=== PATIENT | female | born 1955 | race Caucasian/White ===

== ENCOUNTER → 2017-11-08 | Outpatient (REF) | payer OTHER ==
[2017-11-08 19:59] LABS: BASO # 0.1 10^3/uL (0.0-0.2); BASO % 1.1 % (0.0-1.0); EOS # 0.2 10^3/uL (0.0-0.50); EOS % 2.8 % (0.0-3.0); HEMATOCRIT 45.3 % (36.0-47.0); HEMOGLOBIN 14.9 g/dl (12.0-16.0); IMMATURE GRANULOCYTE % 0.3 % (0-0); LYMPH # 1.6 10^3/uL (1.5-4.5); LYMPH % 21.6 % (24.0-44.0); MEAN CORPUSCULAR HGB CONC 32.9 g/dl (32.0-36.5); MEAN CORPUSCULAR VOLUME 97.2 fl (80.0-96.0); MONO # 0.7 10^3/uL (0.0-0.8); MONO % 9.1 % (0.0-5.0); NEUTROPHILS # 4.7 10^3/uL (1.8-7.7); NEUTROPHILS % 65.1 % (36.0-66.0); PLATELET COUNT, AUTOMATED 268 10^3/uL (150-450); RED BLOOD COUNT 4.66 10^6/uL (4.00-5.40); RED CELL DISTRIBUTION WIDTH 13.2 % (11.5-14.5); WHITE BLOOD COUNT 7.3 10^3/uL (4.0-10.0)
[2017-11-08 20:17] LABS: ALBUMIN 4.3 GM/DL (3.2-5.2); ALKALINE PHOSPHATASE 63 U/L (45-117); ALT/SGPT 16 U/L (12-78); ANION GAP 7 MEQ/L (8-16); AST/SGOT 11 U/L (7-37); BILIRUBIN,TOTAL 0.2 MG/DL (0.2-1.0); BLOOD UREA NITROGEN 15 MG/DL (7-18); CALCIUM LEVEL 9.6 MG/DL (8.8-10.2); CARBON DIOXIDE LEVEL 28 MEQ/L (21-32); CHLORIDE LEVEL 105 MEQ/L (98-107); FREE T4 0.97 NG/DL (0.76-1.46); GLOMERULAR FILTRATION RATE > 60.0 (>45); GLUCOSE, FASTING 90 MG/DL (80-110); SODIUM LEVEL 140 MEQ/L (136-145); TOTAL PROTEIN 7.6 GM/DL (6.4-8.2)
== END ==
LOC: M SFHCADAM 13:54
DX: R53.83 Other fatigue (principal); R19.7 Diarrhea, unspecified

== ENCOUNTER → 2017-11-20 | Outpatient (REF) | payer OTHER | LOC: M SFHCADAM 11:18 | DX: R19.7 Diarrhea, unspecified (principal) | CPT/HCPCS: 87507 ==

== ENCOUNTER → 2018-10-06 | Outpatient (CLI) | payer OTHER, MEDICAID ==
--- NOTE | 2018-10-06 14:05 | REP ---
REASON: Dyspnea and wheezing. COMPARISON: 04/02/2010, which is the latest prior. There is a mild increase in the basilar interstitial markings, status quo, likely from chronic fibrotic changes. The pleural angles are minimally blunted, right greater than left. This too appears to be secondary to chronic change. No acute patchy parenchymal opacities or pleural effusions have developed since the last exam. The heart is not enlarged. The osseous structures stable and intact with spinal degenerative changes, status quo. There is some lung field hyperexpansion. The asymmetric density seen previously in the anterior retrosternal clear space is essentially unchanged. IMPRESSION: Chronic changes, as described above, however, given the history of tobacco abuse, CT lung screening may be in order since plain radiographic evaluation cannot rule out a significant pulmonary nodule. Electronically Signed by Dequan Mckeon DO 10/06/2018 02:07 P
== END ==
LOC: M WUC 12:53
PROVIDERS: ATTEND Physician Assistant
DX: R91.8 Other nonspecific abnormal finding of lung field (principal); R06.02 Shortness of breath; R06.2 Wheezing; Z72.0 Tobacco use

== ENCOUNTER → 2018-11-19 | Outpatient (CLI) | payer OTHER ==
--- NOTE | 2018-11-19 11:17 | REP ---
Clinical: Lung screening. History of nicotine dependence. Comparison: None Technique: Axial low-dose noncontrast images from the thoracic inlet to the upper abdomen using lung screening technique. Images obtained and evaluated in the lung windows only. Findings: The lung das are well-aerated. There appears to be elements of biapical scarring (right greater than left) as well as minimal scarring in the lingula. There is an area of opacity along the medial right upper lobe (image 37) which measures approximately 1.7 cm maximal diameter and while this may represent focal scarring, active process cannot be excluded. No prior examinations are available for comparison. No pleural effusion/reaction or pneumothorax. Tracheobronchial tree is patent. Impression: Examination must be considered Lung-RADS category IV-B. The 17 mm area of opacity along the medial right upper lobe cannot definitively be characterized and no prior examinations are available for comparison. Electronically Signed by Devon Peña MD 11/19/2018 11:09 A
== END ==
LOC: M RAD 10:26
PROVIDERS: ATTEND Internal Medicine Pulmonary Disease
DX: Z12.2 Encounter for screening for malignant neoplasm of respiratory organs (principal); F17.218 Nicotine dependence, cigarettes, with other nicotine-induced disorders; R91.8 Other nonspecific abnormal finding of lung field

== ENCOUNTER → 2018-12-11 | Outpatient (CLI) | payer OTHER ==
--- NOTE | 2018-12-12 20:28 | REP ---
Whole body PET CT scan: The study is performed for evaluation of a lung nodule identified on a low-dose lung screening chest CT. Whole-body scanning is performed from skull base to the upper thighs. Neck and supraclavicular areas: There are no hypermetabolic foci. Chest: The nodule that was identified anteromedially in the right upper lobe on the comparison chest CT dated 11/19/2089 is again identified on the CT accompanying the PET scan today. The nodule demonstrates borderline hypermetabolic uptake with a maximal standard uptake value of 2.9. However, there are two small nodules in the deep lateral sulcus of the right lower lobe. The anterior most nodule measures 1.6 cm in diameter and has a standard uptake value of 5.2 and is hypermetabolic. The posterior more nodule measures 1.4 cm in diameter and has a maximum standard uptake value of 3.2, borderline hypermetabolic. There are no other hypermetabolic foci in the chest. There are no other foci in the chest. Abdomen, pelvis and upper thighs: There are no hypermetabolic foci. Impression: The right upper lobe lung nodule identified on the comparison CT is borderline hypermetabolic. However, there is a hypermetabolic nodule and there is a borderline hypermetabolic nodule in the deep lateral right lower lobe sulcus. No other hypermetabolic foci are identified. The study is performed with 9.18 mCi of F 18 FDG. Electronically Signed by Jake Jain MD 12/12/2018 08:18 P
== END ==
LOC: M PLARAD 16:30
PROVIDERS: ATTEND Internal Medicine Pulmonary Disease
DX: R91.1 Solitary pulmonary nodule (principal)
CPT/HCPCS: 78815; A9552

== ENCOUNTER → 2018-12-24 | Outpatient (REF) | payer OTHER ==
[2018-12-24 18:08] LABS: INR 0.94; PROTHROMBIN TIME 12.7 SECONDS (12.1-14.4)
[2018-12-24 18:09] LABS: PARTIAL THROMBOPLASTIN TIME 29.7 SECONDS (25.4-37.6)
== END ==
LOC: M LAB REF 17:21
PROVIDERS: ATTEND Internal Medicine Pulmonary Disease
DX: Z01.812 Encounter for preprocedural laboratory examination (principal); R94.2 Abnormal results of pulmonary function studies

== ENCOUNTER → 2019-02-11 | Outpatient (CLI) | payer OTHER ==
--- NOTE | 2019-02-11 11:40 | REP ---
CT CHEST WITHOUT CONTRAST: HISTORY: Nonspecific abnormal finding in the lung field. Comparison chest CT study November 19, 2018. Comparison PET/CT study December 11, 2018. FINDINGS: There is a band-like area of pleuroparenchymal opacity in the anterior medial aspect of the right upper lobe again seen. This is essentially unchanged from the November 19, 2018 prior study. It measures 14 x 19 mm in transverse dimension but has a somewhat linear angular fibrotic contour. It is felt to be most compatible with inflammatory change. There is new finding of peribronchovascular consolidation and collapse in the lingular segment of the left upper lobe today. There are some similar inspissated bronchial and peribronchial changes in the left lower lobe at the left base. Very subtle peripheral pleuroparenchymal changes are seen in the right lower lobe laterally in the lateral pleural angle. This area showed increased uptake on recent PET/CT. There are scattered normal-sized mediastinal lymph nodes. The largest lymph node is a precarinal lymph node which measures 10 mm in short axis dimension x 20 mm in transverse dimension. There are two small lymph nodes along the right lateral margin of the upper thoracic esophagus which are normal in size. There is a granulomatous lymph node calcification in the left hilus. No adrenal lesion is seen. Visualized upper abdominal structures are unremarkable. IMPRESSION: Scattered peribronchial and scattered pleuroparenchymal changes bilaterally consistent with inflammatory disease. Electronically Signed by Zachariah Connolly MD 02/11/2019 01:20 P
== END ==
LOC: M RAD 10:30
PROVIDERS: ATTEND Internal Medicine Pulmonary Disease
DX: R91.8 Other nonspecific abnormal finding of lung field (principal)

== ENCOUNTER → 2019-06-04 | Outpatient (CLI) | payer OTHER ==
--- NOTE | 2019-06-04 15:44 | REP ---
REASON: Cough. COMPARISON: 10/06/2018. The lung das are somewhat hyperexpanded. There is fibrotic change throughout the lung das with basilar predominance status quo. The heart is not enlarged. Chronic changes are seen involving the imaged spine status quo. IMPRESSION: Chronic changes. Electronically Signed by Dequan Mckeon DO 06/04/2019 05:09 P
== END ==
LOC: M WUC 12:07
PROVIDERS: ATTEND Nurse Practitioner Family
DX: R05 Cough (principal); R06.02 Shortness of breath; R06.2 Wheezing

== ENCOUNTER → 2019-10-08 | Outpatient (REF) | payer OTHER ==
[2019-10-08 19:38] LABS: HEMATOCRIT 44.1 % (36.0-47.0); HEMOGLOBIN 14.2 g/dl (12.0-15.5); MEAN CORPUSCULAR HEMOGLOBIN 32.4 pg (27.0-33.0); MEAN CORPUSCULAR HGB CONC 32.2 g/dl (32.0-36.5); MEAN CORPUSCULAR VOLUME 100.7 fl (80.0-96.0); PLATELET COUNT, AUTOMATED 212 10^3/uL (150-450); RED BLOOD COUNT 4.38 10^6/uL (4.00-5.40); WHITE BLOOD COUNT 6.7 10^3/uL (4.0-10.0)
[2019-10-08 19:46] LABS: ALBUMIN 3.5 GM/DL (3.2-5.2); ALT/SGPT 21 U/L (12-78); BILIRUBIN,TOTAL 0.2 MG/DL (0.2-1.0); BLOOD UREA NITROGEN 14 MG/DL (7-18); CALCIUM LEVEL 8.5 MG/DL (8.8-10.2); CARBON DIOXIDE LEVEL 31 MEQ/L (21-32); CHLORIDE LEVEL 104 MEQ/L (98-107); CHOLESTEROL LEVEL 235 MG/DL (<200); CHOLESTEROL RISK RATIO 3.405 (<5); CREATININE FOR GFR 0.78 MG/DL (0.55-1.30); FREE T4 0.91 NG/DL (0.76-1.46); GLOMERULAR FILTRATION RATE > 60.0 (>45); GLUCOSE, FASTING 72 MG/DL (70-100); HDL CHOLESTEROL 69 MG/DL (>40); LDL CHOLESTEROL 148 MG/DL (<100); NON-HDL-C 166 MG/DL; SODIUM LEVEL 140 MEQ/L (136-145); TRIGLYCERIDES LEVEL 91 MG/DL (<150)
== END ==
LOC: M SFHCADAM 15:54
PROVIDERS: ATTEND Physician Assistant
DX: F17.200 Nicotine dependence, unspecified, uncomplicated (principal); J44.9 Chronic obstructive pulmonary disease, unspecified; F10.10 Alcohol abuse, uncomplicated; Z12.11 Encounter for screening for malignant neoplasm of colon; E78.2 Mixed hyperlipidemia

== ENCOUNTER → 2019-10-28 | Outpatient (CLI) | payer OTHER ==
--- NOTE | 2019-10-28 14:26 | REP ---
Chest x-ray: Two views. History: Chronic obstructive pulmonary disease. Cough and chest pain on inspiration. Findings: There is a large new infiltrate in the superior segment of the left lower lobe with some consolidation more inferiorly and laterally in the left lower lobe. This is consistent with acute pneumonia. There is some left upper lobe pleuroparenchymal scarring in the retrosternal clear space. An old healed rib fractures noted on the right. Heart size is normal. Lungs are somewhat hyperinflated overall. Impression: Left lower lobe pneumonia. Dense fairly large infiltrate in the superior segment of the left lower lobe. Follow-up films recommended. Electronically Signed by Zachariah Connolly MD 10/28/2019 02:17 P
== END ==
LOC: M WUC 13:40
PROVIDERS: ATTEND Physician Assistant
DX: J18.0 Bronchopneumonia, unspecified organism (principal); J44.1 Chronic obstructive pulmonary disease with (acute) exacerbation

== ENCOUNTER → 2019-11-24 | Outpatient (CLI) | payer OTHER ==
--- NOTE | 2019-11-24 13:38 | REP ---
PA and lateral chest: Comparison is 10/28/2019. There is a persisting infiltrate in the superior segment of the left upper lobe, unchanged from the prior study. The persistence of this finding is bothersome. Chest CT is recommended for further evaluation for assurance there is not a mass. The right lung is clear. Cardiac size normal. The right hilus, mediastinum, skeletal structures are otherwise unremarkable. Impression: Persisting infiltrate in the superior segment of the left upper lobe. CT followup is recommended for assurance there is not a mass. Electronically Signed by Jake Jain MD 11/24/2019 01:29 P
== END ==
LOC: M WUC 13:04
PROVIDERS: ATTEND Physician Assistant
DX: J18.9 Pneumonia, unspecified organism (principal)

== ENCOUNTER → 2020-01-22 | Outpatient (REF) | payer OTHER ==
[2020-01-22 14:02] LABS: BASO # 0.1 10^3/uL (0.0-0.2); EOS # 0.6 10^3/uL (0.0-0.5); EOS % 9.1 % (0.0-3.0); HEMATOCRIT 41.4 % (36.0-47.0); HEMOGLOBIN 13.5 g/dl (12.0-15.5); LYMPH # 0.9 10^3/uL (1.5-5.0); MEAN CORPUSCULAR HEMOGLOBIN 33.3 pg (27.0-33.0); MEAN CORPUSCULAR HGB CONC 32.6 g/dl (32.0-36.5); MONO # 0.6 10^3/uL (0.0-0.8); MONO % 10.1 % (0.0-5.0); NEUTROPHILS # 3.9 10^3/uL (1.5-8.5); NEUTROPHILS % 64.5 % (36.0-66.0); PLATELET COUNT, AUTOMATED 265 10^3/uL (150-450); RED BLOOD COUNT 4.06 10^6/uL (4.00-5.40); WHITE BLOOD COUNT 6.1 10^3/uL (4.0-10.0)
[2020-01-22 14:06] LABS: ALBUMIN 3.3 GM/DL (3.2-5.2); ALT/SGPT 16 U/L (12-78); BILIRUBIN,TOTAL 0.2 MG/DL (0.2-1.0); BLOOD UREA NITROGEN 19 MG/DL (7-18); CALCIUM LEVEL 8.9 MG/DL (8.8-10.2); CARBON DIOXIDE LEVEL 30 MEQ/L (21-32); CHLORIDE LEVEL 108 MEQ/L (98-107); COMPLEMENT C3 108 MG/DL (90-180); COMPLEMENT C4 19 MG/DL (10-40); CREATININE FOR GFR 0.83 MG/DL (0.55-1.30); GLOMERULAR FILTRATION RATE > 60.0 (>45); GLUCOSE, FASTING 78 MG/DL (70-100); POTASSIUM SERUM 4.5 MEQ/L (3.5-5.1); SODIUM LEVEL 141 MEQ/L (136-145); TOTAL PROTEIN 6.9 GM/DL (6.4-8.2)
[2020-01-22 14:25] LABS: ERYTHROCYTE SEDIMENTATION RATE 11 mm/hr (0-30)
== END ==
LOC: M SFHCADAM 12:14
PROVIDERS: ATTEND Physician Assistant
DX: L50.9 Urticaria, unspecified (principal)

== ENCOUNTER → 2020-02-25 | Outpatient (REF) | payer OTHER | LOC: M LAB REF 18:19 | PROVIDERS: ATTEND Dermatology | DX: L43.9 Lichen planus, unspecified (principal) ==

== ENCOUNTER → 2020-03-24 | Outpatient (CLI) | payer OTHER ==
--- NOTE | 2020-04-02 15:07 | REP ---
Clinical: Lung screening. History smoking. Comparison: 02/11/2019 Technique: Axial low-dose noncontrast images from the thoracic inlet to the upper abdomen using lung screening technique. Findings: The current examination demonstrates moderate emphysematous disease and scattered scarring primarily noted in the anterior medial right upper lobe, lingula and right base which appears relatively stable. There is a new 1.7 cm lesion along the medial aspect of the left apex (image 14) as well as a new area of consolidation measuring approximately 3.8 x 2.1 x 2.0 cm along the posterior left lung straddling the superior segment of the left upper lobe and adjacent basilar portion of the posterior left lower lobe (images 28 - 42). No effusion. No pneumothorax. Mild chronic bronchiectasis suggested. Adenopathy cannot be excluded. Atherosclerotic changes to the thoracic aorta and coronary arteries noted. Impression: 1. New areas of concern at the left apex and posterior left mid lung zone as described above. Pulmonary consultation along with short-term follow-up or PET CT should be considered. Electronically Signed by Devon Peña MD 03/25/2020 04:35 A
== END ==
LOC: M RAD 11:00
PROVIDERS: ATTEND Internal Medicine Pulmonary Disease
DX: Z12.2 Encounter for screening for malignant neoplasm of respiratory organs (principal); F17.218 Nicotine dependence, cigarettes, with other nicotine-induced disorders; J43.9 Emphysema, unspecified; I70.0 Atherosclerosis of aorta; I25.10 Atherosclerotic heart disease of native coronary artery without angina pectoris; R91.8 Other nonspecific abnormal finding of lung field

== ENCOUNTER → 2020-04-02 | Outpatient (CLI) | payer OTHER ==
--- NOTE | 2020-04-02 16:19 | REP ---
REASON: Knee pain after trauma 2 weeks ago. There is minimal tricompartmental marginal osteophytosis. There is no fracture, dislocation, or subluxation. IMPRESSION: Slight early degenerative changes. Electronically Signed by Dequan Mckeon DO 04/02/2020 05:07 P
== END ==
LOC: M WUC 14:23
PROVIDERS: ATTEND Physician Assistant
DX: M17.12 Unilateral primary osteoarthritis, left knee (principal)

== ENCOUNTER → 2020-06-09 | Outpatient (CLI) | payer OTHER ==
--- NOTE | 2020-07-20 07:23 | REP ---
WHOLE BODY PET-CT SCAN: Delay in reporting results from hospital computer system malfunction from malware/ ransomware. HISTORY: Evaluation of a lung nodule. On a prior chest CT dated 05/15/20, the focal lung opacity posteriorly in the superior segment of the left lower lobe was again identified and was unchanged from the 03/24/20 CT accompanying the PET scan.. The maximal standard uptake value within this lesion is 2.65, marginally hypermetabolic. There is a focal zone of chronic pleuroparenchymal scarring medially in the right upper lobe that demonstrates non-hypermetabolic uptake with a maximal standard uptake value of 2.16. . On a prior PET scan of 12/11/18, this was borderline hypermetabolic with a standard uptake value of 2.9. One the comparison PET scan, there were 2 nodules in the deep lateral sulcus of the right lower lobe. The more anterior of these 2 nodules is no longer present on the current study. The more posterior of these 2 nodules is again identified and demonstrates a maximal standard uptake value of 1.0, non-hypermetabolic. There are no hypermetabolic foci otherwise in the lung das, mediastinum, shaniqua or axilla on the right or the left. NECK AND SUPRACLAVICULAR AREAS: There is artifactual uptake in tonsillar tissues and vocal cords, similar to the prior study. There are no hypermetabolic foci. ABDOMEN, PELVIS AND UPPER THIGHS: There are no adrenal foci. There are no hepatic foci. There are no hypermetabolic foci otherwise. There is nonspecific bowel uptake. IMPRESSION: There are no hypermetabolic foci. Specifically, the new lesion posteriorly in the superior segment of the left lower lobe demonstrates marginal hypermetabolic uptake, the hypermetabolic threshold being 2.5. There are no foci otherwise. The study is performed with 7.60 mCi of F18 FDG. MTDD
== END ==
LOC: M PLARAD 14:00
PROVIDERS: ATTEND Internal Medicine Pulmonary Disease
DX: R91.8 Other nonspecific abnormal finding of lung field (principal)

== ENCOUNTER → 2020-07-24 | Outpatient (REF) | payer OTHER ==
[2020-07-24 17:10] LABS: BASO % 0.4 % (0.0-1.0); EOS # 0.2 10^3/uL (0.0-0.5); EOS % 2.3 % (0.0-3.0); HEMATOCRIT 47.3 % (36.0-47.0); HEMOGLOBIN 15.5 g/dl (12.0-15.5); LYMPH # 1.5 10^3/uL (1.5-5.0); MEAN CORPUSCULAR HEMOGLOBIN 31.3 pg (27.0-33.0); MEAN CORPUSCULAR HGB CONC 32.8 g/dl (32.0-36.5); MEAN CORPUSCULAR VOLUME 95.6 fl (80.0-96.0); MONO # 0.9 10^3/uL (0.0-0.8); MONO % 9.5 % (0.0-5.0); NEUTROPHILS # 6.6 10^3/uL (1.5-8.5); NEUTROPHILS % 71.5 % (36.0-66.0); PLATELET COUNT, AUTOMATED 252 10^3/uL (150-450); RED BLOOD COUNT 4.95 10^6/uL (4.00-5.40); WHITE BLOOD COUNT 9.3 10^3/uL (4.0-10.0)
[2020-07-24 17:36] LABS: ALBUMIN 3.7 GM/DL (3.2-5.2); ALT/SGPT 21 U/L (12-78); AMYLASE 54 U/L (25-115); BILIRUBIN,TOTAL 0.4 MG/DL (0.2-1.0); BLOOD UREA NITROGEN 26 MG/DL (7-18); CALCIUM LEVEL 9.5 MG/DL (8.8-10.2); CARBON DIOXIDE LEVEL 29 MEQ/L (21-32); CHLORIDE LEVEL 99 MEQ/L (98-107); CREATININE FOR GFR 0.78 MG/DL (0.55-1.30); FREE T4 1.03 NG/DL (0.76-1.46); GLOMERULAR FILTRATION RATE > 60.0 (>45); GLUCOSE, FASTING 91 MG/DL (70-100); LIPASE 111 U/L (73-393); POTASSIUM SERUM 4.2 MEQ/L (3.5-5.1); SODIUM LEVEL 136 MEQ/L (136-145); TOTAL PROTEIN 7.8 GM/DL (6.4-8.2)
[2020-07-24 17:48] LABS: ERYTHROCYTE SEDIMENTATION RATE 8 mm/hr (0-30)
[2020-07-24 18:54] LABS: TOTAL 25(OH) VITAMIN D 17.8 NG/ML (30.0-100.0)
== END ==
LOC: M SFHCADAM 15:51
PROVIDERS: ATTEND Physician Assistant
DX: R10.13 Epigastric pain (principal); R11.0 Nausea; M47.812 Spondylosis without myelopathy or radiculopathy, cervical region; M25.559 Pain in unspecified hip

== ENCOUNTER → 2020-08-10 | Outpatient (CLI) | payer OTHER ==
--- NOTE | 2020-08-10 09:45 | REP ---
INDICATION: CHRONIC NAUSEA, ALCOHOL ABUSE, EPIGASTRIC PAIN COMPARISON: None. TECHNIQUE: Real time carranza scale ultrasound examination using curved array transducer. FINDINGS: Liver demonstrates coarsened echotexture and mildly increased echogenicity without focal hepatic lesions identified. Pancreas is incompletely evaluated due to interposed bowel gas. The gallbladder is normal and without gallstones, wall thickening, or pericholecystic fluid. No biliary ductal dilatation is appreciated and the common bile duct measures 2.4 mm diameter. Right kidney is normal in reniform shape without hydronephrosis and measures 10.8 x 6.3 x 4.9 cm. No ascites in the visualized right upper quadrant. IMPRESSION: 1. Mild hepatocellular disease/hepatosteatosis cannot be excluded. 2. Otherwise normal right upper quadrant/liver ultrasound. <Electronically signed by Devon Peña > 08/10/20 [id number]
== END ==
LOC: M RAD 09:15
PROVIDERS: ATTEND Physician Assistant
DX: R11.0 Nausea (principal); R10.13 Epigastric pain; F10.10 Alcohol abuse, uncomplicated

== ENCOUNTER → 2020-09-02 | Outpatient (CLI) | payer OTHER | LOC: M LABSMTC 11:34 | PROVIDERS: ATTEND Family Medicine | DX: Z20.828 Contact with and (suspected) exposure to other viral communicable diseases (principal) ==

== ENCOUNTER → 2020-10-01 | Outpatient (CLI) | payer OTHER ==
--- NOTE | 2020-10-01 13:55 | REP ---
INDICATION: OTHER NONSPECIFIC ABN FINDINGS OF LUNG FIELD. COMPARISON: Comparison is made with multiple prior chest CTs dated May 15, 2020, March 24, 2020, February 11, 2019, and November 19, 2018.. TECHNIQUE: Helical scanning is acquired and 3 mm axial images are generated. Coronal and sagittal MPR and coronal MIP images are generated. FINDINGS: Preliminary digital driver/merchandiser radiographs are unremarkable. There is no evidence of pleural or pericardial effusion. Some vascular calcification is noted. There is a 2.6 cm low-density area above the left adrenal gland and adjacent to the gastric fundus. Air is seen within this at the time of the PET-CT and this is felt to be a gastric diverticulum which is a normal variant. 9 the visualized upper abdominal structures are otherwise unremarkable. There is a granulomatous lymph node calcifications in the left inferior hilus. No mass or adenopathy is seen. The recently noted pleural based opacity in the superior segment of the left lower lobe is again noted. This measures 4.4 cm in right to left by 1.9 cm anterior-posterior by 2.7 cm cranial to caudal. This is associated with air bronchograms and some atelectatic change. Similar peripheral atelectatic changes with air bronchograms have been noted previously. There is some stable pleuroparenchymal fibrosis in the right upper lobe anteriorly unchanged. An area of a similar opacity was noted previously on the left which is but this has improved. No other pulmonary mass or nodule is seen. There are emphysematous changes. There is a granulomatous calcification in the lingula unchanged. IMPRESSION: Pleural based parenchymal opacity in the superior segment the left lower lobe with volume loss and air bronchograms persists unchanged from most recent prior CT study of May 15, 2020. Chronic pleuroparenchymal fibrotic changes in the right upper lobe. Similar lesions previously identified in the left lower lobe and lingula have resolved. <Electronically signed by Jose Alejandro Connolly > 10/01/20 2024
== END ==
LOC: M RAD 10:49
PROVIDERS: ATTEND Internal Medicine Pulmonary Disease
DX: R91.8 Other nonspecific abnormal finding of lung field (principal)

== ENCOUNTER → 2020-11-04 | Outpatient (CLI) | payer OTHER ==
[~2020-11-04] MED LIST: ABIL1TAB11 PO; ARNU1INH3 INH; ASHW300C PO; BENA25CA4 PO; CLAR10CA3 PO; OMEG350C PO; OMEP40CA97 PO; PAXI40TA10 PO; STIO1AER INH; VENTAER INH; VITA-243 PO; ZINC1TAB2 PO
== END ==
LOC: M LABSMTC 11:53
PROVIDERS: ATTEND Anesthesiology
DX: Z01.812 Encounter for preprocedural laboratory examination (principal); Z20.828 Contact with and (suspected) exposure to other viral communicable diseases

== ENCOUNTER → 2020-11-04 | Outpatient (CLI) | payer OTHER ==
[2020-11-04 16:16] LABS: BASO # 0.1 10^3/uL (0.0-0.2); BASO % 0.9 % (0.0-1.0); EOS # 0.1 10^3/uL (0.0-0.5); EOS % 2.4 % (0.0-3.0); HEMATOCRIT 44.8 % (36.0-47.0); HEMOGLOBIN 14.7 g/dl (12.0-15.5); LYMPH # 0.9 10^3/uL (1.5-5.0); LYMPH % 15.3 % (24.0-44.0); MEAN CORPUSCULAR HEMOGLOBIN 33.9 pg (27.0-33.0); MEAN CORPUSCULAR HGB CONC 32.8 g/dl (32.0-36.5); MEAN CORPUSCULAR VOLUME 103.2 fl (80.0-96.0); MONO # 0.6 10^3/uL (0.0-0.8); MONO % 10.1 % (0.0-5.0); NEUTROPHILS # 4.1 10^3/uL (1.5-8.5); PLATELET COUNT, AUTOMATED 280 10^3/uL (150-450); RED BLOOD COUNT 4.34 10^6/uL (4.00-5.40); WHITE BLOOD COUNT 5.8 10^3/uL (4.0-10.0)
[2020-11-04 16:33] LABS: ALBUMIN 3.5 GM/DL (3.2-5.2); ALT/SGPT 26 U/L (12-78); BILIRUBIN,TOTAL 0.3 MG/DL (0.2-1.0); BLOOD UREA NITROGEN 22 MG/DL (7-18); CALCIUM LEVEL 8.8 MG/DL (8.8-10.2); CARBON DIOXIDE LEVEL 32 MEQ/L (21-32); CHLORIDE LEVEL 101 MEQ/L (98-107); CREATININE FOR GFR 0.72 MG/DL (0.55-1.30); GLOMERULAR FILTRATION RATE > 60.0 (>45); GLUCOSE, FASTING 80 MG/DL (70-100); POTASSIUM SERUM 4.7 MEQ/L (3.5-5.1); RHEUMATOID FACTOR QUANT < 10.0 IU/ML (<15.0); SODIUM LEVEL 135 MEQ/L (136-145)
[2020-11-04 16:39] LABS: INR 0.97; PROTHROMBIN TIME 13.1 SECONDS (12.5-14.3)
[2020-11-04 16:40] LABS: PARTIAL THROMBOPLASTIN TIME 25.1 SECONDS (24.2-38.5)
== END ==
LOC: M PLALAB 12:23
PROVIDERS: ATTEND Internal Medicine Pulmonary Disease
DX: R91.8 Other nonspecific abnormal finding of lung field (principal)

== ENCOUNTER 2020-11-09 06:08 | Day surgery (SDC) | payer OTHER ==
[~2020-11-09] VITALS: Ht 165.1 cm; Wt 77.1 kg
--- OUTSIDE RECORDS SUMMARY | 2020-11-09 06:13 | CCD ---
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 Name Role Phone Kylee Bonilla Unavailable PROBLEMS Type Condition ICD9-CM Code [id number] Code Onset Dates Condition S tatus SNOMED Code Notes Problem Major depressive disorder, recurrent, moderate F33 .1 Active 858597159 Problem Opioid dependence, uncomplicated F11.20 Active 69586174 Problem ETOH abuse F10.10 Active 26847432 Problem 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 Active 746581316 Problem Sciatica, unspecified side M54.30 Active 70166 005 Problem COPD exacerbation J44.1 Active 009391486 Problem Major depressive disorder, single episode, unspecified F32.9 Active 70944466 Problem Anxiety F41.9 Active 17153833 Problem Mixed hyperlipidemia E78.2 Active 591233757 Problem Chronic obstructive pulmonary disease, unspecified COPD ty pe J44.9 Active 71100862 Problem Cigarette nicotine dependence with other nicotin e-induced disorder F17.218 Active [id number] ALLERGIES No Known Allergies ENCOUNTERS from 1955 to 2020-09-08 Encounter Location Date Provider Diagnosis [address] [place] [address] Aug, Lowell Bonilla Major depressive disorder, recurrent, moderate F33.1 IMMUNIZATIONS Vaccine Route Administration Date Status Influenza (18 yrs & older) Flublok IM Intramuscular Oct 08, 2019 Administered Depo-Medrol 80mg (Methylprednisolone Acetate) IM Intramuscular A pril 2019 Administered Pneumococcal Adult 0.5mL (Pneumovax 23) IM Intramuscular Oct 08, 2019 Administered Influenza (6mo & up) Fluzone IM Intramuscular Oct 02, 2012 Ad ministered SOCIAL HISTORY Tobacco Use: Social History Observation Description Date Details (start date - stop date) Current Smoker Sex Assigned At : Social History Observation Description Sex Assigned At Unknown Audit Question Answer Notes Total Score: 11 Interpretation: Simple Advice Language: Question Answer Notes Languages spoken: Latvian Sexual Hx: Question Answer Notes Had sex in the last 12 months (vaginal, oral, or anal)? No Have you ever had an STD? No Drug and Alcohol Question Answer Notes Total Score: 0 Interpretation: No problems reported Alcohol Screening: Question Answer Notes Did you have a drink containing alcohol in the past year? Ye s Points 7 Interpretation Positive How often did you have six or more drinks on one occas ion in the past year? Monthly (2 points) How many drinks did you have on a typica l day when you were drinking in the past year? 3 or 4 (1 point) How often did you have a drink containing alcohol in t he past year? Four or more times a week (4 points) Tobacco Use: Question Answer Notes Are you a: current smoker Patient counseled on the dangers of tobacco use and urged to quit: 10/08/2019 How many cigarettes a day do you smoke? 21-30 REASON FOR REFERRAL No Information VITAL SIGNS No information MEDICATIONS Medication SIG (Take, Route, Frequency, Duration) Notes Start Da te End Date Status Vitamin B Complex - as directed Orally Active [place]-3 + D 500-200 MG-UNIT as directed Orally Active Ashwagandha 500 MG as directed Orally Active Abilify 5 MG 1 tablet Orally Once a day for 30 day(s) 2019 Active Amoxicillin-Pot Clavulanate 875-125 MG 1 tablet Orally every 12 hrs for 10 day(s) Aug, Active Hydrocortisone 1 % 1 application to affected area Externally Twice a day Active Meloxicam 7.5 MG 1 tablet Orally Once a day for 30 day(s) Jul, Not-Taking Omeprazole 40 MG 1 capsule 30 minutes before morning meal Orally Once a day for 30 day(s) Jul, Not-Taking Arnuity Ellipta 200 MCG/ACT INHALE ONE PUFF BY MOUTH O NCE DAILY Inhalation for 30 Active Triamcinolone Acetonide 0.1 % 1 application Externally Two times a Week for 30 Days Active Albuterol Sulfate HFA 108 (90 Base) MCG/ACT 2 puffs In halation Once a day for 30 days Active Tums 500 MG 1 tablet Orally Four times a day Not-Taking PredniSONE 10 MG 4 tabs daily x 2 days, then 3 tabs daily x 2 days then 2 tabs daily x 2 days, then 1 tab daily x 2 days Orally as directed for 10 days Aug, Active Stiolto Respimat 2.5-2.5 MCG/ACT INHALE TWO PUFFS BY M OUT ONCE DAILY Inhalation for 30 Active Benadryl 25 MG 1 capsule as needed Orally every 6 hrs Active Magnesium 100 MG 4 tablets with a meal Orally Once a day for 30 day(s ) Active Paxil 40 MG 1 tablet in the morning once a day orally 30 day(s) Orally Once a day Active PROCEDURES No Information RESULTS No Results REASON FOR VISIT abilify MEDICAL (GENERAL) HISTORY Type Description Date Medical History Contact Dermatitis Medical History moderately severe COPD per Pulmonary Medical History vitamin D deficiency, mild (08/11) Medical History allergic rhinitis Medical History mild C-spine stenosis per CT 02/2011 Medical History H/O opiate dependence - 2018 Medical History Moderately Severe Depression Medical History Hyperlipidemia - ASCVD Risk = 7% 9 Medical History Chronic Contact Dermatitis hands Medical History Smoker Medical History Lung Nodule - Following with Pulmonary - Due for f/u CT 03/2020 Medical History Diarrhea Medical History Unspecified asthma, uncomplicated Medical History Nicotine dependence, unspecified, uncomp licated Medical History Narcotic dependence, in remission Medical History Severe episode of recurrent major depressive disorder, without psychotic features Medical History Cocaine abuse, uncomplicated Medical History fatty liver 08/11 Surgical History tubal ligation 1983 Surgical History teeth extractions with implants put in Surgical History Colonoscopy - Hemorrhoids 2007 Goals Section No Information Health Concerns No Information MEDICAL EQUIPMENT No Information MENTAL STATUS No Information FUNCTIONAL STATUS No Information ASSESSMENTS Encounter Date Diagnosis Assessment Notes Treatment Notes Treatm ent Clinical Notes Aug, Major depressive disorder, recurrent, moderate ( ICD-10 - F33.1) PLAN OF TREATMENT Medication Medication Name Sig Start Date Stop Date PredniSONE 10 MG 4 tabs daily x 2 days, then 3 tabs daily x 2 days then 2 tabs daily x 2 days, then 1 tab daily x 2 days Orally as directed for 10 days Aug, Amoxicillin-Pot Clavulanate 875-125 MG 1 tablet Orally every 12 hrs for 10 day(s) Aug, Abilify 5 MG 1 tablet Orally Once a day for 30 day(s) Aug, Paxil 40 MG 1 tablet in the morning once a day orally 30 day(s) Orally Once a day Insurance Providers Payer Name Payer Address Payer Phone Insured Name Patient Relati onship to Insured Coverage Start Date Coverage End Date [facility] [address] [facility] [id number] MICHEL RAZA self
--- OUTSIDE RECORDS SUMMARY | 2020-11-09 06:13 | CCD ---
Author Author [facility] Organization [facility] Address Unknown Phone Unavailable Care Team Providers Care Air Compressor Mechanic Name Role Phone Kylee Bonilla Unavailable PROBLEMS Type Condition ICD9-CM Code [id number] Code Onset Dates Condition S tatus SNOMED Code Notes Problem Major depressive disorder, recurrent, moderate F33 .1 Active 674575150 Problem Opioid dependence, uncomplicated F11.20 Active 33047889 Problem ETOH abuse F10.10 Active 34568852 Problem 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 Active 888451360 Problem Sciatica, unspecified side M54.30 Active 65065 005 Problem COPD exacerbation J44.1 Active 578268636 Problem Major depressive disorder, single episode, unspecified F32.9 Active 07436277 Problem Anxiety F41.9 Active 42672438 Problem Mixed hyperlipidemia E78.2 Active 790052438 Problem Chronic obstructive pulmonary disease, unspecified COPD ty pe J44.9 Active 61507889 Problem Cigarette nicotine dependence with other nicotin e-induced disorder F17.218 Active [id number] ALLERGIES No Known Allergies ENCOUNTERS from 1955 to 2020-10-01 Encounter Location Date Provider Diagnosis [address] [place] [address] Sep, Lowell Bonilla IMMUNIZATIONS Vaccine Route Administration Date Status Influenza [...] Advice Language: Question Answer Notes Languages spoken: Bulgarian Sexual Hx: Question Answer Notes Had sex [...] B Complex - as directed Orally Active [place]-3 + D 500-200 MG-UNIT as directed Orally [...] 2.5-2.5 MCG/ACT INHALE TWO PUFFS BY M OUTH ONCE DAILY Inhalation for 30 Active Benadryl 25 MG 1 capsule as needed Orally every 6 hrs Active Magnesium 100 MG 4 tablets with a meal Orally Once a day for 30 day(s ) Active Paxil 40 MG 1 tablet in the morning once a day orally 30 day(s) Orally Once a day Active PROCEDURES No Information RESULTS No Results REASON FOR VISIT COVID MEDICAL (GENERAL) HISTORY Type Description Date Medical [...] Cocaine abuse, uncomplicated Medical History fatty liver [place] 08/11 Surgical History tubal ligation 1983 Surgical History teeth extractions with implants put in Surgical History Colonoscopy - Hemorrhoids 2007 Goals Section No Information Health Concerns No Information MEDICAL EQUIPMENT No Information MENTAL STATUS No Information FUNCTIONAL STATUS No Information ASSESSMENTS No Information PLAN OF TREATMENT Medication Medication Name Sig [...] Insured Coverage Start Date Coverage End Date [facility] [address] [facility] [id number] MICHEL RAZA self
--- OUTSIDE RECORDS SUMMARY | 2020-11-09 06:13 | CCD ---
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 Name Role Phone Irene Kylee Unavailable PROBLEMS Type Condition ICD9-CM Code [id number] Code Onset Dates Condition S tatus SNOMED Code Notes Problem Major depressive disorder, recurrent, moderate F33 .1 Active 794925218 Problem Opioid dependence, uncomplicated F11.20 Active 49646730 Problem ETOH abuse F10.10 Active 83289892 Problem 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 Active 869668166 Problem Sciatica, unspecified side M54.30 Active 63692 005 Problem COPD exacerbation J44.1 Active 491215634 Problem Major depressive disorder, single episode, unspecified F32.9 Active 90752776 Problem Anxiety F41.9 Active 64402803 Problem Mixed hyperlipidemia E78.2 Active 608057950 Problem Chronic obstructive pulmonary disease, unspecified COPD ty pe J44.9 Active 15423544 Problem Cigarette nicotine dependence with other nicotin e-induced disorder F17.218 Active [id number] ALLERGIES No Known Allergies ENCOUNTERS from 1957 to 2020-09-09 Encounter Location Date Provider Diagnosis [address] [place] [address] 13 Aug, 2020 Reg fabrice Bonilla Bronchitis J40 ; COPD exacerbation J44.1 and Major depressive disorder, recurrent, moderate F33.1 IMMUNIZATIONS [...] Advice Language: Question Answer Notes Languages spoken: Occitan Sexual Hx: Question Answer Notes Had sex [...] many cigarettes a day do you smoke? - REASON FOR REFERRAL No Information VITAL SIGNS Weight 159 lbs Aug, Height 65.5 in Aug, BMI 26.05 kg/m2 Aug, Heart Rate 106 /min Aug, Respiratory Rate 19 /min Aug, Temperature 96.9 degrees Fahrenheit Aug, Oximetry 99 Aug, Blood pressure systolic 140 mm Hg Aug, Blood pressure diastolic 80 mm Hg Aug, MEDICATIONS Medication SIG (Take, Route, Frequency, Duration) Notes Start Da te End Date Status Vitamin B Complex - as directed Orally Active [place]-3 + D 500-200 MG-UNIT as directed Orally Active Ashwagandha 500 MG as directed Orally Active Abilify 5 MG 1 tablet Orally Once a day for 30 day(s) 17 N 2019 Active Amoxicillin-Pot Clavulanate 875-125 MG 1 [...] day(s) Orally Once a day Active PROCEDURES Procedure Date Ordered Result Body Site Medication: Depo-Medrol 80mg IM (Methylprednisolone Acetate) N/A RESULTS No Results REASON FOR VISIT 6 week med follow up [phone], Pt is c/o coughing,chest congestion,sinus pain,p ost nasal drip x 3 days.pt was covid tested and negative MEDICAL (GENERAL) HISTORY Type Description Date Medical [...] put in Surgical History Colonoscopy - Hemorrhoids 2008 Goals Section No Information Health Concerns No Information MEDICAL EQUIPMENT No Information MENTAL STATUS No Information FUNCTIONAL STATUS No Information ASSESSMENTS Encounter Date Diagnosis Assessment Notes Treatment Notes Treatm ent Clinical Notes Aug, Bronchitis (ICD-10 - J40) Aug, COPD exacerbation (ICD-10 - J44.1) Aug, Major depressive disorder, recurrent, moderate ( [...] orally 30 day(s) Orally Once a day Next Appt Details prn Reason: Insurance Providers Payer Name Payer Address Payer Phone Insured Name Patient Relati onship to Insured Coverage Start Date Coverage End Date FORMERLY [facility] [employer] [address] [facility] [phone] MICHEL RAZA self
--- OUTSIDE RECORDS SUMMARY | 2020-11-09 06:14 | CCD ---
Author Author [facility] Organization [facility] Address Unknown Phone Unavailable Care Team Providers Care Professional Employer Consultant Name Role Phone Mirian Gudino MD Unavailable Unavailable MollisonMirian MD Unavailable Unavailable MollisonMirian MD Unavailable Unavailable MollisonMirian MD Unavailable Unavailable Mollison, Mirian Whatley MD Unavailable Unavailable MollisonMirian MD Unavailable Unavailable MollisonMirian MD Unavailable Unavailable MollisonMirian MD Unavailable Unavailable MollisonMirian MD Unavailable Unavailable MollisonMirian MD Unavailable Unavailable MollisonMirian MD Unavailable Unavailable MollisonMirian MD Unavailable Unavailable MollisonMirian MD Unavailable Unavailable MollisonMirian MD Unavailable Unavailable MollisonMirian MD Unavailable Unavailable MollisonMirian MD Unavailable Unavailable MollisonMirian MD Unavailable Unavailable MollisonMirian MD Unavailable Unavailable MollisonMirian MD Unavailable Unavailable MollisonMirian MD Unavailable Unavailable MollisonMirian MD Unavailable Unavailable IRENE, JEAN CLAUDE PA Unavailable Unavailable IRENE, JEAN CLAUDE PA Unavailable Unavailable IRENE, JEAN CLAUDE PA Unavailable Unavailable IRENE, JEAN CLAUDE PA Unavailable Unavailable IRENE, JEAN CLAUDE PA Unavailable Unavailable IRENE, JEAN CLAUDE PA Unavailable Unavailable IRENE, JEAN CLAUDE PA Unavailable Unavailable IRENE, JEAN CLAUDE PA Unavailable Unavailable IRENE, JEAN CLAUDE PA Unavailable Unavailable IRENE, JEAN CLAUDE PA Unavailable Unavailable IRENE, JEAN CLAUDE PA Unavailable Unavailable IRENE, JEAN CLAUDE PA Unavailable Unavailable IRENE, JEAN CLAUDE PA Unavailable Unavailable IRENE, JEAN CLAUDE PA Unavailable Unavailable IRENE, JEAN CLAUDE PA Unavailable Unavailable IRENE, JEAN CLAUDE PA Unavailable Unavailable IRENE, JEAN CLAUDE PA Unavailable Unavailable IRENE, JEAN CLAUDE PA Unavailable Unavailable IRENE, JEAN CLAUDE PA Unavailable Unavailable IRENE, JEAN CLAUDE PA Unavailable Unavailable IRENE, JEAN CLAUDE PA Unavailable Unavailable IRENE, JEAN CLAUDE PA Unavailable Unavailable IRENE, JEAN CLAUDE PA Unavailable Unavailable IRENE, JEAN CLAUDE PA Unavailable Unavailable IRENE, JEAN CLAUDE PA Unavailable Unavailable IRENE, JEAN CLAUDE PA Unavailable Unavailable IRENE, JEAN CLAUDE PA Unavailable Unavailable IRENE, JEAN CLAUED PA Unavailable Unavailable IRENE, JEAN CLAUDE PA Unavailable Unavailable IRENE, JEAN CLAUDE PA Unavailable Unavailable IRENE, JEAN CLAUDE PA Unavailable Unavailable IRENE, JEAN CLAUDE PA Unavailable Unavailable IRENE, JEAN CLAUDE PA Unavailable Unavailable IRENE, JEAN CLAUDE PA Unavailable Unavailable IRENE, JEAN CLAUDE PA Unavailable Unavailable IRENE, JEAN CLAUDE PA Unavailable Unavailable IRENE, JEAN CLAUDE PA Unavailable Unavailable IRENE, JEAN CLAUDE PA Unavailable Unavailable Payton Cervantes MD Unavailable Unavailable Payton Cervantes MD Unavailable Unavailable Payton Cervantes MD Unavailable Unavailable Payton Cervantes MD Unavailable Unavailable Payton Cervantes MD Unavailable Unavailable Payton Cervantes MD Unavailable Unavailable Payton Cervantes MD Unavailable Unavailable Payton Cervantes MD Unavailable Unavailable Payton Cervantes MD Unavailable Unavailable Payton Cervantes MD Unavailable Unavailable Payton Cervantes MD Unavailable Unavailable Payton Cervantes MD Unavailable Unavailable Payton Cervantes MD Unavailable Unavailable Payton Cervantes MD Unavailable Unavailable Payton Cervantes MD Unavailable Unavailable Payton Cervantes MD Unavailable Unavailable Payton Cervantes MD Unavailable Unavailable Payton Cervantes MD Unavailable Unavailable Payton Cervantes MD Unavailable Unavailable Payton Cervantes MD Unavailable Unavailable Payton Cervantes MD Unavailable Unavailable Payton Cervantes MD Unavailable Unavailable Payton Cervantes MD Unavailable Unavailable Payton Cervantes MD Unavailable Unavailable Payton Cervantes MD Unavailable Unavailable Payton Cervantes MD Unavailable Unavailable Vaneenenaam, Payton Garrido MD Unavailable Unavailable Vaneenenaam, Payton Garrido MD Unavailable Unavailable Vaneenenaam, Payton Garrido MD Unavailable Unavailable Vaneenenaam, Payton Garrido MD Unavailable Unavailable Vaneenenaam, Payton Garrido MD Unavailable Unavailable Vaneenenaam, Payton Garrido MD Unavailable Unavailable Vaneenenaam, Payton Garrido MD Unavailable Unavailable Vaneenenaam, Payton Garrido MD Unavailable Unavailable Vaneenenaam, Payton Garrido MD Unavailable Unavailable Vaneenenaam, Payton Garrido MD Unavailable Unavailable Vaneenenaam, Payton Garrido MD Unavailable Unavailable Vaneenenaam, Payton Garrido MD Unavailable Unavailable Vaneenenaam, Payton Garrido MD Unavailable Unavailable Vaneenenaam, Payton Garrido MD Unavailable Unavailable Vaneenenaam, Payton Garrido MD Unavailable Unavailable Vaneenenaam, Payton Garrido MD Unavailable Unavailable Vaneenenaam, Payton Garrido MD Unavailable Unavailable Vaneenenaam, Payton Garrido MD Unavailable Unavailable BeniPamela brandt MD Unavailable Unavailable Pamela Bazan MD Unavailable Unavailable Pamela Bazan MD Unavailable Unavailable Pamela Bazan MD Unavailable Unavailable Pamela Bazan MD Unavailable Unavailable Pamela Bazan MD Unavailable Unavailable BeniPamela brandt MD Unavailable Unavailable BeniPamela brandt MD Unavailable Unavailable Pamela Bazan MD Unavailable Unavailable Pamela Bazan MD Unavailable Unavailable Pamela Bazan MD Unavailable Unavailable Pamela Bazan MD Unavailable Unavailable Pamela Bazan MD Unavailable Unavailable BeniPamela brandt MD Unavailable Unavailable Pamela Bazan MD Unavailable Unavailable Pamela Bazan MD Unavailable Unavailable Pamela Bazan MD Unavailable Unavailable Pamela Bazan MD Unavailable Unavailable Pamela Bazan MD Unavailable Unavailable Pamela Bazan MD Unavailable Unavailable Pamela Bazan MD Unavailable Unavailable Pamela Bazan MD Unavailable Unavailable Pamela Bazan MD Unavailable Unavailable Re-disclosure Warning The records that you are about to access may contain information from federally-assisted alcohol or drug abuse programs. If such information is present, then the following federally mandated warning applies: This information has been disclosed to you from records protected by federal confidentiality rules (42 CFR part 2). The federal rules prohibit you from making any further disclosure of this information unless further disclosure is expressly permitted by the written consent of the person to whom it pertains or as otherwise permitted by 42 CFR part 2. A general authorization for the release of medical or other information is NOT sufficient for this purpose. The Federal rules restrict any use of the information to criminally investigate or prosecute any alcohol or drug abuse patient.The records that you are about to access may contain highly sensitive health information, the redisclosure of which is protected by Article 27-F of the [facility] Public Health law. If you continue you may have access to information: Regarding HIV / AIDS; Provided by facilities licensed or operated by the [facility] Office of Mental Health; or Provided by the [facility] Office for People With Developmental Disabilities. If such information is present, then the following [facility] mandated warning applies: This information has been disclosed to you from confidential records which are protected by state law. State law prohibits you from making any further disclosure of this information without the specific written consent of the person to whom it pertains, or as otherwise permitted by law. Any unauthorized further disclosure in violation of state law may result in a fine or longterm sentence or both. A general authorization for the release of medical or other information is NOT sufficient authorization for further disc losure. Family History Family Member Name Family Member Gender Family Member Status Date o f Status Description Data Source(s) Unknown Male Problem MEDENT ([facility]) Unknown Unknown Problem MED[facility] ([facility]) Encounters Encounter Providers Location Date Indications Data Source(s ) Unknown [address] [facility] [place] [address] 09/30/2020 12:00:00 AM EST eCW1 ([email or web address] Unknown [address] [facility] [place] [address] 09/08/2020 12:00:00 AM EST eCW1 ([email or web address] Outpatient [address] [facility] [place] [address] 09/04/2020 12:00:00 AM EST eCW1 ([email or web address] Unknown [address] [facility] [place] [address] 09/03/2020 12:00:00 AM EST eCW1 ([email or web address] Unknown [address] [facility] [place] [address] 09/03/2020 12:00:00 AM EST eCW1 ([email or web address] Unknown [address] [facility] [place] [address] 09/01/2020 12:00:00 AM EST eCW1 ([facility]) [place] [address] [facility] [address] [place] [address] 08/18/2020 12:00:00 AM EDT [facility]CW1 ([facility]) [place] [address] [facility] [address] [place] [address] 08/11/2020 12:00:00 AM EDT eCW1 ([email or web address] [place] [address] [facility] [address] [place] [address] 08/04/2020 12:00:00 AM EDT eCW1 ([email or web address] [place] [address] [facility] [address] [place] [address] 07/31/2020 12:00:00 AM EDT eCW1 ([email or web address] [place] [address] [facility] [address] [place] [address] 07/24/2020 12:00:00 AM EDT eCW1 ([email or web address] Outpatient Attender: Pamela Kahn/Meir/Atilio/Hector ndl 05/18/2020 10:30:00 AM EDT MED[facility] ([facility] OFFICE OUTPATIENT NEW 30 MINUTES Attender: Payton Alegria am, MD Physical Therapy 05/08/2020 09:15:00 AM EDT MEDENT ([facility]) Outpatient Attender: Chacorta Kahn/Meir/Atilio/Re indl 04/14/2020 11:30:00 AM EDT MED[facility] ([facility]) Outpatient Attender: JEAN CLAUDE Richards Prima ry 04/09/2020 11:45:00 AM EDT MEDENT ([facility]) Outpatient 04/07/2020 06:16:00 AM EDT [facility] Outpatient Attender: JEAN CLAUDE Richards Prima ry 04/02/2020 12:50:00 PM EDT MEDENT ([facility]) Outpatient Attender: Pamela Kahn/Meir/Atilio/Hector ndl 04/02/2020 11:30:00 AM EDT [facility] ([facility] [place] [address] [facility] [address] [place] [address] 03/31/2020 12:00:00 AM EDT eCW1 ([email or web address] [place] [address] [facility] [address] [place] [address] 03/20/2020 12:00:00 AM EDT eCW1 ([email or web address] [address] [place] [address] 03/03/2020 12:00:00 AM EDT eCW1 ([email or web address] [address] [place] [address] 02/25/2020 12:00:00 AM EDT eCW1 ([email or web address] [address] [facility] [place] [address] 02/20/2020 12:00:00 AM EDT eCW1 ([email or web address] [place] [address] [facility] [place] [address] 01/23/2020 12:00:00 AM EDT eCW1 ([email or web address] [address] [facility] [place] [address] 01/22/2020 12:00:00 AM EDT eCW1 ([email or web address] [address] [facility] [place] [address] 01/20/2020 12:00:00 AM EDT eCW1 ([facility]) [facility] [address] [facility] [place] [address] 12/10/2019 12:00:00 AM EST eCW1 ([email or web address] Outpatient 12/03/2019 03:31:00 PM EST [facility] [address] [facility] [place] [address] 11/28/2019 12:00:00 AM EST eCW1 ([facility]) [facility] [address] [facility] [place] [address] 11/27/2019 12:00:00 AM EST eCW1 ([facility]) [facility] [place] [address] [facility] [place] [address] 11/27/2019 12:00:00 AM EST eCW1 ([facility]) Outpatient Attender: JEAN CLAUDE Richards Prima ry 11/24/2019 11:10:00 AM EST MED[facility] ([facility]) Outpatient 11/11/2019 08:07:00 PM EST [facility] Outpatient Attender: JEAN CLAUDE Richards Prima ry 10/28/2019 12:20:00 PM EST MED[facility] ([facility]) Outpatient Attender: JEAN CLAUDE Richards Prima ry 10/21/2019 12:45:00 PM EST MED[facility] ([facility]) [facility] [place] [address] [facility] [place] [address] 10/08/2019 12:00:00 AM EST eCW1 ([facility]) [facility] [place] [address] [facility] [place] [address] 09/11/2019 12:00:00 AM EST eCW1 ([facility]) Immunizations Vaccine Date Status Description Data Source(s) Depo-Medrol 80mg (Methylprednisolone Acetate) 01/22/2020 02: 41:00 PM EDT completed eCW1 ([facility]) Depo-Medrol 80mg (Methylprednisolone Acetate) 01/22/2020 02: 41:00 PM EDT completed eCW1 ([facility]) Depo-Medrol 80mg (Methylprednisolone Acetate) 01/22/2020 02: 41:00 PM EDT completed eCW1 ([facility]) Depo-Medrol 80mg (Methylprednisolone Acetate) 01/22/2020 02: 41:00 PM EDT completed eCW1 ([facility]) Depo-Medrol 80mg (Methylprednisolone Acetate) 01/22/2020 02: 41:00 PM EDT completed eCW1 ([facility]) Depo-Medrol 80mg (Methylprednisolone Acetate) 01/22/2020 02: 41:00 PM EDT completed eCW1 ([facility]) Depo-Medrol 80mg (Methylprednisolone Acetate) 01/22/2020 02: 41:00 PM EDT completed eCW1 ([facility]) Depo-Medrol 80mg (Methylprednisolone Acetate) 01/22/2020 02: 41:00 PM EDT completed eCW1 ([facility]) Depo-Medrol 80mg (Methylprednisolone Acetate) 01/22/2020 02: 41:00 PM EDT completed eCW1 ([facility]) Depo-Medrol 80mg (Methylprednisolone Acetate) 01/22/2020 02: 41:00 PM EDT completed eCW1 ([facility]) Depo-Medrol 80mg (Methylprednisolone Acetate) 01/22/2020 02: 41:00 PM EDT completed eCW1 ([facility]) Depo-Medrol 80mg (Methylprednisolone Acetate) 01/22/2020 02: 41:00 PM EDT completed eCW1 ([facility]) pneumococcal polysaccharide PPV23 10/08/2019 04:06:00 PM EST comple hamlet eCW1 ([facility]) pneumococcal polysaccharide PPV23 10/08/2019 04:06:00 PM EST comple hamlet eCW1 ([facility]) pneumococcal polysaccharide PPV23 10/08/2019 04:06:00 PM EST comple hamlet eCW1 ([facility]) pneumococcal polysaccharide PPV23 10/08/2019 04:06:00 PM EST comple hamlet eCW1 ([facility]) pneumococcal polysaccharide PPV23 10/08/2019 04:06:00 PM EST comple hamlet eCW1 ([facility]) pneumococcal polysaccharide PPV23 10/08/2019 04:06:00 PM EST comple hamlet eCW1 ([facility]) pneumococcal polysaccharide PPV23 10/08/2019 04:06:00 PM EST comple hamlet eCW1 ([facility]) pneumococcal polysaccharide PPV23 10/08/2019 04:06:00 PM EST comple hamlet eCW1 ([facility]) pneumococcal polysaccharide PPV23 10/08/2019 04:06:00 PM EST comple hamlet eCW1 ([facility]) pneumococcal polysaccharide PPV23 10/08/2019 04:06:00 PM EST comple hamlet eCW1 ([facility]) pneumococcal polysaccharide PPV23 10/08/2019 04:06:00 PM EST comple hamlet eCW1 ([facility]) pneumococcal polysaccharide PPV23 10/08/2019 04:06:00 PM EST comple hamlet eCW1 ([facility]) pneumococcal polysaccharide PPV23 10/08/2019 04:06:00 PM EST comple hamlet eCW1 ([facility]) influenza, recombinant, quadrIvalent,injectable, prese rvative free 10/08/2019 04:05:00 PM EST completed eCW1 ([facility]) influenza, recombinant, quadrIvalent,injectable, prese rvative free 10/08/2019 04:05:00 PM EST completed eCW1 ([facility]) influenza, recombinant, quadrIvalent,injectable, prese rvative free 10/08/2019 04:05:00 PM EST completed eCW1 ([facility]) influenza, recombinant, quadrIvalent,injectable, prese rvative free 10/08/2019 04:05:00 PM EST completed eCW1 ([facility]) influenza, recombinant, quadrIvalent,injectable, prese rvative free 10/08/2019 04:05:00 PM EST completed eCW1 ([facility]) influenza, recombinant, quadrIvalent,injectable, prese rvative free 10/08/2019 04:05:00 PM EST completed eCW1 ([facility]) influenza, recombinant, quadrIvalent,injectable, prese rvative free 10/08/2019 04:05:00 PM EST completed eCW1 ([facility]) influenza, recombinant, quadrIvalent,injectable, prese rvative free 10/08/2019 04:05:00 PM EST completed eCW1 ([facility]) influenza, recombinant, quadrIvalent,injectable, prese rvative free 10/08/2019 04:05:00 PM EST completed eCW1 ([facility]) influenza, recombinant, quadrIvalent,injectable, prese rvative free 10/08/2019 04:05:00 PM EST completed eCW1 ([facility]) influenza, recombinant, quadrIvalent,injectable, prese rvative free 10/08/2019 04:05:00 PM EST completed eCW1 ([facility]) influenza, recombinant, quadrIvalent,injectable, prese rvative free 10/08/2019 04:05:00 PM EST completed eCW1 ([facility]) influenza, recombinant, quadrIvalent,injectable, prese rvative free 10/08/2019 04:05:00 PM EST completed eCW1 ([facility]) Medications Medication Brand Name Start Date Product Form Dose Route Admi nistrative Instructions Pharmacy Instructions Status Indications Reaction Description Data Source(s) aripiprazole 5 MG Oral Tablet [Abilify] Abilify 5 MG Abilify 5 MG 09/08/2020 12:00:00 AM EST 1.0 {tablet} active Ab ilify 5 MG eCW1 ([facility]) aripiprazole 5 MG Oral Tablet [Abilify] Abilify 5 MG Abilify 5 MG 09/08/2020 12:00:00 AM EST 1.0 {tablet} active Ab ilify 5 MG eCW1 ([facility]) aripiprazole 5 MG Oral Tablet [Abilify] Abilify 5 MG Abilify 5 MG 09/08/2020 12:00:00 AM EST 1.0 {tablet} active Ab ilify 5 MG eCW1 ([facility]) Amoxicillin 875 MG / Clavulanate 125 MG Oral Tablet Amoxicillin-Pot Clavulanate 875-125 MG Amoxicillin-Pot Clavulanate 875-125 MG 09/04/2020 12:00:00 AM ES T 1.0 {tablet} active Amoxicillin-Pot Cla vulanate 875-125 MG eCW1 ([facility]) Prednisone 10 MG Oral Tablet PredniSONE 10 MG PredniSONE 10 MG 09/04/2020 12:00:00 AM EST active PredniSO NE 10 MG eCW1 ([facility]) Prednisone 10 MG Oral Tablet PredniSONE 10 MG PredniSONE 10 MG 09/04/2020 12:00:00 AM EST active PredniSO NE 10 MG eCW1 ([facility]) Prednisone 10 MG Oral Tablet PredniSONE 10 MG PredniSONE 10 MG 09/04/2020 12:00:00 AM EST active PredniSO NE 10 MG eCW1 ([facility]) Prednisone 10 MG Oral Tablet PredniSONE 10 MG PredniSONE 10 MG 09/04/2020 12:00:00 AM EST active PredniSO NE 10 MG eCW1 ([facility]) Amoxicillin 875 MG / Clavulanate 125 MG Oral Tablet Amoxicillin-Pot Clavulanate 875-125 MG Amoxicillin-Pot Clavulanate 875-125 MG 09/04/2020 12:00:00 AM ES T 1.0 {tablet} active Amoxicillin-Pot Cla vulanate 875-125 MG eCW1 ([facility]) Amoxicillin 875 MG / Clavulanate 125 MG Oral Tablet Amoxicillin-Pot Clavulanate 875-125 MG Amoxicillin-Pot Clavulanate 875-125 MG 09/04/2020 12:00:00 AM ES T 1.0 {tablet} active Amoxicillin-Pot Cla vulanate 875-125 MG eCW1 ([facility]) Amoxicillin 875 MG / Clavulanate 125 MG Oral Tablet Amoxicillin-Pot Clavulanate 875-125 MG Amoxicillin-Pot Clavulanate 875-125 MG 09/04/2020 12:00:00 AM ES T 1.0 {tablet} active Amoxicillin-Pot Cla vulanate 875-125 MG eCW1 ([facility]) aripiprazole 2 MG Oral Tablet [Abilify] Abilify 2 MG Abilify 2 MG 08/18/2020 12:00:00 AM EDT 1.0 {tablet} active Ab ilify 2 MG eCW1 ([facility]) aripiprazole 2 MG Oral Tablet [Abilify] Abilify 2 MG Abilify 2 MG 08/18/2020 12:00:00 AM EDT 2.0 {tablets} active A bilify 2 MG eCW1 ([facility]) aripiprazole 2 MG Oral Tablet [Abilify] Abilify 2 MG Abilify 2 MG 08/18/2020 12:00:00 AM EDT 1.0 {tablet} active Ab ilify 2 MG eCW1 ([facility]) aripiprazole 2 MG Oral Tablet [Abilify] Abilify 2 MG Abilify 2 MG 08/18/2020 12:00:00 AM EDT 1.0 {tablet} active Ab ilify 2 MG eCW1 ([facility]) meloxicam 7.5 MG Oral Tablet Meloxicam 7.5 MG Meloxicam 7.5 MG 07/24/2020 12:00:00 AM EDT 1.0 {tablet} suspended Meloxicam 7.5 MG eCW1 ([facility]) meloxicam 7.5 MG Oral Tablet Meloxicam 7.5 MG Meloxicam 7.5 MG 07/24/2020 12:00:00 AM EDT 1.0 {tablet} active Me loxicam 7.5 MG eCW1 ([facility]) meloxicam 7.5 MG Oral Tablet Meloxicam 7.5 MG Meloxicam 7.5 MG 07/24/2020 12:00:00 AM EDT 1.0 {tablet} active Me loxicam 7.5 MG eCW1 ([facility]) meloxicam 7.5 MG Oral Tablet Meloxicam 7.5 MG Meloxicam 7.5 MG 07/24/2020 12:00:00 AM EDT 1.0 {tablet} suspended Meloxicam 7.5 MG eCW1 ([facility]) meloxicam 7.5 MG Oral Tablet Meloxicam 7.5 MG Meloxicam 7.5 MG 07/24/2020 12:00:00 AM EDT 1.0 {tablet} suspended Meloxicam 7.5 MG eCW1 ([facility]) meloxicam 7.5 MG Oral Tablet Meloxicam 7.5 MG Meloxicam 7.5 MG 07/24/2020 12:00:00 AM EDT 1.0 {tablet} active Me loxicam 7.5 MG eCW1 ([facility]) Omeprazole 40 MG Delayed Release Oral Capsule Omeprazole 40 MG 07/24/2020 12:00:00 AM EDT suspended Omepr azole 40 MG eCW1 ([facility]) Omeprazole 40 MG Delayed Release Oral Capsule Omeprazole 40 MG 07/24/2020 12:00:00 AM EDT suspended Omepr azole 40 MG eCW1 ([facility]) Omeprazole 40 MG Delayed Release Oral Capsule Omeprazole 40 MG 07/24/2020 12:00:00 AM EDT active Omeprazo le 40 MG eCW1 ([facility]) Omeprazole 40 MG Delayed Release Oral Capsule Omeprazole 40 MG 07/24/2020 12:00:00 AM EDT active Omeprazo le 40 MG eCW1 ([facility]) meloxicam 7.5 MG Oral Tablet Meloxicam 7.5 MG Meloxicam 7.5 MG 07/24/2020 12:00:00 AM EDT 1.0 {tablet} active Me loxicam 7.5 MG eCW1 ([facility]) Omeprazole 40 MG Delayed Release Oral Capsule Omeprazole 40 MG 07/24/2020 12:00:00 AM EDT active Omeprazo le 40 MG eCW1 ([facility]) Omeprazole 40 MG Delayed Release Oral Capsule Omeprazole 40 MG 07/24/2020 12:00:00 AM EDT suspended Omepr azole 40 MG eCW1 ([facility]) Omeprazole 40 MG Delayed Release Oral Capsule Omeprazole 40 MG 07/24/2020 12:00:00 AM EDT active Omeprazo le 40 MG eCW1 ([facility]) Omeprazole 40 MG Delayed Release Oral Capsule Omeprazole 40 MG 07/24/2020 12:00:00 AM EDT suspended Omepr azole 40 MG eCW1 ([facility]) Omeprazole 40 MG Delayed Release Oral Capsule Omeprazole 40 MG 07/24/2020 12:00:00 AM EDT suspended Omepr azole 40 MG eCW1 ([facility]) Omeprazole 40 MG Delayed Release Oral Capsule Omeprazole 40 MG 07/24/2020 12:00:00 AM EDT suspended Omepr azole 40 MG eCW1 ([facility]) meloxicam 7.5 MG Oral Tablet Meloxicam 7.5 MG Meloxicam 7.5 MG 07/24/2020 12:00:00 AM EDT 1.0 {tablet} active Me loxicam 7.5 MG eCW1 ([facility]) Omeprazole 40 MG Delayed Release Oral Capsule Omeprazole 40 MG 07/24/2020 12:00:00 AM EDT suspended Omepr azole 40 MG eCW1 ([facility]) meloxicam 7.5 MG Oral Tablet Meloxicam 7.5 MG Meloxicam 7.5 MG 07/24/2020 12:00:00 AM EDT 1.0 {tablet} suspended Meloxicam 7.5 MG eCW1 ([facility]) meloxicam 7.5 MG Oral Tablet Meloxicam 7.5 MG Meloxicam 7.5 MG 07/24/2020 12:00:00 AM EDT 1.0 {tablet} active Me loxicam 7.5 MG eCW1 ([facility]) meloxicam 7.5 MG Oral Tablet Meloxicam 7.5 MG Meloxicam 7.5 MG 07/24/2020 12:00:00 AM EDT 1.0 {tablet} active Me loxicam 7.5 MG eCW1 ([facility]) Triamcinolone Acetonide 1 MG/ML Topical Cream Triamcin olone Acetonide 0.1 % Triamcinolone Acetonide 0.1 % 02/25/2020 12:00:00 AM EDT active 1 application eCW1 ([facility]) Prednisone 20 MG Oral Tablet PredniSONE 20 MG PredniSONE 20 MG 02/25/2020 12:00:00 AM EDT active as direc hmalet eCW1 ([facility]) Prednisone 20 MG Oral Tablet PredniSONE 20 MG PredniSONE 20 MG 01/23/2020 12:00:00 AM EDT suspended 2 tab let eCW1 ([facility]) Prednisone 20 MG Oral Tablet PredniSONE 20 MG PredniSONE 20 MG 01/23/2020 12:00:00 AM EDT 2.0 {tablet} suspended PredniSONE 20 MG eCW1 ([facility]) Prednisone 20 MG Oral Tablet PredniSONE 20 MG PredniSONE 20 MG 01/23/2020 12:00:00 AM EDT 2.0 {tablet} suspended PredniSONE 20 MG eCW1 ([facility]) Prednisone 20 MG Oral Tablet PredniSONE 20 MG PredniSONE 20 MG 01/23/2020 12:00:00 AM EDT 2.0 {tablet} active Pr edniSONE 20 MG eCW1 ([facility]) Nystatin 748241 UNT/ML Oral Suspension Nystatin 433965 UNIT/ML Nystatin 793425 UNIT/ML 12/10/2019 12:00:00 AM EST 4.0 {ml} suspende d Nystatin 131713 UNIT/ML eCW1 ([facility]) Nystatin 122385 UNT/ML Oral Suspension Nystatin 156714 UNIT/ML Nystatin 813476 UNIT/ML 12/10/2019 12:00:00 AM EST suspended 4 ml eCW1 ([facility]) Nystatin 739857 UNT/ML Oral Suspension Nystatin 795555 UNIT/ML Nystatin 177204 UNIT/ML 12/10/2019 12:00:00 AM EST 4.0 {ml} suspende d Nystatin 859923 UNIT/ML eCW1 ([facility]) Nystatin 852520 UNT/ML Oral Suspension Nystatin 107395 UNIT/ML Nystatin 703029 UNIT/ML 12/10/2019 12:00:00 AM EST active 4 ml eCW1 ([facility]) 20 mg 11/24/2019 12:00:00 AM EST tablet 8 TAKE TWO TABLETS BY MOUTH EVERY DAY FOR 4 DAYS TAKE TWO TABLETS BY MOUTH EVERY DAY FOR 4 DAYS SOLD: 020 [facility] Prednisone 20 MG Oral Tablet Prednisone 11/24/2019 12:00:00 AM EST ORAL completed MEDENT ([facility]) 875-125 mg 11/24/2019 12:00:00 AM EST tablet 20 TAKE ONE TABLET BY MOUTH TWICE A DAY FOR 10 DAYS TAKE ONE TABLET BY MOUTH TWICE A DAY FOR 10 DAYS SOLD: 11/24/2019 [facility] Amoxicillin 875 MG / Clavulanate 125 MG Oral Tablet Am oxicillin/Clavulanate Potassium 11/24/2019 12:00:00 AM EST ORAL completed MEDENT ([facility]) Rocephin/Ceftriaxone Sodium Injection Per 250 MG 10/28 12:00:00 AM EST completed MEDENT ([facility]) Medication administered onsite Levofloxacin 750 MG Oral Tablet [Levaquin] Levaquin 10/28 12:00:00 AM EST ORAL completed MEDENT ([facility]) Methylprednisolone Sodium Succinate To 125 MG 10/21/2019 1 2:00:00 AM EST completed MEDENT ([facility]) Medication administered onsite Methylprednisolone 4 MG Oral Tablet Methylprednisolone 09/24 12:00:00 AM EST ORAL completed MEDENT ([facility], [facility]) Insurance Providers Payer name Policy type / Coverage type Policy ID Covered constitution party ID Covered constitution party's relationship to [place] Policy [place] Plan Information [facility] [id number] SP [id number] [facility] O [id number] S [id number] [facility] [id number] SP [id number] [facility] COMMUN[facility]AN [facility] [id number] SP [id number] [facility] COMM[facility]AN [facility] [id number] SP [id number] [facility] Health Maintenance Organization (HMO) [id number] Self [id number] ANSI-Medicaid [id number] ANSI-Medicaid [id number] [facility] COMMUNITY PLAN [facility] [id number] SP [id number] [facility] COMM[facility]ITY [facility]AN [facility] [id number] SP [id number] [facility] [id number] [facility]) O [id number] S [id number] [employer] Health Maintenance Organization (HMO) [id number] Self [id number] [facility] [id number] SP [id number] [employer] Health Maintenance Organization (O) [id number] Self [id number] ANSI-Medicaid [id number] [facility] [id number] SP [id number] SELF PAY ONLY UNAVAILABLE SP UNAV AILABLE [employer] CLAIMS [id number] Problems, Conditions, and Diagnoses Code Display Name Description Problem Type Effective Dates Data Source(s) J44.1 [id number] COPD exacerbation Problem 09/04/2020 12:00:0 0 AM EST eCW1 ([facility]) M47.812 [id number] 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 Problem 07/24/2020 12:00:00 AM EDT eCW1 ([facility]) F17.218 [id number] Cigarette nicotine d ependence with other nicotine- induced disorder Problem 11/27/2019 12:00:00 AM EST eCW1 ([facility]) F17.218 [id number] Cigarette nicotine d ependence with other nicotine- induced disorder Problem 11/27/2019 12:00:00 AM EST eCW1 ([facility]) J44.9 [id number] Chronic obstructive pulmonary di sease, unspecified COPD type Problem 10/08/2019 12:00:00 AM EST eCW1 ([facility]) E78.2 Mixed hyperlipidemia Mixed hyperlipidemia Problem 10/08/2019 12:00:00 AM EST eCW1 ([facility]) E78.2 Mixed hyperlipidemia Mixed hyperlipidemia Problem 10/08/2019 12:00:00 AM EST eCW1 ([facility]) J44.9 [id number] Chronic obstructive pulmonary di sease, unspecified COPD type Problem 10/08/2019 12:00:00 AM EST eCW1 ([facility]) Surgeries/Procedures Procedure Description Date Indications Data Source(s) Injection, methylprednisolone acetate, 80 mg 0 12:00:00 AM EST eCW1 ([facility]) ARTHROCENTESIS ASPIR&/INJECTION MAJOR JT/BURSA 020 12:00:00 AM EDT PARKER ([facility]) Spirometry 04/02/2020 12:00:00 AM EDT Debi WATSON ([facility]) PUNCH BX SKIN SINGLE LESION 02/25/2020 12:00:00 AM EDT eCW1 ([facility]) Therapeutic, Prophylactic Or Diagnostic Injection Subq/Im 10/28/2019 12:00:00 AM EST MEDENT ([facility]) Therapeutic, Prophylactic Or Diagnostic Injection Subq/Im 10/21/2019 12:00:00 AM EST MEDENT ([facility]) Pneumococcal Adult 0.5mL (Pneumovax 23) 10/08/2019 12: 00:00 AM EST eCW1 ([facility]) RIV4 VACC RECOMBINANT DNA IM 10/08/2019 12:00:00 AM ES T eCW1 ([facility]) IMMUNIZATION ADMIN 10/08/2019 12:00:00 AM EST eCW1 ([facility]) IMMUNIZATION ADMIN EACH ADD 10/08/2019 12:00:00 AM EST eCW1 ([facility]) Results ID Date Data Source [id number] 11/04/2020 11:55:00 AM EST [facility] Name Value Range Interpretation Code Description Data Janessa rce(s) Supporting Document(s) SARS coronavirus 2 RNA Not Detected [facility] [place] This lab was ordered by [facility] and reported by [facility]. ID Date Data Source [id number] 09/02/2020 12:00:00 PM EST [facility] Name Value Range Interpretation Code Description Data Janessa rce(s) Supporting Document(s) SARS coronavirus 2 RNA [facility] This lab was ordered by [facility] and reported by [facility]. ID Date Data Source [facility] LIVER US 08/11/2020 05:32:50 AM EDT eCW1 ([facility]) Name Value Range Interpretation Code Description Data Janessa rce(s) Supporting Document(s) eCW1 ([facility]) ID Date Data Source VITAMIN D 25-HYDROXY 07/28/2020 06:22:32 AM EDT eCW1 ([facility]) Name Value Range Interpretation Code Description Data Janessa rce(s) Supporting Document(s) 17.8 eCW1 ([facility]) ID Date Data Source AMYLASE 07/27/2020 10:04:42 AM EDT eCW1 ([facility]) Name Value Range Interpretation Code Description Data Janessa rce(s) Supporting Document(s) 54 eCW1 ([facility]) ID Date Data Source C REACTIVE PROTEIN QUANTITATIV (At [facility]) 07/27/2020 10:04 :39 AM EDT eCW1 ([facility]) Name Value Range Interpretation Code Description Data Janessa rce(s) Supporting Document(s) 0.30 eCW1 ([facility]) ID Date Data Source FREE T4 & TSH PANEL 07/27/2020 10:04:36 AM EDT eCW1 ([facility]) Name Value Range Interpretation Code Description Data Janessa rce(s) Supporting Document(s) 4.530 THYROID STIMULATING HORMONE eC W1 ([facility]) 1.03 FREE T4 eCW1 ([facility]) ID Date Data Source CBC with Differential 07/27/2020 10:04:32 AM EDT eCW1 ([facility]) Name Value Range Interpretation Code Description Data Janessa rce(s) Supporting Document(s) 9.3 eCW1 ([facility]) 4.95 eCW1 ([facility]) 15.5 eCW1 ([facility]) 47.3 eCW1 ([facility]) 31.3 eCW1 ([facility]) 95.6 eCW1 ([facility]) 32.8 eCW1 ([facility]) 14.0 eCW1 ([facility]) 71.5 eCW1 ([facility]) 252 eCW1 ([facility]) 16.0 eCW1 ([facility]) 6.6 eCW1 ([facility]) 0.4 eCW1 ([facility]) 2.3 eCW1 ([facility]) 9.5 eCW1 ([facility]) 0.2 eCW1 ([facility]) 0.9 eCW1 ([facility]) 0.0 eCW1 ([facility]) 1.5 eCW1 ([facility]) ID Date Data Source LIPASE 07/27/2020 10:04:26 AM EDT eCW1 ([facility]) Name Value Range Interpretation Code Description Data Janessa rce(s) Supporting Document(s) 111 eCW1 ([facility]) ID Date Data Source Comprehensive Metabolic Profile (CMP) 07/27/2020 10:04:23 AM EDT eCW1 ([facility]) Name Value Range Interpretation Code Description Data Janessa rce(s) Supporting Document(s) 91 GLUCOSE, FASTING eCW1 ([facility]) 136 SODIUM LEVEL eCW1 ([facility]) > 60.0 GLOMERULAR FILTRATION RATE eCW 1 ([facility]) 26 BLOOD UREA NITROGEN eCW1 ([facility]) 0.78 CREATININE FOR GFR eCW1 ([facility]) 4.2 POTASSIUM SERUM eCW1 ([facility]) 99 CHLORIDE LEVEL eCW1 ([facility]) 29 CARBON DIOXIDE LEVEL eCW1 ([facility]) 9.5 CALCIUM LEVEL eCW1 ([facility]) 15 AST/SGOT eCW1 ([facility]) 21 ALT/SGPT eCW1 ([facility]) 97 ALKALINE PHOSPHATASE eCW1 ([facility]) 0.4 BILIRUBIN,TOTAL eCW1 ([facility]) 0.9 ALBUMIN/GLOBULIN RATIO eCW1 ([facility]) 7.8 TOTAL PROTEIN eCW1 ([facility]) 3.7 ALBUMIN eCW1 ([facility]) ID Date Data Source ERYTHROCYTE SEDIMENTATION RATE 07/27/2020 10:04:16 AM EDT eC W1 ([facility]) Name Value Range Interpretation Code Description Data Janessa rce(s) Supporting Document(s) 8 eCW1 ([facility]) ID Date Data Source [id number] 04/02/2020 11:09:00 AM EDT MEDENT ([facility] ) Name Value Range Interpretation Code Description Data Janessa rce(s) Supporting Document(s) FVC-Pred 3.25 L MEDENT ([facility], ) FVC-Pre 2.29 L MEDENT ([facility]) PDFReport Laboratory test result MEDENT ([facility], ) FVC-%Pred-Pre 70 L MEDENT ([facility], ) FVC-LLN 2.56 L MEDENT ([facility]) Fev1-Pred 2.50 L MEDENT ([facility]) Fev1-Pre 1.44 L MEDENT ([facility]) Fev1-LLN 1.92 L MEDENT ([facility]) Fev6-Pred 3.13 L MEDENT ([facility]) Fev1-%Pred-Pre 57 L MEDENT ([facility]) Fev6-Pre 2.27 L MEDENT ([facility]) Fev6-%Pred-Pre 72 L MEDENT ([facility]) Fev6-LLN 2.45 L MEDENT ([facility]) Eog6gof-Bjam 78 % MEDENT ([facility]) Upv1cet-%Pred-Pre 80 % MEDENT ([facility]) Llb5okn-Jdt 63 % MED[facility] ([facility]) Ilp4fin-ZRQ 68 % [facility] ([facility]) Bfp6krf-%Pred-Pre 102 % MEDENT ([facility]) Jwj7rsl-Onc 99 % MEDENT ([facility]) Xvj1eje-Nilc 96 % MEDENT ([facility]) FEFMax-Pred 6.18 L/E/sec MEDENT ([facility], ) FEFMax-Pre 4.04 L/E/sec MEDENT ([facility]) FEFMax-LLN 4.46 L/E/sec MEDENT ([facility]) FEFMax-%Pred-Pre 65 L/E/sec MEDENT ([facility]) Ejr0516-%Pred-Pre 31 L/E/sec MEDENT ([facility]) Ocv9011-Kufg 2.26 L/E/sec MEDENT ([facility]) Fke8423-Ngk 0.71 L/E/sec MEDENT ([facility]) Gxh1jon8-Rmu 63 % MEDENT ([facility]) Pdd7564-HWF 1.02 L/E/sec MEDENT ([facility]) ExpTime-Pre 6.73 sec MEDENT ([facility]) Oqy8mhz9-Maod 80 % MEDENT ([facility]) Dhk4mjg0-%Pred-Pre 78 % MED[facility] ([facility]) Wyz7lka2-GPV 72 % MEDENT ([facility]) ID Date Data Source CBC 10/08/2019 12:00:00 AM EST eCW1 ([facility]) Name Value Range Interpretation Code Description Data Janessa rce(s) Supporting Document(s) 6.7 4.0-10.0 WHITE BLOOD COUNT eCW1 ([facility]) 14.2 12.0-15.5 HEMOGLOBIN eCW1 ([facility]) 44.1 36.0-47.0 HEMATOCRIT eCW1 ([facility]) 4.38 4.00-5.40 RED BLOOD COUNT eCW1 ([facility]) 32.2 32.0-36.5 MEAN CORPUSCULAR HGB CONC eCW1 ([facility]) 32.4 27.0-33.0 MEAN CORPUSCULAR HEMOGLOB IN eCW1 ([facility]) 100.7 80.0-96.0 MEAN CORPUSCULAR VOLUME e CW1 ([facility]) 212 150-450 PLATELET COUNT, AUTOMATED eCW1 ([facility]) 12.9 11.5-14.5 RED CELL DISTRIBUTION WID TH eCW1 ([facility]) Procedure Social History Code Duration Value Status Description Data Source(s ) Smoking 09/04/2020 12:00:00 AM EST Current Smoker completed Curre nt Smoker eCW1 ([facility]) Smoking 09/04/2020 12:00:00 AM EST Current Smoker completed Curre nt Smoker eCW1 ([facility]) Smoking 09/04/2020 12:00:00 AM EST Current Smoker completed Curre nt Smoker eCW1 ([facility]) Smoking 09/04/2020 12:00:00 AM EST Current Smoker completed Curre nt Smoker eCW1 ([facility]) Smoking 08/18/2020 12:00:00 AM EDT Current Smoker completed Curre nt Smoker eCW1 ([facility]) Smoking 08/18/2020 12:00:00 AM EDT Current Smoker completed Curre nt Smoker eCW1 ([facility]) Smoking 08/18/2020 12:00:00 AM EDT Current Smoker completed Curre nt Smoker eCW1 ([facility]) Smoking 07/24/2020 12:00:00 AM EDT Current Smoker completed Curre nt Smoker eCW1 ([facility]) Smoking 07/24/2020 12:00:00 AM EDT Current Smoker completed Curre nt Smoker eCW1 ([facility]) Smoking 07/24/2020 12:00:00 AM EDT Current Smoker completed Curre nt Smoker eCW1 ([facility]) Smoking 07/24/2020 12:00:00 AM EDT Current Smoker completed Curre nt Smoker eCW1 ([facility]) Smoking 03/20/2020 12:00:00 AM EDT Current Smoker completed Curre nt Smoker eCW1 ([facility]) Vital Signs ID Date Data Source UNK Name Value Range Interpretation Code Description Data Source(s) Diastolic blood pressure 80 mm[Hg] 80 mm[Hg] eCW1 ([facility]) Systolic blood pressure 140 mm[Hg] 140 mm[Hg] e CW1 ([facility]) Body temperature 96.9 [degF] 96.9 [degF] eCW1 ( [facility]) Respiratory rate 19 /min 19 /min eCW1 ([facility]) Heart rate 106 /min 106 /min eCW1 ([facility]) Body mass index (BMI) [Ratio] 26.05 kg/m2 26.05 kg/m2 eCW1 ([facility]) Body height 65.5 [in_i] 65.5 [in_i] eCW1 ([facility]) Body weight 159 [lb_av] 159 [lb_av] eCW1 ([facility]) Diastolic blood pressure 84 mm[Hg] 84 mm[Hg] eCW1 ([facility]) Systolic blood pressure 122 mm[Hg] 122 mm[Hg] e CW1 ([facility]) Body temperature 97.2 [degF] 97.2 [degF] eCW1 ( [facility]) Respiratory rate 18 /min 18 /min eCW1 ([facility]) Heart rate 108 /min 108 /min eCW1 ([facility]) Body mass index (BMI) [Ratio] 25.82 kg/m2 25.82 kg/m2 eCW1 ([facility]) Body height 65.5 [in_i] 65.5 [in_i] eCW1 ([facility]) Body weight 157.6 [lb_av] 157.6 [lb_av] eCW1 ([facility]) Diastolic blood pressure 82 mm[Hg] 82 mm[Hg] eCW1 ([facility]) Systolic blood pressure 130 mm[Hg] 130 mm[Hg] e CW1 ([facility]) Body temperature 96.5 [degF] 96.5 [degF] eCW1 ( [facility]) Respiratory rate 18 /min 18 /min eCW1 ([facility]) Heart rate 100 /min 100 /min eCW1 ([facility]) Body mass index (BMI) [Ratio] 24.78 kg/m2 24.78 kg/m2 eCW1 ([facility]) Body height 65.5 [in_i] 65.5 [in_i] eCW1 ([facility]) Body weight 151.2 [lb_av] 151.2 [lb_av] eCW1 ([facility]) Body weight 67.360 kg 67.360 kg [facility] Body mass index (BMI) [Ratio] 25.5 kg/m2 25.5 k g/m2 [facility] Body weight 148.50 [lb_av] 148.50 [lb_av] MEDEN T ([facility]) Body height 64 [in_i] 64 [in_i] [facility] 5'4" Body temperature 97.4 [degF] 97.4 [degF] [facility] ([facility]) Oxygen saturation in Arterial blood by Pulse oximetry 92 % 92 % [facility] ([facility]) Heart rate 75 /min 75 /min [facility] ([facility]) Diastolic blood pressure 76 mm[Hg] 76 mm[Hg] [facility] ([facility]) Systolic blood pressure 148 mm[Hg] 148 mm[Hg] [facility] ([facility]) Body weight 67.586 kg 67.586 kg [facility] ([facility]) Body mass index (BMI) [Ratio] 25.6 kg/m2 25.6 k g/m2 [facility] ([facility]) Body weight 149.00 [lb_av] 149.00 [lb_av] MEDEN T ([facility]) Body height 64 [in_i] 64 [in_i] [facility] ([facility]) 5'4" Body temperature 97.0 [degF] 97.0 [degF] [facility] ([facility]) Heart rate 68 /min 68 /min [facility] ([facility]) Diastolic blood pressure 68 mm[Hg] 68 mm[Hg] [facility] ([facility]) Systolic blood pressure 122 mm[Hg] 122 mm[Hg] M [facility] ([facility]) Body mass index (BMI) [Ratio] 24.1 kg/m2 24.1 k g/m2 MEDENT ([facility]) Body height 65 [in_i] 65 [in_i] MEDENT ([facility], [facility]) 5'5" Body weight 145.00 [lb_av] 145.00 [lb_av] MEDEN T ([facility], [facility]) Body temperature 98.7 [degF] 98.7 [degF] MEDENT ([facility], [facility]) Oxygen saturation in Arterial blood by Pulse oximetry 91 % 91 % MED[facility] ([facility], [facility]) Respiratory rate 20 /min 20 /min MED[facility] ( [facility]) Heart rate 84 /min 84 /min [facility]) Diastolic blood pressure 64 mm[Hg] 64 mm[Hg] [facility] Systolic blood pressure 130 mm[Hg] 130 mm[Hg] [facility] ([facility], [facility]) Body temperature 98.3 [degF] 98.3 [degF] MEDENT ([facility], [facility]) Oxygen saturation in Arterial blood by Pulse oximetry 93 % 93 % [facility] ([facility], [facility]) Heart rate 97 /min 97 /min MEDENT ([facility], [facility]) Diastolic blood pressure 72 mm[Hg] 72 mm[Hg] [facility] ([facility]) Systolic blood pressure 132 mm[Hg] 132 mm[Hg] [facility] Body mass index (BMI) [Ratio] 24.1 kg/m2 24.1 k g/m2 MEDENT ([facility], [facility]) Body height 65 [in_i] 65 [in_i] MEDENT ([facility], [facility]) 5'5" Body weight 145.00 [lb_av] 145.00 [lb_av] MEDEN T ([facility], [facility]) Body weight 69.854 kg 69.854 kg [facility] Medical Practice, ) Body mass index (BMI) [Ratio] 26.4 kg/m2 26.4 k g/m2 MEDENT ([facility]) Body weight 154.00 [lb_av] 154.00 [lb_av] MEDEN T ([facility]) Body height 64 [in_i] 64 [in_i] [facility] 5'4" Body temperature 98.1 [degF] 98.1 [degF] [facility] ([facility]) Oxygen saturation in Arterial blood by Pulse oximetry 90 % 90 % [facility] ([facility]) Room Air Heart rate 83 /min 83 /min [facility] ([facility]) Diastolic blood pressure 76 mm[Hg] 76 mm[Hg] [facility] Systolic blood pressure 128 mm[Hg] 128 mm[Hg] [facility] Body mass index (BMI) [Ratio] 25.23 kg/m2 25.23 kg/m2 W1 ([facility]) Body height 65.5 [in_i] 65.5 [in_i] W1 ([facility]) Body weight 154 [lb_av] 154 [lb_av] W1 ([facility]) Diastolic blood pressure 64 mm[Hg] 64 mm[Hg] eCW1 ([facility]) Systolic blood pressure 142 mm[Hg] 142 mm[Hg] e CW1 ([facility]) Body mass index (BMI) [Ratio] 25.37 kg/m2 25.37 kg/m2 W1 ([facility]) Body height 65.5 [in_us] 65.5 [in_us] eCW1 ([facility]) Body weight Measured 154.8 [lb_av] 154.8 [lb_av ] eCW1 ([facility]) Diastolic blood pressure 68 mm[Hg] 68 mm[Hg] eCW1 ([facility]) Systolic blood pressure 120 mm[Hg] 120 mm[Hg] e CW1 ([facility]) Body temperature 96.3 [degF] 96.3 [degF] eCW1 ( [facility]) Respiratory rate 18 /min 18 /min eCW1 ([facility]) Heart rate 89 /min 89 /min eCW1 ([facility]) Body mass index (BMI) [Ratio] 24.38 kg/m2 24.38 kg/m2 eCW1 ([facility]) Body height 65.5 [in_us] 65.5 [in_us] eCW1 ([facility]) Body weight Measured 148.8 [lb_av] 148.8 [lb_av ] eCW1 ([facility]) Body mass index (BMI) [Ratio] 24.1 kg/m2 24.1 k g/m2 MEDENT ([facility]) Body height 65 [in_i] 65 [in_i] MEDENT ([facility]) 5'5" Body weight 145.00 [lb_av] 145.00 [lb_av] MEDEN T ([facility], [facility]) Body temperature 98.4 [degF] 98.4 [degF] MEDENT ([facility], [facility]) Oxygen saturation in Arterial blood by Pulse oximetry 93 % 93 % [facility] ([facility], [facility]) Respiratory rate 16 /min 16 /min MEDENT ( [facility], [facility]) Heart rate 93 /min 93 /min MEDENT ([facility], [facility]) Diastolic blood pressure 74 mm[Hg] 74 mm[Hg] MEDENT ([facility], [facility]) Systolic blood pressure 143 mm[Hg] 143 mm[Hg] M EDENT ([facility], [facility]) Body mass index (BMI) [Ratio] 24.1 kg/m2 24.1 k g/m2 MEDENT ([facility], [facility]) Body height 65 [in_i] 65 [in_i] MEDENT ([facility], [facility]) 5'5" Body weight 145.00 [lb_av] 145.00 [lb_av] MEDEN T ([facility], [facility]) Body temperature 98.5 [degF] 98.5 [degF] MEDENT ([facility], [facility]) Oxygen saturation in Arterial blood by Pulse oximetry 92 % 92 % MEDENT ([facility], [facility]) Respiratory rate 18 /min 18 /min MEDENT ( [facility], [facility]) Heart rate 92 /min 92 /min MEDENT ([facility], [facility]) Diastolic blood pressure 76 mm[Hg] 76 mm[Hg] MEDENT ([facility], [facility]) Systolic blood pressure 124 mm[Hg] 124 mm[Hg] M EDENT ([facility], [facility]) Body mass index (BMI) [Ratio] 24.1 kg/m2 24.1 k g/m2 MEDENT ([facility], [facility]) Body height 65 [in_i] 65 [in_i] MEDENT ([facility], [facility]) 5'5" Body weight 145.00 [lb_av] 145.00 [lb_av] MEDEN T ([facility], [facility]) Body temperature 98.6 [degF] 98.6 [degF] MEDENT ([facility], [facility]) Oxygen saturation in Arterial blood by Pulse oximetry 89 % 89 % MEDENT ([facility], [facility]) ra Respiratory rate 14 /min 14 /min MEDENT ( [facility], [facility]) Heart rate 104 /min 104 /min MEDENT ([facility], [facility]) Diastolic blood pressure 60 mm[Hg] 60 mm[Hg] MEDENT ([facility], [facility]) Systolic blood pressure 96 mm[Hg] 96 mm[Hg] M EDENT ([facility], [facility]) Diastolic blood pressure 62 mm[Hg] 62 mm[Hg] eCW1 ([facility]) Systolic blood pressure 120 mm[Hg] 120 mm[Hg] e CW1 ([facility]) Body temperature 98 [degF] 98 [degF] eCW1 ([facility]) Respiratory rate 18 /min 18 /min eCW1 ([facility]) Heart rate 78 /min 78 /min eCW1 ([facility]) Body mass index (BMI) [Ratio] 23.89 kg/m2 23.89 kg/m2 eCW1 ([facility]) Body height 65.5 [in_us] 65.5 [in_us] eCW1 ([facility]) Body weight Measured 145.8 [lb_av] 145.8 [lb_av ] eCW1 ([facility]) Patient Treatment Plan of Care Planned Activity Planned Date Details Description Data Source (s) aripiprazole 5 MG Oral Tablet [Abilify] 09/08/2020 12:00:00 AM EST eCW1 ([facility]) aripiprazole 5 MG Oral Tablet [Abilify] 09/08/2020 12:00:00 AM EST eCW1 ([facility]) aripiprazole 5 MG Oral Tablet [Abilify] 09/08/2020 12:00:00 AM EST eCW1 ([facility]) Prednisone 10 MG Oral Tablet 09/04/2020 12:00:00 AM EST eCW1 ([facility]) Amoxicillin 875 MG / Clavulanate 125 MG Oral Tablet 09/04/20 12:00:00 AM EST eCW1 ([facility]) Prednisone 10 MG Oral Tablet 09/04/2020 12:00:00 AM EST eCW1 ([facility]) Amoxicillin 875 MG / Clavulanate 125 MG Oral Tablet 09/04/20 12:00:00 AM EST eCW1 ([facility]) Prednisone 10 MG Oral Tablet 09/04/2020 12:00:00 AM EST eCW1 ([facility]) Amoxicillin 875 MG / Clavulanate 125 MG Oral Tablet 09/04/20 12:00:00 AM EST eCW1 ([facility]) Prednisone 10 MG Oral Tablet 09/04/2020 12:00:00 AM EST eCW1 ([facility]) Amoxicillin 875 MG / Clavulanate 125 MG Oral Tablet 09/04/20 12:00:00 AM EST eCW1 ([facility]) aripiprazole 2 MG Oral Tablet [Abilify] 08/18/2020 12:00:00 AM EDT eCW1 ([facility]) aripiprazole 2 MG Oral Tablet [Abilify] 08/18/2020 12:00:00 AM EDT eCW1 ([facility]) aripiprazole 2 MG Oral Tablet [Abilify] 08/18/2020 12:00:00 AM EDT eCW1 ([facility]) aripiprazole 2 MG Oral Tablet [Abilify] 08/18/2020 12:00:00 AM EDT eCW1 ([facility]) meloxicam 7.5 MG Oral Tablet 07/24/2020 12:00:00 AM EDT eCW1 ([facility]) Omeprazole 40 MG Delayed Release Oral Capsule 07/24/2020 12:00:00 A M EDT eCW1 ([facility]) meloxicam 7.5 MG Oral Tablet 07/24/2020 12:00:00 AM EDT eCW1 ([facility]) Omeprazole 40 MG Delayed Release Oral Capsule 07/24/2020 12:00:00 A M EDT eCW1 ([facility]) meloxicam 7.5 MG Oral Tablet 07/24/2020 12:00:00 AM EDT eCW1 ([facility]) Omeprazole 40 MG Delayed Release Oral Capsule 07/24/2020 12:00:00 A M EDT eCW1 ([facility]) meloxicam 7.5 MG Oral Tablet 07/24/2020 12:00:00 AM EDT eCW1 ([facility]) Omeprazole 40 MG Delayed Release Oral Capsule 07/24/2020 12:00:00 A M EDT eCW1 ([facility]) Triamcinolone Acetonide 1 MG/ML Topical Cream 02/25/2020 12:00:00 A M EDT eCW1 ([facility]) Prednisone 20 MG Oral Tablet 02/25/2020 12:00:00 AM EDT eCW1 ([facility]) Prednisone 20 MG Oral Tablet 01/23/2020 12:00:00 AM EDT eCW1 ([facility]) Nystatin 519949 UNT/ML Oral Suspension 12/10/2019 12:00:00 AM EST eCW1 ([facility])
--- OUTSIDE RECORDS SUMMARY | 2020-11-09 06:14 | CCD ---
Author Author [facility] Organization [facility] Address Unknown Phone Unavailable Care Team Providers Care Reporting Developer Name Role Phone Irene Kylee Unavailable PROBLEMS Type Condition ICD9-CM Code [id number] Code Onset Dates Condition S tatus SNOMED Code Notes Problem Sciatica, unspecified side M54.30 Active 47634 005 Problem Major depressive disorder, recurrent, moderate F33 .1 Active 340492220 Problem Opioid dependence, uncomplicated F11.20 Active 54056267 Problem Cigarette nicotine dependence with other nicotin e-induced disorder F17.218 Active 89092840250286355 Problem Major depressive disorder, single episode, unspecified F32.9 Active 25048968 Problem 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 Active 358450618 Problem ETOH abuse F10.10 Active 41686784 Problem Anxiety F41.9 Active 08882979 Problem Chronic obstructive pulmonary disease, unspecified COPD ty pe J44.9 Active 25551976 Problem Mixed hyperlipidemia E78.2 Active [id number] ALLERGIES No Known Allergies ENCOUNTERS from 1955 to 2020-08-12 Encounter Location Date Provider Diagnosis [facility] [address] [place] [address] Jul, Reg fabrice Bonilla Epigastric pain R10.13 ; Chronic nausea R11.0 ; ETOH abuse F10.10 ; Spondylosis of cervical region without myelopathy or radiculopathy M47.812 ; Hip pain M25.559 and Major depressive disorder, single episode, unspecified F32.9 IMMUNIZATIONS Vaccine Route Administration Date Status Influenza [...] Advice Language: Question Answer Notes Languages spoken: Mauritanian Sexual Hx: Question Answer Notes Had sex [...] FOR REFERRAL No Information VITAL SIGNS Weight 151.2 lbs Jul, Height 65.5 in Jul, BMI 24.78 kg/m2 Jul, Heart Rate 100 /min Jul, Respiratory Rate 18 /min Jul, Temperature 96.5 degrees Fahrenheit Jul, Oximetry 94 Jul, Blood pressure systolic 130 mm Hg Jul, Blood pressure diastolic 82 mm Hg Jul, MEDICATIONS Medication SIG (Take, Route, Frequency, Duration) Start Date En d Date Status Arnuity Ellipta 200 MCG/ACT INHALE ONE PUFF BY MOUTH O NCE DAILY Inhalation for 30 Active Triamcinolone Acetonide 0.1 % 1 application Externally Two times a Week for 30 Days Active Omeprazole 40 MG 1 capsule 30 minutes before morning meal Orally Once a day for 30 day(s) Jul, Active Paxil 40 MG 1 tablet in the morning once a day orally 30 day(s) Orally Once a day for 30 days Active Benadryl 25 MG 1 capsule as needed Orally every 6 hrs Active Meloxicam 7.5 MG 1 tablet Orally Once a day for 30 day(s) Jul, Active Albuterol Sulfate HFA 108 (90 Base) MCG/ACT 2 puffs In halation Once a day for 30 days Active Stiolto Respimat 2.5-2.5 MCG/ACT INHALE TWO PUFFS BY M OUT ONCE DAILY Inhalation for 30 Active Hydrocortisone 1 % 1 application to affected area Externally Twice a day Active Tums 500 MG 1 tablet Orally Four times a day Active PROCEDURES No Information RESULTS REASON FOR VISIT been feeling off for a few months and nauseased,tired, med refill paxil MEDICAL (GENERAL) HISTORY Type Description Date Medical History Contact Dermatitis Medical History moderately severe COPD per Pulmonary Medical History vitamin D deficiency Medical History allergic rhinitis Medical History mild [...] psychotic features Medical History Cocaine abuse, uncomplicated Surgical History tubal ligation 1983 Surgical History teeth extractions with implants put in Surgical History Colonoscopy - Hemorrhoids 2007 Goals Section No Information Health Concerns No Information MEDICAL EQUIPMENT No Information MENTAL STATUS No Information FUNCTIONAL STATUS No Information ASSESSMENTS Encounter Date Diagnosis Notes Jul, Spondylosis of cervical hawa on without myelopathy or radiculopathy (ICD-10 - M47.812) Jul, ETOH abuse (ICD-10 - F10.10) Jul, Major depressive disorder, s catalino episode, unspecified (ICD-10 - F32.9) Jul, Hip pain (ICD-10 - M25.559) Jul, Chronic nausea (ICD-10 - R11.0) Jul, Epigastric pain (ICD-10 - R10.13) PLAN OF TREATMENT Medication Medication Name Sig Start Date Stop Date Tums 500 MG 1 tablet Orally Four times a day Paxil 40 MG 1 tablet in the morning once a day orally 30 day(s) Orally Once a day for 30 days Omeprazole 40 MG 1 capsule 30 minutes before morning meal Orally Once a day for 30 day(s) Jul, Meloxicam 7.5 MG 1 tablet Orally Once a day for 30 day(s) Jul Next Appt Details labs today, f/u 4 - 6 weeks Reason: Provider Name:Denise Toure, 2020-08-13 01:30:00 PM, [address], [place], [address], Provider Name:Kylee Bonilla, 2020-08 01:00:00 PM, [address], [place], [address], Insurance Providers Payer Name Payer Address Payer Phone Insured Name Patient Relati onship to Insured Coverage Start Date Coverage End Date [facility] [address] [facility] [address] [phone] MICHEL SAWYER self
--- OUTSIDE RECORDS SUMMARY | 2020-11-09 06:14 | CCD ---
Author Author [facility] Organization [facility] Address Unknown Phone Unavailable Care Team Providers Care Delivery Crew Member Name Role Phone Kylee Bonilla Unavailable PROBLEMS Type Condition ICD9-CM Code [id number] Code Onset Dates Condition S tatus SNOMED Code Notes Problem Sciatica, unspecified side M54.30 Active 50057 005 Problem Major depressive disorder, recurrent, moderate F33 .1 Active 810201095 Problem Opioid dependence, uncomplicated F11.20 Active 41402914 Problem Cigarette nicotine dependence with other nicotin e-induced disorder F17.218 Active 92038346826258608 Problem Major depressive disorder, single episode, unspecified F32.9 Active 49539609 Problem 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 Active 821284633 Problem ETOH abuse F10.10 Active 70747021 Problem Anxiety F41.9 Active 58972359 Problem Chronic obstructive pulmonary disease, unspecified COPD ty pe J44.9 Active 34770324 Problem Mixed hyperlipidemia E78.2 Active 853012426 ALLERGIES No Known Allergies ENCOUNTERS from 1955 to 2020-08-26 Encounter Location Date Provider Diagnosis [facility] [address] [place] [address] Jul, Reg fabrice Bonilla Major depressive disorder, recurrent, moderate F33.1 ; ETOH abuse F10.10 and Generalized abdominal pain R10.84 IMMUNIZATIONS Vaccine Route Administration Date Status Influenza [...] Advice Language: Question Answer Notes Languages spoken: Urdu Sexual Hx: Question Answer Notes Had sex [...] FOR REFERRAL No Information VITAL SIGNS Weight 157.6 lbs Jul, Height 65.5 in Jul, BMI 25.82 kg/m2 Jul, Heart Rate 108 /min Jul, Respiratory Rate 18 /min Jul, Temperature 97.2 degrees Fahrenheit Jul, Oximetry 92 Jul, Blood pressure systolic 122 mm Hg Jul, Blood pressure diastolic 84 mm Hg Jul, MEDICATIONS Medication SIG (Take, Route, Frequency, Duration) Start Date En d Date Status Tums 500 MG 1 tablet Orally Four times a day Not-Taking Abilify 2 MG 1 tablet Orally Once a day for 30 day(s) Jul, Active Albuterol Sulfate HFA 108 (90 Base) MCG/ACT 2 puffs In halation Once a day for 30 days Active Benadryl 25 MG 1 capsule as needed Orally every 6 hrs Active Triamcinolone Acetonide 0.1 % 1 application Externally Two times a Week for 30 Days Active Arnuity Ellipta 200 MCG/ACT INHALE ONE PUFF BY MOUTH O NCE DAILY Inhalation for 30 Active Hydrocortisone 1 % 1 application to affected area Externally Twice a day Active Paxil 40 MG 1 tablet in the morning once a day orally 30 day(s) Orally Once a day Active Omeprazole 40 MG 1 capsule 30 minutes before morning meal Orally Once a day for 30 day(s) Jul, Not-Taking Stiolto Respimat 2.5-2.5 MCG/ACT INHALE TWO PUFFS BY M OUTH ONCE DAILY Inhalation for 30 Active Meloxicam 7.5 MG 1 tablet Orally Once a day for 30 day(s) Jul, Active PROCEDURES No Information RESULTS No Results REASON FOR VISIT stomach issues-bloating,upset [id number], refused flu MEDICAL (GENERAL) HISTORY Type Description Date Medical [...] liver US 08/11 Surgical History tubal ligation 1984 Surgical History teeth extractions with implants put in Surgical History Colonoscopy - Hemorrhoids 2007 Goals Section No Information Health Concerns No Information MEDICAL EQUIPMENT No Information MENTAL STATUS No Information FUNCTIONAL STATUS No Information ASSESSMENTS Encounter Date Diagnosis Notes Jul, Generalized abdominal pain (ICD-10 - R10 .84) Jul, ETOH abuse (ICD-10 - F10.10) Jul, Major depressive disorder, recurrent, mo derate (ICD-10 - F33.1) PLAN OF TREATMENT Medication Medication Name Sig Start Date Stop Date Abilify 2 MG 1 tablet Orally Once a day for 30 day(s) Jul, Paxil 40 MG 1 tablet in the morning once a day orally 30 day(s) Orally Once a day Treatment Notes Assessment Notes Clinical Notes Major depressive disorder, recurrent, moderate pt asking to try adding Abilify. Has a hx ETOH and drug abuse, may indicate some borderline bipolar tendencies. Advised risks, including wt gain. Start with 2 mg daily, paln to inc to 5mg if no SE Generalized abdominal pain advised GI re ferral. On chronic NSAIDs Next Appt Details has already Reason: Provider Name:Kylee Bonilla, 2020-08 01:00:00 PM, [address], [place], [address], Insurance Providers Payer Name Payer Address Payer Phone Insured Name Patient Relati onship to Insured Coverage Start Date Coverage End Date [facility] [employer] [facility]AN [facility] [address] [facility] [id number] MICHEL RAZA self
--- OUTSIDE RECORDS SUMMARY | 2020-11-09 06:14 | CCD ---
Author Author [facility] Organization [facility] Address Unknown Phone Unavailable Care Team Providers Care Proof Sorter Name Role Phone Kylee Bonilla Unavailable PROBLEMS Type Condition ICD9-CM Code [id number] Code Onset Dates Condition S tatus SNOMED Code Notes Problem Sciatica, unspecified side M54.30 Active 25280 005 Problem Major depressive disorder, recurrent, moderate F33 .1 Active 030197710 Problem Opioid dependence, uncomplicated F11.20 Active 04051147 Problem Cigarette nicotine dependence with other nicotin e-induced disorder F17.218 Active 94982858787563929 Problem Major depressive disorder, single episode, unspecified F32.9 Active 11634099 Problem 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 Active 713417123 Problem ETOH abuse F10.10 Active 86775806 Problem Anxiety F41.9 Active 39005463 Problem Chronic obstructive pulmonary disease, unspecified COPD ty pe J44.9 Active 64463969 Problem Mixed hyperlipidemia E78.2 Active 739788305 ALLERGIES No Known Allergies ENCOUNTERS from 1955 to 2020-09-02 Encounter Location Date Provider Diagnosis [address] [address] Aug, Kylee Bonilla IMMUNIZATIONS Vaccine Route Administration Date Status [...] Advice Language: Question Answer Notes Languages spoken: Divehi Sexual Hx: Question Answer Notes Had sex [...] Once a day for 30 day(s) Jul, 020 Active PROCEDURES No Information RESULTS No Results REASON FOR VISIT cough wants earlier appt MEDICAL (GENERAL) HISTORY Type Description Date Medical [...] fatty liver 08/11 Surgical History tubal ligation 1984 Surgical [...] Orally Once a day Next Appt Details Provider Name:Kylee Irene 2019-11 - 01:00:00 PM, [address] [place], [address], Insurance Providers Payer Name Payer Address Payer Phone Insured Name Patient Relati onship to Insured Coverage Start Date Coverage End Date [facility] [employer] [facility] [address] [facility] [phone] MICHEL RAZA self
--- OUTSIDE RECORDS SUMMARY | 2020-11-09 06:14 | CCD ---
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 Active 076741831 Problem Sciatica, unspecified side M54.30 Active 49765 005 Problem COPD exacerbation J44.1 Active 741349914 Problem Major depressive disorder, single episode, unspecified F32.9 Active 77684189 Problem Anxiety F41.9 Active 84366369 Problem Mixed hyperlipidemia E78.2 Active 367082920 Problem Chronic obstructive pulmonary disease, unspecified COPD ty pe J44.9 Active 59373748 Problem Cigarette nicotine dependence with other nicotin e-induced disorder F17.218 Active [id number] ALLERGIES No Known Allergies ENCOUNTERS from 1955 to 2020-09-04 Encounter Location Date Provider Diagnosis [address] [place] [address] Aug, Lowell Bonilla IMMUNIZATIONS Vaccine Route Administration Date [...] Advice Language: Question Answer Notes Languages spoken: Faroese Sexual Hx: Question Answer Notes Had sex [...] Duration) Start Date En d Date Status [place]-3 + D 500-200 MG-UNIT as directed Orally Active Abilify 2 MG 2 tablets Orally Once a day for 30 days Jul, Active Ashwagandha 500 MG as directed Orally Act fidelina Vitamin B Complex - as directed Orally Ac tive Amoxicillin-Pot Clavulanate 875-125 MG 1 tablet Orally every 12 hrs for 10 day(s) Aug, Active Hydrocortisone 1 % 1 application to affected area Externally Twice a day Active Meloxicam 7.5 MG 1 tablet Orally Once a day for 30 day(s) Jul, 020 Not-Taking Omeprazole 40 MG 1 capsule 30 [...] meal Orally Once a day for 30 day (s) Active Paxil 40 MG 1 tablet in the morning once a day orally 30 day(s) Orally Once a day Active PROCEDURES No Information RESULTS No Results REASON FOR VISIT covid results before test MEDICAL (GENERAL) HISTORY Type Description Date Medical [...] 12 hrs for 10 day(s) Aug, Abilify 2 MG 2 tablets Orally Once a day for 30 days Jul, Paxil 40 MG 1 tablet in the morning once a day orally 30 day(s) Orally Once a day Insurance Providers Payer Name Payer Address Payer Phone Insured Name Patient Relati onship to Insured Coverage Start Date Coverage End Date [facility] [address] [facility] [phone] MICHEL RAZA self
--- OUTSIDE RECORDS SUMMARY | 2020-11-09 06:14 | CCD ---
Author Author [facility] Organization [facility] Address Unknown Phone Unavailable Care Team Providers Care Certified Retinal Angiographer Name Role Phone Wiley Bonilla Unavailable PROBLEMS Type Condition ICD9-CM Code [id number] Code Onset Dates Condition S tatus SNOMED Code Notes Problem Sciatica, unspecified side M54.30 Active 19054 005 Problem Major depressive disorder, recurrent, moderate F33 .1 Active 490727515 Problem Opioid dependence, uncomplicated F11.20 Active 01539728 Problem Cigarette nicotine dependence with other nicotin e-induced disorder F17.218 Active [id number] Problem Major depressive disorder, single episode, unspecified F32.9 Active 60588750 Problem 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 Active 435475090 Problem ETOH abuse F10.10 Active 68448895 Problem Anxiety F41.9 Active 34012872 Problem Chronic obstructive pulmonary disease, unspecified COPD ty pe J44.9 Active 43077449 Problem Mixed hyperlipidemia E78.2 Active 126694467 ALLERGIES No Known Allergies ENCOUNTERS from 1955 to 2020-09-03 Encounter Location Date Provider Diagnosis [facility] [address] [place] [address] Aug, Archie Bonilla IMMUNIZATIONS Vaccine Route Administration Date Status [...] Advice Language: Question Answer Notes Languages spoken: Tristanian Sexual Hx: Question Answer Notes Had sex [...] Information RESULTS No Results REASON FOR VISIT No Information MEDICAL (GENERAL) HISTORY Type Description Date Medical [...] a day Next Appt Details Provider Name:Kylee Bonilla 2019-11 -13 01:00:00 PM, [address], [place], [address], Insurance Providers Payer Name Payer Address Payer Phone Insured Name Patient Relati onship to Insured Coverage Start Date Coverage End Date [facility] [address] [facility] [id number] MICHEL RAZA
--- OUTSIDE RECORDS SUMMARY | 2020-11-09 06:14 | CCD ---
Author Author [facility] Organization [facility] Address Unknown Phone Unavailable Care Team Providers Care Radio Time Buyer Name Role Phone Kylee Bonilla Unavailable PROBLEMS Type Condition ICD9-CM Code SGW22-EJ Code Onset Dates Condition S tatus SNOMED Code Notes Problem Sciatica, unspecified side M54.30 Active 63368 005 Problem Major depressive disorder, recurrent, moderate F33 .1 Active 613659517 Problem Opioid dependence, uncomplicated F11.20 Active 98762835 Problem Cigarette nicotine dependence with other nicotin e-induced disorder F17.218 Active 72258629430706498 Problem Major depressive disorder, single episode, unspecified F32.9 Active 47781021 Problem 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 Active 873538506 Problem ETOH abuse F10.10 Active 93060808 Problem Anxiety F41.9 Active 66977018 Problem Chronic obstructive pulmonary disease, unspecified COPD ty pe J44.9 Active 65047010 Problem Mixed hyperlipidemia E78.2 Active 017045267 ALLERGIES No Known Allergies ENCOUNTERS from 1955 to 2020-08-11 Encounter Location Date Provider Diagnosis [facility] [address] [place] [address] Jul, Lowell Bonilla IMMUNIZATIONS Vaccine Route Administration Date [...] Advice Language: Question Answer Notes Languages spoken: Qatari Sexual Hx: Question Answer Notes Had sex [...] OUTH ONCE DAILY Inhalation for 30 Active Hydrocortisone 1 % 1 application to affected area Externally Twice a day Active Tums 500 MG 1 tablet Orally Four times a day Active PROCEDURES No Information RESULTS No Results REASON FOR VISIT US results MEDICAL (GENERAL) HISTORY Type Description Date Medical History Contact Dermatitis Medical History moderately severe COPD per Pulmonary Medical History vitamin D deficiency Medical History allergic rhinitis Medical History mild C-spine stenosis per CT 02/2011 Medical History H/O opiate dependence - 2019 Medical History Moderately Severe Depression Medical History [...] for 30 day(s) Jul Next Appt Details Provider Name:Denise Toure, 2020-08-13 01:30:00 PM, [address], [address], Provider Name:Kylee Bonilla, 2020-08 01:00:00 PM, [address] [place] [address], [address], Insurance Providers Payer Name Payer Address Payer Phone Insured Name Patient Relati onship to Insured Coverage Start Date Coverage End Date [facility] [employer] [facility] [address] [facility] [phone] MICHEL SAWYER
[2020-11-09] MEDS ORDERED: LR 1,000 ML IV ONE (06:30)
[2020-11-09] MEDS ORDERED: LIDOCAINE 4% INJ 5ML AMP INH ONE (06:30)
[2020-11-09] MEDS ORDERED: ALBUTEROL SULFATE 2.5 MG/0.5 ML INH NEB SOLN INH ONE (06:45)
[2020-11-09] MEDS ORDERED: CETACAINE SPRAY 5GM As Ordered ONE (07:16)
[2020-11-09] MEDS ORDERED: THROMBIN SOLN 20,000 UNITS KIT As Ordered ONE (07:16)
[2020-11-09] MEDS ORDERED: LIDOCAINE 1% SDV 30ML VIAL As Ordered ONE (07:16)
[2020-11-09] MEDS ORDERED: EPINEPHrine 1MG/10ML SYRINGE 1.5IN As Ordered ONE (07:16)
[2020-11-09] MEDS ORDERED: THROMBIN SOLN 5,000 UNITS VIAL As Ordered ONE (07:18)
[2020-11-09] MEDS ORDERED: ROCURONIUM BROMIDE 50 MG/5 ML VIAL As Ordered ONE (07:21)
[2020-11-09] MEDS ORDERED: propofoL 200 MG/20 ML VIAL As Ordered ONE (07:21)
[2020-11-09] MEDS ORDERED: LIDOCAINE 2% 100MG/5ML SDV (FOR ANES.) As Ordered ONE (07:21)
[2020-11-09] MEDS ORDERED: MIDAZOLAM INJ 2MG/2ML VIAL (J2250 PER 1MG) As Ordered ONE (07:21)
[2020-11-09] MEDS ORDERED: fentaNYL 100 MCG/2 ML INJECTION (J3010) As Ordered ONE (07:21)
[2020-11-09] MEDS ORDERED: ONDANSETRON 4MG/2ML VIAL As Ordered ONE (08:16)
[2020-11-09] MEDS ORDERED: SUGAMMADEX SODIUM 500 MG/5 ML VIAL (BRIDION) As Ordered ONE (08:16)
[2020-11-09] MEDS ORDERED: KETOROLAC 60MG 2ML VIAL As Ordered ONE (08:17)
[2020-11-09] MEDS ORDERED: dexameTHASONE 4 MG/ML 1ML VIAL (J1100 PER 1MG) As Ordered ONE (08:17)
--- NOTE | 2020-11-09 09:01 | ECGEPIP ---
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
--- NOTE | 2020-11-09 09:19 | ROOR ---
Patient Name: Kia Raza Procedure Date: 11/09/2020 7:20 AM Date of : 1955 Admit Type: Outpatient Age: 65 Room: Main OR Note Status: Finalized Attending MD: Pamela Bazan MD Procedure: Bronchoscopy Indications: Left lower lobe mass Providers: Pamela Bazan MD (Doctor) Referring MD: 1. No Referring Physician 1. No Referring Physician, Admin. (Referring MD) Requesting Physician: Medicines: General Anesthesia, Lidocaine 4% via nebulizer with Albuterol 2.5 mg, Epinephrine 1 mg/10 mL topical 1 mL, Cetacaine topical Complications: No immediate complications. Estimated blood loss: Minimal Procedure: Pre-Anesthesia Assessment: - Prior to the procedure, a History and Physical was performed, and patient medications and allergies were reviewed. The patient's tolerance of previous anesthesia was also reviewed. The risks and benefits of the procedure and the sedation options and risks were discussed with the patient. All questions were answered, and informed consent was obtained. Prior Anticoagulants: The patient has taken no previous anticoagulant or antiplatelet agents. ASA Grade Assessment: II - A patient with mild systemic disease. After reviewing the risks and benefits, the patient was deemed in satisfactory condition to undergo the procedure. - Patient identification and proposed procedure were verified prior to the procedure by the physician, the nurse, the anesthesiologist, the senior ios software engineer and the substation maintenance technician. The procedure was verified in the procedure room. The Bronchoscope was introduced through the mouth, via the endotracheal tube (the patient was intubated for the procedure) and advanced to the tracheobronchial tree of both lungs. The procedure was accomplished without difficulty. The patient tolerated the procedure well. Findings: The endotracheal tube is in good position. The visualized portion of the trachea is of normal caliber. The lily is sharp. The tracheobronchial tree was examined to at least the first subsegmental level. Bronchial mucosa and anatomy are normal; there are no endobronchial lesions, some mucosal pitting and webbing and thick mucoid secretions noted throughout. There is some dynamic airway collapse noted and edematous airway in superior segment of left lower lobe. [employer] Robotic Electromagnetic navigation bronchoscopy was performed. The CT scan was used for planning purposes. A virtual bronchoscopic image was generated using the planning software. The target in the superior segment of the left lower lobe was marked. A mass 4.4 x 1.9 x 2.7cm in size was found and a pathway was created. After a complete airway exam, the robotic navigation phase was then begun to locate the target lesion(s). Positioning off-center (in relation to the lesion) was confirmed using the Olympus radial probe US catheter. Fluoroscopy guided transbronchial brushings of a mass were obtained in the superior segment of the left lower lobe with a cytology brush and sent for routine cytology. Transbronchial brushing technique was selected because the sampling site was not visible endoscopically. Transbronchial biopsies of a mass were performed in the superior segment of the left lower lobe using forceps and sent for histopathology examination. The procedure was guided by fluoroscopy. Transbronchial biopsy technique was selected because the sampling site was not visible endoscopically. Bronchoalveolar lavage was performed in the LLL superior segment (B6) of the lung and sent for cell count, bacterial culture, and fungal & AFB analysis and cytology. The return was blood-tinged. Mucous plugs were present in the return fluid. An endobronchial ultrasound endoscope was utilized in order to assist with fine needle aspiration in the subcarinal area. Transbronchial needle aspirations of a lymph node were performed in the subcarinal area using an Olympus EBUS-TBNA 21 gauge needle and sent for routine cytology. The procedure was guided by ultrasound. Transbronchial needle aspiration technique was selected because the sampling site was not visible endoscopically. Impression: - Left lower lobe mass - The airway examination was normal. - Electromagnetic navigation bronchoscopy was performed. - Transbronchial brushings were obtained. - Transbronchial lung biopsies were performed. - Bronchoalveolar lavage was performed. - Endobronchial ultrasound was performed. - A transbronchial needle aspiration was performed. Recommendation: - Await test results. Procedure Code(s): --- Professional --- 73375, Bronchoscopy, rigid or flexible, including fluoroscopic guidance, when performed; with transbronchial needle aspiration biopsy(s), trachea, main stem and/or lobar bronchus(i) 51395, Bronchoscopy, rigid or flexible, including fluoroscopic guidance, when performed; with transbronchial lung biopsy(s), single lobe 69613, Bronchoscopy, rigid or flexible, including fluoroscopic guidance, when performed; with bronchial alveolar lavage 29147, Bronchoscopy, rigid or flexible, including fluoroscopic guidance, when performed; with brushing or protected brushings 25838, Bronchoscopy, rigid or flexible, including fluoroscopic guidance, when performed; with computer-assisted, image-guided navigation (List separately in addition to code for primary procedure[s]) 71480, Bronchoscopy, rigid or flexible, including fluoroscopic guidance, when performed; with transendoscopic endobronchial ultrasound (EBUS) during bronchoscopic diagnostic or therapeutic intervention(s) for peripheral lesion(s) (List separately in addition to code for primary procedure[s]) CPT copyright 2019 [employer]. All rights reserved. The codes documented in this report are preliminary and upon fiberglass grinder review may be revised to meet current compliance requirements. Pamela Bazan MD 11/09/2020 9:18:37 AM Number of Addenda: 0 Note Initiated On: 11/09/2020 7:20 AM
--- NOTE | 2020-11-09 09:27 | REP ---
INDICATION: POST BRONCH. COMPARISON: Comparison chest x-ray November 24, 2019. Comparison CT study October 01, 2020.. TECHNIQUE: Portable AP semi-erect radiograph. FINDINGS: Monitoring electrodes are seen. The lungs are symmetrically aerated. There is no evidence of pneumothorax or hydrothorax. Patient is rotated somewhat to the right. No complication is seen. Lung das are clear. IMPRESSION: No complication noted. <Electronically signed by Jose Alejandro Connolly > 11/09/20 0999
[2020-11-09] MEDS ORDERED: oxyCODONE 5MG TAB PO PRN (09:45)
[2020-11-09] MEDS ORDERED: fentaNYL 100 MCG/2 ML INJECTION (J3010) IV PRN (09:45)
[2020-11-09] MEDS ORDERED: LR 1,000 ML IV SCH (09:45)
[2020-11-09] MEDS ORDERED: MEPERIDINE INJ 25 MG/ML VIAL (J2175) IV PRN (09:45)
[2020-11-09] MEDS ORDERED: ONDANSETRON 4MG/2ML VIAL IV PRN (09:45)
[2020-11-09] MEDS ORDERED: METOCLOPRAMIDE INJ 10MG/2ML VIAL (J2765 PER 1) IV PRN (09:45)
[2020-11-09 10:30] VITALS: BP 168/78
[2020-11-09] MEDS ORDERED: IBUPROFEN 800 MG TAB PO PRN (10:30)
[2020-11-09 10:50] LABS: APPEARANCE TURBID (CLEAR); COLOR PINK (COLORLESS); SOURCE LEFT LOWER LOBE
[2020-11-10 08:41] LABS: MONOCYTES/MACROPHAGES, BAL 20 %
== END 2020-11-09 10:55 | disposition home or self-care (01) ==
LOC: M SDC 06:08
PROVIDERS: ATTEND Internal Medicine Pulmonary Disease
DX: J44.9 Chronic obstructive pulmonary disease, unspecified (principal); K21.9 Gastro-esophageal reflux disease without esophagitis; F17.218 Nicotine dependence, cigarettes, with other nicotine-induced disorders; Z79.51 Long term (current) use of inhaled steroids; Z79.899 Other long term (current) drug therapy
CPT/HCPCS: 31623; 31624; 31627; 31628; 31629; 31654; 71045; 76000; 87070; 87077; 87102; 87116; 87186; 87205; 87206; 88104; 88108; 88173; 88305; 88313; 89051; 93005; C1887; J1100; J1885; J2250; J2405; J3010; S2900

== ENCOUNTER 2020-11-26 19:16 | Inpatient (IN) | payer OTHER ==
[~2020-11-26] VITALS: Ht 165.1 cm; Wt 91.7 kg
[2020-11-26] MEDS ORDERED: PROPOFOL 1,000 MG/100 ML VIAL As Ordered ONE (19:21)
[2020-11-26] MEDS ORDERED: ETOMIDATE INJ 20MG/10ML VIAL IV STA (19:23)
[2020-11-26] MEDS ORDERED: ROCURONIUM BROMIDE 50 MG/5 ML VIAL IV SCH (19:30)
--- OUTSIDE RECORDS SUMMARY | 2020-11-26 19:42 | CCD | Continuity of Care Document ---
Author Author Kia HASSAN M.D. Organization Unknown Address [address] [place] [address] Phone [phone] Care Team Providers Care Tack Maker Name Role Phone Estuardo Rodriguez AUTM Kylee Bonilla P.A.-C. AUTM [phone] AUTM Unavailable Problems Description No Information Available Social History Type Date Description Comments Sex Unknown ETOH Use 2 A Day Tobacco Use Start: 10/23/64 Patient is a current smoker, smo kes some days 2ppd since age 10 Smoking Status Reviewed: 11/18/20 Patient is a current smoker, smokes some days 2ppd since age 10 Allergies, Adverse Reactions, Alerts Description No Known Drug Allergies Medications Active Medications SIG Qnty Indications Ordering Provide r Date Thiamine HCL 100mg Tablets 1 by mouth every day 90tabs Elier Manning M.D. 2020 Folic Acid 1mg Tablets take 1 tablet by mouth once daily (take after eating/ meal) 90tabs Yomi Manning M.D. 11/18/2020 Nicotine Transdermal System Step 1 21mg/24HR Patches 24HR 1 patch topically every day. move patch to a different area of the skin for each application 28units F17.218 Pamela Hassan M. D. 11/18/2020 Prednisone 20mg Tablets 1 by mouth every day 4tabs R91.8 Pamela Hassan M.D. 11/18/2020 Levofloxacin 750mg Tablets 1 by mouth every day 10tabs J44.9 Pamela Hassan M.D. 11/18/2020 Albuterol Sulfate (2 .5mg/3ML) 0.083% Nebulizer 1 vial four times a day as needed 360ml Pamela Hassan M.D. 02/18/2019 Arnuity Ellipta 200mcg/Act Aerosol inhale 1 puff by mouth once daily 30units Pamela Hassan M.D. 11/05/2018 Stiolto Respimat 2.5-2.5mcg/Act Ae rosol inhale two puffs by mouth once daily 4gm Yoli Hassan M.D. 11/05/2018 Magnesium Complex 1 tab by mouth every day Unkn own Super B-Complex Capsules 1 tab by mouth every day Unknown Omeprazole 40mg Capsules DR 1 by mouth every day 60caps Unknown Zinc 50mg Tablets 1 tab by mouth every day 30tabs Unknown Vitamin C 500mg Capsules 1 tab by mouth every day Unknown Ibuprofen 200mg Tablets 1 by mouth every day as needed Unknown Benadryl Allergy 25mg Tablets 1 tab as needed 2tabs Unknown Claritin 10mg Capsules 1 tab by mouth as needed 30caps Unknown Ventolin HFA 108(90Base) mcg/Act A erosol 2 puffs every 4 hours as needed 18gm Pamela Hassan M. D. Paxil 40mg Tablets 1 tab by mouth every day Unknown History Medications Prednisone 10mg Tablets 4 tabs by mouth daily for 3 days, then 3 tabs daily for 3 days, then 2 tabs daily for 3 days then 1 tab daily for 3 days 30tabs R91.8 Pamela Hassan M.D. 11/09/2020 - 11/18/2020 Doxycycline Monohydrate 100mg Caps ules 1 by mouth twice a day 10caps R91.Pamela Ortega M.D. 2019 - 11/17/2020 Prednisone 20mg Tablets 2 by mouth every day 10tabs R91.8 Pamela Hassan M.D. 10/07/2020 - 11/09/2020 Azithromycin 250mg Tablets 2 tabs on first day, then 1 tab by mouth daily 6tabs R91.8 Pamela Hassan M .D. 10/07/2020 - 10/08/2020 Immunizations Description No Information Available Vital Signs Date Vital Result Comment 11/18/2020 3:02pm BP Systolic 144 mmHg BP Diastolic 82 mmHg Heart Rate 105 /min O2 % BldC Oximetry 94 % Body Temperature 96.9 F Height 65 inches 5'5" Weight 179.38 lb BMI (Body Mass Index) 29.8 kg/m2 [place] Body Weight 125 lb Weight 81.365 kg BSA (Body Surface Area) 1.89 m2 11/18/2020 10:21am BP Systolic 156 mmHg BP Diastolic 88 mmHg Height 65 inches 5'5" Weight 178.00 lb BMI (Body Mass Index) 29.6 kg/m2 [place] Body Weight 125 lb Weight 80.741 kg BSA (Body Surface Area) 1.88 m2 Results Test Acquired Date Facility Test Result H/L Range Note Laboratory test finding 11/09/2020 [facility] [address] [place] [address] [phone] Non Submarine Operator/Cytology Req For Servi (SEE NOTE) 1, 2 Laboratory test finding 11/09/2020 [facility] [address] [place] [address] [phone] Non Submarine Operator/Cytology Req For Servi (SEE NOTE) 3, 4 Laboratory test finding 11/09/2020 [facility] [address] [place] [address] [phone] Non Submarine Operator/Cytology Req For Servi (SEE NOTE) 5 Laboratory test finding 11/09/2020 [facility] [address] [place] [address] [phone] Pathology Request For Service (SEE NOTE) 6 Cell Count Broncho Lavage 11/09/2020 [facility] [address] [place] [address] [phone] Source LEFT LOWER LOBE Normal Color PINK High Colorless Appearance TURBID High Clear Bal WBC 88 CELLS/uL High 0-10 Cell Count/Diff CSF (Auto Count) 11/09/2020 [facility] Main Lab [address] [place] [address] 33234 [phone] Neutrophils, Bal 70 % Normal Lymphocytes, Bal 10 % Normal Monocytes/Macrophages, Bal 20 % Normal Acid Fast Smear & Culture(Afb) Sendout 11/09/2020 [facility] Main Lab [address] [place] [address] 08920 [phone] Afb Smear Due to limited s <SEE NOTE> 7 Bal Culture And Gram Stain 11/09/2020 [facility] Lab [address] [place] [address] 00453 [phone] Gram Stain (SEE NOTE) Normal 8 Bal Culture FULL REPORT IN L <SEE NOTE> Normal 9 Laboratory test finding 11/04/2020 [facility] [address] [place] [address] 75213 [phone] Partial Thromboplastin Time 25.1 seconds Normal 24 .2-38.5 Prothrombin Time/Inr 11/04/2020 [facility] Main Lab [address] [place] [address] 65588 [phone] Prothrombin Time 13.1 seconds Normal 12.5-14.3 Inr 0.97 Normal 10 Aspergillus Antibodies 11/04/2020 [facility] Main Lab [address] [place] [address] [phone] Aspergillus Fumigatus Vibha Negative Normal Neg:<1 :1 Aspergillus Flavus Vibha Negative Normal Neg:<1:1 Aspergillus Niger Vibha Negative Normal Neg:<1:1 Fungal Titers([facility]) 11/04/2020 [facility] [address] [place] [address] 32097 [phone] Histoplasmosis Antibody None Detected Normal . 11 Blastomyces Antibody Level Negative Normal Neg:<1:1 Coccidiomycosis Antibody 0.2 IV Normal <=0.9 12 Cryptococcus Antigen Serum Negative Normal Negative 1 3 Laboratory test finding 11/04/2020 [facility] [address] [place] [address] 04085 [phone] Rheumatoid Factor Quant < 10.0 IU/mL Normal <15.0 Anti-Neutrophil Cytoplasmic AB 11/04/2020 [facility] [address] [place] [address] 29167 [phone] Cytoplasmic Neutrop AB Anca-C <1:20 titer Normal N eg:<1:20 Perinuclear AB Anca-P <1:20 titer Normal Neg:<1:20 14 Anca-Atypical <1:20 titer Normal Neg:<1:20 15 Comprehensive Metabolic Profil 11/04/2020 [facility] Main [facility] [address] [place] [address] 92375 [phone] Glucose, Fasting 80 mg/dL Normal 70-100 Blood Urea Nitrogen 22 mg/dL High 7-18 Creatinine For GFR 0.72 mg/dL Normal 0.55-1.30 Glomerular Filtration Rate > 60.0 Normal >45 1 6 Sodium Level 135 mEq/L Low 136-145 Potassium Serum 4.7 mEq/L Normal 3.5-5.1 Chloride Level 101 mEq/L Normal 98-107 Carbon Dioxide Level 32 mEq/L Normal 21-32 Anion Gap 2 mEq/L Low 8-16 Calcium Level 8.8 mg/dL Normal 8.8-10.2 Ast/Sgot 15 U/L Normal 7-37 Alt/SGPT 26 U/L Normal 12-78 Alkaline Phosphatase 81 U/L Normal 45-117 Bilirubin,Total 0.3 mg/dL Normal 0.2-1.0 Total Protein 7.0 GM/DL Normal 6.4-8.2 Albumin 3.5 GM/DL Normal 3.2-5.2 Albumin/Globulin Ratio 1.0 Low 1.2-2.2 CBC With Differential 11/04/2020 [facility] Main [facility] [address] [place] [address] 64483 [phone] White Blood Count 5.8 10 Normal 4.0-10.0 Red Blood Count 4.34 10 Normal 4.00-5.40 Hemoglobin 14.7 g/dL Normal 12.0-15.5 Hematocrit 44.8 % Normal 36.0-47.0 Mean Corpuscular Volume 103.2 fl High 80.0-96.0 Mean Corpuscular Hemoglobin 33.9 pg High 27.0-33.0 Mean Corpuscular HGB Conc 32.8 g/dL Normal 32.0-36.5 Red Cell Distribution Width 12.7 % Normal 11.5-14.5 Platelet Count, Automated 280 10 Normal 150-450 Neutrophils % 71.0 % High 36.0-66.0 Lymph % 15.3 % Low 24.0-44.0 Crowley % 10.1 % High 0.0-5.0 Eos % 2.4 % Normal 0.0-3.0 Baso % 0.9 % Normal 0.0-1.0 Immature Granulocyte % 0.3 % Normal 0-3.0 Nucleated Red Blood Cell % 0.0 % Normal 0-0 Neutrophils # 4.1 10 Normal 1.5-8.5 Lymph # 0.9 10 Low 1.5-5.0 Crowley # 0.6 10 Normal 0.0-0.8 Eos # 0.1 10 Normal 0.0-0.5 Baso # 0.1 10 Normal 0.0-0.2 1 will be discussed at follow- up 2 SPECIMEN: Broncho alveolar lavage (left lower lobe) 10ml Roscoe SPECIMEN ADEQUACY: Satisfactory for evaluation CATEGORIZATION: No Malignancy identified DESCRIPTIONS: Scattered bronchial cells noted in a background of scattered pulmonary macrophages, neutrophils, and blood elements. COMMENTS: 11/10/2020843 Signed DORIS PARKS(ASCP) 11/10/2020 0844 (Prelim) Signed Janna Schrader MD 11/10/2020 1307 3 will discuss follow-up 4 SPECIMEN: Bronchi al brushing (left lower lobe) Prepared slides and brush in vial received SPECIMEN ADEQUACY: Satisfactory for evaluation CATEGORIZATION: No Malignancy identified DESCRIPTIONS: Bronchial cells and scattered macrophages noted in a background of blood elements. COMMENTS: 11/10/2020843 Signed DORIS PARKS(ASCP) 11/10/2020 0748 (Prelim) Signed Janna Schrader MD 11/10/2020 1300 5 SPECIMEN: FNA Sub carinal lymph node Slides and Cytolyt (clear) received SPECIMEN ADEQUACY: Satisfactory for evaluation CATEGORIZATION: No Malignancy identified DESCRIPTIONS: Specimen consists mainly of bronchial cells and blood elements. COMMENTS: 11/10/2020843 Signed DORIS PARKS(ASCP) 11/10/2020 0729 (Prelim) Signed Janna Schrader MD 11/10/2020 1300 6 FINAL DIAGNOSIS A - Left lung, lower lobe, biopsy: Small fragments of bronchial wall mucosa and cartilage. See note. B - Cell block of subcarinal lymph node FNA: Rare groups of ciliated respiratory cells. No evidence for malignancy is identified. Note: In view of presence of a large pleural based mass on imaging, follow up and additional biopsies are recommended, as clinically indicated. 11/10/2020 - 1310 CLINICAL DIAGNOSIS Left lower lobe abnormality 11/10/2020 - 1307 GROSS DIAGNOSIS A - Received in formalin labeled "left lower lobe biopsy" is a bag containing a 0.4 x 0.2 x 0.1 cm. aggregate of dark angel-brown tissue fragments. All in one. B - Received FNA from cell block of subcarinal lymph node, submitted all in one for possible processing. -SHIKHA 11/09/2020 - 1252 Signed Janna Schrader MD 11/10/2020 1310 7 Due to limited sensitivity, smear results should be used as an adjunct in evaluating patient tuberculosis status. Cultural examination is highly recommended for clinical diagnosis. AFB smear K[place]oun NEGATIVE (NO AFB Seen ) 8 FEW EPITHELIAL CELLS MODERATE WBCS FEW GRAM POSITIVE COCCI IN CHAINS 9 FULL REPORT IN LAB NOTES (eC W and [facility]). NORMAL DIANNE PRESENT ORGANISM 1: KLEBSIELLA PNEUMONIAE QUANTITY OF GROWTH FEW ORGANISM 1: KLEBSIELLA PNEUMONIAE KLEBSIELLA PNEUMONIAE: REACTION TRIMETHOPRIM/SULFAMETHOXAZOLE IV 160mg TMP & 800mg SMXq6h <=20 S TRIMETHOPRIM/SULFAMETHOXAZOLE PO Bactrim DS Bid <=20 S AMPICILLIN IV 500mg q6h >=32 R AMPICILLIN PO 500mg q6h fasting >=32 R GENTAMICIN IV 80mg q8h <=1 S CEFAZOLIN IV 1gm q8h <=4 S LEVOFLOXACIN IV 500mg qd <=0.12 S LEVOFLOXACIN PO 250mg qd <=0.12 S LEVOFLOXACIN PO 500mg qd <=0.12 S TOBRAMYCIN IV 80mg q8h <=1 S CEFTRIAXONE IV 1gm q24h <=1 S CEFTAZIDIME IV 1gm q8h <=1 S AMPICILLIN/SULBACTAM IV 1.5g q6h 8 S PIPERACILLIN/TAZOBACTAM IV 2.25 gm q6h <=4 S AZTREONAM IV 1gm q8h <=1 S ERTAPENEM IV 1gm qd <=0.5 S MEROPENEM IV 1 gm q8h <=0.25 S MEROPENEM IV 500 mg q8h <=0.25 S TIGECYCLINE IV 50mg q12h 1 S CEFEPIME IV 1 gm q12h <=1 S CEFEPIME IV 2 gm q12h <=1 S EXTD BRD SPCTRM BETA LACTAMASE IV NEGATIVE FOR ESBL 10 THERAPUTIC HUMAN INR VALUES INDICATIONS NORMAL RANGES PROPHYLAXIS/TREATMENT OF: VENOUS THROMBOSIS 2.0-3.0 PULMONARY EMBOLISM 2.0-3.0 PREVENTION OF SYSTEMIC EMBOLISM FROM: TISSUE HEART VALVES 2.0-3.0 ACUTE MYOCARDIAL INFARCTION 2.0-3.0 VALVULAR HEART DISEASE 2.0-3.0 ATRIAL FIBRILLATION 2.0-3.0 MECHANICAL VALVES(HIGH RISK) 2.5-3.5 RECURRENT MYOCARDIAL INFARCTION 2.5-3.5 11 INTERPRETIVE INFORMATION: Hi stoplasma spp. Antibodies by Immunodiffusion The immunodiffusion test can detect precipitins to specific Histoplasma protein antigens (M and H). The M band often appears first and may occur without the H band. M precipitin is found in about 70 percent of both acute and chronic histoplasmosis cases. Both M and H occur together in only about 10 percent of patients. REFERENCE RANGE: None Detected 12 INTERPRETIVE INFORMATION: Co ccidioides Antibody, Ig.9 IV or less: Negative - No signif icant level of Coccidioides IgG antibody detected. 1.0 - 1.4 IV: Equivocal - Question able presence of Coccidioides IgG antibody detected. Repeat testing in 10-14 days may be helpful. 1.5 IV or greater: Positive - Presence of IgG antibody to Coccidioides detected, suggestive of current or past infection. IgG antibody usually appears by the third week of infection and may persist for years. Both tube precipitin (TP) and CF antigens are represented in the LEXY tests. 13 Performed at: [address] [id number] Hand Sewer: Raquel Han MD, Phone: [phone] Performed at: [facility] [place] [id number] Hand Sewer: Raulito Esteban MD, Phone: [phone] 14 The presence of positive flu orescence exhibiting P-ANCA or C-ANCA patterns alone is not specific for the diagnosis of Denise's Granulomatosis (WG) or microscopic polyangiitis. Decisions about treatment should not be based solely on ANCA IFA results. The [employer] ANCA [employer] Consensus recommends follow up testing of positive sera with both UT- 3 and MPO-ANCA enzyme immunoassays. As m any as 5% serum samples are positive only by EIA. Ref. AM J Clin Pathol 1999;111:507-513. 15 The atypical pANCA pattern h as been observed in a significant percentage of patients with ulcerative colitis, primary sclerosing cholangitis and autoimmune hepatitis. 16 Units are mL/min/1.73 m2 Chronic Kidney Disease Staging per NKF: Stage I & II GFR >=60 Normal to Mildly Decreased Stage III GFR 30-59 Moderately Decreased Stage IV GFR 15-29 Severely Decreased Stage V GFR <15 Very Little GFR Left ESRD GFR <15 on DIRECTOR OF CONSULTING SERVICES Procedures Date Code Description Status 11/09/2020 32533 With Endobronchial Ultrasound Gu ided Completed 11/09/2020 98101 Bronchoscopy W/Transbronchial Marli ng Biopsy Completed 11/09/2020 04328 Bronchoscopy Rigid/F lexible Fluoroscopic Guide Computer-Assisted Completed 11/09/2020 33521 Bronchoscopy W/Bronchial Alveola r Lavage Completed 11/09/2020 42482 Bronchoscopy W/Brushing Or Prote cted Brushings Completed Medical Devices Description No Information Available Encounters Type Date Location Provider Dx Diagnosis Office Visit 11/18/2020 3:[facility]p [facility] Pamela Reardon M.D. J44.9 Chronic obstructive pulmonar y disease, unspecified F17.218 Nicotine dependence, cigaret shana, w oth disorders R91.8 Other nonspecific abnormal f inding of lung field Office Visit 10/07/2020 3:30p [facility] Pamela Reardon M.D. R91.8 Other nonspecific abnormal f inding of lung field F17.218 Nicotine dependence, cigaret shana, w oth disorders J44.9 Chronic obstructive pulmonar y disease, unspecified Office Visit 06/17/2020 1:00p [facility] Pamela Reardon M.D. R91.8 Other nonspecific abnormal f inding of lung field F17.218 Nicotine dependence, cigaret shana, w oth disorders J44.9 Chronic obstructive pulmonar y disease, unspecified Assessments Date Code Description Provider 11/18/2020 J44.9 Chronic obstructive pulmonary di sease, unspecified Pamela Hassan M.D. 11/18/2020 R10.13 Epigastric pain Elier Rios ala, M.D. 11/18/2020 F17.218 Nicotine dependence, cigarettes, with other nicotine-induced Pamela Hassan M.D. 11/18/2020 R14.0 Abdominal distension (gaseous) C anneliese Manning M.D. 11/18/2020 R91.8 Other nonspecific abnormal findi ng of lung [facility] Pamela Hassan M.D. 11/18/2020 R11.0 Nausea Elier Rios ala, M.D. 11/18/2020 Z12.11 Encounter for screening for bernadette gnant neoplasm of colon Elier Manning M.D. 11/09/2020 R91.8 Other nonspecific abnormal findi ng of lung Pamela Tanner M.D. 10/07/2020 R91.8 Other nonspecific abnormal findi ng of lung [facility] Pamela Hassan M.D. 10/07/2020 F17.218 Nicotine dependence, cigarettes, with other nicotine-induced Pamela Hassan M.D. 10/07/2020 J44.9 Chronic obstructive pulmonary di sease, unspecified Pamela Hassan M.D. 06/17/2020 R91.8 Other nonspecific abnormal findi ng of lung Pamela Tanner M.D. 06/17/2020 F17.218 Nicotine dependence, cigarettes, with other nicotine-induced Pamela Hassan M.D. 06/17/2020 J44.9 Chronic obstructive pulmonary di sease, unspecified Pamela Hassan M.D. Plan of Treatment Future Appointment(s):* 02/08/2021 2:30 pm - Pamela Hassan M.D. at [facility] 11/18/2020 - Elier Manning M.D.* R10.13 Epigastric pain * R14.0 Abdominal distension (gaseous) * R11.0 Nausea * Z12.11 Encounter for screening for malignant neoplasm of colon * * Comments:* Possible differentials: * Recommendations:* -- educated on cessation of alcohol. counselled on the resources. -- Avoid NSAIDs -- COntinue omeprazole once daily for now. -- THiamine and folic acid for now. -- Will schedule for EGD + colonoscopy after clearance from pulmonary. -- Pulmonary optimization as patient is noted to be having shortness of breath on exam. -- Return to Gi clinic 2 weeks after the above procedures. -- follow up with PMD for routine medical care and other age appropriate health maintenance. Functional Status Functional Condition Comment Date Status Independent with all ADL's Activ e Independent with all IADL's Acti ve Mental Status Mental Condition Comment Date Status Cognitive ability not impaired A ctive Referrals Refer to Reason for Referral Status Appt Date Radiology/Procedure 34244(PART OF BRONCH)REST DOESN'T REQUIRE AU TH Closed Radiology/Procedure [facility] approved [id number] Closed Elier Manning M.D. chronic nausea, epigastric pain with ETOH abuse, needs EGD Created 11/18/[address] [place] [address], [address] [place] [address] [phone] Radiology/Procedure APPROVED 86242 Closed
--- OUTSIDE RECORDS SUMMARY | 2020-11-26 19:42 | CCD | Continuity of Care Document ---
Author Author Kia HASSAN M.D. 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 AUTM AUTM Unavailable Problems Description No Information Available [...] lb BMI (Body Mass Index) 29.8 kg/m2 [place] Body Weight 125 lb Weight 81.365 kg BSA (Body Surface Area) 1.89 m2 11/18/2020 10:21am BP Systolic 156 mmHg BP Diastolic 88 mmHg Height 65 inches 5'5" Weight 178.00 lb BMI (Body Mass Index) 29.6 kg/m2 [place] Body Weight 125 lb Weight 80.741 kg BSA (Body Surface Area) 1.88 m2 Results Test Acquired Date Facility Test Result H/L Range Note Laboratory test finding 11/09/2020 [facility] Main Lab [address] [place] [address] [phone] Non Bilingual Loan Processor/Cytology Req For Servi (SEE NOTE) 1, 2 Laboratory test finding 11/09/2020 [facility] Main Lab [address] [place] [address] [phone] Non Bilingual Loan Processor/Cytology Req For Servi (SEE NOTE) 3, 4 Laboratory test finding 11/09/2020 [facility] Main [facility] [address] [place] [address] [phone] Non Bilingual Loan Processor/Cytology Req For Servi (SEE NOTE) 5 Laboratory test finding 11/09/2020 [facility] Main Lab [address] [place] [address] [phone] Pathology Request For Service (SEE NOTE) 6 Cell Count Broncho Lavage 11/09/2020 [facility] Main Lab [address] [place] [address] [phone] Source LEFT LOWER LOBE Normal Color PINK High Colorless Appearance TURBID High Clear Bal WBC 88 CELLS/uL High 0-10 Cell Count/Diff CSF (Auto Count) 11/09/2020 [facility] Main Lab [address] [place] [address] [phone] Neutrophils, Bal 70 % Normal Lymphocytes, Bal 10 % Normal Monocytes/Macrophages, Bal 20 % Normal Acid Fast Smear & Culture(Afb) Sendout 11/09/[address] [facility] Main Lab [address] [place] [address] [phone] Afb Smear Due to limited s <SEE NOTE> 7 Bal Culture And Gram Stain 11/09/2020 [facility] Main Lab [address] [place] [address] [phone] Gram Stain (SEE NOTE) Normal 8 Bal Culture FULL REPORT IN L <SEE NOTE> Normal 9 Laboratory test finding 11/04/2020 [facility] Main Lab [address] [place] [address] [phone] Partial Thromboplastin Time 25.1 seconds Normal 24 .2-38.5 Prothrombin Time/Inr 11/04/2020 [facility] Main Lab [address] [place] [address] [phone] Prothrombin Time 13.1 seconds Normal 12.5-14.3 Inr 0.97 Normal 10 Aspergillus Antibodies 11/04/2020 [facility] Main Lab [address] [place] [address] [phone] Aspergillus Fumigatus Vibha Negative Normal Neg:<1 :1 Aspergillus Flavus Vibha Negative Normal Neg:<1:1 Aspergillus Niger Vibha Negative Normal Neg:<1:1 Fungal Titers([facility]) 11/04/2020 [facility] Main Lab [address] [place] [address] [phone] Histoplasmosis Antibody None Detected Normal . 11 Blastomyces Antibody Level Negative Normal Neg:<1:1 Coccidiomycosis Antibody 0.2 IV Normal <=0.9 12 Cryptococcus Antigen Serum Negative Normal Negative 1 3 Laboratory test finding 11/04/2020 [facility] Main Lab [address] [place] [address] [phone] Rheumatoid Factor Quant < 10.0 IU/mL Normal <15.0 Anti-Neutrophil Cytoplasmic AB 11/04/2020 [facility] Main Lab [address] [place] [address] [phone] Cytoplasmic Neutrop AB Anca-C <1:20 titer Normal N eg:<1:20 Perinuclear AB Anca-P <1:20 titer Normal Neg:<1:20 14 Anca-Atypical <1:20 titer Normal Neg:<1:20 15 Comprehensive Metabolic Profil 11/04/2020 [facility] Main Lab [address] [place] [address] [phone] Glucose, Fasting 80 mg/dL Normal 70-100 Blood [...] 1.0 Low 1.2-2.2 CBC With Differential 11/04/2020 [facility] Main Lab [address] [place] [address] [phone] White Blood Count 5.8 10 Normal 4.0-10.0 [...] 36.0-66.0 Lymph % 15.3 % Low 24.0-44.0 Arthur % 10.1 % High 0.0-5.0 Eos % 2.4 % Normal 0.0-3.0 Baso % 0.9 % Normal 0.0-1.0 Immature Granulocyte % 0.3 % Normal 0-3.0 Nucleated Red Blood Cell % 0.0 % Normal 0-0 Neutrophils # 4.1 10 Normal 1.5-8.5 Lymph # 0.9 10 Low 1.5-5.0 Arthur # 0.6 10 Normal 0.0-0.8 Eos # 0.1 10 Normal 0.0-0.5 Baso # 0.1 10 Normal 0.0-0.2 1 will be discussed at follow- up 2 SPECIMEN: Broncho alveolar lavage (left lower lobe) 10ml [place] SPECIMEN ADEQUACY: Satisfactory for evaluation CATEGORIZATION: No [...] in the LEXY tests. 13 Performed at: [address] [id number] [employer] Laminator: Raquel Han MD, Phone: [phone] Performed at: [employer] [place] [id number] [employer] L[employer]ator: Raulito Esteban MD, Phone: [phone] 14 The presence of positive flu orescence exhibiting P-ANCA or C-ANCA patterns alone is not specific for the diagnosis of Denise's Granulomatosis (WG) or microscopic polyangiitis. Decisions about treatment should not be based solely on ANCA IFA results. The [employer] ANCA [employer] Consensus recommends follow up testing of positive sera with both NM- 3 and MPO-ANCA enzyme immunoassays. 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 11/18/2020 R11.0 Nausea Elier Rios ala, M.D. 11/18/2020 Z12.11 Encounter for screening for bernadette gnant neoplasm of colon Elier Manning M.D. 11/09/2020 R91.8 Other nonspecific abnormal findi ng of lung Pamela Tanner M.D. 10/07/2020 R91.8 Other nonspecific abnormal findi ng of lung [facility] Pamela Hassan M.D. 10/07/2020 F17.218 Nicotine dependence, [...] 2:30 pm - Pamela Hassan M.D. at [facility] Pulmonary/Thoracic 11/18/2020 - Elier Manning M.D.* R10.13 [...] Reason for Referral Status Appt Date Radiology/Procedure 49058(PART OF BRONCH)REST DOESN'T REQUIRE AU TH Closed Radiology/Procedure [facility] approved [id number] Closed Elier Manning M.D. chronic nausea, epigastric pain with ETOH abuse, needs EGD Created 11/18/[address] [place] [address], [address] [place] [address] [phone] Radiology/Procedure APPROVED [id number] Closed
--- OUTSIDE RECORDS SUMMARY | 2020-11-26 19:43 | CCD ---
Author Author [facility] Organization [facility] Address Unknown Phone Unavailable Care Team Providers Care Complex Director Name Role Phone Mirian Gudino MD Unavailable [...] MD Unavailable Unavailable MollisonMirian MD Unavailable Unavailable MarcoisonMirian MD Unavailable Unavailable IRENE, JEAN CLAUDE PA [...] Unavailable Unavailable Pamela Bazan MD Unavailable Unavailable BeniPameal brandt MD Unavailable Unavailable Pamela Bazan MD [...] is protected by Article 27-F of the [facility] Public Health law. If you continue you may have access to information: Regarding HIV / AIDS; Provided by facilities licensed or operated by the [facility] Office of Mental Health; or Provided by the [facility] Office for People With Developmental Disabilities. If such information is present, then the following [facility] mandated warning applies: This information has been [...] law may result in a fine or skilled nursing sentence or both. A general authorization for the release of medical or other information is NOT sufficient authorization for further disc losure. Family History Family Member Name Family Member Gender Family Member Status Date o f Status Description Data Source(s) Unknown Male Problem [facility] Unknown Unknown Problem MEDENT ([facility]) Encounters Encounter Providers Location Date Indications Data Source(s ) Office Visit Attender: Pamela Kahn/Tommy hadley 11/18/2020 02:00:00 PM EST MEDENT ([facility] ) Outpatient Attender: Pamela Kahn/Tommy hadley 10/07/2020 02:30:00 PM EST MEDENT ([facility] ) Unknown [address] [facility] [address] 09/30/2020 12:00:00 AM EST eCW1 [facility]) Unknown [address] [facility] [place] [address] 09/08/2020 12:00:00 AM EST eCW1 ([facility]) Outpatient [address] [facility] [place] [address] 09/04/2020 12:00:00 AM EST eCW1 ([facility]) [place] [address] [facility] [address] [place] [address] 09/03/2020 12:00:00 AM EST eCW1 ([facility]) [place] [address] [facility] [place] [address] 09/03/2020 12:00:00 AM EST eCW1 ([facility]) [place] [address] [facility] [place] [address] 09/01/2020 12:00:00 AM EST eCW1 ([facility]) Outpatient [address] [facility] [place] [address] 08/18/2020 12:00:00 AM EDT eCW1 ([facility]) [place] [address] [facility] [place] [address] 08/11/2020 12:00:00 AM EDT eCW1 ([facility]) Unknown [address] [facility] [place] [address] 08/04/2020 12:00:00 AM EDT eCW1 ([facility]) [place] [address] [facility] [place] [address] 07/31/2020 12:00:00 AM EDT eCW1 ([facility]) Outpatient [address] [facility] [place] [address] 07/24/2020 12:00:00 AM EDT eCW1 ([facility]) Outpatient Attender: Pamela Kahn/Meir/Atilio/Hector ndl 06/17/2020 01:00:00 PM EDT MEDENT ([facility]) Outpatient Attender: Pamela Kahn/Meir/Atilio/Hector ndl 05/18/2020 10:30:00 AM EDT MED[facility] ([facility]) OFFICE OUTPATIENT NEW 30 MINUTES Attender: Payton Alegria am, MD Physical Therapy 05/08/2020 09:15:00 AM EDT MEDENT ([facility]) Outpatient Attender: Chacorta Kahn/Meir/Atilio/Re indl 04/14/2020 11:30:00 AM EDT MEDENT ([facility]) Outpatient Attender: JEAN CLAUDE Richards Prima ry 04/09/2020 11:45:00 AM EDT MEDENT ([facility]) Outpatient 04/07/2020 06:16:00 AM EDT [facility] Outpatient Attender: JEAN CLAUDE Richards Prima ry 04/02/2020 12:50:00 PM EDT MEDENT ([facility]) Outpatient Attender: Pamela Kahn/Meir/Atilio/Hector ndl 04/02/2020 11:30:00 AM EDT MED[facility] ([facility]) Unknown [address] [facility] [place] [address] 03/31/2020 12:00:00 AM EDT eCW1 ([facility]) Outpatient [address] [facility] [address] 03/20/2020 12:00:00 AM EDT eCW1 ([facility]) [facility] [address] [place] [address] 03/03/2020 12:00:00 AM EDT eCW1 ([facility]) [facility] Derm[facility] [address] [place] [address] 02/25/2020 12:00:00 AM EDT eCW1 ([facility]) [facility] Mo[place] [address] [facility] [place] [address] 02/20/2020 12:00:00 AM EDT eCW1 ([facility]) Unknown [address] [facility] [place] [address] 01/23/2020 12:00:00 AM EDT eCW1 ([facility]) [facility] Gennaro [address] [facility] [place] [address] 01/22/2020 12:00:00 AM EDT eCW1 ([facility]) [facility] [place] [address] [facility] [place] [address] 01/20/2020 12:00:00 AM EDT eCW1 ([facility]) [facility] [place] [address] [facility] [place] [address] 12/10/2019 12:00:00 AM EST eCW1 ([facility]) Outpatient 12/03/2019 03:31:00 PM EST [facility] [place] [address] [facility] [place] [address] 11/28/2019 12:00:00 AM EST eCW1 ([facility]) [facility] [place] [address] [facility] [place] [address] 11/27/2019 12:00:00 AM EST eCW1 ([facility]) [facility] [place] [address] [facility] [place] [address] 11/27/2019 12:00:00 AM EST eCW1 ([facility]) Outpatient Attender: JEAN CLAUDE Alejandro ry 11/24/2019 11:10:00 AM EST MEDENT ([facility]) Outpatient 11/11/2019 08:07:00 PM EST [facility] Outpatient Attender: JEAN CLAUDE Richards Prima ry 10/28/2019 12:20:00 PM EST MEDENT ([facility]) Outpatient Attender: JEAN CLAUDE Whiteheada ry 10/21/2019 12:45:00 PM EST MEDENT ([facility]) [facility] [place] [address] [facility] [place] [address] 10/08/2019 12:00:00 AM EST eCW1 ([facility]) Immunizations Vaccine Date Status Description Data Source(s) Depo-Medrol 80mg (Methylprednisolone Acetate) 01/22/2020 02: 41:00 PM EDT completed eCW1 ([facility]) Depo-Medrol 80mg (Methylprednisolone Acetate) 01/22/2020 02: 41:00 PM EDT completed eCW1 ([facility]) Depo-Medrol 80mg (Methylprednisolone Acetate) 01/22/2020 02: 41:00 PM EDT completed eCW1 ([facility]) Depo-Medrol 80mg (Methylprednisolone Acetate) 01/22/2020 02: 41:00 PM EDT completed eCW1 ([facility]) Depo-Medrol 80mg (Methylprednisolone Acetate) 01/22/2020 02: 41:00 PM EDT completed eCW1 ([facility]) Depo-Medrol 80mg (Methylprednisolone Acetate) 01/22/2020 02: 41:00 PM EDT completed eCW1 ([facility]) Depo-Medrol 80mg (Methylprednisolone Acetate) 01/22/2020 02: 41:00 PM EDT completed eCW1 ([facility]) Depo-Medrol 80mg (Methylprednisolone Acetate) 01/22/2020 02: 41:00 PM EDT completed eCW1 ([facility]) Depo-Medrol 80mg (Methylprednisolone Acetate) 01/22/2020 02: 41:00 PM EDT completed eCW1 ([facility]) Depo-Medrol 80mg (Methylprednisolone Acetate) 01/22/2020 02: 41:00 PM EDT completed eCW1 ([facility]) Depo-Medrol 80mg (Methylprednisolone Acetate) 01/22/2020 02: 41:00 PM EDT completed eCW1 ([facility]) Depo-Medrol 80mg (Methylprednisolone Acetate) 01/22/2020 02: 41:00 PM EDT completed eCW1 ([facility]) pneumococcal polysaccharide PPV23 10/08/2019 04:06:00 PM EST comple hamlet eCW1 ([facility]) pneumococcal polysaccharide PPV23 10/08/2019 04:06:00 PM EST comple hamlet eCW1 ([facility]) pneumococcal polysaccharide PPV23 10/08/2019 04:06:00 PM EST comple hamlet eCW1 ([facility]) pneumococcal polysaccharide PPV23 10/08/2019 04:06:00 PM EST comple hamlet eCW1 ([facility]) pneumococcal polysaccharide PPV23 10/08/2019 04:06:00 PM EST comple hamlet eCW1 ([facility]) pneumococcal polysaccharide PPV23 10/08/2019 04:06:00 PM EST comple hamlet eCW1 ([facility]) pneumococcal polysaccharide PPV23 10/08/2019 04:06:00 PM EST comple hamlet eCW1 ([facility]) pneumococcal polysaccharide PPV23 10/08/2019 04:06:00 PM EST comple hamlet eCW1 ([facility]) pneumococcal polysaccharide PPV23 10/08/2019 04:06:00 PM EST comple hamlet eCW1 ([facility]) pneumococcal polysaccharide PPV23 10/08/2019 04:06:00 PM EST comple hamlet eCW1 ([facility]) pneumococcal polysaccharide PPV23 10/08/2019 04:06:00 PM EST comple hamlet eCW1 ([facility]) pneumococcal polysaccharide PPV23 10/08/2019 04:06:00 PM EST comple hamlet eCW1 ([facility]) pneumococcal polysaccharide PPV23 10/08/2019 04:06:00 PM EST comple hamlet eCW1 ([facility]) influenza, recombinant, quadrIvalent,injectable, prese rvative free 10/08/2019 04:05:00 PM EST completed eCW1 ([facility]) influenza, recombinant, quadrIvalent,injectable, prese rvative free 10/08/2019 04:05:00 PM EST completed eCW1 ([facility]) influenza, recombinant, quadrIvalent,injectable, prese rvative free 10/08/2019 04:05:00 PM EST completed eCW1 ([facility]) influenza, recombinant, quadrIvalent,injectable, prese rvative free 10/08/2019 04:05:00 PM EST completed eCW1 ([facility]) influenza, recombinant, quadrIvalent,injectable, prese rvative free 10/08/2019 04:05:00 PM EST completed eCW1 ([facility]) influenza, recombinant, quadrIvalent,injectable, prese rvative free 10/08/2019 04:05:00 PM EST completed eCW1 ([facility]) influenza, recombinant, quadrIvalent,injectable, prese rvative free 10/08/2019 04:05:00 PM EST completed eCW1 ([facility]) influenza, recombinant, quadrIvalent,injectable, prese rvative free 10/08/2019 04:05:00 PM EST completed eCW1 ([facility]) influenza, recombinant, quadrIvalent,injectable, prese rvative free 10/08/2019 04:05:00 PM EST completed eCW1 ([facility]) influenza, recombinant, quadrIvalent,injectable, prese rvative free 10/08/2019 04:05:00 PM EST completed eCW1 ([facility]) influenza, recombinant, quadrIvalent,injectable, prese rvative free 10/08/2019 04:05:00 PM EST completed eCW1 ([facility]) influenza, recombinant, quadrIvalent,injectable, prese rvative free 10/08/2019 04:05:00 PM EST completed eCW1 ([facility]) influenza, recombinant, quadrIvalent,injectable, prese rvative free 10/08/2019 04:05:00 PM EST completed eCW1 ([facility]) Medications Medication Brand Name Start Date Product Form Dose Route Admi nistrative Instructions Pharmacy Instructions Status Indications Reaction Description Data Source(s) Folic Acid 1 MG Oral Tablet Folic Acid 11/18/2020 12:00:00 AM EST ORAL active MEDENT ([facility], ) Thiamine 100 MG Oral Tablet Thiamine HCL 11/18/2020 12:00:00 AM EST ORAL active MEDENT ([facility], ) 24 HR Nicotine 0.875 MG/HR Transdermal Patch Nicotine Transd ermal System Step 1 11/18/2020 12:00:00 AM EST active MEDENT ([facility], ) Prednisone 20 MG Oral Tablet Prednisone 11/18/2020 12:00:00 AM EST ORAL active MEDENT ([facility], ) Levofloxacin 750 MG Oral Tablet Levofloxacin 11/18/2020 12:00:[address] ORAL active MEDENT ([facility], ) Prednisone 10 MG Oral Tablet Prednisone 11/09/2020 12:00:00 AM EST ORAL completed MEDENT ([facility] ) Doxycycline Monohydrate 100 MG Oral Capsule Doxycycline [place] hydrate 10/08/2020 12:00:00 AM EST ORAL completed MEDENT ([facility], ) Azithromycin 250 MG Oral Tablet Azithromycin 10/07/2020 12:00:[address] ORAL completed MEDENT ([facility], ) Prednisone 20 MG Oral Tablet Prednisone 10/07/2020 12:00:00 AM EST ORAL completed MEDENT ([facility], ) aripiprazole 5 MG Oral Tablet [Abilify] Abilify 5 MG Abilify 5 MG 09/08/2020 12:00:00 AM EST 1.0 {tablet} active Ab ilify 5 MG eCW1 ([facility]) aripiprazole 5 MG Oral Tablet [Abilify] Abilify 5 MG Abilify 5 MG 09/08/2020 12:00:00 AM EST 1.0 {tablet} active Ab ilify 5 MG eCW1 ([facility]) aripiprazole 5 MG Oral Tablet [Abilify] Abilify 5 MG Abilify 5 MG 09/08/2020 12:00:00 AM EST 1.0 {tablet} active Ab ilify 5 MG eCW1 ([facility]) Amoxicillin 875 MG / Clavulanate 125 MG Oral Tablet Amoxicillin-Pot Clavulanate 875-125 MG Amoxicillin-Pot Clavulanate 875-125 MG 09/04/2020 12:00:00 AM ES T 1.0 {tablet} active Amoxicillin-Pot Cla vulanate 875-125 MG eCW1 ([facility]) Prednisone 10 MG Oral Tablet PredniSONE 10 MG PredniSONE 10 MG 09/04/2020 12:00:00 AM EST active PredniSO NE 10 MG eCW1 ([facility]) Prednisone 10 MG Oral Tablet PredniSONE 10 MG PredniSONE 10 MG 09/04/2020 12:00:00 AM EST active PredniSO NE 10 MG eCW1 ([facility]) Prednisone 10 MG Oral Tablet PredniSONE 10 MG PredniSONE 10 MG 09/04/2020 12:00:00 AM EST active PredniSO NE 10 MG eCW1 ([facility]) Prednisone 10 MG Oral Tablet PredniSONE 10 MG PredniSONE 10 MG 09/04/2020 12:00:00 AM EST active PredniSO NE 10 MG eCW1 ([facility]) Amoxicillin 875 MG / Clavulanate 125 MG Oral Tablet Amoxicillin-Pot Clavulanate 875-125 MG Amoxicillin-Pot Clavulanate 875-125 MG 09/04/2020 12:00:00 AM ES T 1.0 {tablet} active Amoxicillin-Pot Cla vulanate 875-125 MG eCW1 ([facility]) Amoxicillin 875 MG / Clavulanate 125 MG Oral Tablet Amoxicillin-Pot Clavulanate 875-125 MG Amoxicillin-Pot Clavulanate 875-125 MG 09/04/2020 12:00:00 AM ES T 1.0 {tablet} active Amoxicillin-Pot Cla vulanate 875-125 MG eCW1 ([facility]) Amoxicillin 875 MG / Clavulanate 125 MG Oral Tablet Amoxicillin-Pot Clavulanate 875-125 MG Amoxicillin-Pot Clavulanate 875-125 MG 09/04/2020 12:00:00 AM ES T 1.0 {tablet} active Amoxicillin-Pot Cla vulanate 875-125 MG eCW1 ([facility]) aripiprazole 2 MG Oral Tablet [Abilify] Abilify 2 MG Abilify 2 MG 08/18/2020 12:00:00 AM EDT 1.0 {tablet} active Ab ilify 2 MG eCW1 ([facility]) aripiprazole 2 MG Oral Tablet [Abilify] Abilify 2 MG Abilify 2 MG 08/18/2020 12:00:00 AM EDT 2.0 {tablets} active A bilify 2 MG eCW1 ([facility]) aripiprazole 2 MG Oral Tablet [Abilify] Abilify 2 MG Abilify 2 MG 08/18/2020 12:00:00 AM EDT 1.0 {tablet} active Ab ilify 2 MG eCW1 ([facility]) aripiprazole 2 MG Oral Tablet [Abilify] Abilify 2 MG Abilify 2 MG 08/18/2020 12:00:00 AM EDT 1.0 {tablet} active Ab ilify 2 MG eCW1 ([facility]) meloxicam 7.5 MG Oral Tablet Meloxicam 7.5 MG Meloxicam 7.5 MG 07/24/2020 12:00:00 AM EDT 1.0 {tablet} suspended Meloxicam 7.5 MG eCW1 ([facility]) meloxicam 7.5 MG Oral Tablet Meloxicam 7.5 MG Meloxicam 7.5 MG 07/24/2020 12:00:00 AM EDT 1.0 {tablet} active Me loxicam 7.5 MG eCW1 ([facility]) meloxicam 7.5 MG Oral Tablet Meloxicam 7.5 MG Meloxicam 7.5 MG 07/24/2020 12:00:00 AM EDT 1.0 {tablet} active Me loxicam 7.5 MG eCW1 ([facility]) meloxicam 7.5 MG Oral Tablet Meloxicam 7.5 MG Meloxicam 7.5 MG 07/24/2020 12:00:00 AM EDT 1.0 {tablet} suspended Meloxicam 7.5 MG eCW1 ([facility]) meloxicam 7.5 MG Oral Tablet Meloxicam 7.5 MG Meloxicam 7.5 MG 07/24/2020 12:00:00 AM EDT 1.0 {tablet} suspended Meloxicam 7.5 MG eCW1 ([facility]) meloxicam 7.5 MG Oral Tablet Meloxicam 7.5 MG Meloxicam 7.5 MG 07/24/2020 12:00:00 AM EDT 1.0 {tablet} active Me loxicam 7.5 MG eCW1 ([facility]) Omeprazole 40 MG Delayed Release Oral Capsule Omeprazole 40 MG 07/24/2020 12:00:00 AM EDT suspended Omepr azole 40 MG eCW1 ([facility]) Omeprazole 40 MG Delayed Release Oral Capsule Omeprazole 40 MG 07/24/2020 12:00:00 AM EDT suspended Omepr azole 40 MG eCW1 ([facility]) Omeprazole 40 MG Delayed Release Oral Capsule Omeprazole 40 MG 07/24/2020 12:00:00 AM EDT active Omeprazo le 40 MG eCW1 ([facility]) Omeprazole 40 MG Delayed Release Oral Capsule Omeprazole 40 MG 07/24/2020 12:00:00 AM EDT active Omeprazo le 40 MG eCW1 ([facility]) meloxicam 7.5 MG Oral Tablet Meloxicam 7.5 MG Meloxicam 7.5 MG 07/24/2020 12:00:00 AM EDT 1.0 {tablet} active Me loxicam 7.5 MG eCW1 ([facility]) Omeprazole 40 MG Delayed Release Oral Capsule Omeprazole 40 MG 07/24/2020 12:00:00 AM EDT active Omeprazo le 40 MG eCW1 ([facility]) Omeprazole 40 MG Delayed Release Oral Capsule Omeprazole 40 MG 07/24/2020 12:00:00 AM EDT suspended Omepr azole 40 MG eCW1 ([facility]) Omeprazole 40 MG Delayed Release Oral Capsule Omeprazole 40 MG 07/24/2020 12:00:00 AM EDT active Omeprazo le 40 MG eCW1 ([facility]) Omeprazole 40 MG Delayed Release Oral Capsule Omeprazole 40 MG 07/24/2020 12:00:00 AM EDT suspended Omepr azole 40 MG eCW1 ([facility]) Omeprazole 40 MG Delayed Release Oral Capsule Omeprazole 40 MG 07/24/2020 12:00:00 AM EDT suspended Omepr azole 40 MG eCW1 ([facility]) Omeprazole 40 MG Delayed Release Oral Capsule Omeprazole 40 MG 07/24/2020 12:00:00 AM EDT suspended Omepr azole 40 MG eCW1 ([facility]) meloxicam 7.5 MG Oral Tablet Meloxicam 7.5 MG Meloxicam 7.5 MG 07/24/2020 12:00:00 AM EDT 1.0 {tablet} active Me loxicam 7.5 MG eCW1 ([facility]) meloxicam 7.5 MG Oral Tablet Meloxicam 7.5 MG Meloxicam 7.5 MG 07/24/2020 12:00:00 AM EDT 1.0 {tablet} suspended Meloxicam 7.5 MG eCW1 ([facility]) Omeprazole 40 MG Delayed Release Oral Capsule Omeprazole 40 MG 07/24/2020 12:00:00 AM EDT suspended Omepr azole 40 MG eCW1 ([facility]) meloxicam 7.5 MG Oral Tablet Meloxicam 7.5 MG Meloxicam 7.5 MG 07/24/2020 12:00:00 AM EDT 1.0 {tablet} active Me loxicam 7.5 MG eCW1 ([facility]) meloxicam 7.5 MG Oral Tablet Meloxicam 7.5 MG Meloxicam 7.5 MG 07/24/2020 12:00:00 AM EDT 1.0 {tablet} active Me loxicam 7.5 MG eCW1 ([facility]) Triamcinolone Acetonide 1 MG/ML Topical Cream Triamcin olone Acetonide 0.1 % Triamcinolone Acetonide 0.1 % 02/25/2020 12:00:00 AM EDT active 1 application eCW1 ([facility]) Prednisone 20 MG Oral Tablet PredniSONE 20 MG PredniSONE 20 MG 02/25/2020 12:00:00 AM EDT active as direc hamlet eCW1 ([facility]) Prednisone 20 MG Oral Tablet PredniSONE 20 MG PredniSONE 20 MG 01/23/2020 12:00:00 AM EDT suspended 2 tab let eCW1 ([facility]) Prednisone 20 MG Oral Tablet PredniSONE 20 MG PredniSONE 20 MG 01/23/2020 12:00:00 AM EDT 2.0 {tablet} suspended PredniSONE 20 MG eCW1 ([facility]) Prednisone 20 MG Oral Tablet PredniSONE 20 MG PredniSONE 20 MG 01/23/2020 12:00:00 AM EDT 2.0 {tablet} suspended PredniSONE 20 MG eCW1 ([facility]) Prednisone 20 MG Oral Tablet PredniSONE 20 MG PredniSONE 20 MG 01/23/2020 12:00:00 AM EDT 2.0 {tablet} active Pr edniSONE 20 MG eCW1 ([facility]) Nystatin 416913 UNT/ML Oral Suspension Nystatin 408825 UNIT/ML Nystatin 894738 UNIT/ML 12/10/2019 12:00:00 AM EST 4.0 {ml} suspende d Nystatin 247400 UNIT/ML eCW1 ([facility]) Nystatin 934220 UNT/ML Oral Suspension Nystatin 305586 UNIT/ML Nystatin 835152 UNIT/ML 12/10/2019 12:00:00 AM EST suspended 4 ml eCW1 ([facility]) Nystatin 534416 UNT/ML Oral Suspension Nystatin 466598 UNIT/ML Nystatin 792392 UNIT/ML 12/10/2019 12:00:00 AM EST 4.0 {ml} suspende d Nystatin 567487 UNIT/ML eCW1 ([facility]) Nystatin 158803 UNT/ML Oral Suspension Nystatin 137089 UNIT/ML Nystatin 940700 UNIT/ML 12/10/2019 12:00:00 AM EST active 4 ml eCW1 ([facility]) 20 mg 11/24/2019 12:00:00 AM EST tablet 8 TAKE TWO TABLETS BY MOUTH EVERY DAY FOR 4 DAYS TAKE TWO TABLETS BY MOUTH EVERY DAY FOR 4 DAYS SOLD: 020 [facility] Prednisone 20 MG Oral Tablet Prednisone 11/24/2019 12:00:00 AM EST ORAL completed MEDENT ([facility]) 875-125 mg 11/24/2019 12:00:00 AM EST tablet 20 TAKE ONE TABLET BY MOUTH TWICE A DAY FOR 10 DAYS TAKE ONE TABLET BY MOUTH TWICE A DAY FOR 10 DAYS SOLD: 11/24/2019 [facility] Amoxicillin 875 MG / Clavulanate 125 MG Oral Tablet Am oxicillin/Clavulanate Potassium 11/24/2019 12:00:00 AM EST ORAL completed MEDENT ([facility]) Rocephin/Ceftriaxone Sodium Injection Per 250 MG 10/28 12:00:00 AM EST completed MEDENT ([facility]) Medication administered onsite Levofloxacin 750 MG Oral Tablet [Levaquin] Levaquin 10/28 12:00:00 AM EST ORAL completed MEDENT ([facility]) Methylprednisolone Sodium Succinate To 125 MG 10/21/2019 1 2:00:00 AM EST completed MEDENT ([facility]) Medication administered onsite Methylprednisolone 4 MG Oral Tablet Methylprednisolone 09/24 12:00:00 AM EST ORAL completed MEDENT ([facility]) Insurance Providers Payer name Policy type / Coverage type Policy ID Covered republican ID Covered republican's relationship to sahu Policy Sahu Plan Information [facility] [id number] SP [id number] [facility] O [id number] S [id number] CRITICAL ACCESS HOSPITAL COMMUNITY PLAN MCDO [id number] SP [id number] [facility]IT[facility] COMMUNITY [facility] [id number] SP [id number] [facility] COMM[facility]ITY [facility] [id number] SP [id number] [facility] Health Maintenance Organization (O) [id number] Self [id number] ANSI-Medicaid [id number] ANSI-Medicaid [id number] CRITICAL ACCESS HOSPITAL COMMUNITY PLAN [facility] [id number] SP [id number] CRITICAL ACCESS HOSPITAL COMMUNITY PLAN [facility] [id number] SP [id number] [facility] [id number] [facility] O [id number] S [id number] [facility] Health Maintenance Organization (HMO) [id number] Self [id number] [facility] [id number] SP [id number] [facility] Health Maintenance Organization (O) [id number] Self [id number] [facility] [id number] CRITICAL ACCESS HOSPITAL COMMUNITY PLAN [facility] [id number] SP [id number] SELF PAY ONLY UNAVAILABLE SP UNAV AILABLE [facility] CLAIMS [id number] Problems, Conditions, and Diagnoses Code Display Name Description Problem Type Effective Dates Data Source(s) J44.1 [id number] COPD exacerbation Problem 09/04/2020 12:00:0 0 AM EST eCW1 (Formerly [facility]) 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 Problem 07/24/2020 12:00:00 AM EDT eCW1 (Formerly [facility]) F17.218 [id number] Cigarette nicotine d ependence with other nicotine- induced disorder Problem 11/27/2019 12:00:00 AM EST eCW1 (Formerly [facility]) F17.218 [id number] Cigarette nicotine d ependence with other nicotine- induced disorder Problem 11/27/2019 12:00:00 AM EST eCW1 (Formerly [facility]) J44.9 [id number] Chronic obstructive pulmonary di sease, unspecified COPD type Problem 10/08/2019 12:00:00 AM EST eCW1 ([facility]) E78.2 Mixed hyperlipidemia Mixed hyperlipidemia Problem 10/08/2019 12:00:00 AM EST eCW1 (Formerly [facility]) E78.2 Mixed hyperlipidemia Mixed hyperlipidemia Problem 10/08/2019 12:00:00 AM EST eCW1 (Formerly [facility]) J44.9 [id number] Chronic obstructive pulmonary di sease, unspecified COPD type Problem 10/08/2019 12:00:00 AM EST eCW1 ([facility]) Surgeries/Procedures Procedure Description Date Indications Data Source(s) Bronchoscopy W/Brushing Or Protected Brushings 021 12:00:00 AM EST MEDENT ([facility], ) Bronchoscopy W/Bronchial Alveolar Lavage 11/09/2020 12 :00:00 AM EST MED[facility] ([facility], ) Bronchoscopy Rigid/Flexible Fluoroscopic Guide Computer-Assi sted 11/09/2020 12:00:00 AM EST MED[facility] ([facility] ) Bronchoscopy W/Transbronchial Lung Biopsy 11/09/2020 1 2:00:00 AM EST MEDENT ([facility], ) With Endobronchial Ultrasound Guided 11/09/2020 12:00: 00 AM EST [facility] ([facility], ) Injection, methylprednisolone acetate, 80 mg 0 12:00:00 AM EST eCW1 (Formerly [facility]) ARTHROCENTESIS ASPIR&/INJECTION MAJOR JT/BURSA 020 12:00:00 AM EDT [facility] ([facility] ) Spirometry 04/02/2020 12:00:00 AM EDT M EDENT ([facility], ) PUNCH BX SKIN SINGLE LESION 02/25/2020 12:00:00 AM EDT eCW1 (Formerly [facility]) Therapeutic, Prophylactic Or Diagnostic Injection Subq/Im 10/28/2019 12:00:00 AM EST MED[facility] ([facility]) Therapeutic, Prophylactic Or Diagnostic Injection Subq/Im 10/21/2019 12:00:00 AM EST [facility] ([facility]) Pneumococcal Adult 0.5mL (Pneumovax 23) 10/08/2019 12: 00:00 AM EST eCW1 (Formerly [facility]) RIV4 VACC RECOMBINANT DNA IM 10/08/2019 12:00:00 AM ES T eCW1 (Formerly [facility]) IMMUNIZATION ADMIN 10/08/2019 12:00:00 AM EST eCW1 (Formerly [facility]) IMMUNIZATION ADMIN EACH ADD 10/08/2019 12:00:00 AM EST eCW1 (Formerly [facility]) Results ID Date Data Source [id number] 11/09/2020 10:54:00 AM EST MEDENT ([facility], ) Name Value Range Interpretation Code Description Data Janessa rce(s) Supporting Document(s) Microscopic observation [Identifier] in Unspecified specimen by Non- gynecological cytology method Laboratory test result [facility] ([facility], ) will be discussed at follow-up ID Date Data Source [id number] 11/09/2020 09:19:00 AM EST MED[facility] ([facility]) Name Value Range Interpretation Code Description Data Janessa rce(s) Supporting Document(s) Microscopic observation [Identifier] in Unspecified specimen by Non- gynecological cytology method Laboratory test result [facility] ([facility]) will discuss follow-up ID Date Data Source [id number] 11/09/2020 09:15:00 AM EST MEDENT ([facility]) Name Value Range Interpretation Code Description Data Janessa rce(s) Supporting Document(s) Microscopic observation [Identifier] in Unspecified specimen by Non- gynecological cytology method Laboratory test result [facility] ([facility]) SPECIMEN: FNA Subcarinal lymp h node Slides and Cytolyt (clear) received SPECIMEN ADEQUACY: Satisfactory for evaluation CATEGORIZATION: No Malignancy identified DESCRIPTIONS: Specimen consists mainly of bronchial cells and blood elements. COMMENTS: 11/10/2020 - [address](ASCP) 11/10/2020 0729 (Prelim) Signed Janna Schrader MD 11/10/2020 1300 ID Date Data Source [id number] 11/09/2020 08:53:00 AM EST [facility] ([facility]) Name Value Range Interpretation Code Description Data Janessa rce(s) Supporting Document(s) Surgical pathology study Laboratory test result [facility] ([facility]) FINAL DIAGNOSIS A - Left lung, lower [...] submitted all in one for possible processing. -SH 11/09/2020 - 1252 Signed Janna Schrader MD 11/10/2020 1310 ID Date Data Source [id number] 11/09/2020 08:26:00 AM EST [facility] ([facility]) Name Value Range Interpretation Code Description Data Janessa rce(s) Supporting Document(s) Lymphocytes, Bal 10 % Normal (applies to non-numeric results) [facility] ([facility]) Monocytes/Macrophages, Bal 20 % Normal (applies to n on-numeric results) [facility] ([facility]) Neutrophils, Bal 70 % Normal (applies to non-numeric results) [facility] ([facility]) ID Date Data Source [id number] 11/09/2020 08:26:00 AM EST [facility] ([facility]) Name Value Range Interpretation Code Description Data Janessa rce(s) Supporting Document(s) Color Laboratory test result Above high normal [facility] ([facility]) Source Laboratory test result Normal (applies to non-n umeric results) [facility] ([facility]) Bal WBC 88 CELLS/uL 0-10 Above high normal [facility] ([facility]) Appearance Laboratory test result Above high normal [facility] ([facility]) ID Date Data Source [id number] 11/09/2020 08:19:00 AM EST [facility] ([facility]) Name Value Range Interpretation Code Description Data Janessa rce(s) Supporting Document(s) Gram Stain Laboratory test result Normal (applies to non-n umeric results) [facility] ([facility]) FEW EPITHELIAL CELLS MODERATE WBCS FEW GRAM POSITIVE COCCI IN CHAINS Bal Culture Laboratory test result Normal (applies to non- numeric results) [facility] ([facility]) <content>FULL REPORT IN LAB NOTES (eCW a nd [facility]).</content>
<content>NORMAL DIANNE PRESENT</content>
<content></content>
<content>ORGANISM 1: KLEBSIELLA PNEUMONIAE</content>
<content></content>
<content>QUANTITY OF GROWTH FEW</content>
<content></content>
<content></content>
<content></con tent>
<content>ORGANISM 1: KLEBSIELLA PNEUMONIAE</content>
<content></content>
<content>KLEBSIELLA PNEUMONIAE: REACTION</content>
<content>TRIMETHOPRIM/SULFAMETHOXAZOLE IV 160mg TMP & 800mg SMXq6h <=20 S</content>
<content>TRIMETHOPRIM/SULFAMETHOXAZOLE PO Bactrim DS Bid <=20 S</content>
<content>AMPICILLIN IV 500mg q6h >=32 R</content>
<content>AMPICILLIN PO 500mg q6h fasting >=32 R</content>
<content> GENTAMICIN IV 80mg q8h <=1 S</content>
<content>CEFAZOLIN IV 1gm q8h <=4 S</content>
<content>LEVOFLOXACIN IV 500mg qd <=0.12 S</content>
<content>LEVOFLOXACIN PO 250mg qd <=0.12 S</content>
<content>LEVOFLOXACIN PO 500mg qd <=0.12 S</content>
<content>TOBRAMYCIN IV 80mg q8h <=1 S</content>
<content> CEFTRIAXONE IV 1gm q24h <=1 S</content>
<content>CEFTAZIDIME IV 1gm q8h <=1 S</content>
<content>AMPICILLIN/SULBACTAM IV 1.5g q6h 8 S</content>
<content>PIPERACILLIN/TAZOBACTAM IV 2.25 gm q6h <=4 S</content>
<content>AZTREONAM IV 1gm q8h <=1 S</content>
<content>ERTAPENEM IV 1gm qd <=0.5 S</content>
<content>MEROPENEM IV 1 gm q8h <=0.25 S</content>
<content>MEROPENEM IV 500 mg q8h <=0.25 S</content>
<content>TIGECYCLINE IV 50mg q12h 1 S</content>
<content>CEFEPIME IV 1 gm q12h <=1 S</content>
<content>CEFEPIME IV 2 gm q12h <=1 S</content>
<content>EXTD BRD SPCTRM BETA LACTAMASE IV NEGATIVE FOR ESBL</content>
<content></content> ID Date Data Source [id number] 11/09/2020 08:19:00 AM EST [facility] ([facility]) Name Value Range Interpretation Code Description Data Janessa rce(s) Supporting Document(s) Afb Smear Laboratory test result [facility] ([facility]) Due to limited sensitivity, smear result s should be used as an adjunct in evaluating patient tuberculosis status. Cultural examination is highly recommended for clinical diagnosis. AFB smear Kinyoun NEGATIVE (NO AFB Seen ) ID Date Data Source [id number] 11/04/2020 12:34:00 PM EST [facility] ([facility]) Name Value Range Interpretation Code Description Data Janessa rce(s) Supporting Document(s) Red Blood Count 4.34 10 4.00-5.40 Normal (applies to non-numeric results) [facility]) White Blood Count 5.8 10 4.0-10.0 Normal (applies to non-numeri c results) [facility]) Hemoglobin 14.7 g/dL 12.0-15.5 Normal (applies to non-numeric resul ts) [facility]) Mean Corpuscular Volume 103.2 fl 80.0-96.0 Above high normal [facility] ([facility]) Mean Corpuscular Hemoglobin 33.9 pg 27.0-33.0 Above high normal [facility] ([facility]) Hematocrit 44.8 % 36.0-47.0 Normal (applies to non-numeric resul ts) [facility]) Red Cell Distribution Width 12.7 % 11.5-14.5 Norm al (applies to non-numeric results) [facility]) Mean Corpuscular HGB Conc 32.8 g/dL 32.0-36.5 Normal (applies to non-numeric results) [facility]) Neutrophils % 71.0 % 36.0-66.0 Above high normal [facility] ([facility]) Lymph % 15.3 % 24.0-44.0 Below low normal [facility] ( [facility]) Platelet Count, Automated 280 10 150-450 Normal (applies to non-numeric results) [facility] ([facility]) Baso % 0.9 % 0.0-1.0 Normal (applies to non-numeric resul ts) [facility] ([facility]) [place] % 10.1 % 0.0-5.0 Above high normal [facility] ([facility]) Eos % 2.4 % 0.0-3.0 Normal (applies to non-numeric resul ts) [facility] ([facility]) Immature Granulocyte % 0.3 % 0-3.0 Normal (applies to non-n umeric results) [facility] ([facility]) Nucleated Red Blood Cell % 0.0 % 0-0 Normal (applies to n on-numeric results) [facility] ([facility]) Neutrophils # 4.1 10 1.5-8.5 Normal (applies to non-numeric re sults) [facility] ([facility]) [place] # 0.6 10 0.0-0.8 Normal (applies to non-numeric resul ts) [facility] ([facility]) Lymph # 0.9 10 1.5-5.0 Below low normal [facility] ( [facility]) Eos # 0.1 10 0.0-0.5 Normal (applies to non-numeric resul ts) [facility] ([facility]) Baso # 0.1 10 0.0-0.2 Normal (applies to non-numeric resul ts) [facility] ([facility]) ID Date Data Source [id number] 11/04/2020 12:34:00 PM EST [facility] ([facility]) Name Value Range Interpretation Code Description Data Janessa rce(s) Supporting Document(s) Glucose, Fasting 80 mg/dL 70-100 Normal (applies to non-numeric results) [facility] ([facility]) Creatinine For GFR 0.72 mg/dL 0.55-1.30 Normal (applies to non -numeric results) [facility]) Glomerular Filtration Rate Laboratory test result Normal (applies to non- numeric results) [facility] ([facility], ) <content>Units are mL/min/1.73 m2</content>
<content></content>
<content>Chronic Kidney Disease Staging per NKF:</content>
<content></content>
<content>Stage I & II GFR >=60 Normal to Mildly Decreased</content>
<content>Stage III GFR 30- 59 Moderately Decreased</content>
<content>Stage IV GFR 15-29 Severely Decreased</content>
<content>Stage V GFR <15 Very Little GFR Left</content>
<content>ESRD GFR <15 on PRACTICE CLINICIAN</content>
<content></content> Blood Urea Nitrogen 22 mg/dL 7-18 Above high normal [facility] Chloride Level 101 meq/L 98-107 Normal (applies to non-numeric r esults) [facility] ([facility], ) Potassium Serum 4.7 meq/L 3.5-5.1 Normal (applies to non-numeric results) [facility] ([facility], ) Sodium Level 135 meq/L 136-145 Below low normal [facility] ([facility]) Carbon Dioxide Level 32 meq/L 21-32 Normal (applies to non-num rima results) [facility] ([facility], ) Anion Gap 2 meq/L 8-16 Below low normal [facility] ( [facility], ) Calcium Level 8.8 mg/dL 8.8-10.2 Normal (applies to non-numeric re sults) [facility] ([facility], ) Ast/Sgot 15 U/L 7-37 Normal (applies to non-numeric resul ts) [facility] ([facility], ) Alt/SGPT 26 U/L 12-78 Normal (applies to non-numeric resul ts) [facility] ([facility], ) Bilirubin,Total 0.3 mg/dL 0.2-1.0 Normal (applies to non-numeric results) [facility] ([facility], ) Total Protein 7.0 GM/DL 6.4-8.2 Normal (applies to non-numeric re sults) [facility]) Alkaline Phosphatase 81 U/L 45-117 Normal (applies to non-num rima results) [facility]) Albumin 3.5 GM/DL 3.2-5.2 Normal (applies to non-numeric resul ts) [facility]) Albumin/Globulin Ratio 1.0 1.2-2.[address] [facility]) ID Date Data Source [id number] 11/04/2020 12:34:00 PM EST [facility]) Name Value Range Interpretation Code Description Data Janessa rce(s) Supporting Document(s) Cytoplasmic Neutrop AB Anca-C Laboratory test result Normal (applies to non- numeric results) [facility] ([facility]) Perinuclear AB Anca-P Laboratory test result Nor mal (applies to non-numeric results) [facility]) The presence of positive fluorescence ex hibiting P-ANCA or C-ANCA patterns alone is not specific for the diagnosis of Denise's Granulomatosis (WG) or microscopic polyangiitis. Decisions about treatment should not be based solely on ANCA IFA results. The International ANCA Group Consensus recommends follow up testing of positive sera with both FL- 3 and MPO-ANCA enzyme immunoassays. As m any as 5% serum samples are positive only by EIA. Ref. AM J Clin Pathol 1999;111:507-513. Anca-Atypical Laboratory test result Normal (applies t o non-numeric results) [facility]) The atypical pANCA pattern has been obse rved in a significant percentage of patients with ulcerative colitis, primary sclerosing cholangitis and autoimmune hepatitis. ID Date Data Source [id number] 11/04/2020 12:34:00 PM EST [facility] ([facility]) Name Value Range Interpretation Code Description Data Janessa rce(s) Supporting Document(s) Rheumatoid factor [Units/volume] in Serum or Plasma Laboratory t est result Normal (applies to non-numeric results) [facility]) ID Date Data Source [id number] 11/04/2020 12:34:00 PM [facility] ([facility]) Name Value Range Interpretation Code Description Data Janessa rce(s) Supporting Document(s) Histoplasmosis Antibody Laboratory test result N ormal (applies to non-numeric results) [facility] ([facility]) INTERPRETIVE INFORMATION: Histoplasma sp p. Antibodies by Immunodiffusion The immunodiffusion test can detect precipitins to specific Histoplasma protein antigens (M and H). The M band often appears first and may occur without the H band. M precipitin is found in about 70 percent of both acute and chronic histoplasmosis cases. Both M and H occur together in only about 10 percent of patients. REFERENCE RANGE: None Detected Blastomyces Antibody Level Laboratory test result Normal (applies to non- numeric results) [facility] ([facility]) Coccidioides sp Ab [Units/volume] in Serum 0.2 IV Normal (applies to non- numeric results) [facility] ([facility]) INTERPRETIVE INFORMATION: Coccidioides A ntibody, Ig.9 IV or less: Negative - No [...] antigens are represented in the LEXY tests. Cryptococcus sp Ag [Presence] in Serum by Immunoassay Laboratory test result Normal (applies to non-numeric results) [facility]) Performed at: [facility] Lab[address] [id number] [employer]: Raquel Han MD, Phone: [phone] Performed at: [facility] [address] [id number] [employer]: Raulito Esteban MD, Phone: [phone] ID Date Data Source [id number] 11/04/2020 12:34:00 PM [facility] ([facility]) Name Value Range Interpretation Code Description Data Janessa rce(s) Supporting Document(s) Aspergillus Fumigatus Vibha Laboratory test result Normal (applies to non- numeric results) [facility] ([facility]) Aspergillus Niger Vibha Laboratory test result Nor mal (applies to non-numeric results) [facility] ([facility]) Aspergillus Flavus [facility]ha Laboratory test result No rmal (applies to non-numeric results) [facility] ([facility]) ID Date Data Source [id number] 11/04/2020 12:34:00 PM EST [facility] ([facility]) Name Value Range Interpretation Code Description Data Janessa rce(s) Supporting Document(s) Prothrombin Time 13.1 s 12.5-14.3 Normal (applies to non-numeric results) [facility] ([facility]) Inr 0.97 Normal (applies to non-numeric resul ts) [facility]) THERAPUTIC HUMAN INR VALUES INDICATIONS NORMAL RANGES PROPHYLAXIS/TREATMENT OF: VENOUS THROMBOSIS 2.0-3.0 PULMONARY EMBOLISM 2.0-3.0 PREVENTION OF SYSTEMIC EMBOLISM FROM: TISSUE HEART VALVES 2.0-3.0 ACUTE MYOCARDIAL INFARCTION 2.0-3.0 VALVULAR HEART DISEASE 2.0-3.0 ATRIAL FIBRILLATION 2.0-3.0 MECHANICAL VALVES(HIGH RISK) 2.5-3.5 RECURRENT MYOCARDIAL INFARCTION 2.5-3.5 ID Date Data Source [id number] 11/04/2020 12:34:00 PM EST [facility] ([facility]) Name Value Range Interpretation Code Description Data Janessa rce(s) Supporting Document(s) aPTT in Platelet poor plasma by Coagulation assay 25.1 s 24.2-38.5 Normal (applies to non-numeric results) [facility]) ID Date Data Source [id number] 11/04/2020 11:55:00 AM EST [facility] Name Value Range Interpretation Code Description Data Janessa rce(s) Supporting Document(s) SARS coronavirus 2 RNA Not Detected [facility] [place] This lab was ordered by [facility] and reported by [facility]. ID Date Data Source [id number] 09/02/2020 12:00:00 PM EST [facility] Name Value Range Interpretation Code Description Data Janessa rce(s) Supporting Document(s) SARS coronavirus 2 RNA [facility] This lab was ordered by [facility] and reported by [facility]. ID Date Data Source [facility] 08/11/2020 05:32:50 AM EDT eCW1 ([facility]) Name Value Range Interpretation Code Description Data Janessa rce(s) Supporting Document(s) eCW1 ([facility]) ID Date Data Source VITAMIN [id number] 07/28/2020 06:22:32 AM EDT eCW1 ([facility]) Name Value Range Interpretation Code Description Data Janessa rce(s) Supporting Document(s) 17.8 eCW1 ([facility]) ID Date Data Source AMYLASE 07/27/2020 10:04:42 AM EDT eCW1 ([facility]) Name Value Range Interpretation Code Description Data Janessa rce(s) Supporting Document(s) 54 eCW1 ([facility]) ID Date Data Source C REACTIVE PROTEIN QUANTITATIV (At [facility]) 07/27/2020 10:04 :39 AM EDT eCW1 ([facility]) Name Value Range Interpretation Code Description Data Janessa rce(s) Supporting Document(s) 0.30 eCW1 ([facility]) ID Date Data Source FREE T4 & TSH PANEL 07/27/2020 10:04:36 AM EDT eCW1 ([facility]) Name Value Range Interpretation Code Description Data Janessa rce(s) Supporting Document(s) 4.530 THYROID STIMULATING HORMONE eC W1 ([facility]) 1.03 FREE T4 eCW1 ([facility]) ID Date Data Source CBC with Differential 07/27/2020 10:04:32 AM EDT eCW1 ([facility]) Name Value Range Interpretation Code Description Data Janessa rce(s) Supporting Document(s) 9.3 eCW1 ([facility]) 4.95 eCW1 ([facility]) 15.5 eCW1 ([facility]) 47.3 eCW1 ([facility]) 31.3 eCW1 ([facility]) 95.6 eCW1 ([facility]) 32.8 eCW1 ([facility]) 14.0 eCW1 ([facility]) 71.5 eCW1 ([facility]) 252 eCW1 ([facility]) 16.0 eCW1 ([facility]) 6.6 eCW1 ([facility]) 0.4 eCW1 ([facility]) 2.3 eCW1 ([facility]) 9.5 eCW1 ([facility]) 0.2 eCW1 ([facility]) 0.9 eCW1 ([facility]) 0.0 eCW1 ([facility]) 1.5 eCW1 ([facility]) ID Date Data Source LIPASE 07/27/2020 10:04:26 AM EDT eCW1 ([facility]) Name Value Range Interpretation Code Description Data Janessa rce(s) Supporting Document(s) 111 eCW1 ([facility]) ID Date Data Source Comprehensive Metabolic Profile (CMP) 07/27/2020 10:04:23 AM EDT eCW1 ([facility]) Name Value Range Interpretation Code Description Data Janessa rce(s) Supporting Document(s) 91 GLUCOSE, FASTING eCW1 ([facility]) 136 SODIUM LEVEL eCW1 ([facility]) > 60.0 GLOMERULAR FILTRATION RATE eCW 1 ([facility]) 26 BLOOD UREA NITROGEN eCW1 ([facility]) 0.78 CREATININE FOR GFR eCW1 ([facility]) 4.2 POTASSIUM SERUM eCW1 ([facility]) 99 CHLORIDE LEVEL eCW1 ([facility]) 29 CARBON DIOXIDE LEVEL eCW1 ([facility]) 9.5 CALCIUM LEVEL eCW1 ([facility]) 15 AST/SGOT eCW1 ([facility]) 21 ALT/SGPT eCW1 ([facility]) 97 ALKALINE PHOSPHATASE eCW1 ([facility]) 0.4 BILIRUBIN,TOTAL eCW1 ([facility]) 0.9 ALBUMIN/GLOBULIN RATIO eCW1 ([facility]) 7.8 TOTAL PROTEIN eCW1 ([facility]) 3.7 ALBUMIN eCW1 ([facility]) ID Date Data Source [id number] SEDIMENTATION RATE 07/27/2020 10:04:16 AM EDT eC W1 ([facility]) Name Value Range Interpretation Code Description Data Janessa rce(s) Supporting Document(s) 8 eCW1 ([facility]) ID Date Data Source [id number] 04/02/2020 11:09:00 AM EDT [facility] ([facility] ) Name Value Range Interpretation Code Description Data Janessa rce(s) Supporting Document(s) FVC-Pred 3.25 L [facility] ([facility], ) FVC-Pre 2.29 L [facility] ([facility]) PDFReport Laboratory test result [facility] ([facility], ) FVC-%Pred-Pre 70 L [facility] ([facility], ) FVC-LLN 2.56 L [facility] ([facility]) Fev1-Pred 2.50 L [facility] ([facility]) Fev1-Pre 1.44 L [facility] ([facility]) Fev1-LLN 1.92 L [facility] ([facility]) Fev6-Pred 3.13 L [facility] ([facility]) Fev1-%Pred-Pre 57 L [facility] ([facility]) Fev6-Pre 2.27 L [facility] ([facility]) Fev6-%Pred-Pre 72 L [facility] ([facility], ) Fev6-LLN 2.45 L [facility] ([facility], ) Cyr5hcp-Jdpn 78 % [facility] ([facility]) Btc7epu-%Pred-Pre 80 % [facility] ([facility]) Mlk0tws-Zin 63 % [facility] ([facility]) Xgi5wof-PGR 68 % [facility] ([facility]) Ddz7rbp-%Pred-Pre 102 % [facility] ([facility]) Fgg9nmp-Xej 99 % [facility] ([facility]) Tru4dpm-Ujtz 96 % [facility] ([facility]) FEFMax-Pred 6.18 L/E/sec [facility] ([facility]) FEFMax-Pre 4.04 L/E/sec [facility] ([facility] [facility] FEFMax-LLN 4.46 L/E/sec MEDENT ([facility]) FEFMax-%Pred-Pre 65 L/E/sec MEDENT ([facility]) [id number]-%Pred-Pre 31 L/E/sec MEDENT ([facility]) [id number]-Dsmf 2.26 L/E/sec MEDENT ([facility]) [id number] 0.71 L/E/sec MEDENT ([facility]) [id number] 63 % MEDENT ([facility]) [id number] 1.02 L/E/sec MEDENT ([facility]) ExpTime-Pre 6.73 sec MEDENT ([facility]) [id number]-Ynxy 80 % MEDENT ([facility]) [id number]-%Pred-Pre 78 % MEDENT ([facility]) [id number]-AHQ 72 % MEDENT ([facility]) ID Date Data Source [facility] 10/08/2019 12:00:00 AM EST eCW1 (Formerly [facility]) Name Value Range Interpretation Code Description Data Janessa rce(s) Supporting Document(s) 6.7 4.0-10.0 WHITE BLOOD COUNT eCW1 ([facility]) 14.2 12.0-15.5 HEMOGLOBIN eCW1 ([facility]) 44.1 36.0-47.0 HEMATOCRIT eCW1 ([facility]) 4.38 4.00-5.40 RED BLOOD COUNT eCW1 ([facility]) 32.2 32.0-36.5 MEAN CORPUSCULAR HGB CONC eCW1 (Formerly [facility]) 32.4 27.0-33.0 MEAN CORPUSCULAR HEMOGLOB IN eCW1 ([facility]ly [facility]) 100.7 80.0-96.0 MEAN CORPUSCULAR VOLUME e CW1 (Formerly [facility]) 212 150-450 PLATELET COUNT, AUTOMATED eCW1 (Formerly [facility]) 12.9 11.5-14.5 RED CELL DISTRIBUTION WID TH eCW1 (Formerly [facility]) Procedure Social History Code Duration Value Status Description Data Source(s ) Smoking 09/04/2020 12:00:00 AM EST Current Smoker completed Curre nt Smoker eCW1 ([facility]ly [facility]) Smoking 09/04/2020 12:00:00 AM EST Current Smoker completed Curre nt Smoker eCW1 (Formerly [facility]) Smoking 09/04/2020 12:00:00 AM EST Current Smoker completed Curre nt Smoker eCW1 (Formerly [facility]) Smoking 09/04/2020 12:00:00 AM EST Current Smoker completed Curre nt Smoker eCW1 ([facility]ly [facility]) Smoking 08/18/2020 12:00:00 AM EDT Current Smoker completed Curre nt Smoker eCW1 ([facility]ly [facility]) Smoking 08/18/2020 12:00:00 AM EDT Current Smoker completed Curre nt Smoker eCW1 ([facility]ly [facility]) Smoking 08/18/2020 12:00:00 AM EDT Current Smoker completed Curre nt Smoker eCW1 ([facility]ly [facility]) Smoking 07/24/2020 12:00:00 AM EDT Current Smoker completed Curre nt Smoker eCW1 ([facility]ly [facility]) Smoking 07/24/2020 12:00:00 AM EDT Current Smoker completed Curre nt Smoker eCW1 ([facility]ly [facility]) Smoking 07/24/2020 12:00:00 AM EDT Current Smoker completed Curre nt Smoker eCW1 ([facility]ly [facility]) Smoking 07/24/2020 12:00:00 AM EDT Current Smoker completed Curre nt Smoker eCW1 (Formerly [facility]) Smoking 03/20/2020 12:00:00 AM EDT Current Smoker completed Curre nt Smoker eCW1 (Formerly [facility]) Vital Signs ID Date Data Source UNK Name Value Range Interpretation Code Description Data Source(s) Body surface area Derived from formula 1.89 m2 1.89 m2 [facility] ([facility]) Body weight 81.365 kg 81.365 kg [facility] ([facility]) [place] body weight 125 [lb_av] 125 [lb_av] MEDEN T ([facility]) Body mass index (BMI) [Ratio] 29.8 kg/m2 29.8 k g/m2 [facility] ([facility]) Body weight 179.38 [lb_av] 179.38 [lb_av] MEDEN T ([facility]) Body height 65 [in_i] 65 [in_i] [facility] ([facility]) 5'5" Body temperature 96.9 [degF] 96.9 [degF] [facility] ([facility]) Oxygen saturation in Arterial blood by Pulse oximetry 94 % 94 % [facility] ([facility]) Heart rate 105 /min 105 /min [facility] ([facility]) Diastolic blood pressure 82 mm[Hg] 82 mm[Hg] [facility] ([facility]) Systolic blood pressure 144 mm[Hg] 144 mm[Hg] [facility] Body mass index (BMI) [Ratio] 29.6 kg/m2 29.6 k g/m2 [facility] ([facility]) Body weight 178.00 [lb_av] 178.00 [lb_av] MEDEN T ([facility]) Body height 65 [in_i] 65 [in_i] [facility] ([facility]) 5'5" Diastolic blood pressure 88 mm[Hg] 88 mm[Hg] MEDENT ([facility]) Systolic blood pressure 156 mm[Hg] 156 mm[Hg] M EDENT ([facility]) Body surface area Derived from formula 1.88 m2 1.88 m2 MEDENT ([facility]) Body weight 80.741 kg 80.741 kg MEDENT ([facility]) [place] body weight 125 [lb_av] 125 [lb_av] MEDEN T ([facility]) Diastolic blood pressure 80 mm[Hg] 80 mm[Hg] eCW1 ([facility]) Systolic blood pressure 140 mm[Hg] 140 mm[Hg] e CW1 ([facility]) Body temperature 96.9 [degF] 96.9 [degF] eCW1 ( [facility]) Respiratory rate 19 /min 19 /min eCW1 ([facility]) Heart rate 106 /min 106 /min eCW1 ([facility]) Body mass index (BMI) [Ratio] 26.05 kg/m2 26.05 kg/m2 W1 ([facility]ly [facility]) Body height 65.5 [in_i] 65.5 [in_i] eCW1 ([facility]) Body weight 159 [lb_av] 159 [lb_av] eCW1 ([facility]) Diastolic blood pressure 84 mm[Hg] 84 mm[Hg] eCW1 ([facility]) Systolic blood pressure 122 mm[Hg] 122 mm[Hg] e CW1 ([facility]) Body temperature 97.2 [degF] 97.2 [degF] eCW1 ( [facility]) Respiratory rate 18 /min 18 /min eCW1 ([facility]) Heart rate 108 /min 108 /min eCW1 ([facility]) Body mass index (BMI) [Ratio] 25.82 kg/m2 25.82 kg/m2 W1 ([facility]) Body height 65.5 [in_i] 65.5 [in_i] eCW1 ([facility]) Body weight 157.6 [lb_av] 157.6 [lb_av] eCW1 ([facility]) Diastolic blood pressure 82 mm[Hg] 82 mm[Hg] eCW1 ([facility]) Systolic blood pressure 130 mm[Hg] 130 mm[Hg] e CW1 ([facility]) Body temperature 96.5 [degF] 96.5 [degF] eCW1 ( [facility]) Respiratory rate 18 /min 18 /min eCW1 ([facility]) Heart rate 100 /min 100 /min eCW1 ([facility]) Body mass index (BMI) [Ratio] 24.78 kg/m2 24.78 kg/m2 eCW1 ([facility]) Body height 65.5 [in_i] 65.5 [in_i] eCW1 ([facility]) Body weight 151.2 [lb_av] 151.2 [lb_av] eCW1 ([facility]) Body weight 67.360 kg 67.360 kg [facility], ) Body mass index (BMI) [Ratio] 25.5 kg/m2 25.5 k g/m2 [facility], ) Body weight 148.50 [lb_av] 148.50 [lb_av] MEDEN T ([facility], ) Body height 64 [in_i] 64 [in_i] MEDENT ([facility], ) 5'4" Body temperature 97.4 [degF] 97.4 [degF] [facility], ) Oxygen saturation in Arterial blood by Pulse oximetry 92 % 92 % [facility] ([facility], ) Heart rate 75 /min 75 /min [facility] ([facility], ) Diastolic blood pressure 76 mm[Hg] 76 mm[Hg] MEDENT ([facility], ) Systolic blood pressure 148 mm[Hg] 148 mm[Hg] M EDENT ([facility], ) Body weight 67.586 kg 67.586 kg [facility] ([facility]) Body mass index (BMI) [Ratio] 25.6 kg/m2 25.6 k g/m2 MEDENT ([facility]) Body weight 149.00 [lb_av] 149.00 [lb_av] MEDEN T ([facility]) Body height 64 [in_i] 64 [in_i] MEDENT ([facility]) 5'4" Body temperature 97.0 [degF] 97.0 [degF] [facility] ([facility]) Heart rate 68 /min 68 /min [facility] ([facility]) Diastolic blood pressure 68 mm[Hg] 68 mm[Hg] [facility] ([facility]) Systolic blood pressure 122 mm[Hg] 122 mm[Hg] [facility] Body mass index (BMI) [Ratio] 24.1 kg/m2 24.1 k g/m2 MEDENT ([facility], [facility]) Body height 65 [in_i] 65 [in_i] MEDENT ([facility], [facility]) 5'5" Body weight 145.00 [lb_av] 145.00 [lb_av] MEDEN T ([facility], [facility]) Body temperature 98.7 [degF] 98.7 [degF] MEDENT ([facility], [facility]) Oxygen saturation in Arterial blood by Pulse oximetry 91 % 91 % MEDENT ([facility], [facility]) Respiratory rate 20 /min 20 /min MEDENT ( [facility], [facility]) Heart rate 84 /min 84 /min MEDENT ([facility], [facility]) Diastolic blood pressure 64 mm[Hg] 64 mm[Hg] MEDENT ([facility], [facility]) Systolic blood pressure 130 mm[Hg] 130 mm[Hg] [facility], [facility]) Body temperature 98.3 [degF] 98.3 [degF] MEDENT ([facility], [facility]) Oxygen saturation in Arterial blood by Pulse oximetry 93 % 93 % MEDENT ([facility], [facility]) Heart rate 97 /min 97 /min [facility] ([facility], [facility]) Diastolic blood pressure 72 mm[Hg] 72 mm[Hg] [facility] ([facility], [facility]) Systolic blood pressure 132 mm[Hg] 132 mm[Hg] [facility]) Body mass index (BMI) [Ratio] 24.1 kg/m2 24.1 k g/m2 [facility] ([facility], [facility]) Body height 65 [in_i] 65 [in_i] [facility] ([facility], [facility]) 5'5" Body weight 145.00 [lb_av] 145.00 [lb_av] MEDEN T ([facility], [facility]) Body weight 69.854 kg 69.854 kg [facility] ([facility]) Body mass index (BMI) [Ratio] 26.4 kg/m2 26.4 k g/m2 [facility] ([facility]) Body weight 154.00 [lb_av] 154.00 [lb_av] [facility] Body height 64 [in_i] 64 [in_i] [facility] ([facility]) 5'4" Body temperature 98.1 [degF] 98.1 [degF] [facility] ([facility]) Oxygen saturation in Arterial blood by Pulse oximetry 90 % 90 % [facility] ([facility]) Room Air Heart rate 83 /min 83 /min [facility] ([facility]) Diastolic blood pressure 76 mm[Hg] 76 mm[Hg] [facility] ([facility]) Systolic blood pressure 128 mm[Hg] 128 mm[Hg] [facility] ([facility]) Body mass index (BMI) [Ratio] 25.23 kg/m2 25.23 kg/m2 eCW1 ([facility]) Body height 65.5 [in_i] 65.5 [in_i] eCW1 ([facility]) Body weight 154 [lb_av] 154 [lb_av] eCW1 ([facility]) Diastolic blood pressure 64 mm[Hg] 64 mm[Hg] eCW1 ([facility]) Systolic blood pressure 142 mm[Hg] 142 mm[Hg] e CW1 ([facility]) Body mass index (BMI) [Ratio] 25.37 kg/m2 25.37 kg/m2 eCW1 ([facility]) Body height 65.5 [in_us] 65.5 [in_us] eCW1 ([facility]) Body weight Measured 154.8 [lb_av] 154.8 [lb_av ] eCW1 ([facility]) Diastolic blood pressure 68 mm[Hg] 68 mm[Hg] eCW1 ([facility]) Systolic blood pressure 120 mm[Hg] 120 mm[Hg] e CW1 ([facility]) Body temperature 96.3 [degF] 96.3 [degF] eCW1 ( [facility]) Respiratory rate 18 /min 18 /min eCW1 ([facility]) Heart rate 89 /min 89 /min eCW1 ([facility]) Body mass index (BMI) [Ratio] 24.38 kg/m2 24.38 kg/m2 eCW1 ([facility]) Body height 65.5 [in_us] 65.5 [in_us] eCW1 ([facility]) Body weight Measured 148.8 [lb_av] 148.8 [lb_av ] eCW1 ([facility]) Body mass index (BMI) [Ratio] 24.1 kg/m2 24.1 k g/m2 MEDENT ([facility], [facility]) Body height 65 [in_i] 65 [in_i] MEDENT ([facility], [facility]) 5'5" Body weight 145.00 [lb_av] 145.00 [lb_av] MEDEN T ([facility], [facility]) Body temperature 98.4 [degF] 98.4 [degF] MEDENT ([facility], [facility]) Oxygen saturation in Arterial blood by Pulse oximetry 93 % 93 % MEDENT ([facility], [facility]) Respiratory rate 16 /min 16 /min MEDENT ( [facility], [facility]) Heart rate 93 /min 93 /min MEDENT ([facility], [facility]) Diastolic blood pressure 74 mm[Hg] 74 mm[Hg] MEDENT ([facility], [facility]) Systolic blood pressure 143 mm[Hg] 143 mm[Hg] M EDENT ([facility], [facility]) Body mass index (BMI) [Ratio] 24.1 kg/m2 24.1 k g/m2 MEDENT ([facility], [facility]) Body height 65 [in_i] 65 [in_i] MEDENT ([facility], [facility]) 5'5" Body weight 145.00 [lb_av] 145.00 [lb_av] MEDEN T ([facility], [facility]) Body temperature 98.5 [degF] 98.5 [degF] MEDENT ([facility], [facility]) Oxygen saturation in Arterial blood by Pulse oximetry 92 % 92 % MEDENT ([facility], [facility]) Respiratory rate 18 /min 18 /min MEDENT ( [facility], [facility]) Heart rate 92 /min 92 /min MEDENT ([facility], [facility]) Diastolic blood pressure 76 mm[Hg] 76 mm[Hg] [facility], [facility]) Systolic blood pressure 124 mm[Hg] 124 mm[Hg] [facility], [facility]) Body mass index (BMI) [Ratio] 24.1 kg/m2 24.1 k g/m2 MEDENT ([facility], [facility]) Body height 65 [in_i] 65 [in_i] MEDENT ([facility], [facility]) 5'5" Body weight 145.00 [lb_av] 145.00 [lb_av] MEDEN T ([facility], [facility]) Body temperature 98.6 [degF] 98.6 [degF] [facility] ([facility], [facility]) Oxygen saturation in Arterial blood by Pulse oximetry 89 % 89 % MEDENT ([facility], [facility]) ra Respiratory rate 14 /min 14 /min MEDENT ( [facility], [facility]) Heart rate 104 /min 104 /min MEDENT ([facility], [facility]) Diastolic blood pressure 60 mm[Hg] 60 mm[Hg] MEDENT ([facility], [facility]) Systolic blood pressure 96 mm[Hg] 96 mm[Hg] M EDENT ([facility], [facility]) Diastolic blood pressure 62 mm[Hg] 62 mm[Hg] eCW1 ([facility]) Systolic blood pressure 120 mm[Hg] 120 mm[Hg] e CW1 ([facility]) Body temperature 98 [degF] 98 [degF] eCW1 ([facility]) Respiratory rate 18 /min 18 /min eCW1 ([facility]) Heart rate 78 /min 78 /min eCW1 ([facility]) Body mass index (BMI) [Ratio] 23.89 kg/m2 23.89 kg/m2 eCW1 ([facility]) Body height 65.5 [in_us] 65.5 [in_us] eCW1 ([facility]) Body weight Measured 145.8 [lb_av] 145.8 [lb_av ] eCW1 ([facility]ly [facility]) Patient Treatment Plan of Care Planned Activity Planned Date Details Description Data Source (s) aripiprazole 5 MG Oral Tablet [Abilify] 09/08/2020 12:00:00 AM EST eCW1 ([facility]) aripiprazole 5 MG Oral Tablet [Abilify] 09/08/2020 12:00:00 AM EST eCW1 ([facility]ly [facility]) aripiprazole 5 MG Oral Tablet [Abilify] 09/08/2020 12:00:00 AM EST eCW1 ([facility]) Prednisone 10 MG Oral Tablet 09/04/2020 12:00:00 AM EST eCW1 ([facility]) Amoxicillin 875 MG / Clavulanate 125 MG Oral Tablet 09/04/20 12:00:00 AM EST eCW1 ([facility]) Prednisone 10 MG Oral Tablet 09/04/2020 12:00:00 AM EST eCW1 ([facility]) Amoxicillin 875 MG / Clavulanate 125 MG Oral Tablet 09/04/20 12:00:00 AM EST eCW1 ([facility]) Prednisone 10 MG Oral Tablet 09/04/2020 12:00:00 AM EST eCW1 ([facility]) Amoxicillin 875 MG / Clavulanate 125 MG Oral Tablet 09/04/20 12:00:00 AM EST eCW1 ([facility]) Prednisone 10 MG Oral Tablet 09/04/2020 12:00:00 AM EST eCW1 ([facility]) Amoxicillin 875 MG / Clavulanate 125 MG Oral Tablet 09/04/20 12:00:00 AM EST eCW1 ([facility]) aripiprazole 2 MG Oral Tablet [Abilify] 08/18/2020 12:00:00 AM EDT eCW1 ([facility]) aripiprazole 2 MG Oral Tablet [Abilify] 08/18/2020 12:00:00 AM EDT eCW1 ([facility]) aripiprazole 2 MG Oral Tablet [Abilify] 08/18/2020 12:00:00 AM EDT eCW1 ([facility]) aripiprazole 2 MG Oral Tablet [Abilify] 08/18/2020 12:00:00 AM EDT eCW1 ([facility]) meloxicam 7.5 MG Oral Tablet 07/24/2020 12:00:00 AM EDT eCW1 ([facility]) Omeprazole 40 MG Delayed Release Oral Capsule 07/24/2020 12:00:00 A M EDT eCW1 ([facility]) meloxicam 7.5 MG Oral Tablet 07/24/2020 12:00:00 AM EDT eCW1 ([facility]) Omeprazole 40 MG Delayed Release Oral Capsule 07/24/2020 12:00:00 A M EDT eCW1 ([facility]) meloxicam 7.5 MG Oral Tablet 07/24/2020 12:00:00 AM EDT eCW1 ([facility]) Omeprazole 40 MG Delayed Release Oral Capsule 07/24/2020 12:00:00 A M EDT eCW1 ([facility]) meloxicam 7.5 MG Oral Tablet 07/24/2020 12:00:00 AM EDT eCW1 ([facility]) Omeprazole 40 MG Delayed Release Oral Capsule 07/24/2020 12:00:00 A M EDT eCW1 ([facility]) Triamcinolone Acetonide 1 MG/ML Topical Cream 02/25/2020 12:00:00 A M EDT eCW1 ([facility]) Prednisone 20 MG Oral Tablet 02/25/2020 12:00:00 AM EDT eCW1 ([facility]) Prednisone 20 MG Oral Tablet 01/23/2020 12:00:00 AM EDT eCW1 ([facility]) Nystatin 148309 UNT/ML Oral Suspension 12/10/2019 12:00:00 AM EST eCW1 ([facility])
[2020-11-26 19:45] LABS: ABG HCO3 13.9 MEQ/L (22.0-26.0); ABG TOTAL CO2 16.6 MEQ/L (23.0-31.0)
[2020-11-26 19:47] LABS: ABG BASE EXCESS -21.7 (-2.0-2.0); ABG O2 SATURATION 98.9 % (95.0-99.0); ABG PARTIAL PRESSURE O2 326.2 mmHg (75.0-100.0); ABG STANDARD HCO3 9.1 MEQ/L (22.0-26.0)
[2020-11-26 19:48] LABS: HEMATOCRIT 43.3 % (36.0-47.0); HEMOGLOBIN 12.6 g/dl (12.0-15.5); MEAN CORPUSCULAR HEMOGLOBIN 32.4 pg (27.0-33.0); MEAN CORPUSCULAR HGB CONC 29.1 g/dl (32.0-36.5); MEAN CORPUSCULAR VOLUME 111.3 fl (80.0-96.0); PLATELET COUNT, AUTOMATED 180 10^3/uL (150-450); RED BLOOD COUNT 3.89 10^6/uL (4.00-5.40); WHITE BLOOD COUNT 13.5 10^3/uL (4.0-10.0)
[2020-11-26 19:50] LABS: ABG pH (ARTERIAL) 6.813 UNITS (7.350-7.450)
[2020-11-26 19:51] LABS: ABG PARTIAL PRESSURE CO2 88.6 mmHg (35.0-45.0)
--- OUTSIDE RECORDS SUMMARY | 2020-11-26 20:09 | CCD ---
Author Author [facility] Organization [facility] Address Unknown Phone Unavailable Care Team Providers Care Counseling Services Director Name Role Phone Mirian Gudino MD [...] Unavailable Pamela Bazan MD Unavailable Unavailable BeniPamela brnadt MD Unavailable Unavailable BeniPamela brandt MD Unavailable [...] is protected by Article 27-F of the [facility] Public Health law. If you continue you may have access to information: Regarding HIV / AIDS; Provided by facilities licensed or operated by the [facility] Office of Mental Health; or Provided by the [facility] Office for People With Developmental Disabilities. If such information is present, then the following [facility] mandated warning applies: This information has [...] Description Data Source(s) Unknown Male Problem [facility] Unknown Unknown Problem MEDENT ([facility]) Encounters Encounter Providers Location Date Indications Data Source(s ) Office Visit Attender: Pamela Kahn/Tommy hadley 11/18/2020 02:00:00 PM EST [facility] ([facility] Outpatient Attender: Pamela Kahn/Tommy hadley 10/07/2020 02:30:00 PM EST MEDENT ([facility] ) Unknown [address] [facility] [address] 09/30/2020 12:00:00 AM EST [facility] Unknown [address] [facility] [place] [address] 09/08/2020 12:00:00 AM EST [facility] Outpatient [address] [facility] [place] [address] 09/04/2020 12:00:00 AM EST eCW1 ([facility]) [place] [address] [facility] [address] [place] [address] 09/03/2020 12:00:00 AM EST eCW1 ([facility]) [place] [address] [facility] [place] [address] 09/03/2020 12:00:00 AM EST eCW1 ([facility]) [place] [address] [facility] [place] [address] 09/01/2020 12:00:00 AM EST eCW1 ([facility]) [place] [address] [facility] [place] [address] 08/18/2020 12:00:00 AM EDT eCW1 ([facility]) [place] [address] [facility] [place] [address] 08/11/2020 12:00:00 AM EDT eCW1 ([facility]) [place] [address] [facility] [place] [address] 08/04/2020 12:00:00 AM EDT eCW1 ([facility]) [place] [address] [facility] [place] [address] 07/31/2020 12:00:00 AM EDT eCW1 ([facility]) [place] [address] [facility] [place] [address] 07/24/2020 12:00:00 AM EDT eCW1 ([facility]) Outpatient Attender: Pamela Kahn/Meir/Atilio/Hector ndl 06/17/2020 01:00:00 PM EDT MEDENT ([facility]) Outpatient Attender: Pamela Kahn/Meir/Atilio/Hector ndl 05/18/2020 10:30:00 AM EDT MEDENT ([facility]) OFFICE OUTPATIENT NEW 30 MINUTES Attender: Payton Alegria am, MD Physical Therapy 05/08/2020 09:15:00 AM EDT MEDENT ([facility]) Outpatient Attender: Chacorta Kahn/Meir/Atilio/Re indl 04/14/2020 11:30:00 AM EDT MEDENT ([facility]) Outpatient Attender: JEAN CLAUDE Richards Prima ry 04/09/2020 11:45:00 AM EDT MEDENT ([facility]) Outpatient 04/07/2020 06:16:00 AM EDT [facility] Outpatient Attender: JEAN CLAUDE Richards Prima ry 04/02/2020 12:50:00 PM EDT MEDENT ([facility]) Outpatient Attender: Pamela Kahn/Meir/Atilio/Hector ndl 04/02/2020 11:30:00 AM EDT [facility] ([facility]) [place] [address] [facility] [place] [address] 03/31/2020 12:00:00 AM EDT eCW1 ([facility]) Outpatient [address] [facility] [address] 03/20/2020 12:00:00 AM EDT eCW1 ([facility]) [facility] [address] [place] [address] 03/03/2020 12:00:00 AM EDT eCW1 ([facility]) [facility] Derm[facility] [address] [place] [address] 02/25/2020 12:00:00 AM EDT eCW1 ([facility]) [facility] [place] [address] [facility] [place] [address] 02/20/2020 12:00:00 AM EDT eCW1 ([facility]) Unknown [address] [facility] [place] [address] 01/23/2020 12:00:00 AM EDT eCW1 ([facility]) [facility] [place] [address] [facility] [place] [address] 01/22/2020 12:00:00 AM EDT eCW1 ([facility]) [facility] [place] [address] [facility] [place] [address] 01/20/2020 12:00:00 AM EDT eCW1 ([facility]) [facility] [place] [address] [facility] [place] [address] 12/10/2019 12:00:00 AM EST eCW1 ([facility]) Outpatient 12/03/2019 03:31:00 PM EST [facility] [place] [address] [facility] [place] [address] 11/28/2019 12:00:00 AM EST eCW1 ([facility]) [facility] [place] [address] [facility] [place] [address] 11/27/2019 12:00:00 AM EST eCW1 ([facility]) [facility] [place] [address] [facility] [place] [address] 11/27/2019 12:00:00 AM EST eCW1 ([facility]) Outpatient Attender: JEAN CLAUDE Alejandro ry 11/24/2019 11:10:00 AM EST MEDENT ([facility]) Outpatient 11/11/2019 08:07:00 PM EST [facility] Outpatient Attender: JEAN CLAUDE Richards Prima ry 10/28/2019 12:20:00 PM EST MEDENT ([facility]) Outpatient Attender: JEAN CLAUDE Whiteheada ry 10/21/2019 12:45:00 PM EST MEDENT ([facility]) [facility] [place] [address] [facility] [place] [address] 10/08/2019 12:00:00 AM EST eCW1 ([facility]) Immunizations Vaccine Date Status Description Data Source(s) Depo-Medrol 80mg (Methylprednisolone Acetate) 01/22/2020 02: 41:00 PM EDT completed eCW1 ([facility]) Depo-Medrol 80mg (Methylprednisolone Acetate) 01/22/2020 02: 41:00 PM EDT completed eCW1 ([facility]) Depo-Medrol 80mg (Methylprednisolone Acetate) 01/22/2020 02: 41:00 PM EDT completed eCW1 ([facility]) Depo-Medrol 80mg (Methylprednisolone Acetate) 01/22/2020 02: 41:00 PM EDT completed eCW1 ([facility]) Depo-Medrol 80mg (Methylprednisolone Acetate) 01/22/2020 02: 41:00 PM EDT completed eCW1 ([facility]) Depo-Medrol 80mg (Methylprednisolone Acetate) 01/22/2020 02: 41:00 PM EDT completed eCW1 ([facility]) Depo-Medrol 80mg (Methylprednisolone Acetate) 01/22/2020 02: 41:00 PM EDT completed eCW1 ([facility]) Depo-Medrol 80mg (Methylprednisolone Acetate) 01/22/2020 02: 41:00 PM EDT completed eCW1 ([facility]) Depo-Medrol 80mg (Methylprednisolone Acetate) 01/22/2020 02: 41:00 PM EDT completed eCW1 ([facility]) Depo-Medrol 80mg (Methylprednisolone Acetate) 01/22/2020 02: 41:00 PM EDT completed eCW1 ([facility]) Depo-Medrol 80mg (Methylprednisolone Acetate) 01/22/2020 02: 41:00 PM EDT completed eCW1 ([facility]) Depo-Medrol 80mg (Methylprednisolone Acetate) 01/22/2020 02: 41:00 PM EDT completed eCW1 ([facility]) pneumococcal polysaccharide PPV23 10/08/2019 04:06:00 PM EST comple hamlet eCW1 ([facility]) pneumococcal polysaccharide PPV23 10/08/2019 04:06:00 PM EST comple hamlet eCW1 ([facility]) pneumococcal polysaccharide PPV23 10/08/2019 04:06:00 PM EST comple hamlet eCW1 ([facility]) pneumococcal polysaccharide PPV23 10/08/2019 04:06:00 PM EST comple hamlet eCW1 ([facility]) pneumococcal polysaccharide PPV23 10/08/2019 04:06:00 PM EST comple hamlet eCW1 ([facility]) pneumococcal polysaccharide PPV23 10/08/2019 04:06:00 PM EST comple hamlet eCW1 ([facility]) pneumococcal polysaccharide PPV23 10/08/2019 04:06:00 PM EST comple hamlet eCW1 ([facility]) pneumococcal polysaccharide PPV23 10/08/2019 04:06:00 PM EST comple hamlet eCW1 ([facility]) pneumococcal polysaccharide PPV23 10/08/2019 04:06:00 PM EST comple hamlet eCW1 ([facility]) pneumococcal polysaccharide PPV23 10/08/2019 04:06:00 PM EST comple hamlet eCW1 ([facility]) pneumococcal polysaccharide PPV23 10/08/2019 04:06:00 PM EST comple hamlet eCW1 ([facility]) pneumococcal polysaccharide PPV23 10/08/2019 04:06:00 PM EST comple hamlet eCW1 ([facility]) pneumococcal polysaccharide PPV23 10/08/2019 04:06:00 PM EST comple hamlet eCW1 ([facility]) influenza, recombinant, quadrIvalent,injectable, prese rvative free 10/08/2019 04:05:00 PM EST completed eCW1 ([facility]) influenza, recombinant, quadrIvalent,injectable, prese rvative free 10/08/2019 04:05:00 PM EST completed eCW1 ([facility]) influenza, recombinant, quadrIvalent,injectable, prese rvative free 10/08/2019 04:05:00 PM EST completed eCW1 ([facility]) influenza, recombinant, quadrIvalent,injectable, prese rvative free 10/08/2019 04:05:00 PM EST completed eCW1 ([facility]) influenza, recombinant, quadrIvalent,injectable, prese rvative free 10/08/2019 04:05:00 PM EST completed eCW1 ([facility]) influenza, recombinant, quadrIvalent,injectable, prese rvative free 10/08/2019 04:05:00 PM EST completed eCW1 ([facility]) influenza, recombinant, quadrIvalent,injectable, prese rvative free 10/08/2019 04:05:00 PM EST completed eCW1 ([facility]) influenza, recombinant, quadrIvalent,injectable, prese rvative free 10/08/2019 04:05:00 PM EST completed eCW1 ([facility]) influenza, recombinant, quadrIvalent,injectable, prese rvative free 10/08/2019 04:05:00 PM EST completed eCW1 ([facility]) influenza, recombinant, quadrIvalent,injectable, prese rvative free 10/08/2019 04:05:00 PM EST completed eCW1 ([facility]) influenza, recombinant, quadrIvalent,injectable, prese rvative free 10/08/2019 04:05:00 PM EST completed eCW1 ([facility]) influenza, recombinant, quadrIvalent,injectable, prese rvative free 10/08/2019 04:05:00 PM EST completed eCW1 ([facility]) influenza, recombinant, quadrIvalent,injectable, prese rvative free 10/08/2019 04:05:00 PM EST completed eCW1 ([facility]) Medications Medication Brand Name Start Date Product Form Dose Route Admi nistrative Instructions Pharmacy Instructions Status Indications Reaction Description Data Source(s) Folic Acid 1 MG Oral Tablet Folic Acid 11/18/2020 12:00:00 AM EST ORAL active MEDENT ([facility], ) Thiamine 100 MG Oral Tablet Thiamine HCL 11/18/2020 12:00:00 AM EST ORAL active MEDENT ([facility], ) 24 HR Nicotine 0.875 MG/HR Transdermal Patch Nicotine Transd ermal System Step 1 11/18/2020 12:00:00 AM EST active MEDENT ([facility], ) Prednisone 20 MG Oral Tablet Prednisone 11/18/2020 12:00:00 AM EST ORAL active MEDENT ([facility], ) Levofloxacin 750 MG Oral Tablet Levofloxacin 11/18/2020 12:00:[address] ORAL active MEDENT ([facility], ) Prednisone 10 MG Oral Tablet Prednisone 11/09/2020 12:00:00 AM EST ORAL completed MEDENT ([facility] ) Doxycycline Monohydrate 100 MG Oral Capsule Doxycycline Morgan hydrate 10/08/2020 12:00:00 AM EST ORAL completed MEDENT ([facility], ) Azithromycin 250 MG Oral Tablet Azithromycin 10/07/2020 12:00:[address] ORAL completed MEDENT ([facility], ) Prednisone 20 MG Oral Tablet Prednisone 10/07/2020 12:00:00 AM EST ORAL completed MEDENT ([facility], ) aripiprazole 5 MG Oral Tablet [Abilify] Abilify 5 MG Abilify 5 MG 09/08/2020 12:00:00 AM EST 1.0 {tablet} active Ab ilify 5 MG eCW1 ([facility]) aripiprazole 5 MG Oral Tablet [Abilify] Abilify 5 MG Abilify 5 MG 09/08/2020 12:00:00 AM EST 1.0 {tablet} active Ab ilify 5 MG eCW1 ([facility]) aripiprazole 5 MG Oral Tablet [Abilify] Abilify 5 MG Abilify 5 MG 09/08/2020 12:00:00 AM EST 1.0 {tablet} active Ab ilify 5 MG eCW1 ([facility]) Amoxicillin 875 MG / Clavulanate 125 MG Oral Tablet Amoxicillin-Pot Clavulanate 875-125 MG Amoxicillin-Pot Clavulanate 875-125 MG 09/04/2020 12:00:00 AM ES T 1.0 {tablet} active Amoxicillin-Pot Cla vulanate 875-125 MG eCW1 ([facility]) Prednisone 10 MG Oral Tablet PredniSONE 10 MG PredniSONE 10 MG 09/04/2020 12:00:00 AM EST active PredniSO NE 10 MG eCW1 ([facility]) Prednisone 10 MG Oral Tablet PredniSONE 10 MG PredniSONE 10 MG 09/04/2020 12:00:00 AM EST active PredniSO NE 10 MG eCW1 ([facility]) Prednisone 10 MG Oral Tablet PredniSONE 10 MG PredniSONE 10 MG 09/04/2020 12:00:00 AM EST active PredniSO NE 10 MG eCW1 ([facility]) Prednisone 10 MG Oral Tablet PredniSONE 10 MG PredniSONE 10 MG 09/04/2020 12:00:00 AM EST active PredniSO NE 10 MG eCW1 ([facility]) Amoxicillin 875 MG / Clavulanate 125 MG Oral Tablet Amoxicillin-Pot Clavulanate 875-125 MG Amoxicillin-Pot Clavulanate 875-125 MG 09/04/2020 12:00:00 AM ES T 1.0 {tablet} active Amoxicillin-Pot Cla vulanate 875-125 MG eCW1 ([facility]) Amoxicillin 875 MG / Clavulanate 125 MG Oral Tablet Amoxicillin-Pot Clavulanate 875-125 MG Amoxicillin-Pot Clavulanate 875-125 MG 09/04/2020 12:00:00 AM ES T 1.0 {tablet} active Amoxicillin-Pot Cla vulanate 875-125 MG eCW1 ([facility]) Amoxicillin 875 MG / Clavulanate 125 MG Oral Tablet Amoxicillin-Pot Clavulanate 875-125 MG Amoxicillin-Pot Clavulanate 875-125 MG 09/04/2020 12:00:00 AM ES T 1.0 {tablet} active Amoxicillin-Pot Cla vulanate 875-125 MG eCW1 ([facility]) aripiprazole 2 MG Oral Tablet [Abilify] Abilify 2 MG Abilify 2 MG 08/18/2020 12:00:00 AM EDT 1.0 {tablet} active Ab ilify 2 MG eCW1 ([facility]) aripiprazole 2 MG Oral Tablet [Abilify] Abilify 2 MG Abilify 2 MG 08/18/2020 12:00:00 AM EDT 2.0 {tablets} active A bilify 2 MG eCW1 ([facility]) aripiprazole 2 MG Oral Tablet [Abilify] Abilify 2 MG Abilify 2 MG 08/18/2020 12:00:00 AM EDT 1.0 {tablet} active Ab ilify 2 MG eCW1 ([facility]) aripiprazole 2 MG Oral Tablet [Abilify] Abilify 2 MG Abilify 2 MG 08/18/2020 12:00:00 AM EDT 1.0 {tablet} active Ab ilify 2 MG eCW1 ([facility]) meloxicam 7.5 MG Oral Tablet Meloxicam 7.5 MG Meloxicam 7.5 MG 07/24/2020 12:00:00 AM EDT 1.0 {tablet} suspended Meloxicam 7.5 MG eCW1 ([facility]) meloxicam 7.5 MG Oral Tablet Meloxicam 7.5 MG Meloxicam 7.5 MG 07/24/2020 12:00:00 AM EDT 1.0 {tablet} active Me loxicam 7.5 MG eCW1 ([facility]) meloxicam 7.5 MG Oral Tablet Meloxicam 7.5 MG Meloxicam 7.5 MG 07/24/2020 12:00:00 AM EDT 1.0 {tablet} active Me loxicam 7.5 MG eCW1 ([facility]) meloxicam 7.5 MG Oral Tablet Meloxicam 7.5 MG Meloxicam 7.5 MG 07/24/2020 12:00:00 AM EDT 1.0 {tablet} suspended Meloxicam 7.5 MG eCW1 ([facility]) meloxicam 7.5 MG Oral Tablet Meloxicam 7.5 MG Meloxicam 7.5 MG 07/24/2020 12:00:00 AM EDT 1.0 {tablet} suspended Meloxicam 7.5 MG eCW1 ([facility]) meloxicam 7.5 MG Oral Tablet Meloxicam 7.5 MG Meloxicam 7.5 MG 07/24/2020 12:00:00 AM EDT 1.0 {tablet} active Me loxicam 7.5 MG eCW1 ([facility]) Omeprazole 40 MG Delayed Release Oral Capsule Omeprazole 40 MG 07/24/2020 12:00:00 AM EDT suspended Omepr azole 40 MG eCW1 ([facility]) Omeprazole 40 MG Delayed Release Oral Capsule Omeprazole 40 MG 07/24/2020 12:00:00 AM EDT suspended Omepr azole 40 MG eCW1 ([facility]) Omeprazole 40 MG Delayed Release Oral Capsule Omeprazole 40 MG 07/24/2020 12:00:00 AM EDT active Omeprazo le 40 MG eCW1 ([facility]) Omeprazole 40 MG Delayed Release Oral Capsule Omeprazole 40 MG 07/24/2020 12:00:00 AM EDT active Omeprazo le 40 MG eCW1 ([facility]) meloxicam 7.5 MG Oral Tablet Meloxicam 7.5 MG Meloxicam 7.5 MG 07/24/2020 12:00:00 AM EDT 1.0 {tablet} active Me loxicam 7.5 MG eCW1 ([facility]) Omeprazole 40 MG Delayed Release Oral Capsule Omeprazole 40 MG 07/24/2020 12:00:00 AM EDT active Omeprazo le 40 MG eCW1 ([facility]) Omeprazole 40 MG Delayed Release Oral Capsule Omeprazole 40 MG 07/24/2020 12:00:00 AM EDT suspended Omepr azole 40 MG eCW1 ([facility]) Omeprazole 40 MG Delayed Release Oral Capsule Omeprazole 40 MG 07/24/2020 12:00:00 AM EDT active Omeprazo le 40 MG eCW1 ([facility]) Omeprazole 40 MG Delayed Release Oral Capsule Omeprazole 40 MG 07/24/2020 12:00:00 AM EDT suspended Omepr azole 40 MG eCW1 ([facility]) Omeprazole 40 MG Delayed Release Oral Capsule Omeprazole 40 MG 07/24/2020 12:00:00 AM EDT suspended Omepr azole 40 MG eCW1 ([facility]) Omeprazole 40 MG Delayed Release Oral Capsule Omeprazole 40 MG 07/24/2020 12:00:00 AM EDT suspended Omepr azole 40 MG eCW1 ([facility]) meloxicam 7.5 MG Oral Tablet Meloxicam 7.5 MG Meloxicam 7.5 MG 07/24/2020 12:00:00 AM EDT 1.0 {tablet} active Me loxicam 7.5 MG eCW1 ([facility]) meloxicam 7.5 MG Oral Tablet Meloxicam 7.5 MG Meloxicam 7.5 MG 07/24/2020 12:00:00 AM EDT 1.0 {tablet} suspended Meloxicam 7.5 MG eCW1 ([facility]) Omeprazole 40 MG Delayed Release Oral Capsule Omeprazole 40 MG 07/24/2020 12:00:00 AM EDT suspended Omepr azole 40 MG eCW1 ([facility]) meloxicam 7.5 MG Oral Tablet Meloxicam 7.5 MG Meloxicam 7.5 MG 07/24/2020 12:00:00 AM EDT 1.0 {tablet} active Me loxicam 7.5 MG eCW1 ([facility]) meloxicam 7.5 MG Oral Tablet Meloxicam 7.5 MG Meloxicam 7.5 MG 07/24/2020 12:00:00 AM EDT 1.0 {tablet} active Me loxicam 7.5 MG eCW1 ([facility]) Triamcinolone Acetonide 1 MG/ML Topical Cream Triamcin olone Acetonide 0.1 % Triamcinolone Acetonide 0.1 % 02/25/2020 12:00:00 AM EDT active 1 application eCW1 ([facility]) Prednisone 20 MG Oral Tablet PredniSONE 20 MG PredniSONE 20 MG 02/25/2020 12:00:00 AM EDT active as direc hamlet eCW1 ([facility]) Prednisone 20 MG Oral Tablet PredniSONE 20 MG PredniSONE 20 MG 01/23/2020 12:00:00 AM EDT suspended 2 tab let eCW1 ([facility]) Prednisone 20 MG Oral Tablet PredniSONE 20 MG PredniSONE 20 MG 01/23/2020 12:00:00 AM EDT 2.0 {tablet} suspended PredniSONE 20 MG eCW1 ([facility]) Prednisone 20 MG Oral Tablet PredniSONE 20 MG PredniSONE 20 MG 01/23/2020 12:00:00 AM EDT 2.0 {tablet} suspended PredniSONE 20 MG eCW1 ([facility]) Prednisone 20 MG Oral Tablet PredniSONE 20 MG PredniSONE 20 MG 01/23/2020 12:00:00 AM EDT 2.0 {tablet} active Pr edniSONE 20 MG eCW1 ([facility]) Nystatin 500816 UNT/ML Oral Suspension Nystatin 741475 UNIT/ML Nystatin 852072 UNIT/ML 12/10/2019 12:00:00 AM EST 4.0 {ml} suspende d Nystatin 717343 UNIT/ML eCW1 ([facility]) Nystatin 650005 UNT/ML Oral Suspension Nystatin 736121 UNIT/ML Nystatin 587718 UNIT/ML 12/10/2019 12:00:00 AM EST suspended 4 ml eCW1 ([facility]) Nystatin 453406 UNT/ML Oral Suspension Nystatin 036944 UNIT/ML Nystatin 764958 UNIT/ML 12/10/2019 12:00:00 AM EST 4.0 {ml} suspende d Nystatin 601723 UNIT/ML eCW1 ([facility]) Nystatin 045750 UNT/ML Oral Suspension Nystatin 690663 UNIT/ML Nystatin 559931 UNIT/ML 12/10/2019 12:00:00 AM EST active 4 ml eCW1 ([facility]) 20 mg 11/24/2019 12:00:00 AM EST tablet [...] 11/24/2019 12:00:00 AM EST ORAL completed MEDENT ([facility]) Rocephin/Ceftriaxone Sodium Injection Per 250 MG 10/28 12:00:00 AM EST completed MEDENT ([facility]) Medication administered onsite Levofloxacin 750 MG Oral Tablet [Levaquin] Levaquin 10/28 12:00:00 AM EST ORAL completed MEDENT ([facility]) Methylprednisolone Sodium Succinate To 125 MG 10/21/2019 1 2:00:00 AM EST completed MEDENT ([facility]) Medication administered onsite Methylprednisolone 4 MG Oral Tablet Methylprednisolone 09/24 12:00:00 AM EST ORAL completed MEDENT ([facility]) Insurance Providers Payer name Policy type / Coverage type Policy ID Covered democrat ID Covered democrat's relationship to sahu Policy Sahu Plan Information [facility] [employer] [facility] [facility] [id number] SP [id number] [facility] O [id number] S [id number] COMM[employer] COMMUNITY PLAN [facility]O [id number] SP [id number] [facility] [id number] SP [id number] [facility] [id number] SP [id number] [facility] Health Maintenance Organization (O) [id number] Self [id number] ANSI-Medicaid [id number] ANSI-Medicaid [id number] [facility] [id number] [place] [id number] [facility] [id number] SP [id number] [facility] [id number] [facility]) O [id number] S [id number] [facility] Health Maintenance Organization (HMO) [id number] Self [id number] [facility] [id number] SP [id number] [facility] Health Maintenance Organization (O) [id number] Self [id number] [facility]-Med[facility] [id number] [facility] COMM[facility]ITY [facility] [id number] SP [id number] SELF PAY ONLY UNAVAILABLE SP UNAV AILABLE [facility] [id number] Problems, Conditions, and Diagnoses Code Display Name Description Problem Type Effective Dates Data Source(s) J44.1 [id number] COPD exacerbation Problem 09/04/2020 12:00:0 0 AM EST eCW1 ([facility]) 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 Problem 07/24/2020 12:00:00 AM EDT eCW1 ([facility]) F17.218 [id number] Cigarette nicotine d ependence with other nicotine- induced disorder Problem 11/27/2019 12:00:00 AM EST eCW1 ([facility]) F17.218 [id number] Cigarette nicotine d ependence with other nicotine- induced disorder Problem 11/27/2019 12:00:00 AM EST eCW1 ([facility]) J44.9 73990786 Chronic obstructive pulmonary di sease, unspecified COPD type Problem 10/08/2019 12:00:00 AM EST eCW1 ([facility]) E78.2 Mixed hyperlipidemia Mixed hyperlipidemia Problem 10/08/2019 12:00:00 AM EST eCW1 ([facility]) E78.2 Mixed hyperlipidemia Mixed hyperlipidemia Problem 10/08/2019 12:00:00 AM EST eCW1 ([facility]) J44.9 39116683 Chronic obstructive pulmonary di sease, unspecified COPD type Problem 10/08/2019 12:00:00 AM EST eCW1 ([facility]) Surgeries/Procedures Procedure Description Date Indications Data Source(s) Bronchoscopy W/Brushing Or Protected Brushings 021 12:00:00 AM EST MEDENT ([facility], ) Bronchoscopy W/Bronchial Alveolar Lavage 11/09/2020 12 :00:00 AM EST MEDENT ([facility], ) Bronchoscopy Rigid/Flexible Fluoroscopic Guide Computer-Assi sted 11/09/2020 12:00:00 AM EST MEDENT ([facility] ) Bronchoscopy W/Transbronchial Lung Biopsy 11/09/2020 1 2:00:00 AM EST MEDENT ([facility], ) With Endobronchial Ultrasound Guided 11/09/2020 12:00: 00 AM EST MEDENT ([facility], ) Injection, methylprednisolone acetate, 80 mg 0 12:00:00 AM EST eCW1 ([facility]) ARTHROCENTESIS ASPIR&/INJECTION MAJOR JT/BURSA 020 12:00:00 AM EDT MED[facility] ([facility] ) Spirometry 04/02/2020 12:00:00 AM EDT M EDENT ([facility], ) PUNCH BX SKIN SINGLE LESION 02/25/2020 12:00:00 AM EDT eCW1 ([facility]) Therapeutic, Prophylactic Or Diagnostic Injection Subq/Im 10/28/2019 12:00:00 AM EST MEDENT ([facility]) Therapeutic, Prophylactic Or Diagnostic Injection Subq/Im 10/21/2019 12:00:00 AM EST MEDENT ([facility]) Pneumococcal Adult 0.5mL (Pneumovax 23) 10/08/2019 12: 00:00 AM EST eCW1 ([facility]) RIV4 VACC RECOMBINANT DNA IM 10/08/2019 12:00:00 AM ES T eCW1 ([facility]) IMMUNIZATION ADMIN 10/08/2019 12:00:00 AM EST eCW1 ([facility]) IMMUNIZATION ADMIN EACH ADD 10/08/2019 12:00:00 AM EST eCW1 ([facility]) Results ID Date Data Source [id number] 11/09/2020 10:54:00 AM EST [facility] ([facility], ) Name Value Range Interpretation Code Description Data Janessa rce(s) Supporting Document(s) Microscopic observation [Identifier] in Unspecified specimen by Non- gynecological cytology method Laboratory test result [facility] ([facility], ) will be discussed at follow-up ID Date Data Source [id number] 11/09/2020 09:19:00 AM EST [facility] ([facility]) Name Value Range Interpretation Code Description Data Janessa rce(s) Supporting Document(s) Microscopic observation [Identifier] in Unspecified specimen by Non- gynecological cytology method Laboratory test result [facility] ([facility]) will discuss follow-up ID Date Data Source [id number] 11/09/2020 09:15:00 AM EST [facility] ([facility]) Name Value Range Interpretation Code Description Data Janessa rce(s) Supporting Document(s) Microscopic observation [Identifier] in Unspecified specimen by Non- gynecological cytology method Laboratory test result [facility] ([facility]) SPECIMEN: FNA Subcarinal lymp h node Slides and Cytolyt (clear) received SPECIMEN ADEQUACY: Satisfactory for evaluation CATEGORIZATION: No Malignancy identified DESCRIPTIONS: Specimen consists mainly of bronchial cells and blood elements. COMMENTS: 11/10/2020 - [address](ASCP) 11/10/2020 0729 (Prelim) Signed Janna Schrader MD 11/10/2020 1300 ID Date Data Source [id number] 11/09/2020 08:53:00 AM EST [facility] ([facility]) Name Value Range Interpretation Code Description Data Janessa rce(s) Supporting Document(s) Surgical pathology study Laboratory test result [facility] ([facility]) FINAL DIAGNOSIS A - Left lung, [...] MD 11/10/2020 1310 ID Date Data Source [id number] 11/09/2020 08:26:00 AM EST [facility] ([facility]) Name Value Range Interpretation Code Description Data Janessa rce(s) Supporting Document(s) Lymphocytes, Bal 10 % Normal (applies to non-numeric results) [facility] ([facility]) Monocytes/Macrophages, Bal 20 % Normal (applies to n on-numeric results) [facility] ([facility]) Neutrophils, Bal 70 % Normal (applies to non-numeric results) [facility] ([facility]) ID Date Data Source [id number] 11/09/2020 08:26:00 AM EST [facility] ([facility]) Name Value Range Interpretation Code Description Data Janessa rce(s) Supporting Document(s) Color Laboratory test result Above high normal [facility] ([facility]) Source Laboratory test result Normal (applies to non-n umeric results) [facility] ([facility]) Bal WBC 88 CELLS/uL 0-10 Above high normal [facility] ([facility]) Appearance Laboratory test result Above high normal [facility] ([facility]) ID Date Data Source [id number] 11/09/2020 08:19:00 AM EST [facility] ([facility]) Name Value Range Interpretation Code Description Data Janessa rce(s) Supporting Document(s) Gram Stain Laboratory test result Normal (applies to non-n umeric results) [facility] ([facility]) FEW EPITHELIAL CELLS MODERATE WBCS FEW GRAM POSITIVE COCCI IN CHAINS Bal Culture Laboratory test result Normal (applies to non- numeric results) [facility] ([facility]) <content>FULL REPORT IN LAB NOTES (eCW [...] FOR ESBL</content>
<content></content> ID Date Data Source [id number] 11/09/2020 08:19:00 AM EST [facility] ([facility]) Name Value Range Interpretation Code Description Data Janessa rce(s) Supporting Document(s) Afb Smear Laboratory test result [facility] ([facility]) Due to limited sensitivity, smear result s should be used as an adjunct in evaluating patient tuberculosis status. Cultural examination is highly recommended for clinical diagnosis. AFB smear Kinyoun NEGATIVE (NO AFB Seen ) ID Date Data Source [id number] 11/04/2020 12:34:00 PM EST [facility] ([facility]) Name Value Range Interpretation Code Description Data Janessa rce(s) Supporting Document(s) Red Blood Count 4.34 10 4.00-5.40 Normal (applies to non-numeric results) [facility]) White Blood Count 5.8 10 4.0-10.0 Normal (applies to non-numeri c results) [facility]) Hemoglobin 14.7 g/dL 12.0-15.5 Normal (applies to non-numeric resul ts) [facility]) Mean Corpuscular Volume 103.2 fl 80.0-96.0 Above high normal [facility] ([facility]) Mean Corpuscular Hemoglobin 33.9 pg 27.0-33.0 Above high normal [facility] ([facility]) Hematocrit 44.8 % 36.0-47.0 Normal (applies to non-numeric resul ts) [facility]) Red Cell Distribution Width 12.7 % 11.5-14.5 Norm al (applies to non-numeric results) [facility]) Mean Corpuscular HGB Conc 32.8 g/dL 32.0-36.5 Normal (applies to non-numeric results) [facility]) Neutrophils % 71.0 % 36.0-66.0 Above high normal [facility] ([facility]) Lymph % 15.3 % 24.0-44.0 Below low normal [facility] ( [facility]) Platelet Count, Automated 280 10 150-450 Normal (applies to non-numeric results) [facility] ([facility]) Baso % 0.9 % 0.0-1.0 Normal (applies to non-numeric resul ts) [facility] ([facility]) Morgan % 10.1 % 0.0-5.0 Above high normal [facility] ([facility]) Eos % 2.4 % 0.0-3.0 Normal (applies to non-numeric resul ts) [facility] ([facility]) Immature Granulocyte % 0.3 % 0-3.0 Normal (applies to non-n umeric results) [facility] ([facility]) Nucleated Red Blood Cell % 0.0 % 0-0 Normal (applies to n on-numeric results) [facility] ([facility]) Neutrophils # 4.1 10 1.5-8.5 Normal (applies to non-numeric re sults) [facility] ([facility]) Morgan # 0.6 10 0.0-0.8 Normal (applies to non-numeric resul ts) [facility] ([facility]) Lymph # 0.9 10 1.5-5.0 Below low normal [facility] ( [facility]) Eos # 0.1 10 0.0-0.5 Normal (applies to non-numeric resul ts) [facility] ([facility]) Baso # 0.1 10 0.0-0.2 Normal (applies to non-numeric resul ts) [facility] ([facility]) ID Date Data Source [id number] 11/04/2020 12:34:00 PM EST [facility] ([facility]) Name Value Range Interpretation Code Description Data Janessa rce(s) Supporting Document(s) Glucose, Fasting 80 mg/dL 70-100 Normal (applies to non-numeric results) [facility] ([facility]) Creatinine For GFR 0.72 mg/dL 0.55-1.30 Normal (applies to non -numeric results) [facility]) Glomerular Filtration Rate Laboratory test result Normal (applies to non- numeric results) [facility] ([facility], ) <content>Units are mL/min/1.73 m2</content>
<content></content>
<content>Chronic Kidney Disease Staging per NKF:</content>
<content></content>
<content>Stage I & II GFR >=60 Normal to Mildly Decreased</content>
<content>Stage III GFR 30- 59 Moderately Decreased</content>
<content>Stage IV GFR 15-29 Severely Decreased</content>
<content>Stage V GFR <15 Very Little GFR Left</content>
<content>ESRD GFR <15 on COMMUNITY C[facility] DIRECTOR</content>
<content></content> Blood Urea Nitrogen 22 mg/dL 7-18 Above high normal [facility] ) Chloride Level 101 meq/L 98-107 Normal (applies to non-numeric r esults) [facility] ([facility], ) Potassium Serum 4.7 meq/L 3.5-5.1 Normal (applies to non-numeric results) [facility] ([facility], ) Sodium Level 135 meq/L 136-145 Below low normal [facility] ([facility]) Carbon Dioxide Level 32 meq/L 21-32 Normal (applies to non-num rima results) [facility] ([facility], ) Anion Gap 2 meq/L 8-16 Below low normal [facility] ( [facility], ) Calcium Level 8.8 mg/dL 8.8-10.2 Normal (applies to non-numeric re sults) [facility] ([facility], ) Ast/Sgot 15 U/L 7-37 Normal (applies to non-numeric resul ts) [facility] ([facility], ) Alt/SGPT 26 U/L 12-78 Normal (applies to non-numeric resul ts) [facility] ([facility], ) Bilirubin,Total 0.3 mg/dL 0.2-1.0 Normal (applies to non-numeric results) [facility] ([facility], ) Total Protein 7.0 GM/DL 6.4-8.2 Normal (applies to non-numeric re sults) [facility]) Alkaline Phosphatase 81 U/L 45-117 Normal (applies to non-num rima results) [facility]) Albumin 3.5 GM/DL 3.2-5.2 Normal (applies to non-numeric resul ts) [facility]) Albumin/Globulin Ratio 1.0 1.2-2.2 Below low normal [facility]) ID Date Data Source [id number] 11/04/2020 12:34:00 PM EST [facility]) Name Value Range Interpretation Code Description Data Janessa rce(s) Supporting Document(s) Cytoplasmic Neutrop AB Anca-C Laboratory test result Normal (applies to non- numeric results) [facility] ([facility]) Perinuclear AB Anca-P Laboratory test result Nor mal (applies to non-numeric results) [facility]) The presence of positive fluorescence ex hibiting P-ANCA or C-ANCA patterns alone is not specific for the diagnosis of Denise's Granulomatosis (WG) or microscopic polyangiitis. Decisions about treatment should not be based solely on ANCA IFA results. The International ANCA [employer] Consensus recommends follow up testing of positive sera with both IL- 3 and MPO-ANCA enzyme immunoassays. As m any as 5% serum samples are positive only by EIA. Ref. AM J Clin Pathol 1999;111:507-513. Anca-Atypical Laboratory test result Normal (applies t o non-numeric results) [facility]) The atypical pANCA pattern has been obse rved in a significant percentage of patients with ulcerative colitis, primary sclerosing cholangitis and autoimmune hepatitis. ID Date Data Source [id number] 11/04/2020 12:34:00 PM EST [facility] ([facility]) Name Value Range Interpretation Code Description Data Janessa rce(s) Supporting Document(s) Rheumatoid factor [Units/volume] in Serum or Plasma Laboratory t est result Normal (applies to non-numeric results) [facility]) ID Date Data Source [id number] 11/04/2020 12:34:00 PM [facility] ([facility]) Name Value Range Interpretation Code Description Data Janessa rce(s) Supporting Document(s) Histoplasmosis Antibody Laboratory test result N ormal (applies to non-numeric results) [facility] ([facility]) INTERPRETIVE INFORMATION: Histoplasma sp p. Antibodies [...] result Normal (applies to non- numeric results) [facility] ([facility]) Coccidioides sp Ab [Units/volume] in Serum 0.2 IV Normal (applies to non- numeric results) [facility] ([facility]) INTERPRETIVE INFORMATION: Coccidioides A ntibody, Ig.9 [...] test result Normal (applies to non-numeric results) [facility]) Performed at: [facility] Lab[address] [id number] Hvac Engineering Technician: Raquel Han MD, Phone: [phone] Performed at: [email or web address] [address] [id number] Hvac Engineering Technician: Raulito Esteban MD, Phone: [phone] ID Date Data Source [id number] 11/04/2020 12:34:00 PM [facility] ([facility]) Name Value Range Interpretation Code Description Data Janessa rce(s) Supporting Document(s) Aspergillus Fumigatus Vibha Laboratory test result Normal (applies to non- numeric results) [facility] ([facility]) Aspergillus Niger Vibha Laboratory test result Nor mal (applies to non-numeric results) [facility] ([facility]) Aspergillus Flavus [place]ha Laboratory test result No rmal (applies to non-numeric results) [facility] ([facility]) ID Date Data Source [id number] 11/04/2020 12:34:00 PM EST [facility] ([facility]) Name Value Range Interpretation Code Description Data Janessa rce(s) Supporting Document(s) Prothrombin Time 13.1 s 12.5-14.3 Normal (applies to non-numeric results) [facility] ([facility]) Inr 0.97 Normal (applies to non-numeric resul ts) [facility]) THERAPUTIC HUMAN INR VALUES INDICATIONS NORMAL RANGES PROPHYLAXIS/TREATMENT OF: VENOUS THROMBOSIS 2.0-3.0 PULMONARY EMBOLISM 2.0-3.0 PREVENTION OF SYSTEMIC EMBOLISM FROM: TISSUE HEART VALVES 2.0-3.0 ACUTE MYOCARDIAL INFARCTION 2.0-3.0 VALVULAR HEART DISEASE 2.0-3.0 ATRIAL FIBRILLATION 2.0-3.0 MECHANICAL VALVES(HIGH RISK) 2.5-3.5 RECURRENT MYOCARDIAL INFARCTION 2.5-3.5 ID Date Data Source [id number] 11/04/2020 12:34:00 PM EST [facility] ([facility]) Name Value Range Interpretation Code Description Data Janessa rce(s) Supporting Document(s) aPTT in Platelet poor plasma by Coagulation assay 25.1 s 24.2-38.5 Normal (applies to non-numeric results) [facility]) ID Date Data Source [id number] 11/04/2020 11:55:00 AM EST [facility] Name Value Range Interpretation Code Description Data Janessa rce(s) Supporting Document(s) SARS coronavirus 2 RNA Not Detected [facility] [place] This lab was ordered by [facility] and reported by [facility]. ID Date Data Source [id number] 09/02/2020 12:00:00 PM EST [facility] Name Value Range Interpretation Code Description Data Janessa rce(s) Supporting Document(s) SARS coronavirus 2 RNA [facility] This lab was ordered by [facility] and reported by [facility]. ID Date Data Source [facility] LIVER US 08/11/2020 05:32:50 AM EDT eCW1 ([facility]) Name Value Range Interpretation Code Description Data Janessa rce(s) Supporting Document(s) eCW1 ([facility]) ID Date Data Source VITAMIN D [id number] 07/28/2020 06:22:32 AM EDT eCW1 ([facility]) Name Value Range Interpretation Code Description Data Janessa rce(s) Supporting Document(s) 17.8 eCW1 ([facility]) ID Date Data Source AMYLASE 07/27/2020 10:04:42 AM EDT eCW1 ([facility]) Name Value Range Interpretation Code Description Data Janessa rce(s) Supporting Document(s) 54 eCW1 ([facility]) ID Date Data Source C REACTIVE PROTEIN QUANTITATIV (At [facility]) 07/27/2020 10:04 :39 AM EDT eCW1 ([facility]) Name Value Range Interpretation Code Description Data Janessa rce(s) Supporting Document(s) 0.30 eCW1 ([facility]) ID Date Data Source FREE T4 & TSH PANEL 07/27/2020 10:04:36 AM EDT eCW1 ([facility]) Name Value Range Interpretation Code Description Data Janessa rce(s) Supporting Document(s) 4.530 THYROID STIMULATING HORMONE eC W1 ([facility]) 1.03 FREE T4 eCW1 ([facility]) ID Date Data Source CBC with Differential 07/27/2020 10:04:32 AM EDT eCW1 ([facility]) Name Value Range Interpretation Code Description Data Janessa rce(s) Supporting Document(s) 9.3 eCW1 ([facility]) 4.95 eCW1 ([facility]) 15.5 eCW1 ([facility]) 47.3 eCW1 ([facility]) 31.3 eCW1 ([facility]) 95.6 eCW1 ([facility]) 32.8 eCW1 ([facility]) 14.0 eCW1 ([facility]) 71.5 eCW1 ([facility]) 252 eCW1 ([facility]) 16.0 eCW1 ([facility]) 6.6 eCW1 ([facility]) 0.4 eCW1 ([facility]) 2.3 eCW1 ([facility]) 9.5 eCW1 ([facility]) 0.2 eCW1 ([facility]) 0.9 eCW1 ([facility]) 0.0 eCW1 ([facility]) 1.5 eCW1 ([facility]) ID Date Data Source LIPASE 07/27/2020 10:04:26 AM EDT eCW1 ([facility]) Name Value Range Interpretation Code Description Data Janessa rce(s) Supporting Document(s) 111 eCW1 ([facility]) ID Date Data Source Comprehensive Metabolic Profile (CMP) 07/27/2020 10:04:23 AM EDT eCW1 ([facility]) Name Value Range Interpretation Code Description Data Janessa rce(s) Supporting Document(s) 91 GLUCOSE, FASTING eCW1 ([facility]) 136 SODIUM LEVEL eCW1 ([facility]) > 60.0 GLOMERULAR FILTRATION RATE eCW 1 ([facility]) 26 BLOOD UREA NITROGEN eCW1 ([facility]) 0.78 CREATININE FOR GFR eCW1 ([facility]) 4.2 POTASSIUM SERUM eCW1 ([facility]) 99 CHLORIDE LEVEL eCW1 ([facility]) 29 CARBON DIOXIDE LEVEL eCW1 ([facility]) 9.5 CALCIUM LEVEL eCW1 ([facility]) 15 AST/SGOT eCW1 ([facility]) 21 ALT/SGPT eCW1 ([facility]) 97 ALKALINE PHOSPHATASE eCW1 ([facility]) 0.4 BILIRUBIN,TOTAL eCW1 ([facility]) 0.9 ALBUMIN/GLOBULIN RATIO eCW1 ([facility]) 7.8 TOTAL PROTEIN eCW1 ([facility]) 3.7 ALBUMIN eCW1 ([facility]) ID Date Data Source ERYTHROCYTE SEDIMENTATION RATE 07/27/2020 10:04:16 AM EDT eC W1 ([facility]) Name Value Range Interpretation Code Description Data Janessa rce(s) Supporting Document(s) 8 eCW1 ([facility]) ID Date Data Source [id number] 04/02/2020 11:09:00 AM EDT [facility] ([facility], ) Name Value Range Interpretation Code Description Data Janessa rce(s) Supporting Document(s) FVC-Pred 3.25 L [facility] ([facility], ) FVC-Pre 2.29 L [facility] ([facility]) PDFReport Laboratory test result [facility] ([facility], ) FVC-%Pred-Pre 70 L [facility] ([facility], ) FVC-LLN 2.56 L [facility] ([facility]) Fev1-Pred 2.50 L [facility] ([facility]) Fev1-Pre 1.44 L [facility] ([facility]) Fev1-LLN 1.92 L [facility] ([facility]) Fev6-Pred 3.13 L [facility] ([facility]) Fev1-%Pred-Pre 57 L [facility] ([facility]) Fev6-Pre 2.27 L [facility] ([facility]) Fev6-%Pred-Pre 72 L [facility] ([facility], ) Fev6-LLN 2.45 L [facility] ([facility], ) Cjz6ifc-Feoh 78 % [facility] ([facility]) Kfs1lnp-%Pred-Pre 80 % [facility] ([facility]) Vag4gpv-Xlk 63 % [facility] ([facility]) Pjf1ymx-OJU 68 % [facility] ([facility]) Oqt5ixk-%Pred-Pre 102 % [facility] ([facility]) Huy8txz-Wkt 99 % [facility] ([facility]) Kfz3mjs-Tkjl 96 % [facility] ([facility]) FEFMax-Pred 6.18 L/E/sec [facility] ([facility]) FEFMax-Pre 4.04 L/E/sec [facility] ([facility]) FEFMax-LLN 4.46 L/E/sec [facility] ([facility]) FEFMax-%Pred-Pre 65 L/E/sec [facility] ([facility]) Npv3699-%Pred-Pre 31 L/E/sec [facility] ([facility]) Qxi9826-Abxa 2.26 L/E/sec [facility] ([facility]) Mwq7540-Ffl 0.71 L/E/sec [facility] ([facility]) Cir4irm0-Dbb 63 % [facility] ([facility]) Dpi6990-VIA 1.02 L/E/sec [facility] ([facility]) ExpTime-Pre 6.73 sec [facility] ([facility]) Wjb9jjr9-Atpu 80 % [facility] ([facility]) Kay2aup1-%Pred-Pre 78 % [facility] ([facility]) Wbr8heu7-EGB 72 % [facility] ([facility]) ID Date Data Source [id number] 10/08/2019 12:00:00 AM EST eCW1 ([facility]) Name Value Range Interpretation Code Description Data Janessa rce(s) Supporting Document(s) 6.7 4.0-10.0 WHITE BLOOD COUNT eCW1 ([facility]) 14.2 12.0-15.5 HEMOGLOBIN eCW1 ([facility]) 44.1 36.0-47.0 HEMATOCRIT eCW1 ([facility]) 4.38 4.00-5.40 RED BLOOD COUNT eCW1 ([facility]) 32.2 32.0-36.5 MEAN CORPUSCULAR HGB CONC eCW1 ([facility]) 32.4 27.0-33.0 MEAN CORPUSCULAR HEMOGLOB IN eCW1 ([facility]) 100.7 80.0-96.0 MEAN CORPUSCULAR VOLUME e CW1 ([facility]) 212 150-450 PLATELET COUNT, AUTOMATED eCW1 ([facility]) 12.9 11.5-14.5 RED CELL DISTRIBUTION WID TH eCW1 ([facility]) Procedure Social History Code Duration Value Status Description Data Source(s ) Smoking 09/04/2020 12:00:00 AM EST Current Smoker completed Curre nt Smoker eCW1 ([facility]) Smoking 09/04/2020 12:00:00 AM EST Current Smoker completed Curre nt Smoker eCW1 ([facility]) Smoking 09/04/2020 12:00:00 AM EST Current Smoker completed Curre nt Smoker eCW1 ([facility]) Smoking 09/04/2020 12:00:00 AM EST Current Smoker completed Curre nt Smoker eCW1 ([facility]) Smoking 08/18/2020 12:00:00 AM EDT Current Smoker completed Curre nt Smoker eCW1 ([facility]) Smoking 08/18/2020 12:00:00 AM EDT Current Smoker completed Curre nt Smoker eCW1 ([facility]) Smoking 08/18/2020 12:00:00 AM EDT Current Smoker completed Curre nt Smoker eCW1 ([facility]) Smoking 07/24/2020 12:00:00 AM EDT Current Smoker completed Curre nt Smoker eCW1 ([facility]) Smoking 07/24/2020 12:00:00 AM EDT Current Smoker completed Curre nt Smoker eCW1 ([facility]) Smoking 07/24/2020 12:00:00 AM EDT Current Smoker completed Curre nt Smoker eCW1 ([facility]) Smoking 07/24/2020 12:00:00 AM EDT Current Smoker completed Curre nt Smoker eCW1 ([facility]) Smoking 03/20/2020 12:00:00 AM EDT Current Smoker completed Curre nt Smoker eCW1 ([facility]) Vital Signs ID Date Data Source UNK Name Value Range Interpretation Code Description Data Source(s) Body surface area Derived from formula 1.89 m2 1.89 m2 [facility] ([facility]) Body weight 81.365 kg 81.365 kg [facility] ([facility]) [place] body weight 125 [lb_av] 125 [lb_av] [facility] ([facility]) Body mass index (BMI) [Ratio] 29.8 kg/m2 29.8 k g/m2 [facility] ([facility]) Body weight 179.38 [lb_av] 179.38 [lb_av] [facility] ([facility]) Body height 65 [in_i] 65 [in_i] [facility] ([facility]) 5'5" Body temperature 96.9 [degF] 96.9 [degF] [facility] ([facility]) Oxygen saturation in Arterial blood by Pulse oximetry 94 % 94 % [facility] ([facility]) Heart rate 105 /min 105 /min [facility] ([facility]) Diastolic blood pressure 82 mm[Hg] 82 mm[Hg] [facility] ([facility]) Systolic blood pressure 144 mm[Hg] 144 mm[Hg] [facility] Body mass index (BMI) [Ratio] 29.6 kg/m2 29.6 k g/m2 [facility] ([facility]) Body weight 178.00 [lb_av] 178.00 [lb_av] [facility] ([facility]) Body height 65 [in_i] 65 [in_i] [facility] ([facility]) 5'5" Diastolic blood pressure 88 mm[Hg] 88 mm[Hg] [facility] ([facility]) Systolic blood pressure 156 mm[Hg] 156 mm[Hg] M [facility]ENT ([facility]) Body surface area Derived from formula 1.88 m2 1.88 m2 [facility] ([facility]) Body weight 80.741 kg 80.741 kg [facility] ([facility]) [place] body weight 125 [lb_av] 125 [lb_av] [facility] ([facility]) Diastolic blood pressure 80 mm[Hg] 80 mm[Hg] eCW1 ([facility]) Systolic blood pressure 140 mm[Hg] 140 mm[Hg] e CW1 ([facility]) Body temperature 96.9 [degF] 96.9 [degF] eCW1 ( [facility]) Respiratory rate 19 /min 19 /min eCW1 ([facility]) Heart rate 106 /min 106 /min eCW1 ([facility]) Body mass index (BMI) [Ratio] 26.05 kg/m2 26.05 kg/m2 W1 ([facility]) Body height 65.5 [in_i] 65.5 [in_i] eCW1 ([facility]) Body weight 159 [lb_av] 159 [lb_av] eCW1 ([facility]) Diastolic blood pressure 84 mm[Hg] 84 mm[Hg] eCW1 ([facility]) Systolic blood pressure 122 mm[Hg] 122 mm[Hg] e CW1 ([facility]) Body temperature 97.2 [degF] 97.2 [degF] eCW1 ( [facility]) Respiratory rate 18 /min 18 /min eCW1 ([facility]) Heart rate 108 /min 108 /min eCW1 ([facility]) Body mass index (BMI) [Ratio] 25.82 kg/m2 25.82 kg/m2 W1 ([facility]) Body height 65.5 [in_i] 65.5 [in_i] eCW1 ([facility]) Body weight 157.6 [lb_av] 157.6 [lb_av] eCW1 ([facility]) Diastolic blood pressure 82 mm[Hg] 82 mm[Hg] eCW1 ([facility]) Systolic blood pressure 130 mm[Hg] 130 mm[Hg] e CW1 ([facility]) Body temperature 96.5 [degF] 96.5 [degF] eCW1 ( [facility]) Respiratory rate 18 /min 18 /min eCW1 ([facility]) Heart rate 100 /min 100 /min eCW1 ([facility]) Body mass index (BMI) [Ratio] 24.78 kg/m2 24.78 kg/m2 eCW1 ([facility]) Body height 65.5 [in_i] 65.5 [in_i] eCW1 ([facility]) Body weight 151.2 [lb_av] 151.2 [lb_av] eCW1 ([facility]) Body weight 67.360 kg 67.360 kg [facility] ([facility], ) Body mass index (BMI) [Ratio] 25.5 kg/m2 25.5 k g/m2 [facility] ([facility], ) Body weight 148.50 [lb_av] 148.50 [lb_av] MEDEN T ([facility], ) Body height 64 [in_i] 64 [in_i] MEDENT ([facility], ) 5'4" Body temperature 97.4 [degF] 97.4 [degF] [facility] ([facility], ) Oxygen saturation in Arterial blood by Pulse oximetry 92 % 92 % [facility] ([facility], ) Heart rate 75 /min 75 /min [facility] ([facility], ) Diastolic blood pressure 76 mm[Hg] 76 mm[Hg] MED[facility] ([facility], ) Systolic blood pressure 148 mm[Hg] 148 mm[Hg] M EDENT ([facility], ) Body weight 67.586 kg 67.586 kg [facility] ([facility]) Body mass index (BMI) [Ratio] 25.6 kg/m2 25.6 k g/m2 MEDENT ([facility]) Body weight 149.00 [lb_av] 149.00 [lb_av] MEDEN T ([facility]) Body height 64 [in_i] 64 [in_i] MED[facility] ([facility]) 5'4" Body temperature 97.0 [degF] 97.0 [degF] [facility] ([facility]) Heart rate 68 /min 68 /min [facility] ([facility]) Diastolic blood pressure 68 mm[Hg] 68 mm[Hg] [facility] ([facility]) Systolic blood pressure 122 mm[Hg] 122 mm[Hg] [facility]) Body mass index (BMI) [Ratio] 24.1 kg/m2 24.1 k g/m2 MEDENT ([facility]) Body height 65 [in_i] 65 [in_i] MEDENT ([facility]) 5'5" Body weight 145.00 [lb_av] 145.00 [lb_av] MEDEN T ([facility]) Body temperature 98.7 [degF] 98.7 [degF] MEDENT ([facility]) Oxygen saturation in Arterial blood by Pulse oximetry 91 % 91 % [facility] ([facility]) Respiratory rate 20 /min 20 /min [facility] ( [facility]) Heart rate 84 /min 84 /min MED[facility] ([facility]) Diastolic blood pressure 64 mm[Hg] 64 mm[Hg] [facility] ([facility]) Systolic blood pressure 130 mm[Hg] 130 mm[Hg] [facility]) Body temperature 98.3 [degF] 98.3 [degF] MED[facility] ([facility]) Oxygen saturation in Arterial blood by Pulse oximetry 93 % 93 % [facility] ([facility]) Heart rate 97 /min 97 /min [facility] ([facility]) Diastolic blood pressure 72 mm[Hg] 72 mm[Hg] [facility] ([facility]) Systolic blood pressure 132 mm[Hg] 132 mm[Hg] [facility] Body mass index (BMI) [Ratio] 24.1 kg/m2 24.1 k g/m2 [facility] ([facility]) Body height 65 [in_i] 65 [in_i] [facility] ([facility]) 5'5" Body weight 145.00 [lb_av] 145.00 [lb_av] MEDEN T ([facility]) Body weight 69.854 kg 69.854 kg [facility] ([facility]) Body mass index (BMI) [Ratio] 26.4 kg/m2 26.4 k g/m2 [facility] ([facility]) Body weight 154.00 [lb_av] 154.00 [lb_av] [facility] Body height 64 [in_i] 64 [in_i] [facility] ([facility]) 5'4" Body temperature 98.1 [degF] 98.1 [degF] [facility] ([facility]) Oxygen saturation in Arterial blood by Pulse oximetry 90 % 90 % [facility] ([facility]) Room Air Heart rate 83 /min 83 /min [facility] ([facility]) Diastolic blood pressure 76 mm[Hg] 76 mm[Hg] [facility] ([facility]) Systolic blood pressure 128 mm[Hg] 128 mm[Hg] [facility] ([facility]) Body mass index (BMI) [Ratio] 25.23 kg/m2 25.23 kg/m2 eCW1 ([facility]) Body height 65.5 [in_i] 65.5 [in_i] eCW1 ([facility]) Body weight 154 [lb_av] 154 [lb_av] eCW1 ([facility]) Diastolic blood pressure 64 mm[Hg] 64 mm[Hg] eCW1 ([facility]) Systolic blood pressure 142 mm[Hg] 142 mm[Hg] e CW1 ([facility]) Body mass index (BMI) [Ratio] 25.37 kg/m2 25.37 kg/m2 eCW1 ([facility]) Body height 65.5 [in_us] 65.5 [in_us] eCW1 ([facility]) Body weight Measured 154.8 [lb_av] 154.8 [lb_av ] eCW1 ([facility]) Diastolic blood pressure 68 mm[Hg] 68 mm[Hg] eCW1 ([facility]) Systolic blood pressure 120 mm[Hg] 120 mm[Hg] e CW1 ([facility]) Body temperature 96.3 [degF] 96.3 [degF] eCW1 ( [facility]) Respiratory rate 18 /min 18 /min eCW1 ([facility]) Heart rate 89 /min 89 /min eCW1 ([facility]) Body mass index (BMI) [Ratio] 24.38 kg/m2 24.38 kg/m2 eCW1 ([facility]) Body height 65.5 [in_us] 65.5 [in_us] eCW1 ([facility]) Body weight Measured 148.8 [lb_av] 148.8 [lb_av ] eCW1 ([facility]) Body mass index (BMI) [Ratio] 24.1 kg/m2 24.1 k g/m2 [facility] ([facility]) Body height 65 [in_i] 65 [in_i] [facility] ([facility]) 5'5" Body weight 145.00 [lb_av] 145.00 [lb_av] MEDEN T ([facility]) Body temperature 98.4 [degF] 98.4 [degF] MED[facility] ([facility]) Oxygen saturation in Arterial blood by Pulse oximetry 93 % 93 % [facility] ([facility]) Respiratory rate 16 /min 16 /min [facility] ( [facility]) Heart rate 93 /min 93 /min [facility] ([facility]) Diastolic blood pressure 74 mm[Hg] 74 mm[Hg] [facility] ([facility]) Systolic blood pressure 143 mm[Hg] 143 mm[Hg] M EDENT ([facility]) Body mass index (BMI) [Ratio] 24.1 kg/m2 24.1 k g/m2 [facility] ([facility]) Body height 65 [in_i] 65 [in_i] [facility] ([facility]) 5'5" Body weight 145.00 [lb_av] 145.00 [lb_av] MEDEN T ([facility]) Body temperature 98.5 [degF] 98.5 [degF] [facility] ([facility]) Oxygen saturation in Arterial blood by Pulse oximetry 92 % 92 % [facility] ([facility]) Respiratory rate 18 /min 18 /min [facility] ( [facility]) Heart rate 92 /min 92 /min [facility] ([facility]) Diastolic blood pressure 76 mm[Hg] 76 mm[Hg] [facility] ([facility]) Systolic blood pressure 124 mm[Hg] 124 mm[Hg] [facility]) Body mass index (BMI) [Ratio] 24.1 kg/m2 24.1 k g/m2 [facility] ([facility]) Body height 65 [in_i] 65 [in_i] MED[facility] ([facility]) 5'5" Body weight 145.00 [lb_av] 145.00 [lb_av] MEDEN T ([facility]) Body temperature 98.6 [degF] 98.6 [degF] [facility] ([facility]) Oxygen saturation in Arterial blood by Pulse oximetry 89 % 89 % [facility] ([facility]) ra Respiratory rate 14 /min 14 /min [facility] ( [facility]) Heart rate 104 /min 104 /min [facility] ([facility]) Diastolic blood pressure 60 mm[Hg] 60 mm[Hg] [facility] ([facility]) Systolic blood pressure 96 mm[Hg] 96 mm[Hg] M EDENT ([facility]) Diastolic blood pressure 62 mm[Hg] 62 mm[Hg] eCW1 ([facility]) Systolic blood pressure 120 mm[Hg] 120 mm[Hg] e CW1 ([facility]) Body temperature 98 [degF] 98 [degF] eCW1 ([facility]) Respiratory rate 18 /min 18 /min eCW1 ([facility]) Heart rate 78 /min 78 /min eCW1 ([facility]) Body mass index (BMI) [Ratio] 23.89 kg/m2 23.89 kg/m2 eCW1 ([facility]) Body height 65.5 [in_us] 65.5 [in_us] eCW1 ([facility]) Body weight Measured 145.8 [lb_av] 145.8 [lb_av ] eCW1 ([facility]) Patient Treatment Plan of Care Planned Activity Planned Date Details Description Data Source (s) aripiprazole 5 MG Oral Tablet [Abilify] 09/08/2020 12:00:00 AM EST eCW1 ([facility]) aripiprazole 5 MG Oral Tablet [Abilify] 09/08/2020 12:00:00 AM EST eCW1 ([facility]) aripiprazole 5 MG Oral Tablet [Abilify] 09/08/2020 12:00:00 AM EST eCW1 ([facility]) Prednisone 10 MG Oral Tablet 09/04/2020 12:00:00 AM EST eCW1 ([facility]) Amoxicillin 875 MG / Clavulanate 125 MG Oral Tablet 09/04/20 12:00:00 AM EST eCW1 ([facility]) Prednisone 10 MG Oral Tablet 09/04/2020 12:00:00 AM EST eCW1 ([facility]) Amoxicillin 875 MG / Clavulanate 125 MG Oral Tablet 09/04/20 12:00:00 AM EST eCW1 ([facility]) Prednisone 10 MG Oral Tablet 09/04/2020 12:00:00 AM EST eCW1 ([facility]) Amoxicillin 875 MG / Clavulanate 125 MG Oral Tablet 09/04/20 12:00:00 AM EST eCW1 ([facility]) Prednisone 10 MG Oral Tablet 09/04/2020 12:00:00 AM EST eCW1 ([facility]) Amoxicillin 875 MG / Clavulanate 125 MG Oral Tablet 09/04/20 12:00:00 AM EST eCW1 ([facility]) aripiprazole 2 MG Oral Tablet [Abilify] 08/18/2020 12:00:00 AM EDT eCW1 ([facility]) aripiprazole 2 MG Oral Tablet [Abilify] 08/18/2020 12:00:00 AM EDT eCW1 ([facility]) aripiprazole 2 MG Oral Tablet [Abilify] 08/18/2020 12:00:00 AM EDT eCW1 ([facility]) aripiprazole 2 MG Oral Tablet [Abilify] 08/18/2020 12:00:00 AM EDT eCW1 ([facility]) meloxicam 7.5 MG Oral Tablet 07/24/2020 12:00:00 AM EDT eCW1 ([facility]) Omeprazole 40 MG Delayed Release Oral Capsule 07/24/2020 12:00:00 A M EDT eCW1 ([facility]) meloxicam 7.5 MG Oral Tablet 07/24/2020 12:00:00 AM EDT eCW1 ([facility]) Omeprazole 40 MG Delayed Release Oral Capsule 07/24/2020 12:00:00 A M EDT eCW1 ([facility]) meloxicam 7.5 MG Oral Tablet 07/24/2020 12:00:00 AM EDT eCW1 ([facility]) Omeprazole 40 MG Delayed Release Oral Capsule 07/24/2020 12:00:00 A M EDT eCW1 ([facility]) meloxicam 7.5 MG Oral Tablet 07/24/2020 12:00:00 AM EDT eCW1 ([facility]) Omeprazole 40 MG Delayed Release Oral Capsule 07/24/2020 12:00:00 A M EDT eCW1 ([facility]) Triamcinolone Acetonide 1 MG/ML Topical Cream 02/25/2020 12:00:00 A M EDT eCW1 ([facility]) Prednisone 20 MG Oral Tablet 02/25/2020 12:00:00 AM EDT eCW1 ([facility]) Prednisone 20 MG Oral Tablet 01/23/2020 12:00:00 AM EDT eCW1 ([facility]) Nystatin [id number] UNT/ML Oral Suspension 12/10/2019 12:00:00 AM EST eCW1 ([facility])
[2020-11-26 20:12] LABS: ALBUMIN 3.1 GM/DL (3.2-5.2); BILIRUBIN,DIRECT 0.1 MG/DL (0.0-0.2); BILIRUBIN,TOTAL 0.3 MG/DL (0.2-1.0); CALCIUM LEVEL 8.5 MG/DL (8.8-10.2); CK-MB VALUE MASS 6.5 NG/ML (<3.6); CREATININE FOR GFR 1.69 MG/DL (0.55-1.30); GLOMERULAR FILTRATION RATE 32.5 (>45); MB/CK RELATIVE INDEX 2.53 (< OR =4); POTASSIUM SERUM 4.1 MEQ/L (3.5-5.1); TOTAL PROTEIN 6.2 GM/DL (6.4-8.2); TROPONIN I 0.02 NG/ML (< 0.10)
[2020-11-26] MEDS: propofoL 1,000 MG in IV 1 EA IV SCH ×3 (20:14→23:26)
--- NOTE | 2020-11-26 20:27 | REPVR ---
PROCEDURE INFORMATION: Exam: XR Chest, 1 View Exam date and time: 11/26/2020 7:42 PM Age: 65 years old Clinical indication: Device placement; Ett placement (vent status); Additional info: Post intubation tube placement TECHNIQUE: Imaging protocol: XR of the chest Views: 1 view. COMPARISON: MD Chest, 1 view 11/09/2020 9:17 AM FINDINGS: Tubes, catheters and devices: Endotracheal tube demonstrated with the tip of the tube located 5 cm. above the lily. Monitoring electrodes demonstrated. Lungs: Unremarkable. No consolidation. Pleural spaces: Unremarkable. No pleural effusion. No pneumothorax. Heart/Mediastinum: Unremarkable. No cardiomegaly. Bones/joints: Unremarkable. IMPRESSION: No acute findings. Electronically signed by: Tarun Aguiar On 11/26/2020 20:27:28 PM
[2020-11-26] MEDS ORDERED: NS 2,880 ML in IV 1 EA IV ONE (20:30)
[2020-11-26 20:52] LABS: ATYPICAL LYMPH 28 % (0-5); LYMPHOCYTES 9 % (16-44); METAMYELOCYTES 2 % (0-0); MONOCYTES 1 % (0-5); MYELOCYTES 1 % (0-0); NEUTROPHILS 56 % (28-66)
[2020-11-26 20:53] LABS: AMPHETAMINES LEVEL URINE NEGATIVE (NEGATIVE); BARBITURATES URINE NEGATIVE (NEGATIVE); BENZODIAZEPINES URINE NEGATIVE (NEGATIVE); CANNABINOIDS URINE NEGATIVE (NEGATIVE); COCAINE METABOLITE URINE NEGATIVE (NEGATIVE); METHADONE URINE NEGATIVE (NEGATIVE); OPIATES URINE NEGATIVE (NEGATIVE); PHENCYCLIDINE URINE NEGATIVE (NEGATIVE)
[2020-11-26 20:53] LABS: ANISOCYTOSIS 1+; PLATELET ESTIMATE NORMAL (NORMAL)
[2020-11-26] MEDS ORDERED: LEVO750T13 PO (20:54)
[2020-11-26] MEDS ORDERED: B-1100TA2 PO (20:54)
[2020-11-26] MEDS ORDERED: ALBU83IN INH (20:54)
[2020-11-26] MEDS ORDERED: FOLI1TAB11 PO (20:54)
[2020-11-26] MEDS ORDERED: NICO21DI37 TOP (20:54)
--- NOTE | 2020-11-26 21:10 | ECGEPIP ---
[facility] - ED Test Date: 2020-11-26 Pat Name: MICHEL SAWYER Department: Room: - Gender: Female Fashion Model: : [id number] Requested By: VEE Cain Order Number: [id number] Reading MD: Estefani Cortez Measurements Intervals [place] Rate: 108 P: 66 PA: 158 QRS: 59 QRSD: 139 T: 36 QT: 360 QTc: 483 Interpretive Statements SINUS TACHYCARDIA POSSIBLE LEFT ATRIAL ENLARGEMENT RIGHT BUNDLE BRANCH BLOCK new 11/09/19 POSSIBLE ANTERIOR MYOCARDIAL INFARCTION, OF INDETERMINATE AGE Electronically Signed on 11-26-2020 21:09:51 EST by Estefani Cortez
[2020-11-26] MEDS: NS 1,000 ML IV SCH (22:45)
[2020-11-26 22:46] LABS: ABG BASE EXCESS -11.2 (-2.0-2.0); ABG HCO3 19.4 MEQ/L (22.0-26.0); ABG O2 SATURATION 98.4 % (95.0-99.0); ABG PARTIAL PRESSURE CO2 65.5 mmHg (35.0-45.0); ABG STANDARD HCO3 15.7 MEQ/L (22.0-26.0); ABG TOTAL CO2 21.4 MEQ/L (23.0-31.0); ABG pH (ARTERIAL) 7.089 UNITS (7.350-7.450)
[2020-11-26] MEDS ORDERED: LACRILUBE (AKWA TEARS) OPHTH OINT 3.5 GM OU PRN (23:00)
[2020-11-26] MEDS ORDERED: KCL 20MEQ IN D5/.45NACL 1000ML As Ordered ONE (23:13)
[2020-11-26] MEDS ORDERED: MIDAZOLAM INJ 2MG/2ML VIAL (J2250 PER 1MG) As Ordered ONE (23:13)
[2020-11-26] MEDS: KCL 20MEQ IN D5/0.45NS 1000ML 1,000 ML IV SCH (23:25)
[2020-11-26] MEDS: MIDAZOLAM INJ 2MG/2ML VIAL (J2250 PER 1MG) IV PRN ×2 (23:33→23:40)
[2020-11-26] MEDS: HEPARIN SOD (PORCINE) 5000UNITS/ML 1ML VIAL/SYRINGE SC SCH (23:44)
[2020-11-26] MEDS: cefTRIAXone SOD 1 GM in D5W MINI-BAG PLUS 50 ML IV SCH (23:44)
[2020-11-26 23:53] LABS: INR 1.26; PROTHROMBIN TIME 16.1 SECONDS (12.5-14.3)
[2020-11-26 23:54] LABS: PARTIAL THROMBOPLASTIN TIME 39.7 SECONDS (24.2-38.5)
[2020-11-27] VITALS (41 sets, daily range): BP systolic 111–173; BP diastolic 54–92
[2020-11-27] MEDS ORDERED: ACETAMINOPHEN 650 MG SUPP PR ONE
--- NOTE | 2020-11-27 00:03 | HPE ---
HISTORY AND PHYSICAL/CRITICAL CARE ADMIT NOTE DATE OF ADMISSION: 11/26/2020 (start time 2210 and stop time 6) HISTORY OF PRESENT ILLNESS: I was called to the Emergency Room to attend Kia Raza. This is a 65-year-old female with known significant underlying obstructive lung disease. She recently underwent bronchoscopy by Dr. Bazan for a left lower lobe abnormality. This was non-diagnostic. According to EMS and to the ER reports, for several days she has been much more short of breath. She summoned a neighbor. EMS was called. By the time they arrived, the patient was unresponsive. She was in ventricular fibrillation. Shock x1 in asystole. ACLS protocol was ensued with return of spontaneous rhythm and circulation. On arrival to the ER, she was still apneic and was therefore intubated. Since she has been here, she has had reasonable blood pressures; first one 143/87 with a heart rate of 110. Initially was minimally responsive. Currently does have pupils that work. She does, however, breathe with ventilator. Semi purposeful movements. First arterial blood gas showed a pH of 6.813 with a pCO2 of 88.6 and a pO2 of 326.2. White blood cell count 13.5, hemoglobin 12.6, platelet count 180,000, 56% segs, 3% bands, 28% atypical lymphocytes. Tox screen unremarkable. Chest x-ray shows the endotracheal tube to be in good position. There is a question of some infiltrate in the retrocardiac area. Diffuse increased vascular markings. PHYSICAL EXAMINATION: Currently on exam, she is sedate. Pupils react. Sclerae clear, nonicteric. Trachea in the midline. She does make spontaneous respiratory efforts. She moves all extremities. Chest shows bilateral symmetric expansion. There is coarse scattered rhonchi. No focal adventitious breath sounds were identified. Cardiac exam is generally regular with a heart rate in the 90's. Peripheral pulses are diminished, but palpable. No murmur or gallop. Abdomen is minimally distended and faint bowel sounds. Extremities without cyanosis or clubbing. Neurologically as outlined above. MEDICATIONS LIST FROM HOME: Includes Albuterol, Hydrocortisone cream, Benadryl, Stiolto, Arnuity 200 mcg, Abilify 2 mg daily, Paxil 40 mg daily, multivitamins. PAST MEDICAL HISTORY: Significant for her obstructive lung disease, left lower lobe abnormality; question underlying COPD with an asthmatic component, history of opioid dependent, underlying depression, hyperlipidemia, hypercholesterolemia, previous history of cocaine abuse and continued tobacco history. REVIEW OF SYSTEMS: Unobtainable. LABORATORY DATA: All the laboratories are currently pending. Other laboratories: Sodium 142, K 4.1, chloride 107, CO2 25, BUN 15, creatinine 1.69. First lactate 12.4; repeat is pending. First troponin 0.02 with a BNP of 338. PROBLEMS: 1. Most pressing problem requiring my immediate present at the bedside is V fib arrest with successful resuscitation. 2. Combined respiratory metabolic acidosis. 3. Advanced obstructive lung disease. 4. History of drug use. IMAGING STUDIES: Her EKG compared to one from several weeks ago does show a new right bundle branch block, but she is profoundly acidotic. At this point, we will pursue hypothermia protocol in view of what is felt to be a short down time and a successful resuscitation. Her EKG does not show diffuse ST abnormalities and my suspicion is that her bundle may be on the basis of her acidosis, but this will be monitored closely. She clearly has an acute kidney injury and we will proceed with volume resuscitation. She will be sedated. DVT prophylaxis had been ordered. Serial enzymes and EKGs are ordered. Hypothermia protocol has been ordered and includes frequent laboratories. We will aggressively treat her underlying obstructive lung disease with aerosols as well as I.V. steroids. Empiric antimicrobials will be added as well, and we have cultured her sputum. We will closely monitor her renal function. She will be cooled for 24 hours. We will then proceed with further evaluation with CT scan of the brain. She has no focal neurologic deficits and in view of her equal and reactive pupils, I am not suspicious of an acute intracranial bleed. At this point, she is critically ill. I left the bedside at 2256 hours. 46 minutes of critical care time spent at the bedside not including procedures. BOBO
[2020-11-27] MEDS: MORPHINE 2 MG/ML 1ML VIAL (J2270) IV PRN ×4 (00:09→08:12)
[2020-11-27] MEDS: methylPREDNISolone 125MG 2ML VIAL IV SCH ×3 (00:10→16:19)
[2020-11-27 00:17] LABS: D-DIMER QUANT > 4000.00 ng/ml (<500)
[2020-11-27 00:29] LABS: ALBUMIN 2.6 GM/DL (3.2-5.2); BILIRUBIN,TOTAL 0.2 MG/DL (0.2-1.0); CALCIUM LEVEL 7.4 MG/DL (8.8-10.2); CREATININE FOR GFR 1.39 MG/DL (0.55-1.30); GLOMERULAR FILTRATION RATE 40.8 (>45); MAGNESIUM LEVEL 2.2 MG/DL (1.8-2.4); MB/CK RELATIVE INDEX 1.43 (< OR =4); PHOSPHORUS LEVEL 6.3 MG/DL (2.5-4.9); POTASSIUM SERUM 4.2 MEQ/L (3.5-5.1); TOTAL PROTEIN 5.4 GM/DL (6.4-8.2); TROPONIN I 0.28 NG/ML (< 0.10)
[2020-11-27] MEDS: IPRATROPIUM 0.5MG/ALBUTEROL 2.5MG INH SOL UD 3ML (DUONEB) NEB SCH ×6 (01:00→20:28)
--- OUTSIDE RECORDS SUMMARY | 2020-11-27 01:14 | CCD ---
Author Author [facility] Organization [facility] Address Unknown Phone Unavailable Care Team Providers Care Mutual Fund Sales Agent Name Role Phone Mirian Gudino MD Unavailable [...] is protected by Article 27-F of the [facility] Public Health law. If you continue you may have access to information: Regarding HIV / AIDS; Provided by facilities licensed or operated by the [facility] Office of Mental Health; or Provided by the [facility] Office for People With Developmental Disabilities. If such information is present, then the following [facility] mandated warning applies: This information has [...] law may result in a fine or long term sentence or both. A general authorization for the release of medical or other information is NOT sufficient authorization for further disc losure. Family History Family Member Name Family Member Gender Family Member Status Date o f Status Description Data Source(s) Unknown Male Problem [facility] Unknown Unknown Problem MEDENT ([facility]) Encounters Encounter Providers Location Date Indications Data Source(s ) Office Visit Attender: Pamela Kahn/Tommy hadley 11/18/2020 02:00:00 PM EST [facility] ([facility] Outpatient Attender: Pamela Kahn/Tommy hadley 10/07/2020 02:30:00 PM EST [facility] ([facility] Unknown [address] [facility] [id number] 09/30/2020 12:00:00 AM EST eCW1 ([facility]) Unknown [address] [facility] [place] [address] 09/08/2020 12:00:00 AM EST eCW1 ([facility]) Outpatient [address] [facility] [place] [address] 09/04/2020 12:00:00 AM EST [facility]CW1 ([facility]) [place] [address] [facility] [place] [address] 09/03/2020 12:00:00 AM EST eCW1 ([facility]) [place] [address] [facility] [place] [address] 09/03/2020 12:00:00 AM EST eCW1 ([facility]) [place] [address] [facility] [place] [address] 09/01/2020 12:00:00 AM EST eCW1 ([facility]) [place] [address] [facility] [place] [address] 08/18/2020 12:00:00 AM EDT eCW1 ([facility]) [place] [address] [facility] [place] [address] 08/11/2020 12:00:00 AM EDT eCW1 ([facility]) [place] [address] [facility] [place] [address] 08/04/2020 12:00:00 AM EDT eCW1 ([facility]) [place] [address] [facility] [place] [address] 07/31/2020 12:00:00 AM EDT eCW1 ([facility]) [place] [address] [facility] [place] [address] 07/24/2020 12:00:00 AM EDT eCW1 ([facility]) Outpatient Attender: Pamela Kahn/Meir/Atilio/Hector ndl 06/17/2020 01:00:00 PM EDT [facility] ([facility]) Outpatient Attender: Pamela Kahn/Meir/Atilio/Hector ndl 05/18/2020 10:30:00 AM EDT [facility] ([facility]) OFFICE OUTPATIENT NEW 30 MINUTES Attender: Payton Alegria am, MD Physical Therapy 05/08/2020 09:15:00 AM EDT MEDENT ([facility]) Outpatient Attender: Chacorta Kahn/Meir/Atilio/Re indl 04/14/2020 11:30:00 AM EDT [facility] ([facility]) Outpatient Attender: JEAN CLAUDE Richards Prima ry 04/09/2020 11:45:00 AM EDT MED[facility] ([facility]) Outpatient 04/07/2020 06:16:00 AM EDT [facility] Outpatient Attender: JEAN CLAUDE Richards Prima ry 04/02/2020 12:50:00 PM EDT MEDENT ([facility]) Outpatient Attender: Pamela Kahn/Meir/Atilio/Hector ndl 04/02/2020 11:30:00 AM EDT [facility] ([facility] [place] [address] [facility] [place] [address] 03/31/2020 12:00:00 AM EDT eCW1 ([facility]) Outpatient [address] [facility] [address] 03/20/2020 12:00:00 AM EDT eCW1 ([facility]) [facility] Dermatology [address] [place] [address] 03/03/2020 12:00:00 AM EDT eCW1 ([facility]) [facility] Derm[facility]ology [address] [place] [address] 02/25/2020 12:00:00 AM EDT eCW1 ([facility]) [facility] [place] [address] [facility] [place] [address] 02/20/2020 12:00:00 AM EDT eCW1 ([facility]) Unknown [address] [facility] [place] [address] 01/23/2020 12:00:00 AM EDT eCW1 ([facility]) [facility] [place] [address] [facility] [place] [address] 01/22/2020 12:00:00 AM EDT eCW1 ([facility]) [facility] [place] [address] [facility] [place] [address] 01/20/2020 12:00:00 AM EDT eCW1 ([facility]) [facility] [place] [address] [facility] [place] [address] 12/10/2019 12:00:00 AM EST eCW1 ([facility]) Outpatient 12/03/2019 03:31:00 PM EST [facility] [place] [address] [facility] [place] [address] 11/28/2019 12:00:00 AM EST eCW1 ([facility]) [facility] [place] [address] [facility] [place] [address] 11/27/2019 12:00:00 AM EST eCW1 ([facility]) [facility] [place] [address] [facility] [place] [address] 11/27/2019 12:00:00 AM EST eCW1 ([facility]) Outpatient Attender: JEAN CLAUDE Alejandro ry 11/24/2019 11:10:00 AM EST [facility] ([facility]) Outpatient 11/11/2019 08:07:00 PM EST [facility] Outpatient Attender: JEAN CLAUDE Richards Prima ry 10/28/2019 12:20:00 PM EST MED[facility] ([facility]) Outpatient Attender: JEAN CLAUDE [place] ry 10/21/2019 12:45:00 PM EST MEDENT ([facility]) [facility] [place] [address] [facility] [place] [address] 10/08/2019 12:00:00 AM EST eCW1 ([facility]) Immunizations Vaccine Date Status Description Data Source(s) Depo-Medrol 80mg (Methylprednisolone Acetate) 01/22/2020 02: 41:00 PM EDT completed eCW1 ([facility]) Depo-Medrol 80mg (Methylprednisolone Acetate) 01/22/2020 02: 41:00 PM EDT completed eCW1 ([facility]) Depo-Medrol 80mg (Methylprednisolone Acetate) 01/22/2020 02: 41:00 PM EDT completed eCW1 ([facility]) Depo-Medrol 80mg (Methylprednisolone Acetate) 01/22/2020 02: 41:00 PM EDT completed eCW1 ([facility]) Depo-Medrol 80mg (Methylprednisolone Acetate) 01/22/2020 02: 41:00 PM EDT completed eCW1 ([facility]) Depo-Medrol 80mg (Methylprednisolone Acetate) 01/22/2020 02: 41:00 PM EDT completed eCW1 ([facility]) Depo-Medrol 80mg (Methylprednisolone Acetate) 01/22/2020 02: 41:00 PM EDT completed eCW1 ([facility]) Depo-Medrol 80mg (Methylprednisolone Acetate) 01/22/2020 02: 41:00 PM EDT completed eCW1 ([facility]) Depo-Medrol 80mg (Methylprednisolone Acetate) 01/22/2020 02: 41:00 PM EDT completed eCW1 ([facility]) Depo-Medrol 80mg (Methylprednisolone Acetate) 01/22/2020 02: 41:00 PM EDT completed eCW1 ([facility]) Depo-Medrol 80mg (Methylprednisolone Acetate) 01/22/2020 02: 41:00 PM EDT completed eCW1 ([facility]) Depo-Medrol 80mg (Methylprednisolone Acetate) 01/22/2020 02: 41:00 PM EDT completed eCW1 ([facility]) pneumococcal polysaccharide PPV23 10/08/2019 04:06:00 PM EST comple hamlet eCW1 ([facility]) pneumococcal polysaccharide PPV23 10/08/2019 04:06:00 PM EST comple hamlet eCW1 ([facility]) pneumococcal polysaccharide PPV23 10/08/2019 04:06:00 PM EST comple hamlet eCW1 ([facility]) pneumococcal polysaccharide PPV23 10/08/2019 04:06:00 PM EST comple hamlet eCW1 ([facility]) pneumococcal polysaccharide PPV23 10/08/2019 04:06:00 PM EST comple hamlet eCW1 ([facility]) pneumococcal polysaccharide PPV23 10/08/2019 04:06:00 PM EST comple hamlet eCW1 ([facility]) pneumococcal polysaccharide PPV23 10/08/2019 04:06:00 PM EST comple hamlet eCW1 ([facility]) pneumococcal polysaccharide PPV23 10/08/2019 04:06:00 PM EST comple hamlet eCW1 ([facility]) pneumococcal polysaccharide PPV23 10/08/2019 04:06:00 PM EST comple hamlet eCW1 ([facility]) pneumococcal polysaccharide PPV23 10/08/2019 04:06:00 PM EST comple hamlet eCW1 ([facility]) pneumococcal polysaccharide PPV23 10/08/2019 04:06:00 PM EST comple hamlet eCW1 ([facility]) pneumococcal polysaccharide PPV23 10/08/2019 04:06:00 PM EST comple hamlet eCW1 ([facility]) pneumococcal polysaccharide PPV23 10/08/2019 04:06:00 PM EST comple hamlet eCW1 ([facility]) influenza, recombinant, quadrIvalent,injectable, prese rvative free 10/08/2019 04:05:00 PM EST completed eCW1 ([facility]) influenza, recombinant, quadrIvalent,injectable, prese rvative free 10/08/2019 04:05:00 PM EST completed eCW1 ([facility]) influenza, recombinant, quadrIvalent,injectable, prese rvative free 10/08/2019 04:05:00 PM EST completed eCW1 ([facility]) influenza, recombinant, quadrIvalent,injectable, prese rvative free 10/08/2019 04:05:00 PM EST completed eCW1 ([facility]) influenza, recombinant, quadrIvalent,injectable, prese rvative free 10/08/2019 04:05:00 PM EST completed eCW1 ([facility]) influenza, recombinant, quadrIvalent,injectable, prese rvative free 10/08/2019 04:05:00 PM EST completed eCW1 ([facility]) influenza, recombinant, quadrIvalent,injectable, prese rvative free 10/08/2019 04:05:00 PM EST completed eCW1 ([facility]) influenza, recombinant, quadrIvalent,injectable, prese rvative free 10/08/2019 04:05:00 PM EST completed eCW1 ([facility]) influenza, recombinant, quadrIvalent,injectable, prese rvative free 10/08/2019 04:05:00 PM EST completed eCW1 ([facility]) influenza, recombinant, quadrIvalent,injectable, prese rvative free 10/08/2019 04:05:00 PM EST completed eCW1 ([facility]) influenza, recombinant, quadrIvalent,injectable, prese rvative free 10/08/2019 04:05:00 PM EST completed eCW1 ([facility]) influenza, recombinant, quadrIvalent,injectable, prese rvative free 10/08/2019 04:05:00 PM EST completed eCW1 ([facility]) influenza, recombinant, quadrIvalent,injectable, prese rvative free 10/08/2019 04:05:00 PM EST completed eCW1 ([facility]) Medications Medication Brand Name Start Date Product Form Dose Route Admi nistrative Instructions Pharmacy Instructions Status Indications Reaction Description Data Source(s) Folic Acid 1 MG Oral Tablet Folic Acid 11/18/2020 12:00:00 AM EST ORAL active MEDENT ([facility], ) Thiamine 100 MG Oral Tablet Thiamine HCL 11/18/2020 12:00:00 AM EST ORAL active MEDENT ([facility], ) 24 HR Nicotine 0.875 MG/HR Transdermal Patch Nicotine Transd ermal System Step 1 11/18/2020 12:00:00 AM EST active MEDENT ([facility], ) Prednisone 20 MG Oral Tablet Prednisone 11/18/2020 12:00:00 AM EST ORAL active MEDENT ([facility], ) Levofloxacin 750 MG Oral Tablet Levofloxacin 11/18/2020 12:00:[address] ORAL active MEDENT ([facility], ) Prednisone 10 MG Oral Tablet Prednisone 11/09/2020 12:00:00 AM EST ORAL completed MEDENT ([facility] ) Doxycycline Monohydrate 100 MG Oral Capsule Doxycycline [place] hydrate 10/08/2020 12:00:00 AM EST ORAL completed MEDENT ([facility], ) Azithromycin 250 MG Oral Tablet Azithromycin 10/07/2020 12:00:[address] ORAL completed MEDENT ([facility], ) Prednisone 20 MG Oral Tablet Prednisone 10/07/2020 12:00:00 AM EST ORAL completed MEDENT ([facility], ) aripiprazole 5 MG Oral Tablet [Abilify] Abilify 5 MG Abilify 5 MG 09/08/2020 12:00:00 AM EST 1.0 {tablet} active Ab ilify 5 MG eCW1 ([facility]) aripiprazole 5 MG Oral Tablet [Abilify] Abilify 5 MG Abilify 5 MG 09/08/2020 12:00:00 AM EST 1.0 {tablet} active Ab ilify 5 MG eCW1 ([facility]) aripiprazole 5 MG Oral Tablet [Abilify] Abilify 5 MG Abilify 5 MG 09/08/2020 12:00:00 AM EST 1.0 {tablet} active Ab ilify 5 MG eCW1 ([facility]) Amoxicillin 875 MG / Clavulanate 125 MG Oral Tablet Amoxicillin-Pot Clavulanate 875-125 MG Amoxicillin-Pot Clavulanate 875-125 MG 09/04/2020 12:00:00 AM ES T 1.0 {tablet} active Amoxicillin-Pot Cla vulanate 875-125 MG eCW1 ([facility]) Prednisone 10 MG Oral Tablet PredniSONE 10 MG PredniSONE 10 MG 09/04/2020 12:00:00 AM EST active PredniSO NE 10 MG eCW1 ([facility]) Prednisone 10 MG Oral Tablet PredniSONE 10 MG PredniSONE 10 MG 09/04/2020 12:00:00 AM EST active PredniSO NE 10 MG eCW1 ([facility]) Prednisone 10 MG Oral Tablet PredniSONE 10 MG PredniSONE 10 MG 09/04/2020 12:00:00 AM EST active PredniSO NE 10 MG eCW1 ([facility]) Prednisone 10 MG Oral Tablet PredniSONE 10 MG PredniSONE 10 MG 09/04/2020 12:00:00 AM EST active PredniSO NE 10 MG eCW1 ([facility]) Amoxicillin 875 MG / Clavulanate 125 MG Oral Tablet Amoxicillin-Pot Clavulanate 875-125 MG Amoxicillin-Pot Clavulanate 875-125 MG 09/04/2020 12:00:00 AM ES T 1.0 {tablet} active Amoxicillin-Pot Cla vulanate 875-125 MG eCW1 ([facility]) Amoxicillin 875 MG / Clavulanate 125 MG Oral Tablet Amoxicillin-Pot Clavulanate 875-125 MG Amoxicillin-Pot Clavulanate 875-125 MG 09/04/2020 12:00:00 AM ES T 1.0 {tablet} active Amoxicillin-Pot Cla vulanate 875-125 MG eCW1 ([facility]) Amoxicillin 875 MG / Clavulanate 125 MG Oral Tablet Amoxicillin-Pot Clavulanate 875-125 MG Amoxicillin-Pot Clavulanate 875-125 MG 09/04/2020 12:00:00 AM ES T 1.0 {tablet} active Amoxicillin-Pot Cla vulanate 875-125 MG eCW1 ([facility]) aripiprazole 2 MG Oral Tablet [Abilify] Abilify 2 MG Abilify 2 MG 08/18/2020 12:00:00 AM EDT 1.0 {tablet} active Ab ilify 2 MG eCW1 ([facility]) aripiprazole 2 MG Oral Tablet [Abilify] Abilify 2 MG Abilify 2 MG 08/18/2020 12:00:00 AM EDT 2.0 {tablets} active A bilify 2 MG eCW1 ([facility]) aripiprazole 2 MG Oral Tablet [Abilify] Abilify 2 MG Abilify 2 MG 08/18/2020 12:00:00 AM EDT 1.0 {tablet} active Ab ilify 2 MG eCW1 ([facility]) aripiprazole 2 MG Oral Tablet [Abilify] Abilify 2 MG Abilify 2 MG 08/18/2020 12:00:00 AM EDT 1.0 {tablet} active Ab ilify 2 MG eCW1 ([facility]) meloxicam 7.5 MG Oral Tablet Meloxicam 7.5 MG Meloxicam 7.5 MG 07/24/2020 12:00:00 AM EDT 1.0 {tablet} suspended Meloxicam 7.5 MG eCW1 ([facility]) meloxicam 7.5 MG Oral Tablet Meloxicam 7.5 MG Meloxicam 7.5 MG 07/24/2020 12:00:00 AM EDT 1.0 {tablet} active Me loxicam 7.5 MG eCW1 ([facility]) meloxicam 7.5 MG Oral Tablet Meloxicam 7.5 MG Meloxicam 7.5 MG 07/24/2020 12:00:00 AM EDT 1.0 {tablet} active Me loxicam 7.5 MG eCW1 ([facility]) meloxicam 7.5 MG Oral Tablet Meloxicam 7.5 MG Meloxicam 7.5 MG 07/24/2020 12:00:00 AM EDT 1.0 {tablet} suspended Meloxicam 7.5 MG eCW1 ([facility]) meloxicam 7.5 MG Oral Tablet Meloxicam 7.5 MG Meloxicam 7.5 MG 07/24/2020 12:00:00 AM EDT 1.0 {tablet} suspended Meloxicam 7.5 MG eCW1 ([facility]) meloxicam 7.5 MG Oral Tablet Meloxicam 7.5 MG Meloxicam 7.5 MG 07/24/2020 12:00:00 AM EDT 1.0 {tablet} active Me loxicam 7.5 MG eCW1 ([facility]) Omeprazole 40 MG Delayed Release Oral Capsule Omeprazole 40 MG 07/24/2020 12:00:00 AM EDT suspended Omepr azole 40 MG eCW1 ([facility]) Omeprazole 40 MG Delayed Release Oral Capsule Omeprazole 40 MG 07/24/2020 12:00:00 AM EDT suspended Omepr azole 40 MG eCW1 ([facility]) Omeprazole 40 MG Delayed Release Oral Capsule Omeprazole 40 MG 07/24/2020 12:00:00 AM EDT active Omeprazo le 40 MG eCW1 ([facility]) Omeprazole 40 MG Delayed Release Oral Capsule Omeprazole 40 MG 07/24/2020 12:00:00 AM EDT active Omeprazo le 40 MG eCW1 ([facility]) meloxicam 7.5 MG Oral Tablet Meloxicam 7.5 MG Meloxicam 7.5 MG 07/24/2020 12:00:00 AM EDT 1.0 {tablet} active Me loxicam 7.5 MG eCW1 ([facility]) Omeprazole 40 MG Delayed Release Oral Capsule Omeprazole 40 MG 07/24/2020 12:00:00 AM EDT active Omeprazo le 40 MG eCW1 ([facility]) Omeprazole 40 MG Delayed Release Oral Capsule Omeprazole 40 MG 07/24/2020 12:00:00 AM EDT suspended Omepr azole 40 MG eCW1 ([facility]) Omeprazole 40 MG Delayed Release Oral Capsule Omeprazole 40 MG 07/24/2020 12:00:00 AM EDT active Omeprazo le 40 MG eCW1 ([facility]) Omeprazole 40 MG Delayed Release Oral Capsule Omeprazole 40 MG 07/24/2020 12:00:00 AM EDT suspended Omepr azole 40 MG eCW1 ([facility]) Omeprazole 40 MG Delayed Release Oral Capsule Omeprazole 40 MG 07/24/2020 12:00:00 AM EDT suspended Omepr azole 40 MG eCW1 ([facility]) Omeprazole 40 MG Delayed Release Oral Capsule Omeprazole 40 MG 07/24/2020 12:00:00 AM EDT suspended Omepr azole 40 MG eCW1 ([facility]) meloxicam 7.5 MG Oral Tablet Meloxicam 7.5 MG Meloxicam 7.5 MG 07/24/2020 12:00:00 AM EDT 1.0 {tablet} active Me loxicam 7.5 MG eCW1 ([facility]) meloxicam 7.5 MG Oral Tablet Meloxicam 7.5 MG Meloxicam 7.5 MG 07/24/2020 12:00:00 AM EDT 1.0 {tablet} suspended Meloxicam 7.5 MG eCW1 ([facility]) Omeprazole 40 MG Delayed Release Oral Capsule Omeprazole 40 MG 07/24/2020 12:00:00 AM EDT suspended Omepr azole 40 MG eCW1 ([facility]) meloxicam 7.5 MG Oral Tablet Meloxicam 7.5 MG Meloxicam 7.5 MG 07/24/2020 12:00:00 AM EDT 1.0 {tablet} active Me loxicam 7.5 MG eCW1 ([facility]) meloxicam 7.5 MG Oral Tablet Meloxicam 7.5 MG Meloxicam 7.5 MG 07/24/2020 12:00:00 AM EDT 1.0 {tablet} active Me loxicam 7.5 MG eCW1 ([facility]) Triamcinolone Acetonide 1 MG/ML Topical Cream Triamcin olone Acetonide 0.1 % Triamcinolone Acetonide 0.1 % 02/25/2020 12:00:00 AM EDT active 1 application eCW1 ([facility]) Prednisone 20 MG Oral Tablet PredniSONE 20 MG PredniSONE 20 MG 02/25/2020 12:00:00 AM EDT active as direc hamlet eCW1 ([facility]) Prednisone 20 MG Oral Tablet PredniSONE 20 MG PredniSONE 20 MG 01/23/2020 12:00:00 AM EDT suspended 2 tab let eCW1 ([facility]) Prednisone 20 MG Oral Tablet PredniSONE 20 MG PredniSONE 20 MG 01/23/2020 12:00:00 AM EDT 2.0 {tablet} suspended PredniSONE 20 MG eCW1 ([facility]) Prednisone 20 MG Oral Tablet PredniSONE 20 MG PredniSONE 20 MG 01/23/2020 12:00:00 AM EDT 2.0 {tablet} suspended PredniSONE 20 MG eCW1 ([facility]) Prednisone 20 MG Oral Tablet PredniSONE 20 MG PredniSONE 20 MG 01/23/2020 12:00:00 AM EDT 2.0 {tablet} active Pr edniSONE 20 MG eCW1 ([facility]) Nystatin 909580 UNT/ML Oral Suspension Nystatin 032644 UNIT/ML Nystatin 156023 UNIT/ML 12/10/2019 12:00:00 AM EST 4.0 {ml} suspende d Nystatin 096126 UNIT/ML eCW1 ([facility]) Nystatin 506522 UNT/ML Oral Suspension Nystatin 461555 UNIT/ML Nystatin 844626 UNIT/ML 12/10/2019 12:00:00 AM EST suspended 4 ml eCW1 ([facility]) Nystatin 729814 UNT/ML Oral Suspension Nystatin 081353 UNIT/ML Nystatin 314387 UNIT/ML 12/10/2019 12:00:00 AM EST 4.0 {ml} suspende d Nystatin 806922 UNIT/ML eCW1 ([facility]) Nystatin 080845 UNT/ML Oral Suspension Nystatin 157704 UNIT/ML Nystatin 226393 UNIT/ML 12/10/2019 12:00:00 AM EST active 4 ml eCW1 ([facility]) 20 mg 11/24/2019 12:00:00 AM EST tablet 8 TAKE TWO TABLETS BY MOUTH EVERY DAY FOR 4 DAYS TAKE TWO TABLETS BY MOUTH EVERY DAY FOR 4 DAYS SOLD: 020 [facility] Prednisone 20 MG Oral Tablet Prednisone 11/24/2019 12:00:00 AM EST ORAL completed MEDENT ([facility]) 875-125 mg 11/24/2019 12:00:00 AM EST tablet 20 TAKE ONE TABLET BY MOUTH TWICE A DAY FOR 10 DAYS TAKE ONE TABLET BY MOUTH TWICE A DAY FOR 10 DAYS SOLD: 11/24/2019 [facility] Amoxicillin 875 MG / Clavulanate 125 MG Oral Tablet Am oxicillin/Clavulanate Potassium 11/24/2019 12:00:00 AM EST ORAL completed MEDENT ([facility]) Rocephin/Ceftriaxone Sodium Injection Per 250 MG 10/28 12:00:00 AM EST completed MEDENT ([facility]) Medication administered onsite Levofloxacin 750 MG Oral Tablet [Levaquin] Levaquin 10/28 12:00:00 AM EST ORAL completed MEDENT ([facility]) Methylprednisolone Sodium Succinate To 125 MG 10/21/2019 1 2:00:00 AM EST completed MEDENT ([facility]) Medication administered onsite Methylprednisolone 4 MG Oral Tablet Methylprednisolone 09/24 12:00:00 AM EST ORAL completed MEDENT ([facility]) Insurance Providers Payer name Policy type / Coverage type Policy ID Covered constitution party ID Covered constitution party's relationship to sahu Policy Sahu Plan Information [facility] COMMUNITY PLAN [facility] [id number] SP [id number] [facility]) O [id number] S [id number] [facility] COMMUNITY PLAN MCDO [id number] SP [id number] [facility] COMMUNITY PLAN [facility] [id number] SP [id number] [facility] COMMUNITY PLAN [facility] [id number] SP [id number] [facility] Health Maintenance Organization (O) [id number] Self [id number] ANSI-Medicaid [id number] ANSI-Medicaid [id number] [facility] COMMUNITY PLAN [facility] [id number] SP [id number] [facility] COMMUNITY PLAN [facility] [id number] SP [id number] [facility]-Medicaid [id number] [facility] O [id number] S [id number] [facility] Health Maintenance Organization (HMO) [id number] Self [id number] [facility] [id number] SP [id number] [facility] Health Maintenance Organization (O) [id number] Self [id number] [facility]-Medicaid [id number] [facility] COMMUNITY PLAN [facility] [id number] SP [id number] SELF PAY ONLY UNAVAILABLE SP UNAV AILABLE [facility] MEDICAL CLAIMS [id number] Problems, Conditions, and Diagnoses Code Display Name Description Problem Type Effective Dates Data Source(s) J44.1 [id number] COPD exacerbation Problem 09/04/2020 12:00:0 0 AM EST eCW1 ([facility]) 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 Problem 07/24/2020 12:00:00 AM EDT eCW1 ([facility]) F17.218 [id number] Cigarette nicotine d ependence with other nicotine- induced disorder Problem 11/27/2019 12:00:00 AM EST eCW1 ([facility]) F17.218 [id number] Cigarette nicotine d ependence with other nicotine- induced disorder Problem 11/27/2019 12:00:00 AM EST eCW1 ([facility]) J44.9 [id number] Chronic obstructive pulmonary di sease, unspecified COPD type Problem 10/08/2019 12:00:00 AM EST eCW1 ([facility]) E78.2 Mixed hyperlipidemia Mixed hyperlipidemia Problem 10/08/2019 12:00:00 AM EST eCW1 ([facility]) E78.2 Mixed hyperlipidemia Mixed hyperlipidemia Problem 10/08/2019 12:00:00 AM EST eCW1 ([facility]) J44.9 [id number] Chronic obstructive pulmonary di sease, unspecified COPD type Problem 10/08/2019 12:00:00 AM EST eCW1 ([facility]) Surgeries/Procedures Procedure Description Date Indications Data Source(s) Bronchoscopy W/Brushing Or Protected Brushings 021 12:00:00 AM EST [facility] ([facility], ) Bronchoscopy W/Bronchial Alveolar Lavage 11/09/2020 12 :00:00 AM EST [facility] ([facility], ) Bronchoscopy Rigid/Flexible Fluoroscopic Guide Computer-Assi sted 11/09/2020 12:00:00 AM EST [facility] ([facility] ) Bronchoscopy W/Transbronchial Lung Biopsy 11/09/2020 1 2:00:00 AM EST [facility] ([facility], ) With Endobronchial Ultrasound Guided 11/09/2020 12:00: 00 AM EST [facility] ([facility], ) Injection, methylprednisolone acetate, 80 mg 0 12:00:00 AM EST eCW1 ([facility]) ARTHROCENTESIS ASPIR&/INJECTION MAJOR JT/BURSA 020 12:00:00 AM EDT [facility] ([facility] ) Spirometry 04/02/2020 12:00:00 AM EDT M EDENT ([facility], ) PUNCH BX SKIN SINGLE LESION 02/25/2020 12:00:00 AM EDT eCW1 ([facility]) Therapeutic, Prophylactic Or Diagnostic Injection Subq/Im 10/28/2019 12:00:00 AM EST [facility] ([facility]) Therapeutic, Prophylactic Or Diagnostic Injection Subq/Im 10/21/2019 12:00:00 AM EST [facility] ([facility]) Pneumococcal Adult 0.5mL (Pneumovax 23) 10/08/2019 12: 00:00 AM EST eCW1 ([facility]) RIV4 VACC RECOMBINANT DNA IM 10/08/2019 12:00:00 AM ES T eCW1 ([facility]) IMMUNIZATION ADMIN 10/08/2019 12:00:00 AM EST eCW1 ([facility]) IMMUNIZATION ADMIN EACH ADD 10/08/2019 12:00:00 AM EST eCW1 ([facility]) Results ID Date Data Source [id number] 11/09/2020 10:54:00 AM EST [facility] ([facility], ) Name Value Range Interpretation Code Description Data Janessa rce(s) Supporting Document(s) Microscopic observation [Identifier] in Unspecified specimen by Non- gynecological cytology method Laboratory test result [facility] ([facility], ) will be discussed at follow-up ID Date Data Source [id number] 11/09/2020 09:19:00 AM EST [facility] ([facility]) Name Value Range Interpretation Code Description Data Janessa rce(s) Supporting Document(s) Microscopic observation [Identifier] in Unspecified specimen by Non- gynecological cytology method Laboratory test result [facility] ([facility]) will discuss follow-up ID Date Data Source [id number] 11/09/2020 09:15:00 AM EST [facility] ([facility]) Name Value Range Interpretation Code Description Data Janessa rce(s) Supporting Document(s) Microscopic observation [Identifier] in Unspecified specimen by Non- gynecological cytology method Laboratory test result [facility] ([facility]) SPECIMEN: FNA Subcarinal lymp h node Slides and Cytolyt (clear) received SPECIMEN ADEQUACY: Satisfactory for evaluation CATEGORIZATION: No Malignancy identified DESCRIPTIONS: Specimen consists mainly of bronchial cells and blood elements. COMMENTS: 11/10/2020 - [address](ASCP) 11/10/2020 0729 (Prelim) Signed Janna Schrader MD 11/10/2020 1300 ID Date Data Source [id number] 11/09/2020 08:53:00 AM EST [facility] ([facility]) Name Value Range Interpretation Code Description Data Janessa rce(s) Supporting Document(s) Surgical pathology study Laboratory test result [facility] ([facility]) FINAL DIAGNOSIS A - Left lung, [...] MD 11/10/2020 1310 ID Date Data Source [id number] 11/09/2020 08:26:00 AM EST [facility] ([facility]) Name Value Range Interpretation Code Description Data Janessa rce(s) Supporting Document(s) Lymphocytes, Bal 10 % Normal (applies to non-numeric results) [facility] ([facility]) Monocytes/Macrophages, Bal 20 % Normal (applies to n on-numeric results) [facility] ([facility]) Neutrophils, Bal 70 % Normal (applies to non-numeric results) [facility] ([facility]) ID Date Data Source [id number] 11/09/2020 08:26:00 AM EST [facility] ([facility]) Name Value Range Interpretation Code Description Data Janessa rce(s) Supporting Document(s) Color Laboratory test result Above high normal [facility] ([facility]) Source Laboratory test result Normal (applies to non-n umeric results) [facility] ([facility]) Bal WBC 88 CELLS/uL 0-10 Above high normal [facility] ([facility]) Appearance Laboratory test result Above high normal [facility] ([facility]) ID Date Data Source [id number] 11/09/2020 08:19:00 AM EST [facility] ([facility]) Name Value Range Interpretation Code Description Data Janessa rce(s) Supporting Document(s) Gram Stain Laboratory test result Normal (applies to non-n umeric results) [facility] ([facility]) FEW EPITHELIAL CELLS MODERATE WBCS FEW GRAM POSITIVE COCCI IN CHAINS Bal Culture Laboratory test result Normal (applies to non- numeric results) [facility] ([facility]) <content>FULL REPORT IN LAB NOTES (eCW [...] FOR ESBL</content>
<content></content> ID Date Data Source [id number] 11/09/2020 08:19:00 AM EST [facility] ([facility]) Name Value Range Interpretation Code Description Data Janessa rce(s) Supporting Document(s) Afb Smear Laboratory test result [facility] ([facility]) Due to limited sensitivity, smear result s should be used as an adjunct in evaluating patient tuberculosis status. Cultural examination is highly recommended for clinical diagnosis. AFB smear Kinyoun NEGATIVE (NO AFB Seen ) ID Date Data Source [id number] 11/04/2020 12:34:00 PM EST [facility] ([facility]) Name Value Range Interpretation Code Description Data Janessa rce(s) Supporting Document(s) Red Blood Count 4.34 10 4.00-5.40 Normal (applies to non-numeric results) [facility]) White Blood Count 5.8 10 4.0-10.0 Normal (applies to non-numeri c results) [facility]) Hemoglobin 14.7 g/dL 12.0-15.5 Normal (applies to non-numeric resul ts) [facility]) Mean Corpuscular Volume 103.2 fl 80.0-96.0 Above high normal [facility] ([facility]) Mean Corpuscular Hemoglobin 33.9 pg 27.0-33.0 Above high normal [facility] ([facility]) Hematocrit 44.8 % 36.0-47.0 Normal (applies to non-numeric resul ts) [facility]) Red Cell Distribution Width 12.7 % 11.5-14.5 Norm al (applies to non-numeric results) [facility]) Mean Corpuscular HGB Conc 32.8 g/dL 32.0-36.5 Normal (applies to non-numeric results) [facility]) Neutrophils % 71.0 % 36.0-66.0 Above high normal [facility] ([facility]) Lymph % 15.3 % 24.0-44.0 Below low normal [facility] ( [facility]) Platelet Count, Automated 280 10 150-450 Normal (applies to non-numeric results) [facility] ([facility]) Baso % 0.9 % 0.0-1.0 Normal (applies to non-numeric resul ts) [facility] ([facility]) Sanborn % 10.1 % 0.0-5.0 Above high normal [facility] ([facility]) Eos % 2.4 % 0.0-3.0 Normal (applies to non-numeric resul ts) [facility] ([facility]) Immature Granulocyte % 0.3 % 0-3.0 Normal (applies to non-n umeric results) [facility] ([facility]) Nucleated Red Blood Cell % 0.0 % 0-0 Normal (applies to n on-numeric results) [facility] ([facility]) Neutrophils # 4.1 10 1.5-8.5 Normal (applies to non-numeric re sults) [facility] ([facility]) Sanborn # 0.6 10 0.0-0.8 Normal (applies to non-numeric resul ts) [facility] ([facility]) Lymph # 0.9 10 1.5-5.0 Below low normal [facility] ( [facility]) Eos # 0.1 10 0.0-0.5 Normal (applies to non-numeric resul ts) [facility] ([facility]) Baso # 0.1 10 0.0-0.2 Normal (applies to non-numeric resul ts) [facility] ([facility]) ID Date Data Source [id number] 11/04/2020 12:34:00 PM EST [facility] ([facility]) Name Value Range Interpretation Code Description Data Janessa rce(s) Supporting Document(s) Glucose, Fasting 80 mg/dL 70-100 Normal (applies to non-numeric results) [facility] ([facility]) Creatinine For GFR 0.72 mg/dL 0.55-1.30 Normal (applies to non -numeric results) [facility]) Glomerular Filtration Rate Laboratory test result Normal (applies to non- numeric results) [facility] ([facility], ) <content>Units are mL/min/1.73 m2</content>
<content></content>
<content>Chronic Kidney Disease Staging per NKF:</content>
<content></content>
<content>Stage I & II GFR >=60 Normal to Mildly Decreased</content>
<content>Stage III GFR 30- 59 Moderately Decreased</content>
<content>Stage IV GFR 15-29 Severely Decreased</content>
<content>Stage V GFR <15 Very Little GFR Left</content>
<content>ESRD GFR <15 on BURRER HAND</content>
<content></content> Blood Urea Nitrogen 22 mg/dL 7-18 Above high normal [facility] Chloride Level 101 meq/L 98-107 Normal (applies to non-numeric r esults) [facility] ([facility], ) Potassium Serum 4.7 meq/L 3.5-5.1 Normal (applies to non-numeric results) [facility] ([facility], ) Sodium Level 135 meq/L 136-145 Below low normal [facility] ([facility]) Carbon Dioxide Level 32 meq/L 21-32 Normal (applies to non-num rima results) [facility] ([facility], ) Anion Gap 2 meq/L 8-16 Below low normal [facility] ( [facility], ) Calcium Level 8.8 mg/dL 8.8-10.2 Normal (applies to non-numeric re sults) [facility] ([facility], ) Ast/Sgot 15 U/L 7-37 Normal (applies to non-numeric resul ts) [facility] ([facility], ) Alt/SGPT 26 U/L 12-78 Normal (applies to non-numeric resul ts) [facility] ([facility], ) Bilirubin,Total 0.3 mg/dL 0.2-1.0 Normal (applies to non-numeric results) [facility] ([facility], ) Total Protein 7.0 GM/DL 6.4-8.2 Normal (applies to non-numeric re sults) [facility]) Alkaline Phosphatase 81 U/L 45-117 Normal (applies to non-num rima results) [facility]) Albumin 3.5 GM/DL 3.2-5.2 Normal (applies to non-numeric resul ts) [facility]) Albumin/Globulin Ratio 1.0 1.2-2.2 Below low normal [facility]) ID Date Data Source [id number] 11/04/2020 12:34:00 PM EST [facility]) Name Value Range Interpretation Code Description Data Janessa rce(s) Supporting Document(s) Cytoplasmic Neutrop AB Anca-C Laboratory test result Normal (applies to non- numeric results) [facility] ([facility]) Perinuclear AB Anca-P Laboratory test result Nor mal (applies to non-numeric results) [facility]) The presence of positive fluorescence ex hibiting P-ANCA or C-ANCA patterns alone is not specific for the diagnosis of Denise's Granulomatosis (WG) or microscopic polyangiitis. Decisions about treatment should not be based solely on ANCA IFA results. The International ANCA [employer] Consensus recommends follow up testing of positive sera with both SC- 3 and MPO-ANCA enzyme immunoassays. As m any as 5% serum samples are positive only by EIA. Ref. AM J Clin Pathol 1999;111:507-513. Anca-Atypical Laboratory test result Normal (applies t o non-numeric results) [facility]) The atypical pANCA pattern has been obse rved in a significant percentage of patients with ulcerative colitis, primary sclerosing cholangitis and autoimmune hepatitis. ID Date Data Source [id number] 11/04/2020 12:34:00 PM EST [facility] ([facility]) Name Value Range Interpretation Code Description Data Janessa rce(s) Supporting Document(s) Rheumatoid factor [Units/volume] in Serum or Plasma Laboratory t est result Normal (applies to non-numeric results) [facility]) ID Date Data Source [id number] 11/04/2020 12:34:00 PM [facility] ([facility]) Name Value Range Interpretation Code Description Data Janessa rce(s) Supporting Document(s) Histoplasmosis Antibody Laboratory test result N ormal (applies to non-numeric results) [facility] ([facility]) INTERPRETIVE INFORMATION: Histoplasma sp p. Antibodies [...] result Normal (applies to non- numeric results) [facility] ([facility]) Coccidioides sp Ab [Units/volume] in Serum 0.2 IV Normal (applies to non- numeric results) [facility] ([facility]) INTERPRETIVE INFORMATION: Coccidioides A ntibody, Ig.9 [...] test result Normal (applies to non-numeric results) [facility]) Performed at: [facility] [id number] [address] Hide Trimmer: Raquel Han MD, Phone: [phone] Performed at: [employer] [address] [id number] Hide Trimmer: Raulito Esteban MD, Phone: [phone] ID Date Data Source [id number] 11/04/2020 12:34:00 PM [facility] ([facility]) Name Value Range Interpretation Code Description Data Janessa rce(s) Supporting Document(s) Aspergillus Fumigatus Vibha Laboratory test result Normal (applies to non- numeric results) [facility] ([facility]) Aspergillus Niger Vibha Laboratory test result Nor mal (applies to non-numeric results) [facility] ([facility]) Aspergillus Flavus Vibha Laboratory test result No rmal (applies to non-numeric results) [facility] ([facility]) ID Date Data Source [id number] 11/04/2020 12:34:00 PM EST [facility] ([facility]) Name Value Range Interpretation Code Description Data Janessa rce(s) Supporting Document(s) Prothrombin Time 13.1 s 12.5-14.3 Normal (applies to non-numeric results) [facility] ([facility]) Inr 0.97 Normal (applies to non-numeric resul ts) [facility]) THERAPUTIC HUMAN INR VALUES INDICATIONS NORMAL RANGES PROPHYLAXIS/TREATMENT OF: VENOUS THROMBOSIS 2.0-3.0 PULMONARY EMBOLISM 2.0-3.0 PREVENTION OF SYSTEMIC EMBOLISM FROM: TISSUE HEART VALVES 2.0-3.0 ACUTE MYOCARDIAL INFARCTION 2.0-3.0 VALVULAR HEART DISEASE 2.0-3.0 ATRIAL FIBRILLATION 2.0-3.0 MECHANICAL VALVES(HIGH RISK) 2.5-3.5 RECURRENT MYOCARDIAL INFARCTION 2.5-3.5 ID Date Data Source [id number] 11/04/2020 12:34:00 PM EST [facility] ([facility]) Name Value Range Interpretation Code Description Data Janessa rce(s) Supporting Document(s) aPTT in Platelet poor plasma by Coagulation assay 25.1 s 24.2-38.5 Normal (applies to non-numeric results) [facility]) ID Date Data Source [id number] 11/04/2020 11:55:00 AM EST [facility] Name Value Range Interpretation Code Description Data Janessa rce(s) Supporting Document(s) SARS coronavirus 2 RNA Not Detected [facility] This lab was ordered by [facility] and reported by [facility]. ID Date Data Source [id number] 09/02/2020 12:00:00 PM EST [facility] Name Value Range Interpretation Code Description Data Janessa rce(s) Supporting Document(s) SARS coronavirus 2 RNA [facility] This lab was ordered by [facility] and reported by [facility]. ID Date Data Source [facility] US 08/11/2020 05:32:50 AM EDT eCW1 ([facility]) Name Value Range Interpretation Code Description Data Janessa rce(s) Supporting Document(s) eCW1 ([facility]) ID Date Data Source VITAMIN [id number] 07/28/2020 06:22:32 AM EDT eCW1 ([facility]) Name Value Range Interpretation Code Description Data Janessa rce(s) Supporting Document(s) 17.8 eCW1 ([facility]) ID Date Data Source AMYLASE 07/27/2020 10:04:42 AM EDT eCW1 ([facility]) Name Value Range Interpretation Code Description Data Janessa rce(s) Supporting Document(s) 54 eCW1 ([facility]) ID Date Data Source C REACTIVE PROTEIN QUANTITATIV (At [facility]) 07/27/2020 10:04 :39 AM EDT eCW1 ([facility]) Name Value Range Interpretation Code Description Data Janessa rce(s) Supporting Document(s) 0.30 eCW1 ([facility]) ID Date Data Source FREE T4 & TSH PANEL 07/27/2020 10:04:36 AM EDT eCW1 ([facility]) Name Value Range Interpretation Code Description Data Janessa rce(s) Supporting Document(s) 4.530 THYROID STIMULATING HORMONE eC W1 ([facility]) 1.03 FREE T4 eCW1 ([facility]) ID Date Data Source CBC with Differential 07/27/2020 10:04:32 AM EDT eCW1 ([facility]) Name Value Range Interpretation Code Description Data Janessa rce(s) Supporting Document(s) 9.3 eCW1 ([facility]) 4.95 eCW1 ([facility]) 15.5 eCW1 ([facility]) 47.3 eCW1 ([facility]) 31.3 eCW1 ([facility]) 95.6 eCW1 ([facility]) 32.8 eCW1 ([facility]) 14.0 eCW1 ([facility]) 71.5 eCW1 ([facility]) 252 eCW1 ([facility]) 16.0 eCW1 ([facility]) 6.6 eCW1 ([facility]) 0.4 eCW1 ([facility]) 2.3 eCW1 ([facility]) 9.5 eCW1 ([facility]) 0.2 eCW1 ([facility]) 0.9 eCW1 ([facility]) 0.0 eCW1 ([facility]) 1.5 eCW1 ([facility]) ID Date Data Source LIPASE 07/27/2020 10:04:26 AM EDT eCW1 ([facility]) Name Value Range Interpretation Code Description Data Janessa rce(s) Supporting Document(s) 111 eCW1 ([facility]) ID Date Data Source Comprehensive Metabolic Profile (CMP) 07/27/2020 10:04:23 AM EDT eCW1 ([facility]) Name Value Range Interpretation Code Description Data Janessa rce(s) Supporting Document(s) 91 GLUCOSE, FASTING eCW1 ([facility]) 136 SODIUM LEVEL eCW1 ([facility]) > 60.0 GLOMERULAR FILTRATION RATE eCW 1 ([facility]) 26 BLOOD UREA NITROGEN eCW1 ([facility]) 0.78 CREATININE FOR GFR eCW1 ([facility]) 4.2 POTASSIUM SERUM eCW1 ([facility]) 99 CHLORIDE LEVEL eCW1 ([facility]) 29 CARBON DIOXIDE LEVEL eCW1 ([facility]) 9.5 CALCIUM LEVEL eCW1 ([facility]) 15 AST/SGOT eCW1 ([facility]) 21 ALT/SGPT eCW1 ([facility]) 97 ALKALINE PHOSPHATASE eCW1 ([facility]) 0.4 BILIRUBIN,TOTAL eCW1 ([facility]) 0.9 ALBUMIN/GLOBULIN RATIO eCW1 ([facility]) 7.8 TOTAL PROTEIN eCW1 ([facility]) 3.7 ALBUMIN eCW1 ([facility]) ID Date Data Source ERYTHROCYTE SEDIMENTATION RATE 07/27/2020 10:04:16 AM EDT eC W1 ([facility]) Name Value Range Interpretation Code Description Data Janessa rce(s) Supporting Document(s) 8 eCW1 ([facility]) ID Date Data Source [id number] 04/02/2020 11:09:00 AM EDT [facility] ([facility], ) Name Value Range Interpretation Code Description Data Janessa rce(s) Supporting Document(s) FVC-Pred 3.25 L MED[facility] ([facility], ) FVC-Pre 2.29 L [facility] ([facility]) PDFReport Laboratory test result [facility] ([facility], ) FVC-%Pred-Pre 70 L [facility] ([facility], ) FVC-LLN 2.56 L [facility] ([facility]) Fev1-Pred 2.50 L [facility] ([facility]) Fev1-Pre 1.44 L [facility] ([facility]) Fev1-LLN 1.92 L [facility] ([facility]) Fev6-Pred 3.13 L [facility] ([facility]) Fev1-%Pred-Pre 57 L [facility] ([facility]) Fev6-Pre 2.27 L MEDENT ([facility]) Fev6-%Pred-Pre 72 L MEDENT ([facility], ) Fev6-LLN 2.45 L MEDENT ([facility], ) Htd1gcu-Tyyk 78 % MEDENT ([facility]) Twy6puw-%Pred-Pre 80 % MEDENT ([facility]) Zbr3xxx-Aso 63 % MEDENT ([facility]) Lep7upn-RRH 68 % MEDENT ([facility]) Swm4tgn-%Pred-Pre 102 % MEDENT ([facility]) Eoq4kum-Rqz 99 % MEDENT ([facility]) Nad3tlc-Fypi 96 % MEDENT ([facility]) FEFMax-Pred 6.18 L/E/sec MEDENT ([facility]) FEFMax-Pre 4.04 L/E/sec MEDENT ([facility]) FEFMax-LLN 4.46 L/E/sec MEDENT ([facility]) FEFMax-%Pred-Pre 65 L/E/sec MEDENT ([facility]) [id number]-%Pred-Pre 31 L/E/sec MEDENT ([facility]) Qmi7970-Eqmn 2.26 L/E/sec MEDENT ([facility]) Joq3294-Fak 0.71 L/E/sec MEDENT ([facility]) Jtx6agy3-Eyt 63 % MEDENT ([facility]) [id number]-LXY 1.02 L/E/sec MEDENT ([facility]) ExpTime-Pre 6.73 sec MEDENT ([facility]) Kbi5nhp0-Prps 80 % MEDENT ([facility]) Gas5qgd6-%Pred-Pre 78 % MEDENT ([facility]) Fqp8omc5-RWU 72 % MEDENT ([facility]) ID Date Data Source [facility] 10/08/2019 12:00:00 AM EST eCW1 ([facility]) Name Value Range Interpretation Code Description Data Janessa rce(s) Supporting Document(s) 6.7 4.0-10.0 WHITE BLOOD COUNT eCW1 [facility] 14.2 12.0-15.5 HEMOGLOBIN eCW1 ([facility]) 44.1 36.0-47.0 HEMATOCRIT eCW1 ([facility]) 4.38 4.00-5.40 RED BLOOD COUNT eCW1 ([facility]) 32.2 32.0-36.5 MEAN CORPUSCULAR HGB CONC eCW1 ([facility]ly [facility]) 32.4 27.0-33.0 MEAN CORPUSCULAR HEMOGLOB IN eCW1 ([facility]ly [facility], [facility]) 100.7 80.0-96.0 MEAN CORPUSCULAR VOLUME e CW1 ([facility]ly [facility], [facility]) 212 150-450 PLATELET COUNT, AUTOMATED eCW1 ([facility], [facility]) 12.9 11.5-14.5 RED CELL DISTRIBUTION WID TH eCW1 ([facility]ly [facility], [facility]) Procedure Social History Code Duration Value Status Description Data Source(s ) Smoking 09/04/2020 12:00:00 AM EST Current Smoker completed Curre nt Smoker eCW1 ([facility]ly [facility], [facility]) Smoking 09/04/2020 12:00:00 AM EST Current Smoker completed Curre nt Smoker eCW1 ([facility]ly [facility], [facility]) Smoking 09/04/2020 12:00:00 AM EST Current Smoker completed Curre nt Smoker eCW1 ([facility]ly [facility], [facility]) Smoking 09/04/2020 12:00:00 AM EST Current Smoker completed Curre nt Smoker eCW1 ([facility]ly [facility], [facility]) Smoking 08/18/2020 12:00:00 AM EDT Current Smoker completed Curre nt Smoker eCW1 ([facility]ly [facility], [facility]) Smoking 08/18/2020 12:00:00 AM EDT Current Smoker completed Curre nt Smoker eCW1 ([facility]ly [facility], [facility]) Smoking 08/18/2020 12:00:00 AM EDT Current Smoker completed Curre nt Smoker eCW1 ([facility]ly [facility], [facility]) Smoking 07/24/2020 12:00:00 AM EDT Current Smoker completed Curre nt Smoker eCW1 ([facility]ly [facility], [facility]) Smoking 07/24/2020 12:00:00 AM EDT Current Smoker completed Curre nt Smoker eCW1 ([facility]ly [facility], [facility]) Smoking 07/24/2020 12:00:00 AM EDT Current Smoker completed Curre nt Smoker eCW1 ([facility]ly [facility], [facility]) Smoking 07/24/2020 12:00:00 AM EDT Current Smoker completed Curre nt Smoker eCW1 ([facility], [facility]) Smoking 03/20/2020 12:00:00 AM EDT Current Smoker completed Curre nt Smoker eCW1 ([facility]ly [facility], [facility]) Vital Signs ID Date Data Source UNK Name Value Range Interpretation Code Description Data Source(s) Body surface area Derived from formula 1.89 m2 1.89 m2 [facility] ([facility]) Body weight 81.365 kg 81.365 kg [facility] ([facility]) Bishop body weight 125 [lb_av] 125 [lb_av] MEDEN T ([facility]) Body mass index (BMI) [Ratio] 29.8 kg/m2 29.8 k g/m2 [facility] ([facility]) Body weight 179.38 [lb_av] 179.38 [lb_av] MEDEN T ([facility]) Body height 65 [in_i] 65 [in_i] [facility] ([facility]) 5'5" Body temperature 96.9 [degF] 96.9 [degF] [facility] ([facility]) Oxygen saturation in Arterial blood by Pulse oximetry 94 % 94 % [facility] ([facility]) Heart rate 105 /min 105 /min [facility] ([facility]) Diastolic blood pressure 82 mm[Hg] 82 mm[Hg] [facility] ([facility]) Systolic blood pressure 144 mm[Hg] 144 mm[Hg] [facility] Body mass index (BMI) [Ratio] 29.6 kg/m2 29.6 k g/m2 [facility] ([facility]) Body weight 178.00 [lb_av] 178.00 [lb_av] MEDEN T ([facility]) Body height 65 [in_i] 65 [in_i] [facility] ([facility]) 5'5" Diastolic blood pressure 88 mm[Hg] 88 mm[Hg] MEDENT ([facility]) Systolic blood pressure 156 mm[Hg] 156 mm[Hg] M EDENT ([facility]) Body surface area Derived from formula 1.88 m2 1.88 m2 MEDENT ([facility]) Body weight 80.741 kg 80.741 kg MEDENT ([facility]) Bishop body weight 125 [lb_av] 125 [lb_av] MEDEN T ([facility]) Diastolic blood pressure 80 mm[Hg] 80 mm[Hg] eCW1 ([facility], [facility]) Systolic blood pressure 140 mm[Hg] 140 mm[Hg] e CW1 ([facility], [facility]) Body temperature 96.9 [degF] 96.9 [degF] eCW1 ( [facility]) Respiratory rate 19 /min 19 /min eCW1 ([facility]) Heart rate 106 /min 106 /min eCW1 ([facility]) Body mass index (BMI) [Ratio] 26.05 kg/m2 26.05 kg/m2 W1 ([facility], [facility]) Body height 65.5 [in_i] 65.5 [in_i] eCW1 ([facility]) Body weight 159 [lb_av] 159 [lb_av] eCW1 ([facility]) Diastolic blood pressure 84 mm[Hg] 84 mm[Hg] eCW1 ([facility], [facility]) Systolic blood pressure 122 mm[Hg] 122 mm[Hg] e CW1 ([facility], [facility]) Body temperature 97.2 [degF] 97.2 [degF] eCW1 ( [facility]) Respiratory rate 18 /min 18 /min eCW1 ([facility]) Heart rate 108 /min 108 /min eCW1 ([facility]) Body mass index (BMI) [Ratio] 25.82 kg/m2 25.82 kg/m2 W1 ([facility], [facility]) Body height 65.5 [in_i] 65.5 [in_i] eCW1 ([facility]) Body weight 157.6 [lb_av] 157.6 [lb_av] eCW1 ([facility]ly [facility]) Diastolic blood pressure 82 mm[Hg] 82 mm[Hg] eCW1 ([facility], [facility]) Systolic blood pressure 130 mm[Hg] 130 mm[Hg] e CW1 ([facility], [facility]) Body temperature 96.5 [degF] 96.5 [degF] eCW1 ( [facility]) Respiratory rate 18 /min 18 /min eCW1 ([facility]) Heart rate 100 /min 100 /min eCW1 ([facility]) Body mass index (BMI) [Ratio] 24.78 kg/m2 24.78 kg/m2 eCW1 ([facility]) Body height 65.5 [in_i] 65.5 [in_i] eCW1 ([facility]) Body weight 151.2 [lb_av] 151.2 [lb_av] eCW1 ([facility]) Body weight 67.360 kg 67.360 kg [facility], ) Body mass index (BMI) [Ratio] 25.5 kg/m2 25.5 k g/m2 [facility] ([facility], ) Body weight 148.50 [lb_av] 148.50 [lb_av] MEDEN T ([facility], ) Body height 64 [in_i] 64 [in_i] MEDENT ([facility], ) 5'4" Body temperature 97.4 [degF] 97.4 [degF] [facility], ) Oxygen saturation in Arterial blood by Pulse oximetry 92 % 92 % [facility] ([facility], ) Heart rate 75 /min 75 /min [facility] ([facility], ) Diastolic blood pressure 76 mm[Hg] 76 mm[Hg] MEDENT ([facility], ) Systolic blood pressure 148 mm[Hg] 148 mm[Hg] M EDENT ([facility], ) Body weight 67.586 kg 67.586 kg [facility] ([facility]) Body mass index (BMI) [Ratio] 25.6 kg/m2 25.6 k g/m2 MEDENT ([facility]) Body weight 149.00 [lb_av] 149.00 [lb_av] MEDEN T ([facility]) Body height 64 [in_i] 64 [in_i] MEDENT ([facility]) 5'4" Body temperature 97.0 [degF] 97.0 [degF] [facility] ([facility]) Heart rate 68 /min 68 /min [facility] ([facility]) Diastolic blood pressure 68 mm[Hg] 68 mm[Hg] [facility] ([facility]) Systolic blood pressure 122 mm[Hg] 122 mm[Hg] M [facility]) Body mass index (BMI) [Ratio] 24.1 kg/m2 24.1 k g/m2 MEDENT ([facility]) Body height 65 [in_i] 65 [in_i] MEDENT ([facility], [facility]) 5'5" Body weight 145.00 [lb_av] 145.00 [lb_av] MEDEN T ([facility], [facility]) Body temperature 98.7 [degF] 98.7 [degF] MEDENT ([facility], [facility]) Oxygen saturation in Arterial blood by Pulse oximetry 91 % 91 % MED[facility] ([facility], [facility]) Respiratory rate 20 /min 20 /min MED[facility] ( [facility]) Heart rate 84 /min 84 /min MEDENT ([facility], [facility]) Diastolic blood pressure 64 mm[Hg] 64 mm[Hg] MEDENT ([facility], [facility]) Systolic blood pressure 130 mm[Hg] 130 mm[Hg] M [facility] ([facility], [facility]) Body temperature 98.3 [degF] 98.3 [degF] MEDENT ([facility], [facility]) Oxygen saturation in Arterial blood by Pulse oximetry 93 % 93 % MEDENT ([facility], [facility]) Heart rate 97 /min 97 /min [facility] ([facility], [facility]) Diastolic blood pressure 72 mm[Hg] 72 mm[Hg] [facility] ([facility], [facility]) Systolic blood pressure 132 mm[Hg] 132 mm[Hg] M [facility]) Body mass index (BMI) [Ratio] 24.1 kg/m2 24.1 k g/m2 [facility] ([facility], [facility]) Body height 65 [in_i] 65 [in_i] [facility] ([facility], [facility]) 5'5" Body weight 145.00 [lb_av] 145.00 [lb_av] MEDEN T ([facility], [facility]) Body weight 69.854 kg 69.854 kg [facility] ([facility]) Body mass index (BMI) [Ratio] 26.4 kg/m2 26.4 k g/m2 [facility] ([facility]) Body weight 154.00 [lb_av] 154.00 [lb_av] [facility] Body height 64 [in_i] 64 [in_i] [facility] ([facility]) 5'4" Body temperature 98.1 [degF] 98.1 [degF] [facility] ([facility]) Oxygen saturation in Arterial blood by Pulse oximetry 90 % 90 % [facility] ([facility]) Room Air Heart rate 83 /min 83 /min [facility] ([facility]) Diastolic blood pressure 76 mm[Hg] 76 mm[Hg] [facility] ([facility]) Systolic blood pressure 128 mm[Hg] 128 mm[Hg] [facility] ([facility]) Body mass index (BMI) [Ratio] 25.23 kg/m2 25.23 kg/m2 eCW1 ([facility], [facility]) Body height 65.5 [in_i] 65.5 [in_i] eCW1 ([facility]) Body weight 154 [lb_av] 154 [lb_av] eCW1 ([facility]) Diastolic blood pressure 64 mm[Hg] 64 mm[Hg] eCW1 ([facility], [facility]) Systolic blood pressure 142 mm[Hg] 142 mm[Hg] e CW1 ([facility], [facility]) Body mass index (BMI) [Ratio] 25.37 kg/m2 25.37 kg/m2 eCW1 ([facility], [facility]) Body height 65.5 [in_us] 65.5 [in_us] eCW1 ([facility]) Body weight Measured 154.8 [lb_av] 154.8 [lb_av ] eCW1 ([facility], [facility]) Diastolic blood pressure 68 mm[Hg] 68 mm[Hg] eCW1 ([facility], [facility]) Systolic blood pressure 120 mm[Hg] 120 mm[Hg] e CW1 ([facility], [facility]) Body temperature 96.3 [degF] 96.3 [degF] eCW1 ( [facility]) Respiratory rate 18 /min 18 /min eCW1 ([facility]) Heart rate 89 /min 89 /min eCW1 ([facility]) Body mass index (BMI) [Ratio] 24.38 kg/m2 24.38 kg/m2 eCW1 ([facility], [facility]) Body height 65.5 [in_us] 65.5 [in_us] eCW1 ([facility]) Body weight Measured 148.8 [lb_av] 148.8 [lb_av ] eCW1 ([facility]) Body mass index (BMI) [Ratio] 24.1 kg/m2 24.1 k g/m2 MEDENT ([facility]) Body height 65 [in_i] 65 [in_i] MEDENT ([facility], [facility]) 5'5" Body weight 145.00 [lb_av] 145.00 [lb_av] MEDEN T ([facility], [facility]) Body temperature 98.4 [degF] 98.4 [degF] MEDENT ([facility], [facility]) Oxygen saturation in Arterial blood by Pulse oximetry 93 % 93 % MEDENT ([facility], [facility]) Respiratory rate 16 /min 16 /min MEDENT ( [facility], [facility]) Heart rate 93 /min 93 /min MEDENT ([facility], [facility]) Diastolic blood pressure 74 mm[Hg] 74 mm[Hg] MEDENT ([facility], [facility]) Systolic blood pressure 143 mm[Hg] 143 mm[Hg] M EDENT ([facility], [facility]) Body mass index (BMI) [Ratio] 24.1 kg/m2 24.1 k g/m2 MEDENT ([facility], [facility]) Body height 65 [in_i] 65 [in_i] MEDENT ([facility], [facility]) 5'5" Body weight 145.00 [lb_av] 145.00 [lb_av] MEDEN T ([facility], [facility]) Body temperature 98.5 [degF] 98.5 [degF] MEDENT ([facility], [facility]) Oxygen saturation in Arterial blood by Pulse oximetry 92 % 92 % MEDENT ([facility], [facility]) Respiratory rate 18 /min 18 /min MEDENT ( [facility], [facility]) Heart rate 92 /min 92 /min MEDENT ([facility], [facility]) Diastolic blood pressure 76 mm[Hg] 76 mm[Hg] [facility] ([facility], [facility]) Systolic blood pressure 124 mm[Hg] 124 mm[Hg] M [facility], [facility]) Body mass index (BMI) [Ratio] 24.1 kg/m2 24.1 k g/m2 MEDENT ([facility], [facility]) Body height 65 [in_i] 65 [in_i] MEDENT ([facility], [facility]) 5'5" Body weight 145.00 [lb_av] 145.00 [lb_av] MEDEN T ([facility], [facility]) Body temperature 98.6 [degF] 98.6 [degF] [facility] ([facility], [facility]) Oxygen saturation in Arterial blood by Pulse oximetry 89 % 89 % MEDENT ([facility], [facility]) ra Respiratory rate 14 /min 14 /min MEDENT ( [facility], [facility]) Heart rate 104 /min 104 /min MEDENT ([facility], [facility]) Diastolic blood pressure 60 mm[Hg] 60 mm[Hg] MEDENT ([facility], [facility]) Systolic blood pressure 96 mm[Hg] 96 mm[Hg] M EDENT ([facility], [facility]) Diastolic blood pressure 62 mm[Hg] 62 mm[Hg] eCW1 ([facility]) Systolic blood pressure 120 mm[Hg] 120 mm[Hg] e CW1 ([facility], [facility]) Body temperature 98 [degF] 98 [degF] eCW1 ([facility]) Respiratory rate 18 /min 18 /min eCW1 ([facility]) Heart rate 78 /min 78 /min eCW1 ([facility]) Body mass index (BMI) [Ratio] 23.89 kg/m2 23.89 kg/m2 eCW1 ([facility], [facility]) Body height 65.5 [in_us] 65.5 [in_us] eCW1 ([facility]) Body weight Measured 145.8 [lb_av] 145.8 [lb_av ] eCW1 ([facility], [facility]) Patient Treatment Plan of Care Planned Activity Planned Date Details Description Data Source (s) aripiprazole 5 MG Oral Tablet [Abilify] 09/08/2020 12:00:00 AM EST eCW1 ([facility]) aripiprazole 5 MG Oral Tablet [Abilify] 09/08/2020 12:00:00 AM EST eCW1 ([facility], [facility]) aripiprazole 5 MG Oral Tablet [Abilify] 09/08/2020 12:00:00 AM EST eCW1 ([facility], [facility]) Prednisone 10 MG Oral Tablet 09/04/2020 12:00:00 AM EST eCW1 ([facility], [facility]) Amoxicillin 875 MG / Clavulanate 125 MG Oral Tablet 09/04/20 12:00:00 AM EST eCW1 ([facility]) Prednisone 10 MG Oral Tablet 09/04/2020 12:00:00 AM EST eCW1 ([facility]) Amoxicillin 875 MG / Clavulanate 125 MG Oral Tablet 09/04/20 12:00:00 AM EST eCW1 ([facility]) Prednisone 10 MG Oral Tablet 09/04/2020 12:00:00 AM EST eCW1 ([facility]) Amoxicillin 875 MG / Clavulanate 125 MG Oral Tablet 09/04/20 12:00:00 AM EST eCW1 ([facility]) Prednisone 10 MG Oral Tablet 09/04/2020 12:00:00 AM EST eCW1 ([facility]) Amoxicillin 875 MG / Clavulanate 125 MG Oral Tablet 09/04/20 12:00:00 AM EST eCW1 ([facility]) aripiprazole 2 MG Oral Tablet [Abilify] 08/18/2020 12:00:00 AM EDT eCW1 ([facility]) aripiprazole 2 MG Oral Tablet [Abilify] 08/18/2020 12:00:00 AM EDT eCW1 ([facility], [facility]) aripiprazole 2 MG Oral Tablet [Abilify] 08/18/2020 12:00:00 AM EDT eCW1 ([facility], [facility]) aripiprazole 2 MG Oral Tablet [Abilify] 08/18/2020 12:00:00 AM EDT eCW1 ([facility], [facility]) meloxicam 7.5 MG Oral Tablet 07/24/2020 12:00:00 AM EDT eCW1 ([facility], [facility]) Omeprazole 40 MG Delayed Release Oral Capsule 07/24/2020 12:00:00 A M EDT eCW1 ([facility], [facility]) meloxicam 7.5 MG Oral Tablet 07/24/2020 12:00:00 AM EDT eCW1 ([facility], [facility]) Omeprazole 40 MG Delayed Release Oral Capsule 07/24/2020 12:00:00 A M EDT eCW1 ([facility], [facility]) meloxicam 7.5 MG Oral Tablet 07/24/2020 12:00:00 AM EDT eCW1 ([facility], [facility]) Omeprazole 40 MG Delayed Release Oral Capsule 07/24/2020 12:00:00 A M EDT eCW1 ([facility], [facility]) meloxicam 7.5 MG Oral Tablet 07/24/2020 12:00:00 AM EDT eCW1 ([facility], [facility]) Omeprazole 40 MG Delayed Release Oral Capsule 07/24/2020 12:00:00 A M EDT eCW1 ([facility], [facility]) Triamcinolone Acetonide 1 MG/ML Topical Cream 02/25/2020 12:00:00 A M EDT eCW1 ([facility], [facility]) Prednisone 20 MG Oral Tablet 02/25/2020 12:00:00 AM EDT eCW1 ([facility]) Prednisone 20 MG Oral Tablet 01/23/2020 12:00:00 AM EDT eCW1 ([facility]) Nystatin 089013 UNT/ML Oral Suspension 12/10/2019 12:00:00 AM EST eCW1 ([facility], [facility])
[2020-11-27] MEDS: NS 1,000 ML IV SCH (01:59)
[2020-11-27] MEDS: MIDAZOLAM INJ 2MG/2ML VIAL (J2250 PER 1MG) IV PRN ×12 (02:27→21:36)
[2020-11-27] MEDS ORDERED: propofoL 1,000 MG in IV 1 EA IV SCH (02:30)
[2020-11-27 02:40] LABS: ABG BASE EXCESS -9.5 (-2.0-2.0); ABG HCO3 18.6 MEQ/L (22.0-26.0); ABG O2 SATURATION 98.9 % (95.0-99.0); ABG PARTIAL PRESSURE O2 232.9 mmHg (75.0-100.0); ABG STANDARD HCO3 16.9 MEQ/L (22.0-26.0); ABG TOTAL CO2 20.2 MEQ/L (23.0-31.0)
[2020-11-27 02:43] LABS: ABG pH (ARTERIAL) 7.189 UNITS (7.350-7.450)
[2020-11-27 02:47] LABS: HEMATOCRIT 37.4 % (36.0-47.0); HEMOGLOBIN 11.7 g/dl (12.0-15.5); MEAN CORPUSCULAR HEMOGLOBIN 32.2 pg (27.0-33.0); MEAN CORPUSCULAR HGB CONC 31.3 g/dl (32.0-36.5); PLATELET COUNT, AUTOMATED 162 10^3/uL (150-450); RED BLOOD COUNT 3.63 10^6/uL (4.00-5.40)
[2020-11-27 02:58] LABS: INR 1.12; PROTHROMBIN TIME 14.6 SECONDS (12.5-14.3)
[2020-11-27 03:00] LABS: PARTIAL THROMBOPLASTIN TIME 91.4 SECONDS (24.2-38.5)
[2020-11-27] MEDS: propofoL 1,000 MG in IV 1 EA IV SCH ×7 (03:23→21:09)
[2020-11-27] MEDS ORDERED: ACETAMINOPHEN 650 MG SUPP PR PRN (04:00)
[2020-11-27 04:03] LABS: ALBUMIN 2.8 GM/DL (3.2-5.2); BILIRUBIN,TOTAL 0.2 MG/DL (0.2-1.0); CREATININE FOR GFR 1.58 MG/DL (0.55-1.30); GLOMERULAR FILTRATION RATE 35.2 (>45); MAGNESIUM LEVEL 2.2 MG/DL (1.8-2.4); PHOSPHORUS LEVEL 5.5 MG/DL (2.5-4.9); POTASSIUM SERUM 4.3 MEQ/L (3.5-5.1); TOTAL PROTEIN 5.6 GM/DL (6.4-8.2)
[2020-11-27 05:45] LABS: ABG BASE EXCESS -9.5 (-2.0-2.0); ABG HCO3 18.1 MEQ/L (22.0-26.0); ABG O2 SATURATION 98.7 % (95.0-99.0); ABG PARTIAL PRESSURE CO2 46.2 mmHg (35.0-45.0); ABG PARTIAL PRESSURE O2 169.1 mmHg (75.0-100.0); ABG STANDARD HCO3 16.9 MEQ/L (22.0-26.0); ABG TOTAL CO2 19.5 MEQ/L (23.0-31.0)
[2020-11-27 05:50] LABS: ABG pH (ARTERIAL) 7.211 UNITS (7.350-7.450)
[2020-11-27] MEDS: KCL 20MEQ IN D5/0.45NS 1000ML 1,000 ML IV SCH ×3 (06:14→19:42)
[2020-11-27] MEDS ORDERED: NS 500 ML IV ONE (06:15)
[2020-11-27 06:53] LABS: BASO % 0.1 % (0.0-1.0); HEMATOCRIT 38.9 % (36.0-47.0); HEMOGLOBIN 12.2 g/dl (12.0-15.5); LYMPH # 0.1 10^3/uL (1.5-5.0); LYMPH % 0.6 % (24.0-44.0); MEAN CORPUSCULAR HEMOGLOBIN 32.7 pg (27.0-33.0); MEAN CORPUSCULAR HGB CONC 31.4 g/dl (32.0-36.5); MEAN CORPUSCULAR VOLUME 104.3 fl (80.0-96.0); MONO # 0.4 10^3/uL (0.0-0.8); MONO % 1.7 % (0.0-5.0); NEUTROPHILS # 20.9 10^3/uL (1.5-8.5); PLATELET COUNT, AUTOMATED 147 10^3/uL (150-450); RED BLOOD COUNT 3.73 10^6/uL (4.00-5.40); WHITE BLOOD COUNT 21.6 10^3/uL (4.0-10.0)
[2020-11-27 07:10] LABS: INR 1.01; PROTHROMBIN TIME 13.5 SECONDS (12.5-14.3)
[2020-11-27 07:11] LABS: PARTIAL THROMBOPLASTIN TIME 27.9 SECONDS (24.2-38.5)
[2020-11-27 07:48] LABS: ALBUMIN 2.8 GM/DL (3.2-5.2); BILIRUBIN,TOTAL 0.2 MG/DL (0.2-1.0); CALCIUM LEVEL 7.2 MG/DL (8.8-10.2); CK-MB VALUE MASS 17.2 NG/ML (<3.6); CREATININE FOR GFR 1.61 MG/DL (0.55-1.30); GLOMERULAR FILTRATION RATE 34.4 (>45); MB/CK RELATIVE INDEX 1.2 (< OR =4); PHOSPHORUS LEVEL 5.1 MG/DL (2.5-4.9); POTASSIUM SERUM 4.2 MEQ/L (3.5-5.1); TOTAL PROTEIN 5.7 GM/DL (6.4-8.2); TROPONIN I 0.2 NG/ML (< 0.10)
--- NOTE | 2020-11-27 07:48 | REP ---
INDICATION: Resp Failure COMPARISON: 11/26/2019 TECHNIQUE: Portable AP view of the chest FINDINGS: Endotracheal tube and nasogastric tube are in satisfactory position. Cardiac silhouette is normal. Lung das demonstrate stable chronic interstitial changes. No focal consolidation, effusion, or pneumothorax. Skeletal structures are intact. IMPRESSION: 1. Lines and tubes in satisfactory position. 2. Stable chronic changes. No focal consolidation, effusion, or pneumothorax. <Electronically signed by Devon Peña > 11/27/20 0737
[2020-11-27] MEDS: HEPARIN SOD (PORCINE) 5000UNITS/ML 1ML VIAL/SYRINGE SC SCH ×2 (08:12→21:08)
[2020-11-27] MEDS: PANTOPRAZOLE 40MG VIAL (C9113 PER 1) IV SCH (08:12)
[2020-11-27] MEDS: CHLORHEXIDINE GLUCONATE 0.12 % 15ML UDC (PERIDEX ORAL RINSE) MT SCH ×2 (08:13→21:07)
[2020-11-27 08:23] LABS: ABG BASE EXCESS -12.1 (-2.0-2.0); ABG O2 SATURATION 98.2 % (95.0-99.0); ABG STANDARD HCO3 15.1 MEQ/L (22.0-26.0)
[2020-11-27 08:31] LABS: ABG HCO3 16.7 MEQ/L (22.0-26.0); ABG PARTIAL PRESSURE CO2 50.1 mmHg (35.0-45.0); ABG TOTAL CO2 18.3 MEQ/L (23.0-31.0)
[2020-11-27 08:44] LABS: ABG pH (ARTERIAL) 7.142 UNITS (7.350-7.450)
[2020-11-27] MEDS ORDERED: LACRILUBE (AKWA TEARS) OPHTH OINT 3.5 GM OU SCH (09:00)
--- NOTE | 2020-11-27 09:35 | REP ---
INDICATION: ? anoxic injury. COMPARISON: None. TECHNIQUE: Helical scanning is acquired. 5 mm axial images were reformatted. Coronal MPR images were generated. FINDINGS: Bone window settings demonstrate an intact bony calvarium. There is no evidence of skull fracture or incidental bony calvarial lesion. There is some fluid in the sphenoid sinus air cells bilaterally. The visualized paranasal sinuses appear otherwise clear. No intraorbital abnormality is seen. On soft tissue window setting images; the lateral, third, and fourth ventricles are normal in size and position. Leary-white differentiation pattern is normal above and below the tentorium. There are is no evidence of intracranial hemorrhage. No mass, edema, infarction, or midline shift is seen. No extra-axial fluid collection is appreciated. There is no CT evidence of focal or global anoxic encephalopathy on today's CT study. IMPRESSION: Negative noncontrast head CT. <Electronically signed by Jose Alejandro Connolly > 11/27/20 0932
--- NOTE | 2020-11-27 09:43 | REP ---
INDICATION: Lung mass. COMPARISON: Comparison portable chest x-ray 27 November 2020 6:[address] study October 01 2020.. TECHNIQUE: Helical scanning is acquired. 3 mm axial images are generated. Coronal and sagittal MPR and coronal MIP images are generated. FINDINGS: Endotracheal and nasogastric tubes are seen in place on today's CT study. Granulomatous lymph node calcification is noted in the left hilus. No mediastinal mass or adenopathy is seen. No hilar adenopathy is apparent. The previously noted pleural based opacity in the superior segment of the left lower lobe is again seen along the apex of the major fissure. This appears a little less prominent than on the October 01, 2020 study measuring 3.9 x 1.4 cm in greatest dimension on axial images, previously 4.4 x 1.9 cm. There is mild discoid atelectasis versus fibrosis in the anterior aspect of the right upper lobe adjacent to the mediastinum. This is improved from the October 01, 2020 study. There is some fissural thickening or fissural fluid on the right and a small amount of pleural fluid is seen posteriorly on the right today. There are 1 or 2 air bronchograms in the right posterolateral lung gutter consistent with atelectasis or peripheral consolidation. There are new areas of mild ground-glass opacity in the periphery of the left upper lobe superiorly and laterally. No other new infiltrate is seen. The air-filled endotracheal tube cuff appears slightly prominent. No bony destructive lesion is seen. IMPRESSION: Improvement is noted into areas of pleural-based opacity noted previously, left lower lobe superior segment in and anterior aspect of the right middle lobe. There is new ground-glass opacity peripherally in several areas in the left upper lobe. A small amount of right pleural fluid is noted in there is atelectasis versus peripheral consolidation in the right posterolateral pleural angle. The air-filled endotracheal tube cuff appears slightly prominent. <Electronically signed by Jose Alejandro Connolly > 11/27/20 0986
--- NOTE | 2020-11-27 10:05 | REP ---
INDICATION: Vomiting with metabolic acidosis COMPARISON: No comparison CT abdomen study.. TECHNIQUE: Helical scanning is acquired in 4 mm axial images were reformatted. Coronal and sagittal MPR images were generated and reviewed. FINDINGS: Digital preliminary clinical services manager radiograph demonstrates a nasogastric tube in place and a right femoral line. Axial CT images demonstrate no focal liver or spleen lesion. Pancreas is unremarkable. No abnormality is noted in the gallbladder. The kidneys and adrenal glands appear intact. No hydronephrosis seen. Normal caliber aorta with vascular calcification. The nasogastric tube is in the body of the stomach. There is a moderate amount of fluid in the stomach. The right colon is fluid-filled and there is some air in the transverse colon. No obstructive colonic lesion is seen there is descending and sigmoid colon diverticulosis without CT evidence of diverticulitis. The left colon is largely empty. There is no evidence of free air, abdominal mass or abnormal intra-abdominal fluid collection. The right femoral line terminates in the common iliac vein. Villarreal catheter is seen in the urinary bladder which is empty. No uterine or ovarian abnormality is observed. IMPRESSION: Fluid content and air in the ascending and transverse colon. No large or small bowel obstructive lesion seen. NG tube in place with some fluid in the stomach. Left colonic diverticulosis without CT evidence of diverticulitis. <Electronically signed by Jose Alejandro Connolly > 11/27/20 100
--- NOTE | 2020-11-27 10:05 | CCN ---
CRITICAL CARE NOTE DATE: 11/27/2020 START TIME: 804 STOP TIME: 840 SUBJECTIVE: I again attended Kia Raza here in the intensive care unit. The patient has been examined and chart reviewed. I spoke at length with the nurse at the bedside, as well as the nurse coming off of the nightshift. She remains on the hypothermia protocol. She has had some shivering this morning. She has some intermittent movements of the upper extremities and shoulders, not quite seizure like, but nonpurposeful. OBJECTIVE: GENERAL APPEARANCE: She is sedate. She does move to painful stimuli. VITAL SIGNS: T-max 97 degrees, heart rate generally in the 90s to low 100s with a sinus mechanism, blood pressure 140s to 160s systolic. INTAKE AND OUTPUT: Since admission 4900 mL in with only about 900 mL out. HEENT: Pupils although sluggish do react. NECK: Trachea is in the midline. CHEST: Has improved air exchange with some dependent crackles, but no convincing rhonchus this morning. She has the faintest of end-expiratory wheeze especially in the mid zones. CARDIAC: Distant and mildly tachycardic, but regular. Peripheral pulses are somewhat diminished with the [place] in place. ABDOMEN: Mildly distended. Bowel sounds are markedly hypoactive this morning. EXTREMITIES: Cool with the [place] in place. NEUROLOGIC: She is sedate on propofol. She has had difficulties with vomiting throughout the night; this is despite her gastric tube being to suction. LABORATORY DATA: Most recent laboratories show a white blood cell count 21.6, hemoglobin 12.2, platelet count 147,000, 97% segs, and no bands. Sodium of 142, K of 4.2, chloride 112, CO2 of 21, BUN 26, and creatinine 1.61. Lactic acid cleared at 1.0. Phosphorus mildly elevated at 5.1. AST 110, ALT 50. CPK 1428. Troponin 0.2. Repeat blood gas currently is pending as of 075, but the gas at 0533 pH improved to 7.211, pCO2 of 46.2, and pO2 of under 69.1. Chest x-ray this morning shows endotracheal tube and gastric tube in good position. No obvious infiltrates. No acute findings. Arterial blood gas from 075 is now available and has a pH down to 7.142, pCO2 of 50.1, and a pO2 of 140. IMPRESSION: Most pressing problems requiring my immediate presence at the bedside: 1. Combined metabolic and respiratory acidosis. 2. Respiratory failure, multifactorial requiring mechanical ventilatory support. 3. Abnormal CT scan with question of a lung mass now status post biopsy several weeks ago. 4. Status post cardiac arrest. 5. Question of anoxic encephalopathy. 6. Acute kidney injury. 7. Advanced obstructive lung disease. 8. History of illicit drug dependence. At this point, I am quite concerned regarding her progressive acidosis, especially in view of her vomiting. In view of this, we will interrupt her hypothermia protocol and reward her, as I believe it is imperative that we obtain CT scans of not only her head, but her chest, abdomen, and pelvis. Certainly in view of her premorbid state and her presentation with a significant arrhythmia, she may have intraabdominal vascular catastrophe. Certainly in view of her question of anoxia, she would likely not be a surgical candidate, but we need to sort this out. We will continue her current level of volume resuscitation. We will actively rewarm her. We will continue with aggressive therapy for her lung disease with steroids and empiric antimicrobials. She remains on ulcer and deep vein thrombosis (DVT) prophylaxis. I am quite concerned in view of the above that she may not survive this hospitalization, but will proceed with full levels of resuscitation. When I have all the available information, I will communicate with her son, Tawny, who is the point of contact in the chart. She remains quite critically ill. I left the bedside at 0841 hours. CRITICAL CARE TIME: 37 minutes of critical care time delivered at the bedside not including procedures.
[2020-11-27 10:31] LABS: HEMATOCRIT 36.5 % (36.0-47.0); HEMOGLOBIN 11.5 g/dl (12.0-15.5); MEAN CORPUSCULAR HEMOGLOBIN 32.9 pg (27.0-33.0); MEAN CORPUSCULAR HGB CONC 31.5 g/dl (32.0-36.5); MEAN CORPUSCULAR VOLUME 104.3 fl (80.0-96.0); PLATELET COUNT, AUTOMATED 135 10^3/uL (150-450); WHITE BLOOD COUNT 20.1 10^3/uL (4.0-10.0)
[2020-11-27 10:37] LABS: ABG BASE EXCESS -11.4 (-2.0-2.0); ABG HCO3 16.9 MEQ/L (22.0-26.0); ABG O2 SATURATION 98.6 % (95.0-99.0); ABG PARTIAL PRESSURE CO2 47.4 mmHg (35.0-45.0); ABG PARTIAL PRESSURE O2 161.5 mmHg (75.0-100.0); ABG STANDARD HCO3 15.6 MEQ/L (22.0-26.0); ABG TOTAL CO2 18.4 MEQ/L (23.0-31.0)
[2020-11-27 10:43] LABS: INR 1.03; PROTHROMBIN TIME 13.7 SECONDS (12.5-14.3)
[2020-11-27 10:44] LABS: PARTIAL THROMBOPLASTIN TIME 27.4 SECONDS (24.2-38.5)
[2020-11-27] MEDS ORDERED: SODIUM CHLORIDE 0.9% 1000ML IV ONE (11:00)
[2020-11-27 11:09] LABS: ALBUMIN 2.8 GM/DL (3.2-5.2); BILIRUBIN,TOTAL 0.3 MG/DL (0.2-1.0); CALCIUM LEVEL 7.2 MG/DL (8.8-10.2); CREATININE FOR GFR 1.67 MG/DL (0.55-1.30); MAGNESIUM LEVEL 2.1 MG/DL (1.8-2.4); PHOSPHORUS LEVEL 5.7 MG/DL (2.5-4.9); POTASSIUM SERUM 4.3 MEQ/L (3.5-5.1); TOTAL PROTEIN 5.5 GM/DL (6.4-8.2)
[2020-11-27] MEDS ORDERED: PROPOFOL 1,000 MG/100 ML VIAL As Ordered ONE (12:41)
[2020-11-27 12:59] LABS: ABG BASE EXCESS -13.4 (-2.0-2.0); ABG HCO3 14.1 MEQ/L (22.0-26.0); ABG O2 SATURATION 98.5 % (95.0-99.0); ABG PARTIAL PRESSURE CO2 38.5 mmHg (35.0-45.0); ABG PARTIAL PRESSURE O2 159.4 mmHg (75.0-100.0); ABG STANDARD HCO3 14.1 MEQ/L (22.0-26.0); ABG TOTAL CO2 15.3 MEQ/L (23.0-31.0)
[2020-11-27] MEDS ORDERED: levETIRAcetam INJection 1,000 MG in D5W 100 ML IV ONE (13:00)
[2020-11-27 13:04] LABS: ABG pH (ARTERIAL) 7.181 UNITS (7.350-7.450)
[2020-11-27] MEDS ORDERED: ETOMIDATE INJ 20MG/10ML VIAL ONE (13:38)
[2020-11-27] MEDS ORDERED: ROCURONIUM BROMIDE 50 MG/5 ML VIAL ONE (13:38)
[2020-11-27] MEDS: SODIUM BICARBONATE 100 MEQ in D5W 1,000 ML IV SCH ×2 (14:49→21:58)
[2020-11-27] MEDS ORDERED: SODIUM BICARBONATE 8.4% INJ 50 ML SYRINGE IV STA (15:04)
[2020-11-27 16:59] LABS: ABG BASE EXCESS -9.8 (-2.0-2.0); ABG HCO3 16.2 MEQ/L (22.0-26.0); ABG O2 SATURATION 98.6 % (95.0-99.0); ABG PARTIAL PRESSURE CO2 36.1 mmHg (35.0-45.0); ABG PARTIAL PRESSURE O2 147.8 mmHg (75.0-100.0); ABG STANDARD HCO3 16.6 MEQ/L (22.0-26.0); ABG TOTAL CO2 17.3 MEQ/L (23.0-31.0)
[2020-11-27] MEDS ORDERED: levETIRAcetam INJection 1,500 MG in D5W 100 ML IV SCH (17:00)
[2020-11-27] MEDS: levETIRAcetam INJection 1,000 MG in D5W 100 ML IV SCH (17:24)
[2020-11-27 22:43] LABS: PROTHROMBIN TIME 13.4 SECONDS (12.5-14.3)
[2020-11-27 22:44] LABS: PARTIAL THROMBOPLASTIN TIME 24.7 SECONDS (24.2-38.5)
[2020-11-27] MEDS: cefTRIAXone SOD 1 GM in D5W MINI-BAG PLUS 50 ML IV SCH (23:47)
[2020-11-28] VITALS (24 sets, daily range): BP systolic 117–158; BP diastolic 55–79
[2020-11-28] MEDS: methylPREDNISolone 125MG 2ML VIAL IV SCH ×3 (00:11→17:57)
[2020-11-28] MEDS: IPRATROPIUM 0.5MG/ALBUTEROL 2.5MG INH SOL UD 3ML (DUONEB) NEB SCH ×7 (00:56→23:47)
[2020-11-28] MEDS: MIDAZOLAM INJ 2MG/2ML VIAL (J2250 PER 1MG) IV PRN ×10 (02:43→23:27)
[2020-11-28] MEDS: propofoL 1,000 MG in IV 1 EA IV SCH ×5 (02:44→22:06)
[2020-11-28] MEDS: KCL 20MEQ IN D5/0.45NS 1000ML 1,000 ML IV SCH ×2 (02:44→10:25)
[2020-11-28] MEDS: MORPHINE 2 MG/ML 1ML VIAL (J2270) IV PRN (03:00)
[2020-11-28 05:34] LABS: BASO % 0.1 % (0.0-1.0); HEMATOCRIT 31.1 % (36.0-47.0); HEMOGLOBIN 9.7 g/dl (12.0-15.5); LYMPH # 0.1 10^3/uL (1.5-5.0); LYMPH % 0.8 % (24.0-44.0); MEAN CORPUSCULAR HEMOGLOBIN 31.8 pg (27.0-33.0); MEAN CORPUSCULAR HGB CONC 31.2 g/dl (32.0-36.5); MONO # 0.8 10^3/uL (0.0-0.8); MONO % 4.4 % (0.0-5.0); NEUTROPHILS # 16.8 10^3/uL (1.5-8.5); NEUTROPHILS % 93.8 % (36.0-66.0); PLATELET COUNT, AUTOMATED 111 10^3/uL (150-450); RED BLOOD COUNT 3.05 10^6/uL (4.00-5.40); WHITE BLOOD COUNT 17.9 10^3/uL (4.0-10.0)
[2020-11-28 05:35] LABS: ABG HCO3 20.8 MEQ/L (22.0-26.0); ABG O2 SATURATION 91.4 % (95.0-99.0); ABG PARTIAL PRESSURE CO2 36.7 mmHg (35.0-45.0); ABG PARTIAL PRESSURE O2 60.1 mmHg (75.0-100.0); ABG TOTAL CO2 21.9 MEQ/L (23.0-31.0); ABG pH (ARTERIAL) 7.371 UNITS (7.350-7.450)
[2020-11-28] MEDS: levETIRAcetam INJection 1,000 MG in D5W 100 ML IV SCH ×2 (05:49→17:57)
[2020-11-28] MEDS: SODIUM BICARBONATE 100 MEQ in D5W 1,000 ML IV SCH ×3 (05:49→19:18)
[2020-11-28 06:06] LABS: ALBUMIN 2.4 GM/DL (3.2-5.2); BILIRUBIN,TOTAL 0.1 MG/DL (0.2-1.0); CALCIUM LEVEL 6.7 MG/DL (8.8-10.2); CREATININE FOR GFR 1.42 MG/DL (0.55-1.30); GLOMERULAR FILTRATION RATE 39.8 (>45); POTASSIUM SERUM 3.8 MEQ/L (3.5-5.1); TOTAL PROTEIN 4.9 GM/DL (6.4-8.2)
--- NOTE | 2020-11-28 10:12 | REP ---
INDICATION: Resp Failure. COMPARISON: 11/27/2020. TECHNIQUE: SINGLE PORTABLE AP VIEW OF THE CHEST WAS PERFORMED. FINDINGS: Endotracheal tube and nasogastric tube appear unchanged. Heart mediastinum are stable. New patchy infiltrate or atelectasis is seen in the right lung base. No new infiltrate is seen on the left. IMPRESSION: New right base atelectasis/infiltrate. <Electronically signed by Jake Leary > 11/28/20 9505
--- NOTE | 2020-11-28 10:21 | EEG ---
ELECTROENCEPHALOGRAM DATE: 11/27/2020 DIAGNOSIS: Seizure. EEG# [id number]. REFERRING PHYSICIAN: Ata Dahl M.D. HISTORY: Patient is a 65-year-old woman with respiratory arrest who has myoclonic jerks upon stopping her sedation. The patient has a history of lung disease and was found unresponsive in ventricular fibrillation requiring cardiac resuscitation. She is currently on ceftriaxone and Keppra. Her propofol was stopped before EEG. TECHNICAL DESCRIPTION: This digital EEG was recorded by 21-scalp, ear, and two EKG electrodes and was reviewed in bipolar and referential montages following reformatting in 10-20 international electrode placement system. INTERPRETATION: Patient was noted to be in drowsy and asleep states during this EEG. Background rhythm consisted of low voltage 6-7 Hz theta activity. Frequent generalized bursts of spike in wave discharges with intermittent suppression of background activity was noted throughout this EEG with clinically visible myoclonic jerks of upper half of the body. Hyperventilation was not performed. Photic stimulation and physical stimulation did not reveal any changes in background activity. EKG revealed normal sinus rhythm. CONCLUSION: This EEG in unconscious patient on mechanical ventilation is abnormal due to presence of generalized bursts suppression pattern occurring nearly continuously with myoclonic jerks is indicative of generalized cerebral dysfunction with epileptic potential. Bursts suppression pattern in this clinical scenario may indicate a guarded prognosis. Clinical and neuro imaging correlation is recommended. [facility] [place] [facility]
[2020-11-28] MEDS: HEPARIN SOD (PORCINE) 5000UNITS/ML 1ML VIAL/SYRINGE SC SCH ×2 (10:25→20:05)
[2020-11-28] MEDS: CHLORHEXIDINE GLUCONATE 0.12 % 15ML UDC (PERIDEX ORAL RINSE) MT SCH ×2 (10:25→20:06)
[2020-11-28] MEDS: PANTOPRAZOLE 40MG VIAL (C9113 PER 1) IV SCH (10:25)
[2020-11-28] MEDS: METOCLOPRAMIDE INJ 10MG/2ML VIAL (J2765 PER 1) IV SCH ×3 (10:26→22:05)
--- NOTE | 2020-11-28 10:33 | CCN ---
CRITICAL CARE NOTE DATE: 11/28/2020 START TIME: 819 STOP TIME: 911 SUBJECTIVE: I again attended Kia Raza here in the intensive care unit. The patient has been examined and chart reviewed. I spoke at length with the nurse at the bedside. I had updated her son, Steve, yesterday by phone. She has been evaluated by neurology. She has had an EEG and an echo both of which official reports are pending. OBJECTIVE: GENERAL APPEARANCE: She remains intubated, sedated, and mechanically ventilated. When sedation is lightened, she is quite agitated. She does over-breathe the ventilator. She does have corneal reflexes. She continues to have vomiting and high NG output. On exam she is sedate. She does move when agitated. VITAL SIGNS: T-max overnight 99.1, blood pressure 130s to 150s systolic, heart rate showing 90s to the low 100s with a sinus mechanism. Respiratory rate 22 to 28 without accessory muscle use. INTAKE AND OUTPUT: [id number] 8498 mL in with 3180 mL out. HEENT: Pupils do react. Sclerae clear. She does have positive corneals with a positive gag and good cough reflex. CHEST: Shows diminished, but symmetric expansion. There is an end-expiratory wheeze that comes and goes, but no focal adventitious breath sounds are identified. Expansion is symmetric. CARDIAC: Distant and regular. Peripheral pulses are easily palpable today. There is no convincing edema. ABDOMEN: Mildly distended, but there are hypoactive bowel sounds. No convincing organomegaly or masses. EXTREMITIES: Show no obvious cyanosis or clubbing. NEUROLOGIC: As outlined above. LABORATORY DATA: Most recent laboratories show a white blood cell count of 17.9, hemoglobin 9.7, platelet count of 111,000, 93.8% segs, and no bands. Sodium 142, K of 3.8, chloride of 110, CO2 of 22, BUN 20, creatinine down to 1.42, and glucose 169. AST and ALT 52 and 40 respectively. LDH down to 499 and CK down 925. Albumin 2.4. Blood gas done on a PRVC rate of 20, tidal volume 420, PEEP of 5, and FiO2 of 40% has a pH of 7.371, pCO2 of 36.7, and pO2 of 60.1 with saturation 91.4%. IMAGING DATA: Chest x-ray shows lines and tubes in good position. I do believe there is increased vasculature today. There is some increased density at the right base. CT scans of the head, chest, abdomen, and pelvis yesterday were obtained. CT of the abdomen suggests some diverticulosis without diverticulitis. Cannot rule out an ileus base on it. Chest confirms her suspected aspiration. CT scan of the head is felt to show no acute abnormalities. IMPRESSION: Most pressing problems requiring my presence at the bedside: 1. Respiratory failure secondary to cardiopulmonary arrest still requiring mechanical ventilatory support. 2. Advanced obstructive lung disease with longstanding tobacco abuse. 3. Status post cardiac arrest and suspected anoxic encephalopathy. 4. Seizures versus myoclonus on the basis of the above. 5. Metabolic acidosis requiring supplemental bicarb. 6. Ileus versus bowel obstruction. 7. Acute kidney injury. PLAN: At this point, no ventilator changes are planned in view of her multisystem dysfunction. We will continue her supplemental bicarb for now, but decrease the amount of supplemental fluid at this point. She still has high nasogastric (NG) tube outputs and my suspicion is that there may be some element of a gastrointestinal process that contributed to her initial decompensation. For now, we will add Reglan. We will try to stimulate bowel movement from below. We will continue her NG to suction. From an infectious disease standpoint, I will continue her current antimicrobial. No new culture results are available. Her son informs us that her roommate is in quarantine for COVID, but she has tested negative both at home and on admission here. We will continue to have a low threshold for retesting. Neurology evaluated her yesterday. Her anti-seizure medications have been adjusted. I await the formal read on her EEG. We did an echocardiogram on her yesterday and I await the formal report of that. From a hemodynamic standpoint at this point, she has been relatively stable. Her renal function is improving and we will continue with gentle rehydration and monitoring of her electrolytes. She remains on ulcer and deep vein thrombosis (DVT) prophylaxis. Regarding neurologic recovery, this will be a day-by-day issues; but given her presentation, I have very high concerns regarding a significant anoxic injury. At this point, we will proceed as outlined above. Her prognosis remains guarded at best. I left the bedside at 0912 hours. CRITICAL CARE TIME: 42 minutes of critical care delivered at the bedside not including procedures.
--- NOTE | 2020-11-28 12:23 | ECGEPIP ---
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 Previous right bundle branch block 11/26/20 has resolved. Electronically Signed on 11-28-2020 12:23:34 EST by Desean Moore
[2020-11-28 15:56] LABS: ABG BASE EXCESS -1.9 (-2.0-2.0); ABG HCO3 22.3 MEQ/L (22.0-26.0); ABG O2 SATURATION 97.3 % (95.0-99.0); ABG PARTIAL PRESSURE CO2 35.4 mmHg (35.0-45.0); ABG PARTIAL PRESSURE O2 111.4 mmHg (75.0-100.0); ABG STANDARD HCO3 22.9 MEQ/L (22.0-26.0); ABG TOTAL CO2 23.4 MEQ/L (23.0-31.0); ABG pH (ARTERIAL) 7.417 UNITS (7.350-7.450)
--- NOTE | 2020-11-28 16:45 | CR ---
CONSULTATION DATE: 11/27/2020 REFERRING PHYSICIAN: Dr. Ata Dahl ___ EEG. REASON FOR CONSULTATION: Cardiac arrest, hypoxic ischemic encephalopathy. HISTORY OF PRESENT ILLNESS: Kia Raza is 65-year-old woman with a history of chronic obstructive pulmonary disease (COPD) who had bronchoscopy for left lower lobe abnormality. Bronchoscopy was nondiagnostic. Patient was feeling increased shortness of breath. She called a neighbor. Emergency medical services (EMS) was called. By the time they arrived, patient was unresponsive and was in ventricular fibrillation and cardiac resuscitation was performed with spontaneous return of rhythm and circulation. Upon arrival to the emergency department, patient was still apneic and was intubated. Her initial blood pressure was 143/87 with heart rate 110. Patient was initially minimally responsive and had sluggish pupillary response to light. Her pH was 6.8 with pCO2 88.6 and pO2 326 initially. She remains acidotic even though her pCO2 has improved. Her most recent pH was 7.1 with pCO2 38.5. Lactic acid 1.2, which was initially high. Patient remained unresponsive. Her propofol was stopped. She developed myoclonic jerks affecting upper half of her body during her electroencephalogram (EEG). PAST MEDICAL HISTORY: 1. History of chronic obstructive pulmonary disease (COPD). 2. Dyslipidemia. 3. Depression. 4. History of opioid dependence. 5. History of tobacco use and cocaine use in past. MEDICATIONS: - albuterol - Benadryl - Stiolto - Arnuity - Abilify - Paxil SOCIAL AND FAMILY HISTORY: Could not be obtained. REVIEW OF SYSTEMS: Could not be obtained. PHYSICAL EXAMINATION: Temperature 99.3, pulse 99, respiratory rate 30, blood pressure 137/63, 99% saturations on ventilator. HEART: Regular rate and rhythm. LUNGS: Clear to auscultation. ABDOMEN: Soft, nontender, non-distended. No pedal edema. Patient is unresponsive. Does not respond to verbal, painful, physical stimuli. She does not respond to sternal rub. Pupils are sluggish, not responsive to light. Positive corneal reflex. Motor, sensory, cerebellar testing and gait testing could not be performed. Plantars are mute. Deep tendon reflexes are mute. DIAGNOSTIC STUDIES: CT scan of head was reviewed and was reported unremarkable. WBC 20.1, red count 125. pH 7.2, pCO2 decreased to 38.5, initially was 88.6. Creatinine 1.69. AST 121. CK 14. Protein 22. Glucose 124, 175. Urine toxicology screen was negative. EEG showed burst suppression pattern with multiple, frequent myoclonic jerks affecting upper half of her body. ASSESSMENT: 1. 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 3. Respiratory and cardiac arrest., PLAN: 1. Repeat CT scan of head after 24 hours. 2. Keppra 1000 mg IV twice a day 3. Continue supportive care and sedation with propofol. 4. Her overall prognosis is likely guarded at this time.
[2020-11-28] MEDS: cefTRIAXone SOD 1 GM in D5W MINI-BAG PLUS 50 ML IV SCH (22:05)
[2020-11-29] VITALS (23 sets, daily range): BP systolic 118–161; BP diastolic 56–79
[2020-11-29] MEDS: methylPREDNISolone 125MG 2ML VIAL IV SCH ×3 (00:43→16:57)
[2020-11-29] MEDS: MIDAZOLAM INJ 2MG/2ML VIAL (J2250 PER 1MG) IV PRN ×8 (00:49→22:38)
[2020-11-29] MEDS: IPRATROPIUM 0.5MG/ALBUTEROL 2.5MG INH SOL UD 3ML (DUONEB) NEB SCH ×6 (03:11→23:18)
[2020-11-29] MEDS: METOCLOPRAMIDE INJ 10MG/2ML VIAL (J2765 PER 1) IV SCH ×4 (03:22→21:05)
[2020-11-29] MEDS: propofoL 1,000 MG in IV 1 EA IV SCH ×6 (03:22→23:53)
[2020-11-29] MEDS: levETIRAcetam INJection 1,000 MG in D5W 100 ML IV SCH ×2 (04:44→16:57)
[2020-11-29 04:59] LABS: BASO % 0.1 % (0.0-1.0); HEMATOCRIT 29.4 % (36.0-47.0); HEMOGLOBIN 9.3 g/dl (12.0-15.5); LYMPH # 0.1 10^3/uL (1.5-5.0); LYMPH % 0.7 % (24.0-44.0); MEAN CORPUSCULAR HEMOGLOBIN 31.8 pg (27.0-33.0); MEAN CORPUSCULAR HGB CONC 31.6 g/dl (32.0-36.5); MEAN CORPUSCULAR VOLUME 100.7 fl (80.0-96.0); MONO # 0.7 10^3/uL (0.0-0.8); NEUTROPHILS # 15.8 10^3/uL (1.5-8.5); NEUTROPHILS % 93.9 % (36.0-66.0); RED BLOOD COUNT 2.92 10^6/uL (4.00-5.40); WHITE BLOOD COUNT 16.9 10^3/uL (4.0-10.0)
[2020-11-29 05:24] LABS: ALBUMIN 2.4 GM/DL (3.2-5.2); BILIRUBIN,TOTAL 0.3 MG/DL (0.2-1.0); CALCIUM LEVEL 6.8 MG/DL (8.8-10.2); CREATININE FOR GFR 1.26 MG/DL (0.55-1.30); GLOMERULAR FILTRATION RATE 45.7 (>45); PHOSPHORUS LEVEL 3.2 MG/DL (2.5-4.9); POTASSIUM SERUM 3.7 MEQ/L (3.5-5.1); TOTAL PROTEIN 5.2 GM/DL (6.4-8.2)
[2020-11-29] MEDS: SODIUM BICARBONATE 100 MEQ in D5W 1,000 ML IV SCH ×2 (05:36→12:29)
[2020-11-29 06:08] LABS: ABG BASE EXCESS 4.8 (-2.0-2.0); ABG HCO3 29.1 MEQ/L (22.0-26.0); ABG O2 SATURATION 97.4 % (95.0-99.0); ABG PARTIAL PRESSURE CO2 42.5 mmHg (35.0-45.0); ABG PARTIAL PRESSURE O2 97.3 mmHg (75.0-100.0); ABG STANDARD HCO3 28.8 MEQ/L (22.0-26.0); ABG TOTAL CO2 30.4 MEQ/L (23.0-31.0); ABG pH (ARTERIAL) 7.454 UNITS (7.350-7.450)
[2020-11-29] MEDS: KCL 20MEQ IN D5/0.45NS 1000ML 1,000 ML IV SCH (07:47)
--- NOTE | 2020-11-29 08:54 | REP ---
INDICATION: Resp Failure. COMPARISON: 11/28/2020. TECHNIQUE: SINGLE PORTABLE AP VIEW OF THE CHEST WAS PERFORMED. FINDINGS: A metallic lead overlies the tip of the endotracheal tube. The tip is either at or just below the level of the clavicles. A nasogastric tube is seen. The tip is in the midesophagus approximately 10 cm proximal to the gastroesophageal junction. Right basilar atelectasis/infiltrate is improved with mild residual. Heart and mediastinum are unchanged. IMPRESSION: Improved right base atelectasis/infiltrate. Nasogastric tube tip is in the midesophagus approximately 10 cm proximal to the gastroesophageal junction. <Electronically signed by Jake Leary > 11/29/20 2239
--- NOTE | 2020-11-29 09:44 | REP ---
INDICATION: Anoxic encephalopathy. COMPARISON: 11/27/2020. TECHNIQUE: CT BRAIN PERFORMED IN THE AXIAL PLANE. CORONAL RECONSTRUCTION IMAGES ARE PERFORMED. FINDINGS: THE VENTRICLES ARE NORMAL IN SIZE AND POSITION. THERE IS NO MIDLINE SHIFT OR MASS EFFECT. LEARY-WHITE DIFFERENTIATION IS WELL MAINTAINED. THERE IS NO ACUTE INTRACRANIAL HEMORRHAGE OR EXTRA-AXIAL FLUID COLLECTION. There is mild mucosal thickening in the visualized paranasal sinuses. IMPRESSION: No current evidence for anoxic encephalopathy. <Electronically signed by Jake Leary > 11/29/20 0908
[2020-11-29] MEDS: PANTOPRAZOLE 40MG VIAL (C9113 PER 1) IV SCH (10:00)
[2020-11-29] MEDS: CHLORHEXIDINE GLUCONATE 0.12 % 15ML UDC (PERIDEX ORAL RINSE) MT SCH ×2 (10:00→21:05)
[2020-11-29] MEDS: HEPARIN SOD (PORCINE) 5000UNITS/ML 1ML VIAL/SYRINGE SC SCH ×2 (10:01→21:06)
[2020-11-29] MEDS ORDERED: BISACODYL 10 MG SUPP PR PRN (10:15)
--- NOTE | 2020-11-29 12:50 | CCN ---
CRITICAL CARE NOTE DATE: 11/29/2020 START TIME: 909. STOP TIME: 956. SUBJECTIVE: I again attended Kia Raza here in the intensive care unit. The patient has been examined and chart reviewed. I spoke at length with the nurse at the bedside. T-max overnight 98.5, blood pressure 118-160s, respiratory rate generally in the 20s without accessory muscle use. Heart rate in the 90s to low 100s with sinus mechanism. Ins and outs midnight to midnight 5259 mL in with [address] scan of head this morning shows no significant change from her scan done yesterday. Radiologist feels there is no significant edema or evidence of significant anoxic changes. Most recent laboratory show white blood cell count 16.9, hemoglobin 9.3, platelet count pending. Differential shows 93.8% segs, no bands. Sodium 142, K of 3.7, chloride 106, CO2 31, BUN 19, creatinine down to 1.26, glucose 157. CK down to 373. Albumin 2.4. Arterial blood gas this morning in PRVC mode rate 20, tidal volume 420, PEEP 5, FiO2 60% shows pH 7.454, pCO2 42.5, pO2 97.3, saturation 97.4%. Repeat electrocardiogram shows no ischemic changes, sinus rhythm. I did receive a call from Dr. Moore yesterday regarding her echocardiogram which shows good left ventricular function with normal EF. Borderline right-sided pressures, formal report has not hit the chart yet. OBJECTIVE: GENERAL APPEARANCE: She is sedate but does move all extremities. HEENT: Pupils are reactive although sluggish. Trachea midline. CHEST: Shows diminished but symmetric expansion. No significant adventitious breath sounds this morning except for the occasional rhonchi that clears with suctioning. CARDIAC: Borderline tachycardic but regular. Peripheral pulses are palpable, no edema. ABDOMEN: Remains minimally distended, there are some bowel sounds in the distance. No obvious organomegaly or masses. EXTREMITIES: No cyanosis or clubbing. NEUROLOGIC: Overall unchanged although she has had question in the way of myoclonic/seizure activity. She has had much less in the way of OG tube output and no vomiting in the last 24 hours. Most pressing problems requiring my presence at the bedside: 1. Respiratory failure, status post cardiopulmonary arrest. 2. Metabolic acidosis, responding to intervention. 3. Acute renal failure/acute kidney injury. 4. 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 5. Advanced obstructive lung disease. 6. Continue tobacco use until the time of admission. 7. Ileus versus small bowel obstruction. At this point we will continue our current level of supportive care. Ventilator changes will be made as able. Given her pH this morning I will cut back on her bicarb replacement. I appreciate neurology input. We will continue her current level of anti-seizure medications. The CT findings are encouraging but her exam still suggests significant injury and for this reason we will continue full supportive care. I will up her son Steve this morning. We will continue empiric antimicrobials as well as aggressive medications for underlying obstructive lung disease. She remains on ulcer and DVT prophylaxis. Since her vomiting has diminished we will begin trickle feeds today. I will also add cathartics in hopes of stimulating her from below. At this point overall, however, she remains quite critically ill. We will proceed as outlined above. Prognosis remains guarded at best. I left the bedside at 0957 hours. 47 minutes of critical care time delivered at the bedside not including procedures.
--- NOTE | 2020-11-29 16:27 | CCN ---
CRITICAL CARE NOTE DATE: 11/29/2020 ADDENDUM: I had a long phone conversation with her son, Tawny. Questions were answered to the best of my ability. He was updated regarding her CT scan and despite the fact that there is no significant edema, her neurologic status remains marginal with an abnormal EEG and evidence of myoclonus and seizures. This certainly portends to a poor prognosis. He was updated to the rest of her status. We will keep him updated. BOBO
[2020-11-29] MEDS: cefTRIAXone SOD 1 GM in D5W MINI-BAG PLUS 50 ML IV SCH (22:37)
[2020-11-30] VITALS (23 sets, daily range): BP systolic 107–145; BP diastolic 56–84
[2020-11-30] MEDS: MIDAZOLAM INJ 2MG/2ML VIAL (J2250 PER 1MG) IV PRN ×10 (01:17→21:33)
[2020-11-30] MEDS: SODIUM BICARBONATE 100 MEQ in D5W 1,000 ML IV SCH (01:17)
[2020-11-30] MEDS: methylPREDNISolone 125MG 2ML VIAL IV SCH ×3 (01:17→16:15)
[2020-11-30] MEDS: KCL 20MEQ IN D5/0.45NS 1000ML 1,000 ML IV SCH ×2 (01:18→21:34)
[2020-11-30] MEDS: IPRATROPIUM 0.5MG/ALBUTEROL 2.5MG INH SOL UD 3ML (DUONEB) NEB SCH ×5 (03:17→21:10)
[2020-11-30] MEDS: propofoL 1,000 MG in IV 1 EA IV SCH ×6 (04:36→21:34)
[2020-11-30 04:59] LABS: BASO % 0.1 % (0.0-1.0); HEMATOCRIT 28.7 % (36.0-47.0); HEMOGLOBIN 9.3 g/dl (12.0-15.5); LYMPH # 0.1 10^3/uL (1.5-5.0); LYMPH % 1.1 % (24.0-44.0); MEAN CORPUSCULAR HEMOGLOBIN 32.3 pg (27.0-33.0); MEAN CORPUSCULAR HGB CONC 32.4 g/dl (32.0-36.5); MEAN CORPUSCULAR VOLUME 99.7 fl (80.0-96.0); MONO # 0.7 10^3/uL (0.0-0.8); MONO % 5.4 % (0.0-5.0); NEUTROPHILS # 12.2 10^3/uL (1.5-8.5); NEUTROPHILS % 91.8 % (36.0-66.0); PLATELET COUNT, AUTOMATED 119 10^3/uL (150-450); RED BLOOD COUNT 2.88 10^6/uL (4.00-5.40); WHITE BLOOD COUNT 13.2 10^3/uL (4.0-10.0)
[2020-11-30] MEDS: METOCLOPRAMIDE INJ 10MG/2ML VIAL (J2765 PER 1) IV SCH ×4 (05:04→22:07)
[2020-11-30] MEDS: levETIRAcetam INJection 1,000 MG in D5W 100 ML IV SCH ×2 (05:04→16:38)
[2020-11-30 05:40] LABS: ALBUMIN 2.2 GM/DL (3.2-5.2); BILIRUBIN,TOTAL 0.1 MG/DL (0.2-1.0); CALCIUM LEVEL 7.6 MG/DL (8.8-10.2); CREATININE FOR GFR 1.09 MG/DL (0.55-1.30); PHOSPHORUS LEVEL 3.5 MG/DL (2.5-4.9); POTASSIUM SERUM 3.6 MEQ/L (3.5-5.1); TOTAL PROTEIN 5.5 GM/DL (6.4-8.2)
[2020-11-30 06:21] LABS: ABG BASE EXCESS 8.6 (-2.0-2.0); ABG HCO3 33.2 MEQ/L (22.0-26.0); ABG PARTIAL PRESSURE CO2 46.1 mmHg (35.0-45.0); ABG PARTIAL PRESSURE O2 99.9 mmHg (75.0-100.0); ABG STANDARD HCO3 32.4 MEQ/L (22.0-26.0); ABG TOTAL CO2 34.6 MEQ/L (23.0-31.0); ABG pH (ARTERIAL) 7.475 UNITS (7.350-7.450)
--- NOTE | 2020-11-30 08:14 | REP ---
INDICATION: Resp Failure. COMPARISON: Comparison portable chest x-ray 29 November 2020. TECHNIQUE: Portable upright AP chest radiograph. FINDINGS: Endotracheal tube is seen in good position at the level of the proximal clavicles. An NG tube courses into the left upper quadrant of the abdomen. Monitoring electrodes are noted in the along with oxygen delivery tubing. There is an old healed rib fracture on the right. Heart size is mildly prominent.. There increased markings in the right consistent with platelike atelectasis. Lung das are otherwise unchanged. IMPRESSION: Platelike atelectasis in the right base slightly increased. Otherwise unchanged.. <Electronically signed by Jose Alejandro Connolly > 11/30/20 [id number]
[2020-11-30] MEDS: CHLORHEXIDINE GLUCONATE 0.12 % 15ML UDC (PERIDEX ORAL RINSE) MT SCH ×2 (09:42→20:43)
[2020-11-30] MEDS: HEPARIN SOD (PORCINE) 5000UNITS/ML 1ML VIAL/SYRINGE SC SCH ×2 (09:43→20:44)
[2020-11-30] MEDS: PANTOPRAZOLE 40MG VIAL (C9113 PER 1) IV SCH (09:43)
[2020-11-30] MEDS: VANCOMYCIN HCL 1,000 MG, VIAL MATE ADAPTER 1 EACH in D5W 250 ML IV SCH ×2 (10:09→22:07)
--- NOTE | 2020-11-30 10:15 | CCN ---
CRITICAL CARE NOTE DATE: 11/30/2020 START TIME: 844 STOP TIME: 925 SUBJECTIVE: I again attended Kia Raza here in the intensive care unit. The patient has been examined and chart reviewed. I spoke at length with the nurse at the bedside. I updated her son, Tawny, yesterday. OBJECTIVE: VITAL SIGNS: T-max overnight 98.2, blood pressure 115s to the 140s. Heart rate generally in the 80s to the low 90s with a sinus mechanism. She does occasionally over-breathe the ventilator. INTAKE AND OUTPUT: [id number] 3383 mL in with 2510 mL out. GENERAL APPEARANCE: She is sedate. I do not see her move her right upper extremity well, but she does appear to move all other extremities with agitation. HEENT: Pupils do react, although sluggish. She has positive corneals. She has a good cough and a good gag. NECK: Trachea is in the midline. No obvious JVD. CHEST: Shows symmetric expansion. There is some inspiratory wheeze with some scattered rhonchi. CARDIAC: Distant, but regular. Peripheral pulses palpable. No obvious edema. ABDOMEN: Remains borderline distended, but there are active bowel sounds. No obvious organomegaly or masses. EXTREMITIES: No cyanosis or clubbing. NEUROLOGIC: As outlined above, she still does not interact or follow commands. LABORATORY DATA: Most recent laboratories show a white blood cell count of 13.2, hemoglobin 9.3, platelet count 119,000, segs 91%, and no bands. Sodium 141, K of 3.6, chloride of 101, CO2 of 34, BUN 20, creatinine 1.09, glucose 169. Bilirubin 0.1. Liver function studies normal except for an LDH mildly elevated at 414. Albumin 2.2. Blood gas done this morning on a PRVC mode rate of 20, tidal volume 420, PEEP of 5, and FiO2 of 40% has a pH of 7.475, pCO2 of 46.1, and a pO2 of 99.9. IMAGING DATA: Chest x-ray done this morning shows lines and tubes in good position. Increased aeration at the bases. MICROBIOLOGY: Most recent cultures do show some MRSA from her sputum. Blood cultures remain negative. IMPRESSION: Most pressing problems requiring my immediate presence at the bedside: 1. Respiratory failure after cardiopulmonary arrest. 2. Ventricular fibrillation (V-fib) arrest. 3. Suspected anoxic encephalopathy. 4. Advanced obstructive lung disease. 5. Methicillin-resistant Staphylococcus aureus (MRSA) in her sputum. 6. Seizures versus myoclonus versus Abimael-Burdick syndrome. 7. Acute kidney injury. 8. Ileus versus small bowel obstruction versus premorbid gastroenteritis. PLAN: At this point given her electrolytes, we will stop her bicarb drip. We will continue IV hydration. She is tolerating her tube feeds and we will increase the rate towards her goal. She has not had any stool yet, but does have cathartics ordered p.r.n. She remains on aggressive therapy for her underlying lung disease with empiric antimicrobials, nebulized bronchodilators, and intravenous (IV) steroids. She did grow some MRSA from her sputum so we will add vancomycin. I am still concerned about her neurologic status. CT did not show any significant edema, but her clinical exam still suggests significant injury. She has had no further seizure or myoclonus with the addition of the Keppra and we will continue that for now, and I appreciate neurology's input. She remains on ulcer and deep vein thrombosis (DVT) prophylaxis. We will change her to a standard mode of ventilation in hopes of achieving some sort of weaning, but my suspicion is that her mental status in combination with her very advanced obstructive lung disease will be the impediment for that. We will keep her family updated. At this point, she remains critically ill. Her prognosis remains guarded at best. If we do not make significant progress, we will put MPO boots on her most likely starting tomorrow. I left the bedside at 0926 hours. CRITICAL CARE TIME: 41 minutes of critical care delivered at the bedside not including procedures.
[2020-11-30 10:33] LABS: ABG HCO3 33.2 MEQ/L (22.0-26.0); ABG O2 SATURATION 94.1 % (95.0-99.0); ABG PARTIAL PRESSURE CO2 49.9 mmHg (35.0-45.0); ABG PARTIAL PRESSURE O2 72.8 mmHg (75.0-100.0); ABG STANDARD HCO3 31.7 MEQ/L (22.0-26.0); ABG TOTAL CO2 34.7 MEQ/L (23.0-31.0); ABG pH (ARTERIAL) 7.441 UNITS (7.350-7.450)
--- NOTE | 2020-11-30 11:02 | ECHO ---
DATE OF PROCEDURE: 11/27/2020 Age: 65 Gender: Female Height: 65 inches Weight: 221 pounds Body surface area: 2.03 m2 PATIENT LOCATION: Inpatient PCU, Room 3220. REFERRING PHYSICIAN: Ata Dahl M.D. INDICATION: Abnormal EKG. Post cardiopulmonary arrest. MEASUREMENTS: 2D Measurements: RV 3.7 cm LV 3.8 cm Septum 1.1 cm Posterior wall 1.1 cm Aortic Root 3.2 cm LA 3.4 cm LVEF 75% Doppler Measurements: AV 1.55 m/s LVOT 1.21 m/s LVOT diameter 1.7 cm MV-E 90, A 126, E/A ratio 0.7 Early mitral deceleration time 209 msec E prime medial 6.3, A prime medial 11.5, E prime lateral 7 Average E/E prime ratio 13.5/PCWP 18.7 mmHg PV 1.1 m/s Pulmonary artery acceleration time 110 msec PASP 34 mmHg IVC 1.9 cm COMMENTS: Normal sinus rhythm without intraventricular conduction disturbance. Technically difficult study in light of the patients body habitus, but diagnostically useful information was still obtained. M-mode and two-dimensional echocardiography was performed with pulse, continuous wave, color flow, and tissue Doppler studies. Normal left ventricular size, wall thickness, and hyperkinetic wall motion. Normal left atrial size with grade 1 LV diastolic dysfunction and estimated mean left atrial pressure upper limits of normal to mildly increased. Relatively speaking, right ventricle appeared to be slightly dilated in light of the size of her left ventricle, although with normal right ventricular free wall motion and Doppler evidence of mild pulmonary hypertension. Normal right atrial size and IVC size with normal respiratory collapse. Normal aortic dimensions. Mild aortic valvular sclerosis without functional abnormality. Mild mitral annular thickening, but no more than very mild to trace mitral insufficiency. Normal appearing tricuspid valve with very mild insufficiency. No apparent intracardiac mass or pericardial effusion. A preliminary report of this study was relayed directly to Dr. Dahl 11/28/2020. [facility]ITALPayton
[2020-11-30] MEDS ORDERED: VANCOMYCIN HCL 750 MG, VIAL MATE ADAPTER 1 EACH in D5W 250 ML IV ONE (12:00)
[2020-11-30] MEDS: cefTRIAXone SOD 1 GM in D5W MINI-BAG PLUS 50 ML IV SCH (23:44)
[2020-12-01] VITALS (24 sets, daily range): BP systolic 100–153; BP diastolic 54–83
[2020-12-01] MEDS: propofoL 1,000 MG in IV 1 EA IV SCH ×7 (00:06→23:10)
[2020-12-01] MEDS: IPRATROPIUM 0.5MG/ALBUTEROL 2.5MG INH SOL UD 3ML (DUONEB) NEB SCH ×6 (00:33→20:22)
[2020-12-01] MEDS: methylPREDNISolone 125MG 2ML VIAL IV SCH ×2 (01:43→09:16)
[2020-12-01] MEDS: MIDAZOLAM INJ 2MG/2ML VIAL (J2250 PER 1MG) IV PRN ×8 (02:23→23:40)
[2020-12-01] MEDS: MORPHINE 2 MG/ML 1ML VIAL (J2270) IV PRN (02:29)
[2020-12-01] MEDS ORDERED: PROPOFOL 1,000 MG/100 ML VIAL As Ordered ONE (03:03)
[2020-12-01] MEDS: METOCLOPRAMIDE INJ 10MG/2ML VIAL (J2765 PER 1) IV SCH ×4 (04:52→22:04)
[2020-12-01] MEDS: levETIRAcetam INJection 1,000 MG in D5W 100 ML IV SCH ×2 (04:53→17:02)
[2020-12-01 04:58] LABS: BASO % 0.2 % (0.0-1.0); EOS % 0.1 % (0.0-3.0); HEMATOCRIT 31.9 % (36.0-47.0); HEMOGLOBIN 9.9 g/dl (12.0-15.5); LYMPH # 0.3 10^3/uL (1.5-5.0); MEAN CORPUSCULAR HEMOGLOBIN 31.6 pg (27.0-33.0); MEAN CORPUSCULAR VOLUME 101.9 fl (80.0-96.0); MONO # 0.9 10^3/uL (0.0-0.8); NEUTROPHILS # 10.8 10^3/uL (1.5-8.5); NEUTROPHILS % 88.1 % (36.0-66.0); PLATELET COUNT, AUTOMATED 147 10^3/uL (150-450); RED BLOOD COUNT 3.13 10^6/uL (4.00-5.40); WHITE BLOOD COUNT 12.2 10^3/uL (4.0-10.0)
[2020-12-01 05:30] LABS: ALBUMIN 2.4 GM/DL (3.2-5.2); ALT/SGPT 29 U/L (12-78); BILIRUBIN,TOTAL 0.1 MG/DL (0.2-1.0); BLOOD UREA NITROGEN 24 MG/DL (7-18); CALCIUM LEVEL 7.9 MG/DL (8.8-10.2); CARBON DIOXIDE LEVEL 34 MEQ/L (21-32); CHLORIDE LEVEL 102 MEQ/L (98-107); CHOLESTEROL LEVEL 233 MG/DL (< 200); CPK CREATINE PHOSPHOKINASE 107 U/L (26-192); CREATININE FOR GFR 0.94 MG/DL (0.55-1.30); GLOMERULAR FILTRATION RATE > 60.0 (>45); GLUCOSE, FASTING 159 MG/DL (70-100); LDH LACTATE DEHYDROGENASE 483 U/L (84-246); PHOSPHORUS LEVEL 4.3 MG/DL (2.5-4.9); POTASSIUM SERUM 4.3 MEQ/L (3.5-5.1); SODIUM LEVEL 143 MEQ/L (136-145); TOTAL PROTEIN 5.5 GM/DL (6.4-8.2); TRIGLYCERIDES LEVEL 81 MG/DL (<150)
[2020-12-01 05:39] LABS: ABG BASE EXCESS 7.5 (-2.0-2.0); ABG HCO3 32.6 MEQ/L (22.0-26.0); ABG O2 SATURATION 97.8 % (95.0-99.0); ABG PARTIAL PRESSURE CO2 48.9 mmHg (35.0-45.0); ABG PARTIAL PRESSURE O2 114.9 mmHg (75.0-100.0); ABG STANDARD HCO3 31.3 MEQ/L (22.0-26.0); ABG TOTAL CO2 34.1 MEQ/L (23.0-31.0); ABG pH (ARTERIAL) 7.442 UNITS (7.350-7.450)
--- NOTE | 2020-12-01 08:02 | REP ---
INDICATION: Resp Failure COMPARISON: 11/30/2020 TECHNIQUE: Portable AP view of the chest FINDINGS: Endotracheal tube 3.7 cm above the lily. Nasogastric tube courses below left hemidiaphragm. The mediastinum and cardiac silhouette are stable. Elements of pulmonary vascular congestion and interstitial edema along with bibasilar opacities are suggested and appears similar to prior examination. IMPRESSION: 1. Lines and tubes in satisfactory position. 2. Parenchymal changes as described above similar to prior examination. Differential diagnosis includes pulmonary vascular congestion/interstitial edema and multifocal infiltrates. <Electronically signed by Devon Peña > 12/01/20 075
[2020-12-01] MEDS: CHLORHEXIDINE GLUCONATE 0.12 % 15ML UDC (PERIDEX ORAL RINSE) MT SCH ×2 (09:15→21:15)
[2020-12-01] MEDS: HEPARIN SOD (PORCINE) 5000UNITS/ML 1ML VIAL/SYRINGE SC SCH ×2 (09:16→21:15)
[2020-12-01] MEDS: PANTOPRAZOLE 40MG VIAL (C9113 PER 1) IV SCH (09:16)
--- NOTE | 2020-12-01 10:41 | CCN ---
CRITICAL CARE NOTE DATE: 12/01/2020 START TIME: 901 STOP TIME: 944 SUBJECTIVE: I again attended Kia Raza here in the Intensive Care Unit. Patient has been examined. Chart reviewed. I spoke at length with the nurse at the bedside. She again had issues with vomiting this morning necessitating an interruption in her tube feeds. T-max overnight 98.2. Blood pressure 107/70 systolic. Heart rate generally in the 70s to the 90s. Respiratory rate anywhere from 16 to 30. I's and O's midnight to midnight: 4525 mL in with 2130 mL out. White blood cell count 12.2, hemoglobin 9.9, platelet count 147,000, 80% segs, no bands. Sodium 143, potassium 4.3, chloride 102, CO2 34, BUN 24, creatinine down to 0.94, glucose 159. LDH 483. Albumin 2.4. Blood gas done this morning on an SIMV of 16, tidal volume 420, PEEP 5, pressure support of 15, and FiO2 of 40% has a pH of 7.442, pCO2 48.9, pO2 of 114.9, saturation 97.8%. Chest x-ray shows no new findings. Maybe some atelectatic changes at the bases. Lines and tubes in good position. OBJECTIVE: HEENT: Pupils although sluggish are reactive. She has positive corneals. She has a good cough and a positive gag. She does over breathe the ventilator. Sclerae are clear, nonicteric. Chest: Chest shows much less rhonchi today. Expansion although diminished is symmetric. There may be some crackles dependently. Cardiac: Cardiac exam is regular with no gallop. Peripheral pulses palpable. No obvious edema. Abdomen: Only minimally distended. There are some hypoactive bowel sounds. No obvious organomegaly or masses. Extremities: Extremities show no cyanosis or clubbing. Neurologic: She remains minimally responsive. Does move extremities somewhat to painful stimuli but not so much of the right upper extremity. She has had no further seizure or myoclonic activity while on the Keppra. MOST PRESSING PROBLEMS REQUIRING MY PRESENTATION AT THE BEDSIDE: 1. Cardiopulmonary arrest with suspected noxious encephalopathy. 2. Respiratory failure on the basis of the above. 3. Advanced obstructive lung disease. 4. Seizures versus myoclonus versus Abimael-Burdick syndrome. 5. MRSA in her sputum. 6. Acute kidney injury, improving. 7. Ileus versus small bowel obstruction. PLAN: At this point, I have asked General Surgery to become involved in her care in view of her abdominal issues and the fact that she has still been unable to tolerate oral intake via orogastric tube. She is on cathartics which have not seemed to help. We have also written for suppositories as well as Reglan. I have talked with Dr. Dawkins who has graciously agreed to evaluate her. We will continue her current antimicrobials for now. This is day 2 of vanco and day 5 of Rocephin. Regarding her advanced obstructive lung disease, we will continue her current nebulizers, but I will decrease the dose of her IV steroids today. I have not seen a repeat note from Neurology, and I will try to reach out to them. At this point, we will continue as outlined above. I will update her son as new information becomes available. She remains on ulcer and DVT prophylaxis. She has a femoral line in place and will try to get that changed to a PICC line as she needs continued IV antibiotics, and she has difficulty with peripheral IV access. We will put MPO boots in place. I will ask PT/OT to become involved in her care. Will proceed as outlined above. She remains quite critically ill, and her prognosis remains guarded at best regarding neurologic recovery, but we will continue as outlined above. I left the bedside at 0945 hours. Forty-three minutes critical care time provided at the bedside not including procedures.
[2020-12-01] MEDS: VANCOMYCIN HCL 1,000 MG, VIAL MATE ADAPTER 1 EACH in D5W 250 ML IV SCH ×2 (11:21→22:04)
[2020-12-01 11:41] LABS: ABG BASE EXCESS 7.6 (-2.0-2.0); ABG HCO3 32.6 MEQ/L (22.0-26.0); ABG O2 SATURATION 94.9 % (95.0-99.0); ABG PARTIAL PRESSURE CO2 48.4 mmHg (35.0-45.0); ABG PARTIAL PRESSURE O2 77.2 mmHg (75.0-100.0); ABG STANDARD HCO3 31.3 MEQ/L (22.0-26.0); ABG TOTAL CO2 34.1 MEQ/L (23.0-31.0); ABG pH (ARTERIAL) 7.446 UNITS (7.350-7.450)
[2020-12-01] MEDS ORDERED: LIDOCAINE 1% MDV 20ML VIAL As Ordered ONE (15:15)
[2020-12-01] MEDS: methylPREDNISolone 40MG 1ML VIAL IV SCH (17:01)
--- NOTE | 2020-12-01 17:12 | REP ---
PROCEDURE NAME: PICC LINE INSERTION W/SITERITE CLINICAL INFORMATION: IV access. COMPARISON: None. PROCEDURE DESCRIPTION: The procedure was performed by JETT Nova, under the direct supervision of Dr. Connolly. The risks and benefits of the procedure were explained to the patient's son who is also her healthcare proxy and an informed consent was obtained both verbally over the phone. Directly prior to the start of the procedure a formal time-out was completed in the patient's room, is this procedure was done at the bedside.. The left cephalic vein was localized using ultrasound guidance. The skin was prepped and draped in sterile fashion. Two mL of 1% lidocaine 10 mg/mL was used as a local anesthetic. Using ultrasound guidance the left cephalic vein was cannulated, and a 0.018 guidewire was inserted and advanced to the level of superior vena cava using cereal portable chest x-rays as guidance. The needle was removed and a 5.5 Congolese dilator and peel-away sheath was inserted over the guidewire. A 5.5 Congolese dual lumen catheter was cut to a length of cm. The dilator was removed and the catheter was inserted over the guidewire with the tip ending at the level of the superior vena cava. The peel-away sheath was removed and the catheter was flushed with heparinized saline as per hospital protocol. The catheter was affixed to the skin and a sterile dressing was applied. The patient tolerated the procedure well and there were no immediate complications. CONCLUSION: PICC line insertion into the left cephalic vein. No fluoroscopy was utilized for this procedure. All imaging was obtained with serial portable chest x-rays as guidance. <Electronically signed by Pratibha Ruffin > 12/01/20 1641 <Electronically signed by Jose Alejandro Connolly > 12/01/20 0259
[2020-12-01] MEDS ORDERED: FLEET ENEMA PR PRN (17:15)
[2020-12-01] MEDS: KCL 20MEQ IN D5/0.45NS 1000ML 1,000 ML IV SCH (18:01)
[2020-12-01] MEDS: cefTRIAXone SOD 1 GM in D5W MINI-BAG PLUS 50 ML IV SCH (23:10)
[2020-12-02] VITALS (25 sets, daily range): BP systolic 109–189; BP diastolic 55–87
[2020-12-02] MEDS: IPRATROPIUM 0.5MG/ALBUTEROL 2.5MG INH SOL UD 3ML (DUONEB) NEB SCH ×7 (00:34→23:45)
[2020-12-02] MEDS: methylPREDNISolone 40MG 1ML VIAL IV SCH ×3 (01:18→18:02)
[2020-12-02] MEDS: MIDAZOLAM INJ 2MG/2ML VIAL (J2250 PER 1MG) IV PRN ×13 (03:38→23:21)
[2020-12-02] MEDS: propofoL 1,000 MG in IV 1 EA IV SCH ×3 (04:16→10:09)
[2020-12-02] MEDS: levETIRAcetam INJection 1,000 MG in D5W 100 ML IV SCH ×2 (04:46→18:03)
[2020-12-02] MEDS: METOCLOPRAMIDE INJ 10MG/2ML VIAL (J2765 PER 1) IV SCH ×4 (04:46→21:50)
[2020-12-02 05:53] LABS: ABG BASE EXCESS 5.2 (-2.0-2.0); ABG HCO3 29.8 MEQ/L (22.0-26.0); ABG STANDARD HCO3 29.1 MEQ/L (22.0-26.0); ABG TOTAL CO2 31.1 MEQ/L (23.0-31.0); ABG pH (ARTERIAL) 7.448 UNITS (7.350-7.450)
[2020-12-02 06:04] LABS: BASO % 0.2 % (0.0-1.0); EOS % 0.1 % (0.0-3.0); HEMATOCRIT 27.5 % (36.0-47.0); HEMOGLOBIN 8.7 g/dl (12.0-15.5); LYMPH # 0.5 10^3/uL (1.5-5.0); LYMPH % 5.9 % (24.0-44.0); MEAN CORPUSCULAR HEMOGLOBIN 32.6 pg (27.0-33.0); MEAN CORPUSCULAR HGB CONC 31.6 g/dl (32.0-36.5); MONO # 0.8 10^3/uL (0.0-0.8); MONO % 10.2 % (0.0-5.0); NEUTROPHILS # 6.4 10^3/uL (1.5-8.5); NEUTROPHILS % 78.8 % (36.0-66.0); PLATELET COUNT, AUTOMATED 140 10^3/uL (150-450); RED BLOOD COUNT 2.67 10^6/uL (4.00-5.40); WHITE BLOOD COUNT 8.1 10^3/uL (4.0-10.0)
--- NOTE | 2020-12-02 07:59 | REP ---
INDICATION: Resp Failure COMPARISON: 12/01/2020 TECHNIQUE: Portable AP view of the chest FINDINGS: Endotracheal tube and nasogastric tube in stable satisfactory position. Left PICC line with tip in the SVC. Perihilar and lower lobe infiltrates and possible small pleural effusions are essentially unchanged. No new acute process identified. No pneumothorax. Skeletal structures are intact. IMPRESSION: No significant change from prior examination. <Electronically signed by Devon Peña > 12/02/20 [id number]
[2020-12-02 08:27] LABS: ALBUMIN 2.3 GM/DL (3.2-5.2); ALT/SGPT 25 U/L (12-78); BILIRUBIN,TOTAL 0.2 MG/DL (0.2-1.0); BLOOD UREA NITROGEN 26 MG/DL (7-18); CALCIUM LEVEL 7.8 MG/DL (8.8-10.2); CARBON DIOXIDE LEVEL 32 MEQ/L (21-32); CHLORIDE LEVEL 102 MEQ/L (98-107); CHOLESTEROL LEVEL 244 MG/DL (< 200); CPK CREATINE PHOSPHOKINASE 63 U/L (26-192); CREATININE FOR GFR 0.84 MG/DL (0.55-1.30); GLOMERULAR FILTRATION RATE > 60.0 (>45); GLUCOSE, FASTING 102 MG/DL (70-100); LDH LACTATE DEHYDROGENASE 409 U/L (84-246); PHOSPHORUS LEVEL 4.4 MG/DL (2.5-4.9); POTASSIUM SERUM 4.2 MEQ/L (3.5-5.1); SODIUM LEVEL 142 MEQ/L (136-145); TOTAL PROTEIN 5.4 GM/DL (6.4-8.2); TRIGLYCERIDES LEVEL 153 MG/DL (<150)
--- NOTE | 2020-12-02 09:26 | CR ---
CONSULTATION DATE: 12/01/2020 REASON FOR CONSULTATION: Nausea, vomiting. HISTORY OF PRESENT ILLNESS: Briefly, the patient is a 65-year-old female who was brought into the hospital after several days of increasing shortness of breath, however with nursing discussion with the family, there was some nausea, vomiting that was occurring prior to admission and happening over the last week prior to admission. She presents now intubated, mildly responsive but over the last 24 hours she has had some vomiting of bloody fluid, however it sounds as though this is associated with posterior oropharynx bleeding, drainage, given that there was a significant amount of tube feeds associated with this, and she has been "tolerating the tube feeds without significant residual". She had a CAT scan without IV contrast, and I do see a somewhat distended stomach but no evidence of true obstruction distal to this. PAST MEDICAL HISTORY: The patient's past medical history is significant for: 1. History of chronic obstructive pulmonary disease. 2. History of opioid dependence. 3. History of depression. 4. Hyperlipidemia. 5. Hypercholesterolemia. 6. History of cocaine abuse. 7. Continued tobacco abuse. 8. History of asthma. MEDICATIONS: 1. Albuterol. 2. Hydrocortisone. 3. Benadryl. 4. Stiolto. 5. Arnuity. 6. Abilify. 7. Paxil. 8. Multivitamins. PHYSICAL EXAMINATION: GENERAL APPEARANCE: A 65-year-old female who is intubated. She is not sedated and unfortunately she is not really responding all that much, although she is coughing on the ventilator at this point when we are moving her around. LUNGS: Mechanical breath sounds, diminished, significantly posteriorly. HEART: Regular, tachycardic. ABDOMEN: Soft, nondistended, nontender. IMPRESSION AND PLAN: At this point it is hard to tell if she had any previous underlying upper GI issues. I do feel that covering her with some PPIs as you are doing for a possible stress gastritis is very reasonable. However I feel that the vomiting that she has had is probably related to posterior oropharynx drainage and what has gone down into her esophagus and that has caused the problem more so than a gastric emptying issue. However my recommendation is if she/when she wakes up, then I would recommend an upper GI for further evaluation. If she does not wake up significantly over the next several days, and there are concerns of increasing gastric residuals, then proceeding with a Gastrografin study via her feeding tube is not unreasonable, just to see if she is adequately emptying her stomach. However at this point I would continue her with her tube feeds and if we have some issues with the residuals, we can reevaluate our decision at that time.
[2020-12-02] MEDS: CHLORHEXIDINE GLUCONATE 0.12 % 15ML UDC (PERIDEX ORAL RINSE) MT SCH ×2 (09:42→21:49)
[2020-12-02] MEDS: PANTOPRAZOLE 40MG VIAL (C9113 PER 1) IV SCH (09:42)
[2020-12-02] MEDS: HEPARIN SOD (PORCINE) 5000UNITS/ML 1ML VIAL/SYRINGE SC SCH ×2 (09:42→21:49)
[2020-12-02 10:39] LABS: ABG HCO3 32.1 MEQ/L (22.0-26.0); ABG O2 SATURATION 95.6 % (95.0-99.0); ABG PARTIAL PRESSURE CO2 48.5 mmHg (35.0-45.0); ABG PARTIAL PRESSURE O2 82.9 mmHg (75.0-100.0); ABG STANDARD HCO3 30.8 MEQ/L (22.0-26.0); ABG TOTAL CO2 33.6 MEQ/L (23.0-31.0); ABG pH (ARTERIAL) 7.439 UNITS (7.350-7.450)
--- NOTE | 2020-12-02 10:47 | CCN ---
CRITICAL CARE NOTE DATE: 12/02/2020 START TIME: 0850 STOP TIME: 934 SUBJECTIVE: I again attended Kia Raza here in the Intensive Care Unit. The patient has been examined, chart reviewed. I spoke at length with the nurse at the bedside. Dr. Gruber from our service spoke with her son Tawny yesterday. I spoke with Dr. Dawkins regarding her abdominal issues. OBJECTIVE: VITAL SIGNS: T-max overnight 99, blood pressure 118 to 150 systolic. She has not required vasopressors. Heart rate 80 to 90s with a sinus mechanism. Respiratory rate varies between 13 and 18 without accessory muscle use. Input and output midnight to midnight 2,080 mL in with 1,790 mL out. Her tube feeds did not get restarted. She did have some mucoid bowel movements yesterday. Most recent laboratories show a white blood cell count down to 8.1, hemoglobin 8.7, platelet count of 140,000, 78% segs, no bands. Sodium 142, K 4.2, chloride 102, CO2 32, BUN 26, creatinine down to 0.84. Fasting glucose 102. LDH this morning 409. Albumin 2.3. Blood gas on an SIMV rate of 10, tidal volume 420, PEEP of 5, pressure support 15, FiO2 of 40%. She has a pH of 7.448, pCO2 of 44.4 and a PaO2 of 102.0. Saturation 97%. Chest x-ray shows lines and tubes in good position. Borderline vasculature. Markings at the bases mildly improved. General: On exam she is sedate. HEENT: Pupils although sluggish do react. She has a good cough and a gag. She has positive corneals. Trach is in the midline. Chest: Chest shows diminished but symmetric expansion. There are some opening crackles dependently. There are much less rhonchi today. No other focal adventitious breath sounds are identified. Cardiac: Cardiac exam is distant but regular. Peripheral pulses palpable. No obvious edema. Abdomen: Only minimally distended. There are hypoactive bowel sounds but they are audible, and there is no convincing organomegaly or masses. Extremities: No cyanosis or clubbing. Neurologic: She is sedate. She is minimally responsive to noxious stimuli. She has about 10 to 12 beat myoclonus with foot flexion bilaterally but it does extinguish, right mildly greater than left. She does have upgoing toe on the left, indeterminate on the right. MOST PRESSING PROBLEMS REQUIRING MY PRESENCE AT THE BEDSIDE: 1. Respiratory failure status post cardiac arrest. 2. V-fib arrest. 3. Vomiting with question of gastroenteritis. 4. 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 5. Advanced obstructive lung disease. 6. Longstanding and continued tobacco abuse up until the time of admission. 7. Workup for abnormal x-ray prior to admission. 8. Acute kidney injury, resolved. At this point, we will continue her current medication regimen. Her white count is diminished although she is on less steroids. She has less in the way of secretions. No obvious new findings on her x-ray. We have been able to push her somewhat from a ventilatory standpoint as far as weaning but her mental status presents a problem in that regard. PT/OT have been asked to become involved in her care as well. There is a note from Neurology followup on the , and I await another note from them. We will discuss further with her son Tawny who is the decision maker regarding her care. The question will be regarding what the next step for her is if her mental status does not improve as clearly she would at that point need a trach and PEG if she is not able to be awake enough to protect her airway. In the interim we will try restarting her feeds today. She is on ulcer and DVT prophylaxis. We will gingerly restart her feeds and continue with her cathartics. I will stop her sedation in the form of continuous propofol today unless she is markedly agitated. We will use as needed Versed in the interim. She does get medications for pain. At this point overall, however, she remains quite critically ill, and her prognosis remains guarded at best especially regarding neurologic recovery but given the fact that she has had much less in the way of seizure activity and myoclonus, and the CT scan did not show significant edema, we will proceed as outlined above. I left the bedside at 0935 hours. Forty five minutes of critical care time at the bedside not including procedures.
[2020-12-02] MEDS: VANCOMYCIN HCL 750 MG, VIAL MATE ADAPTER 1 EACH in D5W 250 ML IV SCH (12:03)
[2020-12-02] MEDS: KCL 20MEQ IN D5/0.45NS 1000ML 1,000 ML IV SCH (14:50)
[2020-12-02] MEDS: MORPHINE 2 MG/ML 1ML VIAL (J2270) IV PRN ×2 (20:18→23:17)
[2020-12-02] MEDS: cefTRIAXone SOD 1 GM in D5W MINI-BAG PLUS 50 ML IV SCH (23:31)
[2020-12-03] VITALS (23 sets, daily range): BP systolic 129–174; BP diastolic 58–81
[2020-12-03] MEDS: VANCOMYCIN HCL 750 MG, VIAL MATE ADAPTER 1 EACH in D5W 250 ML IV SCH ×2 (00:17→13:08)
[2020-12-03] MEDS: methylPREDNISolone 40MG 1ML VIAL IV SCH ×3 (00:20→16:26)
[2020-12-03] MEDS: MIDAZOLAM INJ 2MG/2ML VIAL (J2250 PER 1MG) IV PRN ×13 (03:42→21:10)
[2020-12-03] MEDS: METOCLOPRAMIDE INJ 10MG/2ML VIAL (J2765 PER 1) IV SCH ×4 (03:42→21:10)
[2020-12-03] MEDS: IPRATROPIUM 0.5MG/ALBUTEROL 2.5MG INH SOL UD 3ML (DUONEB) NEB SCH ×5 (04:11→20:09)
[2020-12-03] MEDS: MORPHINE 2 MG/ML 1ML VIAL (J2270) IV PRN ×4 (04:38→20:48)
[2020-12-03] MEDS: levETIRAcetam INJection 1,000 MG in D5W 100 ML IV SCH ×2 (04:47→16:26)
[2020-12-03 04:54] LABS: BASO % 0.2 % (0.0-1.0); HEMATOCRIT 27.9 % (36.0-47.0); HEMOGLOBIN 8.9 g/dl (12.0-15.5); LYMPH # 0.3 10^3/uL (1.5-5.0); LYMPH % 3.6 % (24.0-44.0); MEAN CORPUSCULAR HEMOGLOBIN 32.2 pg (27.0-33.0); MEAN CORPUSCULAR HGB CONC 31.9 g/dl (32.0-36.5); MEAN CORPUSCULAR VOLUME 101.1 fl (80.0-96.0); MONO # 0.8 10^3/uL (0.0-0.8); MONO % 8.5 % (0.0-5.0); NEUTROPHILS # 7.5 10^3/uL (1.5-8.5); NEUTROPHILS % 83.7 % (36.0-66.0); PLATELET COUNT, AUTOMATED 155 10^3/uL (150-450); RED BLOOD COUNT 2.76 10^6/uL (4.00-5.40)
[2020-12-03 05:48] LABS: ALT/SGPT 22 U/L (12-78); BILIRUBIN,TOTAL 0.4 MG/DL (0.2-1.0); BLOOD UREA NITROGEN 26 MG/DL (7-18); CALCIUM LEVEL 7.6 MG/DL (8.8-10.2); CARBON DIOXIDE LEVEL 34 MEQ/L (21-32); CHLORIDE LEVEL 103 MEQ/L (98-107); CHOLESTEROL LEVEL 234 MG/DL (< 200); CPK CREATINE PHOSPHOKINASE 43 U/L (26-192); CREATININE FOR GFR 0.86 MG/DL (0.55-1.30); GLOMERULAR FILTRATION RATE > 60.0 (>45); GLUCOSE, FASTING 281 MG/DL (70-100); LDH LACTATE DEHYDROGENASE 418 U/L (84-246); PHOSPHORUS LEVEL 4.7 MG/DL (2.5-4.9); POTASSIUM SERUM 5.5 MEQ/L (3.5-5.1); SODIUM LEVEL 141 MEQ/L (136-145); TOTAL PROTEIN 4.9 GM/DL (6.4-8.2); TRIGLYCERIDES LEVEL 138 MG/DL (<150)
[2020-12-03 06:31] LABS: ABG BASE EXCESS 7.1 (-2.0-2.0); ABG HCO3 32.1 MEQ/L (22.0-26.0); ABG O2 SATURATION 97.2 % (95.0-99.0); ABG PARTIAL PRESSURE CO2 47.8 mmHg (35.0-45.0); ABG PARTIAL PRESSURE O2 111.4 mmHg (75.0-100.0); ABG TOTAL CO2 33.6 MEQ/L (23.0-31.0); ABG pH (ARTERIAL) 7.445 UNITS (7.350-7.450)
[2020-12-03] MEDS: HEPARIN SOD (PORCINE) 5000UNITS/ML 1ML VIAL/SYRINGE SC SCH ×2 (08:01→21:10)
[2020-12-03] MEDS: CHLORHEXIDINE GLUCONATE 0.12 % 15ML UDC (PERIDEX ORAL RINSE) MT SCH ×2 (08:01→21:09)
[2020-12-03] MEDS: PANTOPRAZOLE 40MG VIAL (C9113 PER 1) IV SCH (08:01)
[2020-12-03] MEDS ORDERED: D5W/0.45% SODIUM CHLORIDE 1,000 ML IV SCH (09:15)
[2020-12-03] MEDS: GASTROGRAFIN SOLUTION 30ML PO SCH ×2 (09:35→10:03)
--- NOTE | 2020-12-03 09:41 | CCN ---
CRITICAL CARE NOTE DATE: 12/03/2020 START TIME: 829 STOP TIME: 907 SUBJECTIVE: I again attended Kia Raza here in the Intensive Care Unit. Patient has been examined. Chart reviewed. I spoke at length with the nurse at the bedside. I had a phone conversation with Dr. Dawkins regarding her this morning as well. T-max overnight 99.2. Blood pressure 138 to 160s. Heart rate 70 to 90s with a sinus mechanism. She does overbreathe the ventilator generally with a rate between 16 and 18. I's and O's midnight to midnight 1045 mL with 3305 mL out. Most recent laboratories show a white blood cell count 9.0, hemoglobin 8.9, platelet count 155,000, 83% segs, no bands. Sodium 141, potassium reported as 5.5 this morning, chloride 103, CO2 34, BUN 26, creatinine 0.86, glucose 281. LDH unchanged at 418. Albumin 2.0. Blood gas done on an SIMV of 6, tidal volume 420, PEEP of 5, pressure support of 12, FiO2 of 40% has a pH of 7.445, pCO2 of 47.8, and a pO2 of 111.4. No new chest x-ray this morning. She had significant vomiting again yesterday with intolerance of her tube feeds. OBJECTIVE: On exam, she is receiving only minimal sedation as her propofol was stopped yesterday. Pupils are sluggish but react. She does not follow movement in the room with not quite roving eye movements. Sclera clear, nonicteric. Trachea is in the midline. Chest shows diminished but symmetric expansion. There are some rhonchi. No focal adventitious breath sounds are identified. Cardiac exam generally regular. Peripheral pulses palpable. Edema mainly of the hands. Abdomen only minimally distended. Bowel sounds are hypoactive but no convincing organomegaly or masses are noted. Extremities without cyanosis or clubbing. Neurologically she remains minimally responsive even to noxious stimuli. She does have pupils that work and has a good cough and gag. She clearly overbreathes the ventilator. No new culture results available. MEDICATIONS: Medication list was again reviewed, and she remains on vancomycin and ceftriaxone. She is on p.r.n. Versed and morphine. She remains on Keppra as well as Reglan and nebulized bronchodilators as well as Solu-Medrol at 40 mg IV q.8 hours. MOST PRESSING PROBLEMS REQUIRING MY PRESENCE AT THE BEDSIDE: 1. Respiratory failure status post cardiopulmonary arrest. 2. Anoxic encephalopathy. 3. Nausea and vomiting. 4. Advanced obstructive lung disease. 5. Longstanding tobacco abuse. 6. Recent bronchoscopy for abnormal CT scan, no obvious evidence of malignancy. PLAN: At this point, we will repeat CT of the abdomen and pelvis as well as her head. My concern is that she presented with nausea and vomiting and is yet to tolerate her feeds. There was no obvious mass or clearcut obstruction, but since we have now been able to improve her renal function, I believe it is prudent to give her IV and oral contrast if she is able to tolerate them to better sort this out. I discussed this with Dr. Dawkins who is in agreement. She has had some increased either seizure or myoclonic activity especially of the left upper extremity. Resolves with Versed. She is on Keppra. We will check a level, and I will have Neurology reevaluate her. A discussion was had by Dr. Gruber with her son, Tawny, yesterday and again updated regarding her poor prognosis. I will touch base with him again today after we have the results of the above studies. If she is not able to tolerate enteral nutrition, we may need to start TPN as she clearly needs this addressed. She is on ulcer and DVT prophylaxis. For now, we will continue her antibiotics as the Rocephin was empiric for aspiration and the vancomycin is due to the fact that she did grow MRSA out of her sputum. She does overbreathe the ventilator, and certainly I do not believe she is awake enough to protect her airway so we will need a decision from her health care proxy regarding whether or not they wish to continue full support which would include tracheostomy and PEG. We will await the outcome of the above interventions. In view of her mildly elevated potassium, we will change her IV fluids. Will continue as outlined above, but in view of the fact that we are now at day seven and she has really made no progress regarding her mental status, I am not optimistic for a meaningful recovery, but we will continue now with full support per the family wishes. I left the bedside at 0908 hours. A total of 38 minutes of critical care time at the bedside not including procedures.
[2020-12-03] MEDS ORDERED: ISOVUE-370 76% 100ML VIAL As Ordered ONE (10:44)
--- NOTE | 2020-12-03 11:35 | REP ---
INDICATION: Anoxic encephalopathy COMPARISON: None. TECHNIQUE: Axial noncontrast images from the skull base to the thoracic inlet with coronal reformations. This CT examination was performed using the following dose reduction techniques: Automated exposure control, adjustment of mA and/or kv according to the patient's size, and use of iterative reconstruction technique. FINDINGS: Age-related atrophy and microvascular ischemic changes are appreciated. The ventricles and sulci are symmetric. Leary-white differentiation is relatively well maintained. There is no evidence for acute intracranial hemorrhage, mass/mass effect, pathology or infarction. No extra-axial fluid collection. Calvarium is intact. Paranasal sinuses and mastoid air cells are clear. IMPRESSION: Age related atrophy and microvascular ischemic changes. No intracranial hemorrhage, infarction, obvious acute pathology or mass/mass effect. <Electronically signed by Devon Peña > 12/03/20 [id number]
--- NOTE | 2020-12-03 11:43 | REP ---
INDICATION: CONTINUED VOMITING. COMPARISON: 11/27/2020 TECHNIQUE: Axial contrast-enhanced images from the lung bases to the pubic symphysis using 100 cc Isovue 370 intravenous contrast material. . This CT examination was performed using the following dose reduction techniques: Automated exposure control, adjustment of mA and/or kv according to the patient's size, and the use of iterative reconstruction technique. FINDINGS: Lung bases demonstrate pulmonary vascular congestion, bibasilar atelectasis, small right lower lobe consolidation, and small pleural effusions (right greater than left). Liver, spleen, pancreas, gallbladder, bilateral adrenal glands and kidneys are essentially normal. The enteric system including stomach, small, and large bowel appears relatively normal normal. No evidence for obstruction or acute inflammatory process. Normal terminal ileum identified in the right lower quadrant. Diverticulosis noted without acute diverticulitis. Pelvis demonstrates Villarreal catheter in normal bladder and age-appropriate uterus/adnexa. No ascites. Moderate subcutaneous edema and small amount of gas in the anterior abdominal subcutaneous tissue represent new findings and should be correlated clinically. No drainable collection or abscess. Abdominal aorta and vasculature demonstrate atherosclerotic changes without aneurysm or dissection. Musculoskeletal structures demonstrate degenerative changes. IMPRESSION: 1. Changes the bilateral lung bases as described above. 2. Increased subcutaneous edema and small amounts of gas in the anterior abdominal subcutaneous tissue possibly related to fluid imbalance and injection sites respectively. Correlation required. 3. No further acute abdominopelvic pathology appreciated. Chronic abdominopelvic findings as described above. <Electronically signed by Devon Peña > 12/03/20 [id number]
--- NOTE | 2020-12-03 15:48 | CCN ---
CRITICAL CARE NOTE DATE: 12/03/2020 START TIME: 1340 STOP TIME: 1358 I again attended Kia Luz Marina. I had a very lengthy phone conversation with Tawny, her son who has been the health care proxy/spokesperson. I have updated him as to her status. She is off the propofol and has no purposeful movements. She does not interact. She still has some seizure activity versus myoclonus. I have also spoken with Dr. Carvalho from Neurology who will be around to reevaluate her formally. Given her current status, I discussed with Tawny the poor prognosis and what her wishes may be. He has stated that she would not want prolonged support, and her wish was always to at home with hospice. In view of this, we will institute DNR paperwork per his request. When family has had the ability to visit, they would at this point favor withdrawal of support and comfort care with the hopes of should she be able to survive long enough to get home with hospice, they would prefer that but understand the likelihood that that may not happen. We will proceed in that manner. Orders will be written to that effect. I left the bedside at 1358 hours, an additional 18 minutes of critical care time at the bedside not including procedures.
[2020-12-03] MEDS: HumaLOG INSULIN (NovoLOG) PER UNIT SC SCH (17:42)
[2020-12-03] MEDS ORDERED: AMINO AC/ELECTROLYTE/DEX/CALC 2,000 ML IV SCH (18:00)
[2020-12-03] MEDS ORDERED: FAT EMULSION IV 20% 500 ML IV SCH (18:00)
[2020-12-03] MEDS: cefTRIAXone SOD 1 GM in D5W MINI-BAG PLUS 50 ML IV SCH (22:21)
[2020-12-04] VITALS (15 sets, daily range): BP systolic 128–173; BP diastolic 52–101
[2020-12-04] MEDS: methylPREDNISolone 40MG 1ML VIAL IV SCH ×3 (00:09→16:02)
[2020-12-04] MEDS: VANCOMYCIN HCL 750 MG, VIAL MATE ADAPTER 1 EACH in D5W 250 ML IV SCH ×3 (00:09→12:37)
[2020-12-04] MEDS: MIDAZOLAM INJ 2MG/2ML VIAL (J2250 PER 1MG) IV PRN ×14 (00:10→14:11)
[2020-12-04] MEDS: HumaLOG INSULIN (NovoLOG) PER UNIT SC SCH ×3 (00:10→11:22)
[2020-12-04] MEDS: IPRATROPIUM 0.5MG/ALBUTEROL 2.5MG INH SOL UD 3ML (DUONEB) NEB SCH ×4 (00:16→11:08)
[2020-12-04] MEDS: MORPHINE 2 MG/ML 1ML VIAL (J2270) IV PRN ×6 (00:55→23:42)
[2020-12-04] MEDS: METOCLOPRAMIDE INJ 10MG/2ML VIAL (J2765 PER 1) IV SCH ×4 (03:28→21:06)
[2020-12-04] MEDS: levETIRAcetam INJection 1,000 MG in D5W 100 ML IV SCH ×2 (04:58→17:41)
[2020-12-04 05:21] LABS: BASO % 0.1 % (0.0-1.0); EOS % 0.1 % (0.0-3.0); HEMATOCRIT 27.7 % (36.0-47.0); HEMOGLOBIN 8.8 g/dl (12.0-15.5); LYMPH # 0.3 10^3/uL (1.5-5.0); LYMPH % 2.7 % (24.0-44.0); MEAN CORPUSCULAR HGB CONC 31.8 g/dl (32.0-36.5); MEAN CORPUSCULAR VOLUME 100.7 fl (80.0-96.0); MONO # 0.8 10^3/uL (0.0-0.8); MONO % 7.5 % (0.0-5.0); NEUTROPHILS # 8.8 10^3/uL (1.5-8.5); PLATELET COUNT, AUTOMATED 147 10^3/uL (150-450); RED BLOOD COUNT 2.75 10^6/uL (4.00-5.40); WHITE BLOOD COUNT 10.2 10^3/uL (4.0-10.0)
[2020-12-04 05:51] LABS: ABG BASE EXCESS 5.4 (-2.0-2.0); ABG HCO3 30.3 MEQ/L (22.0-26.0); ABG O2 SATURATION 97.8 % (95.0-99.0); ABG PARTIAL PRESSURE CO2 46.3 mmHg (35.0-45.0); ABG PARTIAL PRESSURE O2 118.5 mmHg (75.0-100.0); ABG STANDARD HCO3 29.4 MEQ/L (22.0-26.0); ABG TOTAL CO2 31.7 MEQ/L (23.0-31.0); ABG pH (ARTERIAL) 7.434 UNITS (7.350-7.450)
[2020-12-04 06:09] LABS: ALBUMIN 1.9 GM/DL (3.2-5.2); ALT/SGPT 19 U/L (12-78); BILIRUBIN,TOTAL 0.3 MG/DL (0.2-1.0); BLOOD UREA NITROGEN 29 MG/DL (7-18); CALCIUM LEVEL 7.7 MG/DL (8.8-10.2); CARBON DIOXIDE LEVEL 34 MEQ/L (21-32); CHLORIDE LEVEL 101 MEQ/L (98-107); CHOLESTEROL LEVEL 239 MG/DL (< 200); CPK CREATINE PHOSPHOKINASE 38 U/L (26-192); CREATININE FOR GFR 0.75 MG/DL (0.55-1.30); GLOMERULAR FILTRATION RATE > 60.0 (>45); GLUCOSE, FASTING 161 MG/DL (70-100); LDH LACTATE DEHYDROGENASE 385 U/L (84-246); PHOSPHORUS LEVEL 4.3 MG/DL (2.5-4.9); SODIUM LEVEL 139 MEQ/L (136-145); TRIGLYCERIDES LEVEL 85 MG/DL (<150)
--- NOTE | 2020-12-04 07:34 | REP ---
INDICATION: Resp Failure COMPARISON: 12/02/2020 TECHNIQUE: Portable AP view of the chest FINDINGS: The nasogastric tube now terminates at the level of the distal esophagus and warrants advancement. Endotracheal tube 3.8 cm above the lily. Left sided central line with tip in the SVC. Cardiac silhouette is relatively stable. Lung das again demonstrate findings suggesting pulmonary vascular congestion/interstitial edema along with basilar atelectasis and small right effusion. IMPRESSION: 1. Nasogastric tube warrants advancement. 2. Findings most compatible with CHF/pulmonary edema as described above and similar to prior examination. <Electronically signed by Devon Peña > 12/04/20 [id number]
[2020-12-04] MEDS: PANTOPRAZOLE 40MG VIAL (C9113 PER 1) IV SCH (09:13)
[2020-12-04] MEDS: CHLORHEXIDINE GLUCONATE 0.12 % 15ML UDC (PERIDEX ORAL RINSE) MT SCH (09:14)
[2020-12-04] MEDS: HEPARIN SOD (PORCINE) 5000UNITS/ML 1ML VIAL/SYRINGE SC SCH (09:14)
--- NOTE | 2020-12-04 09:31 | CCN ---
CRITICAL CARE NOTE DATE: 12/04/2020 CRITICAL CARE TIME: 1 hour 35 minutes, this excludes all procedures. SUBJECTIVE: Kia is a 65-year-old female who suffered V-fib arrest seven days ago, has not had any spontaneous neurologic improvement. She continues to have myoclonic activity without full myoclonic seizures on my exam today. The patient is off sedation, does have PRN Versed which is used occasionally if the myoclonus increases. There has been repeat imaging of the head CT which unfortunately is a limited read. MRI has not been done but the CT scan shows age-related atrophy, microvascular ischemic changes. However, her clinical picture is that of probable anoxic brain injury versus Abimael-Burdick syndrome. Her clinical picture portends to a very poor prognosis. Discussions were had by Dr. Dahl who attended the patient over the past week and as far as I have been told the oldest living child who is the healthcare proxy Tawny. He has made her DNR. He states she would not have wanted prolonged mechanical ventilation. I will speak with him when he comes in today, apparently family is visiting patient and considering withdrawal of care. In any event the patient is overbreathing the vent. Chest x-ray shows some minimal improvement of the right lower lobe infiltrate. The patient had continued issues with vomiting, therefore TPN was started. OBJECTIVE: VITAL SIGNS: Pulse 74, blood pressure 128/58, respiratory rate 12, oxygen saturation 93% on 0.40 FiO2. Temperature 98.2. I's AND O's: 1975 in, 3635 out. GENERAL: The patient not spontaneously opening eyes, overbreathing vent, myoclonus mostly of the right arm, no myoclonus of the other extremities. HEENT: Sclerae clear, non-icteric. Pupils are reactive to light. Mucous membranes are moist without lesions. Oropharynx without erythema or exudate. She does have cough and gag reflex. NECK: Supple, no tracheal deviation or mass. LYMPH: No cervical, supraclavicular, or axillary lymphadenopathy. CARDIAC: Regular S1, S2 without audible murmur, rub or gallop. No elevated JVP. There is peripheral edema, pitting in the lower extremities to the mid calf. Minimal sacral edema. PULMONARY: Decreased breath sounds at the bases, otherwise clear to auscultation without wheezes, rhonchi or rales. No dullness to percussion. ABDOMEN: Obese, soft, nontender, non-distended, no hepatosplenomegaly, no masses or hernia. EXTREMITIES: Pitting edema to the mid tibia. NEUROLOGIC: As mentioned above myoclonus most of the right upper arm, nonsustained, able to easily flex the right arm. With dorsiflexion of the feet there is no continued myoclonus. The patient is not responsive, does not open eyes spontaneously. There have been no purposeful movements. SKIN: No rashes, jaundice or bruising but pale. LABORATORY EVALUATION: White count 10.2, hemoglobin 8.8, hematocrit 27.7, with platelet count of 147. Sodium 139, potassium 4.0, chloride 101, bicarb 34, BUN 28, creatinine 0.75 with arterial blood gas of 7.43, pCO2 46, pO2 119. Glucose 161. Chest x-ray shows some increase in interstitial markings but improved right lower lobe infiltrate. There appears to be hilar enlargement and the endotracheal tube is slightly elevated. No significant ectopy on telemetry overnight other than what is associated with myoclonic movement. ASSESSMENT/PLAN: 1. Status post V-fib arrest with encephalopathy, no significant neurologic recovery over the past 7 days, sedation is being held except for intermittent benzodiazepine for severe myoclonus. 2. Advanced underlying chronic obstructive pulmonary disease, adequately ventilated, no indication to adjust ventilatory settings at this point in time. Blood gas is well compensated. 3. Encephalopathy with possible seizure activity versus myoclonus. Keppra level is pending. At this point in time it does not appear that she is having full body myoclonus. Overall this portends toward a poor prognosis. Family is coming in to see the patient and has been reported to me that their desire is to withdraw care soon. 4. Vomiting. The patient is on Reglan, no vomiting episodes overnight. Is on TPN for nutrition. 5. Anemia, mild in nature, no evidence of acute blood loss. 6. Hyperglycemia, mild in nature, likely steroid-induced, the patient on steroids due to history of COPD as the thought is that she likely had a respiratory illness that led to the V-fib arrest. 7. Severe protein malnourishment: TPN has been added. 8. Leukocytosis, mild in nature, likely secondary to steroid but will continue to monitor for signs of infection. 9. Probable pneumonia, MRSA-positive sputum, likely the inciting event for the V-fib arrest. Discontinue Ceftriaxone, will continue Vancomycin. Overall prognosis is extremely guarded. According to prior documentation family coming in today to consider withdrawal of care. I will have further discussions with family when they arrive.
[2020-12-04] MEDS ORDERED: LORazepam 2 MG/ML VIAL As Ordered ONE ×3 (14:51→21:01)
[2020-12-04] MEDS: LORazepam 2 MG/ML VIAL IV PRN ×4 (14:57→23:42)
--- NOTE | 2020-12-04 15:44 | CCN ---
CRITICAL CARE NOTE DATE: 12/04/2020 Update after family consultation. I spent 25 minutes in consultation with the family. The family has decided to withdraw care. They were given the option of prolonged mechanical intubation, transferring to another facility that can have continuous EEG monitoring; however, the patient's family has decided that after recalling the patient's most likely expressed wishes that she would not want to pursue that and that she would want comfort measures only. They have decided to extubate the patient and provide her with comfort. Ultimately, they would like to take her home and I am not sure if this is possible; it will depend on the next couple of days. In the meantime, we will support her with benzodiazepine and narcotics as needed. I am keeping the Keppra on board because of her seizure like activity. All of the family's questions were answered. Son and daughter in agreement in the decision. Tawny has been identified as the decision maker, but the other daughter is in agreement with the decision to withdraw care. Therefore, the patient will be extubated and then comfort measures initiated.
[2020-12-04] MEDS ORDERED: SCOPOLAMINE 1MG TRANSDERMAL PATCH TOP PRN (16:00)
--- NOTE | 2020-12-04 16:12 | IPNPDOC ---
Text Note Date of Service The patient was seen on 12/04/20. NOTE I discussed patient with Dr. Avila. Patient was transferred to GOVERNMENT MINISTER status. I will transfer patient to [facility] floor. We'll continue treatment according to GOVERNMENT MINISTER protocol Physical findings pertinent for gurgled speech and Jefferson-Sood breathing. VS,Fishbone, I+O VS, Fishbone, I+O Laboratory Tests 12/04/20 05:13 Vital Signs Date Time Temp Pulse Resp B/P (MAP) Pulse Ox O2 Delivery O2 Flow Rate FiO2 12/04/20 14:00 101 22 171/94 (119) 90 Ventilator 40 12/04/20 12:00 97.3 12/04/20 06:00 40.0 I&O- Last 24 Hours up to 6 AM 12/04/20 06:00 Intake Total 2940 ml Output Total 3680 ml Balance -740 ml ADDISON THRASHER DO Dec 04, 2020 16:12
[2020-12-05] MEDS: methylPREDNISolone 40MG 1ML VIAL IV SCH (01:20)
[2020-12-05] MEDS: LORazepam 2 MG/ML VIAL IV PRN ×8 (04:11→23:53)
[2020-12-05] MEDS: METOCLOPRAMIDE INJ 10MG/2ML VIAL (J2765 PER 1) IV SCH ×4 (04:12→22:00)
[2020-12-05] MEDS: MORPHINE 2 MG/ML 1ML VIAL (J2270) IV PRN ×2 (04:12→15:45)
[2020-12-05] MEDS: levETIRAcetam INJection 1,000 MG in D5W 100 ML IV SCH ×2 (04:44→16:35)
[2020-12-05] MEDS ORDERED: LORazepam 2 MG/ML VIAL As Ordered ONE (16:06)
[2020-12-05] MEDS: ATROPINE SULFATE 1% OP SOLN 2 ML BTL SL PRN ×2 (19:18→23:35)
[2020-12-05] MEDS: MORPHINE 4 MG/ML 1ML VIAL/SYRINGE (J2270) IV PRN ×2 (19:26→23:53)
[2020-12-06] MEDS: METOCLOPRAMIDE INJ 10MG/2ML VIAL (J2765 PER 1) IV SCH ×4 (03:31→21:39)
[2020-12-06] MEDS: levETIRAcetam INJection 1,000 MG in D5W 100 ML IV SCH ×2 (04:44→16:27)
[2020-12-06] MEDS: LORazepam 2 MG/ML VIAL IV PRN ×4 (04:45→15:35)
[2020-12-06] MEDS: ATROPINE SULFATE 1% OP SOLN 2 ML BTL SL PRN (05:18)
[2020-12-06] MEDS: MORPHINE 4 MG/ML 1ML VIAL/SYRINGE (J2270) IV PRN ×7 (07:49→21:38)
[2020-12-06] MEDS ORDERED: SODIUM CHLORIDE 0.9% INJ 10 ML SYR IV SCH (18:00)
[2020-12-06] MEDS: SODIUM CHLORIDE 0.9% INJ 10 ML SYR IV PRN ×2 (19:58→21:39)
--- NOTE | 2020-12-06 22:36 | DS.PDOC ---
Discharge Summary General Date of Admission Nov 26, 2020 at 22:34 Date of Discharge 12/06/20 Discharge Summary PROCEDURES PERFORMED DURING STAY: [None]. ADMITTING DIAGNOSES: Status post V-fib arrest with encephalopathy Advanced underlying chronic obstructive pulmonary disease, seizure Vomiting Anemia Hyperglycemia Severe protein malnourishment Leukocytosis pneumonia DISCHARGE DIAGNOSES: Status post V-fib arrest with encephalopathy Advanced underlying chronic obstructive pulmonary disease, seizure Vomiting Anemia Hyperglycemia Severe protein malnourishment Leukocytosis pneumonia COMPLICATIONS/CHIEF COMPLAINT: Card Arrest, Resp Failure. HISTORY OF PRESENT ILLNESS: This is a 65-year-old female with known significant underlying obstructive lung disease. She recently underwent bronchoscopy by Dr. Bazan for a left lower lobe abnormality. This was non-diagnostic. According to EMS and to the ER reports, for several days she has been much more short of breath. She summoned a neighbor. EMS was called. By the time they arrived, the patient was unresponsive. She was in ventricular fibrillation. Shock x1 in asystole. ACLS protocol was ensued with return of spontaneous rhythm and circulation. On arrival to the ER, she was still apneic and was therefore intubated. Since she has been here, she has had reasonable blood pressures; first one 143/87 with a heart rate of 110. Initially was minimally responsive. Currently does have pupils that work. She does, however, breathe with ventilator. Semi purposeful movements. First arterial blood gas showed a pH of 6.813 with a pCO2 of 88.6 and a pO2 of 326.2. White blood cell count 13.5, hemoglobin 12.6, platelet count 180,000, 56% segs, 3% bands, 28% atypical lymphocytes. Tox screen unremarkable. Chest x-ray shows the endotracheal tube to be in good position. There is a question of some infiltrate in the retrocardiac area. Diffuse increased vascular markings. HOSPITAL COURSE: During hospital stay patient received treatment with mechanical ventilation without positive dynamics. Patient developed anoxic brain injury. According to The family wishes patient was transferred to [facility]. Today patient from multiple organ failure DISCHARGE MEDICATIONS: Please see below. ALLERGIES: Please see below. PHYSICAL EXAMINATION ON DISCHARGE: VITAL SIGNS: Please see below. GENERAL: HEENT: NECK: CARDIOVASCULAR EXAMINATION: RESPIRATORY EXAMINATION: ABDOMINAL EXAMINATION: EXTREMITIES: SKIN: NEUROLOGICAL EXAMINATION: PSYCHIATRIC EXAMINATION: LABORATORY DATA: Please see below. IMAGING: PROGNOSIS: ACTIVITY: [As tolerated]. DIET: DISCHARGE PLAN: DISPOSITION: . DISCHARGE INSTRUCTIONS: 1. . ITEMS TO FOLLOWUP ON ON OUTPATIENT: 1. . DISCHARGE CONDITION: [Stable]. TIME SPENT ON DISCHARGE: Greater than minutes. Vital Signs/I&Os Vital Signs Date Time Temp Pulse Resp B/P (MAP) Pulse Ox O2 Delivery O2 Flow Rate FiO2 12/06/20 08:15 2.0 12/04/20 17:00 18 12/04/20 14:00 101 171/94 (119) 90 Ventilator 40 12/04/20 12:00 97.3 I&O- Last 24 Hours up to 6 AM 12/06/20 05:59 Intake Total 110 ml Output Total 1800 ml Balance -1690 ml Microbiology Microbiology 11/27/20 Blood Culture - Final, Complete NO GROWTH AFTER 5 DAYS 11/27/20 Blood Culture - Final, Complete NO GROWTH AFTER 5 DAYS 11/26/20 Gram Stain - Final, Complete 11/26/20 Sputum Culture - Final, Complete Staph.aureus Methicillin Resis 11/26/20 Respiratory Virus Panel (PCR) (JAMIN) - Final, Complete 11/26/20 Blood Culture - Final, Complete NO GROWTH AFTER 5 DAYS 11/26/20 Blood Culture - Final, Complete NO GROWTH AFTER 5 DAYS Discharge Medications Scheduled Aripiprazole (Abilify) 5 Mg Tablet, 5 MG PO DAILY, (Reported) Fluticasone Furoate (Arnuity Ellipta) 200 Mcg Blst.w.dev, 1 PUFF INH DAILY, (Reported) Folic Acid (Folic Acid) 1 Mg Tablet, 1 MG PO DAILY, (Reported) Levofloxacin (Levofloxacin) 750 Mg Tablet, 750 MG PO DAILY, (Reported) FILLED 11/18/20 FOR 10 DAYS Nicotine (Nicotine Patch) 21 Mg Patch.td24, 21 MG TOP DAILY, (Reported) Omeprazole (Omeprazole) 40 Mg Capsule.dr, 40 MG PO DAILY, (Reported) Paroxetine HCl (Paxil) 40 Mg Tablet, 40 MG PO DAILY, (Reported) Thiamine HCl (Vitamin B-1) 100 Mg Tablet, 100 MG PO DAILY, (Reported) Tiotropium Br/Olodaterol HCl (Stiolto Respimat Inhal [employer]) 4 Gm Mist.inhal, 2 PUFFS INH DAILY, (Reported) Scheduled PRN Albuterol Sulf (Albuterol Sulfate) 2.5 Mg/3 Ml Vial.neb, 1 VIAL INH QID PRN for SHORTNESS OF BREATH, (Reported) Albuterol Sulfate (Ventolin Hfa) 18 Gm Hfa.aer.ad, 2 PUFFS INH QID PRN for SHORTNESS OF BREATH, (Reported) Diphenhydramine HCl (Benadryl) 25 Mg Capsule, 25 MG PO QHS PRN for SLEEP, (Reported) Loratadine (Claritin) 10 Mg Capsule, 10 MG PO DAILY PRN for ALLERGIES, (Reported) Allergies Coded Allergies: ENVIROMENTAL (Verified Allergy, Unknown, 11/05/20) ADDISON THRASHER DO Dec 06, 2020 22:36
== END 2020-12-06 22:13 | disposition expired | DRG 196 ==
LOC: M ED 19:16 → M ED INP 22:34 → EEVIPCON 22:34 → M PCU 11-27 00:40 → M ED 11-27 00:40 → M PCU 11-27 00:40 → M MSPAV 12-04 17:11
PROVIDERS: ADMIT Internal Medicine Pulmonary Disease; ATTEND Internal Medicine
PROC: 0BH17EZ Insertion of Endotracheal Airway into Trachea, Via Natural or Artificial Opening (ICD-10-PCS; principal; 2020-11-26)
PROC: 5A1955Z Respiratory Ventilation, Greater than 96 Consecutive Hours (ICD-10-PCS; 2020-11-26)
PROC: 02HV33Z Insertion of Infusion Device into Superior Vena Cava, Percutaneous Approach (ICD-10-PCS; 2020-12-01)
PROC: 3E0436Z Introduction of Nutritional Substance into Central Vein, Percutaneous Approach (ICD-10-PCS; 2020-12-03)
DX: I46.9 Cardiac arrest, cause unspecified (principal); J96.90 Respiratory failure, unspecified, unspecified whether with hypoxia or hypercapnia; E43 Unspecified severe protein-calorie malnutrition; J15.212 Pneumonia due to Methicillin resistant Staphylococcus aureus; G93.1 Anoxic brain damage, not elsewhere classified; N17.9 Acute kidney failure, unspecified; K56.7 Ileus, unspecified; E87.4 Mixed disorder of acid-base balance; J44.9 Chronic obstructive pulmonary disease, unspecified; F11.20 Opioid dependence, uncomplicated; G25.3 Myoclonus; I49.01 Ventricular fibrillation; Z51.5 Encounter for palliative care; Z66 Do not resuscitate; F32.9 Major depressive disorder, single episode, unspecified; K52.9 Noninfective gastroenteritis and colitis, unspecified; F17.200 Nicotine dependence, unspecified, uncomplicated; D64.9 Anemia, unspecified; Z79.899 Other long term (current) drug therapy